=== PATIENT | male | born 1940 | race Caucasian/White ===

== ENCOUNTER 2017-01-27 13:31 | Inpatient (IN) | payer MEDICARE, MEDICAID ==
[~2017-01-27] VITALS: Ht 170.2 cm; Wt 77.1 kg
[2017-01-27 13:50] VITALS: BP 145/76
--- NOTE | 2017-01-27 14:18 | Emergency Room Report ---
History of Present Illness General Chief Complaint: Eye Problems Present Illness HPI 76 YO Male presents to the ED c/o erythema, lacrimation and d/c in bilateral eyes x 3 with drooling and previous difficulty with swallowing. Pt. shakes his head and denies changes in his vision. reports discharge, and itching. reports pain. HPI and ROS limited due to pt. being non-verbal and can only answer yes and no questions for the most part. current medications list: xarelto, omeprazole, colace, dulcolax, magnesium hydroxide, seroquel, and pravastatin. pt. also reports for G-Tube removal. Allergies: Coded Allergies: No Known Allergies (Unverified , 01/27/17) Patient History Past Medical History: see triage record Past Surgical History: none Pertinent Family History: none Reviewed Nursing Documentation: PMH: Agreed, PSxH: Agreed Nursing Documentation-PMH Past Medical History: Deferred Review of Systems All Other Systems: limited - limited due to pt. ability to varbally communicate Physical Exam Vital Signs Date Time Temp Pulse Resp B/P Pulse Ox O2 Delivery O2 Flow Rate FiO2 01/27/17 13:38 97.5 61 20 114/73 95 Room Air Sp02 EP Interpretation: reviewed, normal General Appearance: no apparent distress, alert, GCS 15, non-toxic, Chronically Ill Head: normocephalic, atraumatic Eyes: left eye abnormal pupil - only reactive to consentual light, left eye other - notable discharge in the left eye. , bilateral eye normal inspection, bilateral eye PERRL ENT: hearing grossly normal, other - Pt. is drooling and has dysphagia Neck: full range of motion, supple/symm/no masses Respiratory: rhonchi Cardiovascular #1: regular rate, rhythm, no edema Gastrointestinal: normal bowel sounds, non tender, soft, no guarding, no rebound Rectal: deferred Musculoskeletal: back normal, gait/station normal, normal range of motion, non- tender, no calf tenderness Neurologic: alert, oriented x3, responsive, motor strength/tone normal, sensory intact, aphasia, abnormal gait - shuffling gait, grossly normal Psychiatric: judgement/insight normal, memory normal, mood/affect normal, no suicidal/homicidal ideation Skin: normal color, no rash, warm/dry, well hydrated Medical Decision Making PA Attestation Dr. Yi is my supervising Physician whom patient management has been discussed with. Diagnostic Impression: Primary Impression: Conjunctivitis Qualified Codes: H10.31 - Unspecified acute conjunctivitis, right eye Additional Impressions: COPD exacerbation Afferent pupillary defect of left eye ER Course 76 YO Male presents to the ED c/o erythema, lacrimation and d/c in bilateral eyes x 3 with drooling and previous difficulty with swallowing. Pt. shakes his head and denies changes in his vision. reports discharge, and itching. reports pain. HPI and ROS limited due to pt. being non-verbal and can only answer yes and no questions for the most part. current medications list: xarelto, omeprazole, colace, dulcolax, magnesium hydroxide, seroquel, and pravastatin. pt. also reports for G-Tube removal. Ddx considered but are not limited to conjunctivitis, COPD exacerbation, sepsis just to name a few. Vital signs: are WNL, pt. is afebrile, pulse ox 95% with wheezes. H&PE are most consistent with COPD exacerbation and conjunctivitis. ORDERS: -CXR 1 view: bilateral interstitial lung disease, clear pleural spaces, hear size is normal. per official radiology report. -CBC, CMP, lactic acid, Ck-MB, tronpnin: all WNL, other than mild elevated glucose. - UA: WNL no evidence of infeciton. ED INTERVENTIONS: -Albuterol Nebulizer DISPOSITION: at this time pt. will be admitted to Dr. Swenson for COPD exacerbation, and ophthalmology referral. Dr. Swenson agreed to admit the pt. and to continue pt. care management. Labs Test 01/27/17 16:00 01/27/17 16:20 White Blood Count 8.6 K/UL (4.8-10.8) Red Blood Count 5.08 M/UL (4.70-6.10) Hemoglobin 16.3 G/DL (14.2-18.0) Hematocrit 49.8 % (42.0-52.0) Mean Corpuscular Volume 98 FL (80-99) Mean Corpuscular Hemoglobin 32.0 PG (27.0-31.0) Mean Corpuscular Hemoglobin Concent 32.7 G/DL (32.0-36.0) Red Cell Distribution Width 12.9 % (11.6-14.8) Platelet Count 160 K/UL (150-450) Mean Platelet Volume 10.8 FL (6.5-10.1) Neutrophils (%) (Auto) 68.1 % (45.0-75.0) Lymphocytes (%) (Auto) 15.0 % (20.0-45.0) Monocytes (%) (Auto) 10.6 % (1.0-10.0) Eosinophils (%) (Auto) 4.5 % (0.0-3.0) Basophils (%) (Auto) 1.8 % (0.0-2.0) Sodium Level 139 mEQ/L (135-145) Potassium Level 4.7 mEQ/L (3.4-4.9) Chloride Level 102 mEQ/L (98-107) Carbon Dioxide Level 29 mEQ/L (20-30) Anion Gap 8 (5-15) Blood Urea Nitrogen 18 mg/dL (7-23) Creatinine 1.1 mg/dL (0.7-1.2) Estimat Glomerular Filtration Rate mL/min (>60) Glucose Level 153 mg/dL (74-106) Lactic Acid Level 1.90 mmol/L (0.66-2.22) Calcium Level 11.0 mg/dL (8.6-10.2) Total Bilirubin 0.5 mg/dL (0.0-1.2) Aspartate Amino Transf (AST/SGOT) 19 U/L (5-40) Alanine Aminotransferase (ALT/SGPT) 11 U/L (3-41) Alkaline Phosphatase 157 U/L (40-129) Total Creatine Kinase 92 U/L (38-174) Creatine Kinase MB 4.4 ng/mL (< 6.7) Creatine Kinase MB Relative Index 4.7 Troponin I < 0.30 ng/mL (<=0.30) Total Protein 8.3 g/dL (6.6-8.7) Albumin 4.1 g/dL (3.5-5.2) Globulin 4.2 g/dL Albumin/Globulin Ratio 0.9 (1.0-2.7) Urine Color Pale yellow Urine Appearance Clear Urine pH 6 (4.5-8.0) Urine Specific [place] 1.015 (1.005-1.035) Urine Protein Negative (NEGATIVE) Urine Glucose (UA) Negative (NEGATIVE) Urine Ketones Negative (NEGATIVE) Urine Occult Blood Negative (NEGATIVE) Urine Nitrite Negative (NEGATIVE) Urine Bilirubin Negative (NEGATIVE) Urine Urobilinogen Normal MG/DL (0.0-1.0) Urine Leukocyte Esterase 1+ (NEGATIVE) Urine RBC 0-2 /HPF (0 - 0) Urine WBC 0-2 /HPF (0 - 0) Urine Squamous Epithelial Cells None /LPF (NONE/OCC) Urine Bacteria Occasional /HPF (NONE) Last Vital Signs Date Time Temp Pulse Resp B/P Pulse Ox O2 Delivery O2 Flow Rate FiO2 01/27/17 13:38 97.5 61 20 114/73 95 Room Air Disposition: ADMITTED INPATIENT Condition: Serious Patient Instructions: Bacterial Conjunctivitis, [id number] Ani Tovar Jan 27, 2017 14:18
[2017-01-27] MEDS ORDERED: DuoNeb 0.5-3(2.5)mg/3ml neb HHN ONE (15:15)
[2017-01-27 16:48] LABS: BASOPHILS % (AUTO) 1.8 % (0.0-2.0); EOSINOPHILS % (AUTO) 4.5 % (0.0-3.0); MEAN CORPUSCULAR HGB CONC 32.7 G/DL (32.0-36.0); MEAN CORPUSCULAR VOLUME 98 FL (80-99); MEAN PLATELET VOLUME 10.8 FL (6.5-10.1); MONOCYTES % (AUTO) 10.6 % (1.0-10.0); NEUTROPHILS % (AUTO) 68.1 % (45.0-75.0); PLATELET COUNT 160 K/UL (150-450); RED BLOOD COUNT 5.08 M/UL (4.70-6.10); RED CELL DISTRIBUTION WIDTH 12.9 % (11.6-14.8); WHITE BLOOD COUNT 8.6 K/UL (4.8-10.8)
[2017-01-27 17:06] LABS: TROPONIN I < 0.30 ng/mL (<=0.30)
[2017-01-27 17:07] LABS: APPEARANCE,URINE CLEAR; KETONES,URINE NEGATIVE (NEGATIVE); LEUKOCYTE ESTERASE ,URINE 1+ (NEGATIVE); NITRITE,URINE NEGATIVE (NEGATIVE); PH,URINE 6 (4.5-8.0); PROTEIN,URINE NEGATIVE (NEGATIVE); UROBILINOGEN,URINE NORMAL MG/DL (0.0-1.0)
[2017-01-27 17:07] LABS: ALANINE AMINOTRANSFERASE 11 U/L (3-41); ALBUMIN/GLOBULIN RATIO 0.9 (1.0-2.7); ANION GAP 8 (5-15); ASPARTATE AMINO TRANSFERASE 19 U/L (5-40); CARBON DIOXIDE 29 mEQ/L (20-30); CHLORIDE 102 mEQ/L (98-107); CREATININE 1.1 mg/dL (0.7-1.2); HEMOLYSIS 7; POTASSIUM 4.7 mEQ/L (3.4-4.9); SODIUM 139 mEQ/L (135-145); TOTAL PROTEIN 8.3 g/dL (6.6-8.7)
[2017-01-27 17:17] LABS: CKMB 4.4 ng/mL (< 6.7)
[2017-01-27 17:21] LABS: BACTERIA,URINE OCCASIONAL /HPF; RBC,URINE 0-2 /HPF (0 - 0); WBC,URINE 0-2 /HPF (0 - 0)
--- NOTE | 2017-01-27 17:26 | Infectious Diseases Prog Note ---
Assessment/Plan Problems: (1) Conjunctivitis Assessment & Plan: suspect allergic conjunctivitis, will start antihistamines, and screen for herpes and zoster (2) Pharyngitis Assessment & Plan: with no evidence of exudates, suspect allergic, VS viral , will screen for influnza, herpes and zoster , start antihistamines Subjective Allergies: Coded Allergies: No Known Allergies (Unverified , 01/27/17) Objective Vital Signs Last 24 Hour Vital Signs Date Time Temp Pulse Resp B/P Pulse Ox O2 Delivery O2 Flow Rate FiO2 01/27/17 15:52 66 20 95 Room Air 21 01/27/17 15:51 52 20 Room Air 21 01/27/17 15:42 52 20 95 Room Air 21 01/27/17 13:38 97.5 61 20 114/73 95 Room Air Height (Feet): 5 Height (Inches): 7.00 Weight (Pounds): 170 Laboratory Tests Test 01/27/17 16:00 01/27/17 16:20 White Blood Count 8.6 K/UL (4.8-10.8) Red Blood Count 5.08 M/UL (4.70-6.10) Hemoglobin 16.3 G/DL (14.2-18.0) Hematocrit 49.8 % (42.0-52.0) Mean Corpuscular Volume 98 FL (80-99) Mean Corpuscular Hemoglobin 32.0 PG (27.0-31.0) H Mean Corpuscular Hemoglobin Concent 32.7 G/DL (32.0-36.0) Red Cell Distribution Width 12.9 % (11.6-14.8) Platelet Count 160 K/UL (150-450) Mean Platelet Volume 10.8 FL (6.5-10.1) H Neutrophils (%) (Auto) 68.1 % (45.0-75.0) Lymphocytes (%) (Auto) 15.0 % (20.0-45.0) L Monocytes (%) (Auto) 10.6 % (1.0-10.0) H Eosinophils (%) (Auto) 4.5 % (0.0-3.0) H Basophils (%) (Auto) 1.8 % (0.0-2.0) Sodium Level 139 mEQ/L (135-145) Potassium Level 4.7 mEQ/L (3.4-4.9) Chloride Level 102 mEQ/L (98-107) Carbon Dioxide Level 29 mEQ/L (20-30) Anion Gap 8 (5-15) Blood Urea Nitrogen 18 mg/dL (7-23) Creatinine 1.1 mg/dL (0.7-1.2) Estimat Glomerular Filtration Rate mL/min (>60) Glucose Level 153 mg/dL (74-106) H Lactic Acid Level 1.90 mmol/L (0.66-2.22) Calcium Level 11.0 mg/dL (8.6-10.2) H Total Bilirubin 0.5 mg/dL (0.0-1.2) Aspartate Amino Transf (AST/SGOT) 19 U/L (5-40) Alanine Aminotransferase (ALT/SGPT) 11 U/L (3-41) Alkaline Phosphatase 157 U/L (40-129) H Total Creatine Kinase 92 U/L (38-174) Creatine Kinase MB 4.4 ng/mL (< 6.7) Creatine Kinase MB Relative Index 4.7 Troponin I < 0.30 ng/mL (<=0.30) Total Protein 8.3 g/dL (6.6-8.7) Albumin 4.1 g/dL (3.5-5.2) Globulin 4.2 g/dL Albumin/Globulin Ratio 0.9 (1.0-2.7) L Urine Color Pale yellow Urine Appearance Clear Urine pH 6 (4.5-8.0) Urine Specific [place] 1.015 (1.005-1.035) Urine Protein Negative (NEGATIVE) Urine Glucose (UA) Negative (NEGATIVE) Urine Ketones Negative (NEGATIVE) Urine Occult Blood Negative (NEGATIVE) Urine Nitrite Negative (NEGATIVE) Urine Bilirubin Negative (NEGATIVE) Urine Urobilinogen Normal MG/DL (0.0-1.0) Urine Leukocyte Esterase 1+ (NEGATIVE) H Urine RBC 0-2 /HPF (0 - 0) H Urine WBC 0-2 /HPF (0 - 0) Urine Squamous Epithelial Cells None /LPF (NONE/OCC) Urine Bacteria Occasional /HPF (NONE) Brenton Bustillo M.D. Jan 27, 2017 17:26
[2017-01-27] MEDS ORDERED: DiphenhydrAMINE 50mg/ml Inj IVP PRN (17:30)
--- NOTE | 2017-01-27 17:41 | Consultation ---
Consult Note Consult Note Ophthalmology Emergency Room Consultation Referring Physician: Han Swenson Reason for Consultation: conjunctivitis History of the present illness: The patient is a 76-year-old man sent to the [place] ER due to conjunctivitis as well as management of his gastrostomy tube. He is non-verbal but responds to questions. He admits that his right eye has been bothering him but it is unclear for how long. He does affirm that the vision in the left eye has been poor and this has been longstanding. Past medical Hx: cataract surgery g-tube unable to obtain hx from patient Medications: acetaminophen bisacodyl colace milk of magnesia omeprazole pravastatin seroquel xarelto Allergies: NKDA Family History: unknown Social History: live in intermediate denies tobacco use Review of Systems: unable to obtain Examination: Mini-mental status examination revealed the patient to be awake and alert but non-verbal. He is able to respond to questions by nodding his head Visual Acuity: OD: at least counting fingers, pt points to 20/200 line an nods that he can see it OS: ?hand motions Intraocular pressure (schiotz): OD: 21 mmHg OS: 17 mmHg Pupils: OD normally reactive, OS sluggish, No APD Extra-ocular motility: full OU Confrontational visual jacobs: unable Anterior Segments: External: mild edema of lid margin, mild mucous discharge Conjunctivae: 1+ conjunctival injection OU Cornea: Clear OD, Mild stromal haze OS Anterior Chambers: Deep and Quiet OU Irides: Round and flat OU Lenses: PCIOL OD, dislocated IOL OS Dilated Fundus Examination (phenylephrine 2.5%, tropicamide 1%): Vitreous: Clear OU Optic Nerves: Sharp OU, appears cupped OS Vessels: Normal course and caliber OU Maculae: Flat OD, diffuse atrophy OS Periphery: normal OD, extensive atrophy OS . Assessment/Plan Impression: 1. blepharitis, OU 2. 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 Langston has mild conjunctivitis OU which appears to be secondary to blepharitis. This will likely improve with conservative measures including frequent artificial tears to the eyes and hot compresses to the eyelids. He also has severe vision loss in the left eye which is likely longstanding. There is extensive retinal and optic nerve atrophy as well as a dislocated intraocular lens implant in the left eye. He should have outpatient Ophthalmology follow up regarding these chronic issues. Please call with any questions. Thank you very much for this consultation Oli Rutherford M.D. [phone] OLI RUTHERFORD Jan 27, 2017 17:41
[2017-01-27] MEDS: Ketotifen Fumarate 0.035% 5ml BOTH EYES SCH (18:00)
[2017-01-27] MEDS ORDERED: ACETAMINOPHEN120 MG RECTAL (18:28)
[2017-01-27] MEDS ORDERED: XARELTO20 MG GT (18:28)
[2017-01-27] MEDS ORDERED: PRAVASTATIN SOD20 M1 GT (18:28)
[2017-01-27] MEDS ORDERED: SEROQUEL50 MG GT (18:28)
[2017-01-27] MEDS ORDERED: FLEET ENEMA133 ML RECTAL (18:28)
[2017-01-27] MEDS ORDERED: OMEPRAZOLE20 M2 GT (18:28)
[2017-01-27] MEDS ORDERED: COLACE100 MG GT (18:28)
[2017-01-27] MEDS ORDERED: BISACODYL5 MG RECTAL (18:28)
[2017-01-27] MEDS ORDERED: MILK OF MA400 MG/51 GT (18:28)
[2017-01-27 18:54] VITALS: BP 143/75
[2017-01-27] MEDS ORDERED: LORazepam Inj 2mg/ml 1ml IV PRN (19:45)
[2017-01-27 20:30] VITALS: BP 135/89
[2017-01-27] MEDS ORDERED: Heparin 5000 units/ml inj SUBQ SCH (21:00)
[2017-01-27] MEDS: D5 1/2NS 1,000 ML IV SCH (21:21)
[2017-01-27] MEDS: cefTRIAXone 1 GM in NS 55 ML IVPB SCH (21:22)
--- NOTE | 2017-01-27 21:45 | Consultation ---
DATE OF CONSULTATION: INFECTIOUS DISEASE CONSULTATION CONSULTING PHYSICIAN: Brenton Bustillo M.D. REQUESTING PHYSICIAN: Han Swenson D.O. REASON FOR CONSULTATION: Right red dye and congested throat, recommendation for antibiotics treatment. HISTORY OF PRESENT ILLNESS: The patient is a 76-year-old male with unknown past medical history, presented to [facility] with right eye redness and congested throat and tenderness. The patient is nonverbal, poor historian, and history was mainly obtained from the medical record and nursing staff. The patient was found to have red congested conjunctiva mainly on the right side with congested throat. There was suspicion of bacterial conjunctivitis, but there is no evidence of pus or significant discharge from the right eye to explain at. The patient himself could not provide history at this moment. So, I was consulted by the primary provider for possible infectious etiology of his conjunctivitis and sore throat and for antibiotics management. REVIEW OF SYSTEMS: Unable to obtain. The patient is a poor historian. PAST MEDICAL HISTORY: Unknown at this moment. PAST SURGICAL HISTORY: Unable to obtain. ALLERGIES: He has no known drug allergy. MEDICATIONS: He received albuterol and ipratropium DuoNeb neb treatment in the emergency room. SOCIAL HISTORY: Unclear where he lives probably at the snf facility. FAMILY HISTORY: Unable to obtain. PHYSICAL EXAMINATION: VITAL SIGNS: Temperature 97.5, pulse 61, respirations 20, blood pressure 114/73, and saturation 95% on room air. GENERAL: Elderly male, aphasic, up in bed with right red congested eye, not in acute distress. HEENT: Normocephalic and atraumatic. Pupils are reactive to light both equally. Right congested. Sclera with clear discharge from the right eye. Congested throat with redness, no exudate, no tonsillar enlargement or pseudomembranes. Poor dental hygiene. NECK: Supple. No lymphadenopathy. CARDIOVASCULAR: Regular rate and rhythm. No murmur or gallop. LUNGS: Clear bilaterally. No wheezing or rhonchi. ABDOMEN: Soft, nontender, and nondistended. Positive bowel sounds. No hepatosplenomegaly. EXTREMITIES: No edema or cyanosis. LABORATORY DATA: Labs showed white count of 8.6, hemoglobin of 16.3. BUN of 18, creatinine of 1.1. Urinalysis showed +1 leukocyte esterase and WBC 0 to 2. ASSESSMENT AND RECOMMENDATION: 1. Acute conjunctivitis. Suspect viral versus allergic with clear secretions. We will start the patient on antihistamine empirically and screening for herpes and zoster. 2. Pharyngitis with no evidence of exudate or pseudomembranous, suspect allergic versus viral. We will screen for influenza, herpes, and zoster. Start antihistamine empirically with intravenous ceftriaxone. Brenton Bustillo M.D. DR: EDISON JOB#: [id number] CC:
--- NOTE | 2017-01-27 23:30 | History and Physical Report ---
DATE OF ADMISSION: 01/27/2017 TIME SEEN: 4 p.m. CONSULTANTS: 1. Fco León M.D. 2. Randall Torres M.D. 3. CHIEF COMPLAINT: Conjunctivitis, shortness of breath, and G-tube removal. BRIEF HISTORY: The patient is a 76-year-old male from [facility] presents with above-mentioned diagnosis. One day, increased redness in the eye, slight short of breath, diagnosed with the above, being admitted shortly. Currently, calm in ER [facility], slightly short of breath. No complaint. PAST MEDICAL HISTORY: Include failure to thrive, shortness of breath. PAST SURGICAL HISTORY: G-tube. MEDICATIONS: Albuterol. We will obtain home medications list shortly. ALLERGIES: Denies. SOCIAL HISTORY: No smoking. No alcohol. No intravenous drug abuse. FAMILY HISTORY: Noncontributory. REVIEW OF SYSTEMS: No chest pain. Slight short of breath. No nausea, vomiting, or diarrhea. PHYSICAL EXAMINATION: GENERAL: Calm in bed, oriented x2, in no acute distress. VITAL SIGNS: Temperature 97 degrees, pulse 69, respirations 20, and blood pressure 114/73. CARDIOVASCULAR: No murmur. LUNGS: Distant and poor exchange. ABDOMEN: Positive bowel sounds. Soft, nontender, and nondistended. EXTREMITIES: No cyanosis, clubbing, or edema. NEUROLOGIC: The patient moves all extremities, slightly weak. LABORATORY DATA: Pending. ASSESSMENT: 1. Shortness of breath. 2. Conjunctivitis. 3. Failure to thrive history with possible gastrostomy tube removal. PLAN: 1. Continue premedications. 2. OT, PT and dietary evaluation. 3. CBC and BMP in the morning. 4. Resume home medications. 5. O2 and pulmonary treatment as needed. 6. Antibiotics per Infectious Diseases. Dr. León, Dr. Brian Dr. to consult. I will continue to follow this patient. Han Swenson D.O. DR: Evelia JOB#: [id number] CC:
[2017-01-28] VITALS: BP 133/75
[2017-01-28 04:00] VITALS: BP 140/67
[2017-01-28 07:28] LABS: BASOPHILS % (AUTO) 1.4 % (0.0-2.0); EOSINOPHILS % (AUTO) 6.3 % (0.0-3.0); LYMPHOCYTES % (AUTO) 14.4 % (20.0-45.0); MEAN CORPUSCULAR HEMOGLOBIN 31.4 PG (27.0-31.0); MEAN CORPUSCULAR HGB CONC 32.7 G/DL (32.0-36.0); MEAN CORPUSCULAR VOLUME 96 FL (80-99); MEAN PLATELET VOLUME 10.7 FL (6.5-10.1); MONOCYTES % (AUTO) 14.2 % (1.0-10.0); NEUTROPHILS % (AUTO) 63.6 % (45.0-75.0); PLATELET COUNT 175 K/UL (150-450); RED BLOOD COUNT 4.74 M/UL (4.70-6.10); RED CELL DISTRIBUTION WIDTH 12.5 % (11.6-14.8); WHITE BLOOD COUNT 7.6 K/UL (4.8-10.8)
[2017-01-28 07:56] LABS: ALANINE AMINOTRANSFERASE 9 U/L (3-41); ALBUMIN/GLOBULIN RATIO 0.8 (1.0-2.7); ANION GAP 9 (5-15); ASPARTATE AMINO TRANSFERASE 20 U/L (5-40); CARBON DIOXIDE 27 mEQ/L (20-30); CHLORIDE 103 mEQ/L (98-107); HEMOLYSIS 6; POTASSIUM 4.1 mEQ/L (3.4-4.9); SODIUM 139 mEQ/L (135-145); TOTAL PROTEIN 7.6 g/dL (6.6-8.7)
[2017-01-28 08:00] VITALS: BP 135/80
[2017-01-28] MEDS: Ketotifen Fumarate 0.035% 5ml BOTH EYES SCH ×3 (09:03→18:28)
[2017-01-28 12:00] VITALS: BP 143/82
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
[2017-01-28] MEDS: Hydrocortisone 1% Oint 30gm TOPIC PRN (13:41)
[2017-01-28] MEDS ORDERED: DiphenhydrAMINE 50mg/ml Inj IVP PRN (15:00)
--- NOTE | 2017-01-28 15:19 | General Progress Note ---
Assessment/Plan Problem List: (1) Pharyngitis ICD Codes: J02.9 - Acute pharyngitis, unspecified SNOMED: 750756374 (2) Conjunctivitis ICD Codes: H10.9 - Unspecified conjunctivitis SNOMED: 3815648 Qualifiers: Qualified Codes: H10.31 - Unspecified acute conjunctivitis, right eye (3) COPD exacerbation ICD Codes: J44.1 - Chronic obstructive pulmonary disease with (acute) exacerbation SNOMED: 470362876, 251040772 (4) Afferent pupillary defect of left eye ICD Codes: H21.562 - Pupillary abnormality, left eye SNOMED: 389405490 Status: stable, progressing, tolerating diet Assessment/Plan ot pt diet possible gtube removal cbc bmp am Subjective Constitutional: Reports: weakness Allergies: Coded Allergies: No Known Allergies (Unverified , 01/27/17) All Systems: reviewed and negative except above Subjective weak calm Objective Last 24 Hour Vital Signs Date Time Temp Pulse Resp B/P Pulse Ox O2 Delivery O2 Flow Rate FiO2 01/28/17 12:00 97.3 58 20 143/82 95 Room Air 01/28/17 08:00 97.5 53 20 135/80 96 Room Air 01/28/17 04:00 97.2 52 20 140/67 94 Room Air 01/28/17 00:00 97.1 20 133/75 95 Room Air 01/27/17 20:30 98.9 89 20 135/89 100 Room Air 01/27/17 20:30 89 20 135/89 100 Room Air 01/27/17 18:54 97.7 53 16 143/75 Room Air 01/27/17 15:52 66 20 95 Room Air 21 01/27/17 15:51 52 20 Room Air 21 01/27/17 15:42 52 20 95 Room Air 21 Intake and Output 01/27/17 01/28/17 19:00 07:00 Intake Total 0 ml 785 ml Output Total 300 ml Balance 0 ml 485 ml Intake Oral 0 ml Free Water 100 ml IV Total 505 ml Tube Feeding 180 ml Output Urine Total 300 ml # Voids 1 Laboratory Tests 01/27/17 16:00: White Blood Count 8.6, Red Blood Count 5.08, Hemoglobin 16.3, Hematocrit 49.8, Mean Corpuscular Volume 98, Mean Corpuscular Hemoglobin 32.0H, Mean Corpuscular Hemoglobin Concent 32.7, Red Cell Distribution Width 12.9, Platelet Count 160, Mean Platelet Volume 10.8H, Neutrophils (%) (Auto) 68.1, Lymphocytes (%) (Auto) 15.0L, Monocytes (%) (Auto) 10.6H, Eosinophils (%) (Auto) 4.5H, Basophils (%) ( Auto) 1.8, Sodium Level 139, Potassium Level 4.7, Chloride Level 102, Carbon Dioxide Level 29, Anion Gap 8, Blood Urea Nitrogen 18, Creatinine 1.1, Estimat Glomerular Filtration Rate , Glucose Level 153H, Lactic Acid Level 1.90, Calcium Level 11.0H, Total Bilirubin 0.5, Aspartate Amino Transf (AST/SGOT) 19, Alanine Aminotransferase (ALT/SGPT) 11, Alkaline Phosphatase 157H, Total Creatine Kinase 92, Creatine Kinase MB 4.4, Creatine Kinase MB Relative Index 4.7, Troponin I < 0.30, Total Protein 8.3, Albumin 4.1, Globulin 4.2, Albumin/ Globulin Ratio 0.9L 01/27/17 16:20: Urine Color Pale yellow, Urine Appearance Clear, Urine pH 6, Urine Specific [place] 1.015, Urine Protein Negative, Urine Glucose (UA) Negative, Urine Ketones Negative, Urine Occult Blood Negative, Urine Nitrite Negative, Urine Bilirubin Negative, Urine Urobilinogen Normal, Urine Leukocyte Esterase 1+H, Urine RBC 0-2H, Urine WBC 0-2, Urine Squamous Epithelial Cells None, Urine Bacteria Occasional 01/28/17 05:45: White Blood Count 7.6, Red Blood Count 4.74, Hemoglobin 14.9, Hematocrit 45.5, Mean Corpuscular Volume 96, Mean Corpuscular Hemoglobin 31.4H, Mean Corpuscular Hemoglobin Concent 32.7, Red Cell Distribution Width 12.5, Platelet Count 175, Mean Platelet Volume 10.7H, Neutrophils (%) (Auto) 63.6, Lymphocytes (%) (Auto) 14.4L, Monocytes (%) (Auto) 14.2H, Eosinophils (%) (Auto) 6.3H, Basophils (%) ( Auto) 1.4, Sodium Level 139, Potassium Level 4.1, Chloride Level 103, Carbon Dioxide Level 27, Anion Gap 9, Blood Urea Nitrogen 16, Creatinine 1.0, Estimat Glomerular Filtration Rate , Glucose Level 123H, Calcium Level 9.0, Total Bilirubin 0.5, Aspartate Amino Transf (AST/SGOT) 20, Alanine Aminotransferase ( ALT/SGPT) 9, Alkaline Phosphatase 130H, Total Protein 7.6, Albumin 3.4L, Globulin 4.2, Albumin/Globulin Ratio 0.8L Height (Feet): 5 Height (Inches): 7.00 Weight (Pounds): 170 General Appearance: lethargic, confused EENT: normal ENT inspection Neck: normal alignment Cardiovascular: normal peripheral pulses, normal rate, regular rhythm Respiratory/Chest: chest wall non-tender, lungs clear, normal breath sounds Abdomen: normal bowel sounds, non tender, soft Extremities: normal inspection Edema: no edema noted Arm (L), no edema noted Arm (R), no edema noted Leg (L), no edema noted Leg (R), no edema noted Pedal (L), no edema noted Pedal (R), no edema noted Generalized Neurologic: motor weakness Skin: normal pigmentation, warm/dry BORIS ABEL Jan 28, 2017 15:19
[2017-01-28] MEDS: Xarelto 10mg tab ORAL SCH (15:37)
[2017-01-28 16:00] VITALS: BP 144/80
[2017-01-28] MEDS: D5 1/2NS 1,000 ML IV SCH (16:39)
--- NOTE | 2017-01-28 16:39 | Infectious Diseases Prog Note ---
Assessment/Plan Problems: (1) Conjunctivitis Assessment & Plan: suspect allergic conjunctivitis, will start antihistamines, and screen for herpes and zoster (2) Pharyngitis Assessment & Plan: with no evidence of exudates, suspect allergic, VS viral , will screen for influnza, herpes and zoster , start antihistamines (3) Itching with irritation Assessment & Plan: rule out scabies, will give once course of Elimite empirically , continue antihistamines Subjective Constitutional: Reports: no symptoms HEENT: Reports: congestion Respiratory: Reports: no symptoms Breasts: Reports: no symptoms Cardiovascular: Reports: no symptoms Gastrointestinal/Abdominal: Reports: no symptoms Genitourinary: Reports: no symptoms Neurologic: Reports: no symptoms Psychiatric: Reports: no symptoms Skin: Reports: other - itching Endocrine: Reports: no symptoms Hematologic: Reports: no symptoms Allergies: Coded Allergies: No Known Allergies (Unverified , 01/27/17) Objective Vital Signs Last 24 Hour Vital Signs Date Time Temp Pulse Resp B/P Pulse Ox O2 Delivery O2 Flow Rate FiO2 01/28/17 16:00 98.2 58 20 144/80 93 Room Air 01/28/17 12:00 97.3 58 20 143/82 95 Room Air 01/28/17 08:00 97.5 53 20 135/80 96 Room Air 01/28/17 04:00 97.2 52 20 140/67 94 Room Air 01/28/17 00:00 97.1 20 133/75 95 Room Air 01/27/17 20:30 98.9 89 20 135/89 100 Room Air 01/27/17 20:30 89 20 135/89 100 Room Air 01/27/17 18:54 97.7 53 16 143/75 Room Air Height (Feet): 5 Height (Inches): 7.00 Weight (Pounds): 170 General Appearance: WD/WN, no acute distress HEENT: normocephalic, atraumatic, anicteric, mucous membranes moist, PERRL Respiratory/Chest: chest wall non-tender, lungs clear, normal breath sounds, no respiratory distress, no accessory muscle use Cardiovascular: normal peripheral pulses, normal rate, regular rhythm, no gallop/murmur, no JVD Abdomen: normal bowel sounds, soft, non tender, no organomegaly, non distended , no mass, no scars Extremities: no cyanosis, no clubbing Skin: no rash, no lesions, no ulcers, other - bruises Neurologic/Psychiatric: alert Microbiology Date/Time Source Procedure Growth Status 01/27/17 22:20 Nasal Nares Influenza Types A,B Antigen (MARIAN) - Final Complete Laboratory Tests Test 01/28/17 05:45 White Blood Count 7.6 K/UL (4.8-10.8) Red Blood Count 4.74 M/UL (4.70-6.10) Hemoglobin 14.9 G/DL (14.2-18.0) Hematocrit 45.5 % (42.0-52.0) Mean Corpuscular Volume 96 FL (80-99) Mean Corpuscular Hemoglobin 31.4 PG (27.0-31.0) H Mean Corpuscular Hemoglobin Concent 32.7 G/DL (32.0-36.0) Red Cell Distribution Width 12.5 % (11.6-14.8) Platelet Count 175 K/UL (150-450) Mean Platelet Volume 10.7 FL (6.5-10.1) H Neutrophils (%) (Auto) 63.6 % (45.0-75.0) Lymphocytes (%) (Auto) 14.4 % (20.0-45.0) L Monocytes (%) (Auto) 14.2 % (1.0-10.0) H Eosinophils (%) (Auto) 6.3 % (0.0-3.0) H Basophils (%) (Auto) 1.4 % (0.0-2.0) Sodium Level 139 mEQ/L (135-145) Potassium Level 4.1 mEQ/L (3.4-4.9) Chloride Level 103 mEQ/L (98-107) Carbon Dioxide Level 27 mEQ/L (20-30) Anion Gap 9 (5-15) Blood Urea Nitrogen 16 mg/dL (7-23) Creatinine 1.0 mg/dL (0.7-1.2) Estimat Glomerular Filtration Rate mL/min (>60) Glucose Level 123 mg/dL (74-106) H Calcium Level 9.0 mg/dL (8.6-10.2) Total Bilirubin 0.5 mg/dL (0.0-1.2) Aspartate Amino Transf (AST/SGOT) 20 U/L (5-40) Alanine Aminotransferase (ALT/SGPT) 9 U/L (3-41) Alkaline Phosphatase 130 U/L (40-129) H Total Protein 7.6 g/dL (6.6-8.7) Albumin 3.4 g/dL (3.5-5.2) L Globulin 4.2 g/dL Albumin/Globulin Ratio 0.8 (1.0-2.7) L Current Medications Medications (Trade) Dose Ordered Sig/Robin Route PRN Reason Start Time Stop Time Status Last Admin Dose Admin Ceftriaxone Sodium/Sodium Chloride (Rocephin/Sodium Chloride) 55 ml @ 110 mls/hr Q24HRS IVPB 01/27/17 21:00 02/03/17 20:59 01/27/17 21:22 Clotrimazole (Lotrimin) 1 applic EVERY 12 HOURS TOPIC 01/28/17 21:00 02/27/17 20:59 Dextrose (Dextrose 50%) STAT PRN IV Hypoglycemia 01/27/17 19:45 02/26/17 19:44 Dextrose/Sodium Chloride (D5 0.45% NS) 1,000 ml @ 50 mls/hr Q20H IV 01/27/17 21:00 02/26/17 20:59 01/27/17 21:21 Diphenhydramine HCl (Benadryl) 25 mg Q6H PRN IVP Dry Eyes 01/28/17 15:00 02/27/17 14:59 01/28/17 15:37 Hydrocortisone (Hydrocortisone) 1 applic Q6H PRN TOPIC Itching 01/28/17 12:30 02/27/17 12:29 01/28/17 13:41 Ketotifen Fumarate 1 drop 1 drop TWICE A DAY BOTH EYES 01/27/17 18:00 02/01/17 09:01 01/28/17 09:04 Lorazepam (Ativan 2mg/ml 1ml) 0.5 mg Q4H PRN IV For Anxiety 01/27/17 19:45 02/03/17 19:44 Morphine Sulfate (Morphine Sulfate) 1 mg Q4H PRN IVP For Pain 4-10 01/27/17 19:45 02/03/17 19:44 Ondansetron HCl (Zofran) 4 mg Q6H PRN IVP Nausea & Vomiting 01/27/17 19:45 9/15/17 19:44 Pantoprazole (Protonix) 40 mg DAILY ORAL 01/28/17 09:00 02/27/17 08:59 01/28/17 09:03 Phenol/Menthol (Chloraseptic) 1 spray Q3H PRN ORAL SORE THROAT PAIN 01/28/17 16:30 02/27/17 16:29 Pravastatin Sodium (Pravachol) 20 mg BEDTIME GT 01/27/17 21:00 02/26/17 20:59 01/27/17 21:21 Rivaroxaban 20 mg 20 mg QPM ORAL 01/28/17 16:30 02/27/17 16:29 01/28/17 15:37 Brenton Bustillo M.D. Jan 28, 2017 16:39
--- NOTE | 2017-01-28 16:43 | GI Initial Consult Note ---
Ayala,Amanda Get N.P. 01/28/17 1643: History of Present Illness General Date patient seen: Jan 28, 2017 Time patient seen: 16:38 Reason for Hospitalization: Eye Problems Referring physician: BORIS ABEL Reason for Consultation: G-TUBE REMOVAL Present Illness HPI CHIEF COMPLAINT: Conjunctivitis, shortness of breath, and G-tube removal. BRIEF HISTORY: The patient is a 76-year-old male from [facility] presents with above-mentioned diagnosis. One day, increased redness in the eye, slight short of breath, diagnosed with the above, being admitted shortly. Currently, calm in ER [place], slightly short of breath. No complaint. GI Consult. HPI as noted above. GI consulted for G-tube removal. Pt seen on floor, ROS limited nonverbal. NAD with no active s/sx of N/V/D with current GTFs running. Home Meds Reported Medications Docusate Sodium (Docusate Sodium) 50 Mg/5 Ml Liquid, 100 MG GT DAILY, EA 02/02/17 Memantine Hcl* (NAMENDA*) 5 Mg Tablet, 5 MG ORAL Q12HR, TAB 02/02/17 Lorazepam* (LORAZEPAM*) 1 Mg Tablet, 1 MG GT Q6hr Y for Agitation, TAB 02/02/17 Risperidone* (RISPERDAL*) 0.5 Mg Tablet, 0.5 MG GT BID, #30 TAB 0 Refills 02/02/17 Ranitidine Hcl* (ZANTAC*) 150 Mg Tablet, 150 MG ORAL DAILY, TAB 0 Refills 01/30/17 Clotrimazole* (LOTRIMIN*) 15 Gm Cream..g., 1 APPLIC TOPIC TWICE A DAY, GM 01/30/17 Ketotifen Fumarate (KETOTIFEN FUMARATE) 5 Ml Drops, 5 ML OP BID for 3 Days, ML 01/30/17 Mupirocin Nasal (BACTROBAN NASAL) 1 Gm Oint...g., 1 APPLIC NASAL THREE TIMES A DAY for 5 Days, GM Elimination of MRSA colonization: Approximately one-half of the ointment from the single-use tube should be applied into one nostril and the other half into the other nostril twice daily for 5 days 01/30/17 Acetaminophen* (TYLENOL*) 120 Mg Supp.rect, 500 MG RECTAL Q4H Y for Mild Pain/ Temp > 100.5, SUPP 01/27/17 Quetiapine Fumarate (SEROQUEL) 50 Mg Tablet, 12.5 MG GT DAILY, #15 TAB 0 Refills 01/27/17 Rivaroxaban (XARELTO) 20 Mg Tablet, 20 MG GT HS for 30 Days, MG 0 Refills 01/27/17 Pravastatin Sod* (PRAVASTATIN SOD*) 20 Mg Tablet, 20 MG GT BEDTIME, TAB 01/27/17 Omeprazole (OMEPRAZOLE) 20 Mg Capsule.dr, 20 MG GT DAILY, CAP 01/27/17 Magnesium Hydroxide* (MILK OF MAGNESIA*) 400 Mg/5 Ml Oral.susp, 30 ML GT DAILY, ML 01/27/17 Na Phos,M-B/Na Phos,Di-Ba* (FLEET ENEMA*) 133 Ml Enema, 133 ML RECTAL DAILY, ML 0 Refills 01/27/17 Bisacodyl* (DULCOLAX*) 5 Mg Tablet.dr, 10 MG RECTAL DAILY, #10 TAB 0 Refills 01/27/17 Docusate Sodium* (COLACE*) 100 Mg Capsule, 100 MG GT DAILY, CAP 01/27/17 Med list reviewed/reconciled: Yes Allergies: Coded Allergies: No Known Allergies (Unverified , 01/27/17) Patient History PMH Narrative PAST MEDICAL HISTORY: Include failure to thrive, shortness of breath. PAST SURGICAL HISTORY: G-tube. Social History: Denies: smoking, alcohol use, drug use, other Review of Systems All Other Systems: limited Physical Exam Vital Signs Date Time Temp Pulse Resp B/P Pulse Ox O2 Delivery O2 Flow Rate FiO2 01/27/17 13:38 97.5 61 20 114/73 95 Room Air 01/27/17 15:42 21 Sp02 EP Interpretation: reviewed Labs Laboratory Tests Test 01/28/17 05:45 White Blood Count 7.6 K/UL (4.8-10.8) Red Blood Count 4.74 M/UL (4.70-6.10) Hemoglobin 14.9 G/DL (14.2-18.0) Hematocrit 45.5 % (42.0-52.0) Mean Corpuscular Volume 96 FL (80-99) Mean Corpuscular Hemoglobin 31.4 PG (27.0-31.0) H Mean Corpuscular Hemoglobin Concent 32.7 G/DL (32.0-36.0) Red Cell Distribution Width 12.5 % (11.6-14.8) Platelet Count 175 K/UL (150-450) Mean Platelet Volume 10.7 FL (6.5-10.1) H Neutrophils (%) (Auto) 63.6 % (45.0-75.0) Lymphocytes (%) (Auto) 14.4 % (20.0-45.0) L Monocytes (%) (Auto) 14.2 % (1.0-10.0) H Eosinophils (%) (Auto) 6.3 % (0.0-3.0) H Basophils (%) (Auto) 1.4 % (0.0-2.0) Sodium Level 139 mEQ/L (135-145) Potassium Level 4.1 mEQ/L (3.4-4.9) Chloride Level 103 mEQ/L (98-107) Carbon Dioxide Level 27 mEQ/L (20-30) Anion Gap 9 (5-15) Blood Urea Nitrogen 16 mg/dL (7-23) Creatinine 1.0 mg/dL (0.7-1.2) Estimat Glomerular Filtration Rate mL/min (>60) Glucose Level 123 mg/dL (74-106) H Calcium Level 9.0 mg/dL (8.6-10.2) Total Bilirubin 0.5 mg/dL (0.0-1.2) Aspartate Amino Transf (AST/SGOT) 20 U/L (5-40) Alanine Aminotransferase (ALT/SGPT) 9 U/L (3-41) Alkaline Phosphatase 130 U/L (40-129) H Total Protein 7.6 g/dL (6.6-8.7) Albumin 3.4 g/dL (3.5-5.2) L Globulin 4.2 g/dL Albumin/Globulin Ratio 0.8 (1.0-2.7) L General Appearance: well appearing, no apparent distress Head: normocephalic EENT: normal ENT inspection Neck: full range of motion, supple Respiratory: normal breath sounds, no respiratory distress Cardiovascular: normal rate Gastrointestinal: normal inspection, non tender, soft, gt - c/d/i Rectal: deferred Musculoskeletal: back normal Neurologic: normal inspection, alert, oriented x3, responsive Psychiatric: normal inspection, judgement/insight normal, memory normal Skin: normal inspection, normal color, no rash, warm/dry Lymphatic: normal inspection, no adenopathy Current Medications Current Medications Medications (Trade) Dose Ordered Sig/Robin Route PRN Reason Start Time Stop Time Status Last Admin Dose Admin Ceftriaxone Sodium/Sodium Chloride (Rocephin/Sodium Chloride) 55 ml @ 110 mls/hr Q24HRS IVPB 01/27/17 21:00 02/03/17 20:59 01/27/17 21:22 Clotrimazole (Lotrimin) 1 applic EVERY 12 HOURS TOPIC 01/28/17 21:00 02/27/17 20:59 Dextrose (Dextrose 50%) STAT PRN IV Hypoglycemia 01/27/17 19:45 02/26/17 19:44 Dextrose/Sodium Chloride (D5 0.45% NS) 1,000 ml @ 50 mls/hr Q20H IV 01/27/17 21:00 02/26/17 20:59 01/27/17 21:21 Diphenhydramine HCl (Benadryl) 25 mg Q6H PRN IVP Dry Eyes 01/28/17 15:00 02/27/17 14:59 01/28/17 15:37 Hydrocortisone (Hydrocortisone) 1 applic Q6H PRN TOPIC Itching 01/28/17 12:30 02/27/17 12:29 01/28/17 13:41 Ketotifen Fumarate 1 drop 1 drop TWICE A DAY BOTH EYES 01/27/17 18:00 02/01/17 09:01 01/28/17 09:04 Lorazepam (Ativan 2mg/ml 1ml) 0.5 mg Q4H PRN IV For Anxiety 01/27/17 19:45 02/03/17 19:44 Morphine Sulfate (Morphine Sulfate) 1 mg Q4H PRN IVP For Pain 4-10 01/27/17 19:45 02/03/17 19:44 Ondansetron HCl (Zofran) 4 mg Q6H PRN IVP Nausea & Vomiting 01/27/17 19:45 02/26/17 19:44 Pantoprazole (Protonix) 40 mg DAILY ORAL 01/28/17 09:00 02/27/17 08:59 01/28/17 09:03 Phenol/Menthol (Chloraseptic) 1 spray Q3H PRN ORAL SORE THROAT PAIN 01/28/17 16:30 02/27/17 16:29 Pravastatin Sodium (Pravachol) 20 mg BEDTIME GT 01/27/17 21:00 02/26/17 20:59 01/27/17 21:21 Rivaroxaban 20 mg 20 mg QPM ORAL 01/28/17 16:30 02/27/17 16:29 01/28/17 15:37 GI: Plan Problems: (1) PEG (percutaneous endoscopic gastrostomy) adjustment/replacement/removal (2) Dysphagia Plan ordered ST to evaluate swallowing function prior to GT removal cont GTF's per dietary symptomatic treatment bowel regime fu labs Discussed with Dr. Ren. RANDALL REN 02/04/17 1159: History of Present Illness General Reason for Hospitalization: Eye Problems Present Illness Home Meds Reported Medications Docusate Sodium (Docusate Sodium) 50 Mg/5 Ml Liquid, 100 MG GT DAILY, EA 02/02/17 Memantine Hcl* (NAMENDA*) 5 Mg Tablet, 5 MG ORAL Q12HR, TAB 02/02/17 Lorazepam* (LORAZEPAM*) 1 Mg Tablet, 1 MG GT Q6hr Y for Agitation, TAB 02/02/17 Risperidone* (RISPERDAL*) 0.5 Mg Tablet, 0.5 MG GT BID, #30 TAB 0 Refills 02/02/17 Ranitidine Hcl* (ZANTAC*) 150 Mg Tablet, 150 MG ORAL DAILY, TAB 0 Refills 01/30/17 Clotrimazole* (LOTRIMIN*) 15 Gm Cream..g., 1 APPLIC TOPIC TWICE A DAY, GM 01/30/17 Ketotifen Fumarate (KETOTIFEN FUMARATE) 5 Ml Drops, 5 ML OP BID for 3 Days, ML 01/30/17 Mupirocin Nasal (BACTROBAN NASAL) 1 Gm Oint...g., 1 APPLIC NASAL THREE TIMES A DAY for 5 Days, GM Elimination of MRSA colonization: Approximately one-half of the ointment from the single-use tube should be applied into one nostril and the other half into the other nostril twice daily for 5 days 01/30/17 Acetaminophen* (TYLENOL*) 120 Mg Supp.rect, 500 MG RECTAL Q4H Y for Mild Pain/ Temp > 100.5, SUPP 01/27/17 Quetiapine Fumarate (SEROQUEL) 50 Mg Tablet, 12.5 MG GT DAILY, #15 TAB 0 Refills 01/27/17 Rivaroxaban (XARELTO) 20 Mg Tablet, 20 MG GT HS for 30 Days, MG 0 Refills 01/27/17 Pravastatin Sod* (PRAVASTATIN SOD*) 20 Mg Tablet, 20 MG GT BEDTIME, TAB 01/27/17 Omeprazole (OMEPRAZOLE) 20 Mg Capsule.dr, 20 MG GT DAILY, CAP 01/27/17 Magnesium Hydroxide* (MILK OF MAGNESIA*) 400 Mg/5 Ml Oral.susp, 30 ML GT DAILY, ML 01/27/17 Na Phos,M-B/Na Phos,Di-Ba* (FLEET ENEMA*) 133 Ml Enema, 133 ML RECTAL DAILY, ML 0 Refills 01/27/17 Bisacodyl* (DULCOLAX*) 5 Mg Tablet.dr, 10 MG RECTAL DAILY, #10 TAB 0 Refills 01/27/17 Docusate Sodium* (COLACE*) 100 Mg Capsule, 100 MG GT DAILY, CAP 01/27/17 Allergies: Coded Allergies: No Known Allergies (Unverified , 01/27/17) GI: Plan Plan The patient was seen and examined at bedside and all new and available data was reviewed in the patients chart. I agree with the above findings, impression and plan. (Patient seen earlier today. Signature stamp does not reflect patient encounter time.). -Randall Ayala,[facility] Get N[facility]P. Jan 28, 2017 16:43 RANDALL REN Feb 04, 2017 11:59
--- NOTE | 2017-01-28 17:08 | Consultation ---
History of Present Illness General Date patient seen: Jan 28, 2017 Chief Complaint: Eye Problems Referring physician: BORIS ABEL Reason for Consultation: interstitial lung disease Present Illness HPI 76 year old male with hx of dementia, Gtube, psychosis, shelter resident presented to ER with CC of red eye and dyspnea. Initial CXR showed increased interstitial infiltrate. Pt is awake, but not communicating and can/t give any history. Allergies: Coded Allergies: No Known Allergies (Unverified , 01/27/17) Medication History Scheduled Bisacodyl* (Dulcolax*), 10 MG RECTAL DAILY, (Reported) Docusate Sodium* (Colace*), 100 MG GT DAILY, (Reported) Magnesium Hydroxide* (Milk Of Magnesia*), 30 ML GT DAILY, (Reported) Na Phos,M-B/Na Phos,Di-Ba* (Fleet Enema*), 133 ML RECTAL DAILY, (Reported) Omeprazole (Omeprazole), 20 MG GT DAILY, (Reported) Pravastatin Sod* (Pravastatin Sod*), 20 MG GT BEDTIME, (Reported) Quetiapine Fumarate (Seroquel), 12.5 MG GT DAILY, (Reported) Rivaroxaban (Xarelto), 20 MG GT HS, (Reported) Scheduled PRN Acetaminophen* (Tylenol*), 500 MG RECTAL Q4H PRN for Mild Pain/Temp > 100.5, ( Reported) Patient History Healthcare decision maker Resuscitation status Full Code Advanced Directive on File Yes Past Medical/Surgical History Past Medical/Surgical History: (1) Dementia with psychosis (2) PEG (percutaneous endoscopic gastrostomy) adjustment/replacement/removal Review of Systems All Other Systems: negative except mentioned in HPI Physical Exam General Appearance: cachetic Lines, tubes and drains: peripheral HEENT: normocephalic, atraumatic Neck: non-tender, normal alignment Respiratory/Chest: chest wall non-tender, normal breath sounds Breasts: no masses Cardiovascular/Chest: normal peripheral pulses, normal rate Abdomen: normal bowel sounds Genitourinary/Rectal: normal genital exam Extremities: normal range of motion Last 24 Hour Vital Signs Date Time Temp Pulse Resp B/P Pulse Ox O2 Delivery O2 Flow Rate FiO2 01/28/17 16:00 98.2 58 20 144/80 93 Room Air 01/28/17 12:00 97.3 58 20 143/82 95 Room Air 8/17/17 08:00 97.5 53 20 135/80 96 Room Air 01/28/17 04:00 97.2 52 20 140/67 94 Room Air 01/28/17 00:00 97.1 20 133/75 95 Room Air 01/27/17 20:30 98.9 89 20 135/89 100 Room Air 01/27/17 20:30 89 20 135/89 100 Room Air 01/27/17 18:54 97.7 53 16 143/75 Room Air Intake and Output 01/27/17 01/28/17 19:00 07:00 Intake Total 0 ml 785 ml Output Total 300 ml Balance 0 ml 485 ml Intake Oral 0 ml Free Water 100 ml IV Total 505 ml Tube Feeding 180 ml Output Urine Total 300 ml # Voids 1 Laboratory Tests Test 01/28/17 05:45 White Blood Count 7.6 K/UL (4.8-10.8) Red Blood Count 4.74 M/UL (4.70-6.10) Hemoglobin 14.9 G/DL (14.2-18.0) Hematocrit 45.5 % (42.0-52.0) Mean Corpuscular Volume 96 FL (80-99) Mean Corpuscular Hemoglobin 31.4 PG (27.0-31.0) H Mean Corpuscular Hemoglobin Concent 32.7 G/DL (32.0-36.0) Red Cell Distribution Width 12.5 % (11.6-14.8) Platelet Count 175 K/UL (150-450) Mean Platelet Volume 10.7 FL (6.5-10.1) H Neutrophils (%) (Auto) 63.6 % (45.0-75.0) Lymphocytes (%) (Auto) 14.4 % (20.0-45.0) L Monocytes (%) (Auto) 14.2 % (1.0-10.0) H Eosinophils (%) (Auto) 6.3 % (0.0-3.0) H Basophils (%) (Auto) 1.4 % (0.0-2.0) Sodium Level 139 mEQ/L (135-145) Potassium Level 4.1 mEQ/L (3.4-4.9) Chloride Level 103 mEQ/L (98-107) Carbon Dioxide Level 27 mEQ/L (20-30) Anion Gap 9 (5-15) Blood Urea Nitrogen 16 mg/dL (7-23) Creatinine 1.0 mg/dL (0.7-1.2) Estimat Glomerular Filtration Rate mL/min (>60) Glucose Level 123 mg/dL (74-106) H Calcium Level 9.0 mg/dL (8.6-10.2) Total Bilirubin 0.5 mg/dL (0.0-1.2) Aspartate Amino Transf (AST/SGOT) 20 U/L (5-40) Alanine Aminotransferase (ALT/SGPT) 9 U/L (3-41) Alkaline Phosphatase 130 U/L (40-129) H Total Protein 7.6 g/dL (6.6-8.7) Albumin 3.4 g/dL (3.5-5.2) L Globulin 4.2 g/dL Albumin/Globulin Ratio 0.8 (1.0-2.7) L Microbiology Date/Time Source Procedure Growth Status 01/27/17 22:20 Nasal Nares Influenza Types A,B Antigen (MARIAN) - Final Complete Height (Feet): 5 Height (Inches): 7.00 Weight (Pounds): 170 Medications Current Medications Medications (Trade) Dose Ordered Sig/Robin Route PRN Reason Start Time Stop Time Status Last Admin Dose Admin Ceftriaxone Sodium/Sodium Chloride (Rocephin/Sodium Chloride) 55 ml @ 110 mls/hr Q24HRS IVPB 01/27/17 21:00 02/03/17 20:59 01/27/17 21:22 Clotrimazole (Lotrimin) 1 applic EVERY 12 HOURS TOPIC 01/28/17 21:00 02/27/17 20:59 Dextrose (Dextrose 50%) STAT PRN IV Hypoglycemia 01/27/17 19:45 02/26/17 19:44 Dextrose/Sodium Chloride (D5 0.45% NS) 1,000 ml @ 50 mls/hr Q20H IV 01/27/17 21:00 02/26/17 20:59 01/28/17 16:39 Diphenhydramine HCl (Benadryl) 25 mg Q6H PRN IVP Dry Eyes 01/28/17 15:00 02/27/17 14:59 01/28/17 15:37 Hydrocortisone (Hydrocortisone) 1 applic Q6H PRN TOPIC Itching 01/28/17 12:30 02/27/17 12:29 01/28/17 13:41 Ketotifen Fumarate 1 drop 1 drop TWICE A DAY BOTH EYES 01/27/17 18:00 02/01/17 09:01 01/28/17 09:04 Lorazepam (Ativan 2mg/ml 1ml) 0.5 mg Q4H PRN IV For Anxiety 01/27/17 19:45 02/03/17 19:44 Morphine Sulfate (Morphine Sulfate) 1 mg Q4H PRN IVP For Pain 4-10 01/27/17 19:45 02/03/17 19:44 Ondansetron HCl (Zofran) 4 mg Q6H PRN IVP Nausea & Vomiting 01/27/17 19:45 02/26/17 19:44 Pantoprazole (Protonix) 40 mg DAILY ORAL 01/28/17 09:00 02/27/17 08:59 01/28/17 09:03 Phenol/Menthol (Chloraseptic) 1 spray Q3H PRN ORAL SORE THROAT PAIN 01/28/17 16:30 02/27/17 16:29 Pravastatin Sodium (Pravachol) 20 mg BEDTIME GT 01/27/17 21:00 02/26/17 20:59 01/27/17 21:21 Rivaroxaban 20 mg 20 mg QPM ORAL 01/28/17 16:30 02/27/17 16:29 01/28/17 15:37 Assessment/Plan Problem List: (1) Interstitial lung disease ICD Codes: J84.9 - Interstitial pulmonary disease, unspecified SNOMED: 577438743 (2) Dementia with psychosis ICD Codes: F03.91 - Unspecified dementia with behavioral disturbance SNOMED: 72760643, 41823225 (3) PEG (percutaneous endoscopic gastrostomy) adjustment/replacement/removal ICD Codes: Z43.1 - Encounter for attention to gastrostomy SNOMED: 269174145, 740464364 (4) Dysphagia ICD Codes: R13.10 - Dysphagia, unspecified SNOMED: 38403755, 511666381 (5) Conjunctivitis ICD Codes: H10.9 - Unspecified conjunctivitis SNOMED: 1502793 Qualifiers: Qualified Codes: H10.31 - Unspecified acute conjunctivitis, right eye Assessment/Plan CT chest respiratory treatment titrate fio2 to sat of 92 GI evaluation swallow evaluation dvt prophylaxis MARIE PARKER Jan 28, 2017 17:08
[2017-01-28] MEDS: Chloraseptic Spray 20mL Bottle ORAL PRN (18:28)
[2017-01-28 20:00] VITALS: BP 141/79
[2017-01-28] MEDS: cefTRIAXone 1 GM in NS 55 ML IVPB SCH (21:01)
[2017-01-29] VITALS: BP 128/90
[2017-01-29 04:00] VITALS: BP 113/58
[2017-01-29 07:28] LABS: BASOPHILS % (AUTO) 1.4 % (0.0-2.0); EOSINOPHILS % (AUTO) 4.6 % (0.0-3.0); LYMPHOCYTES % (AUTO) 11.1 % (20.0-45.0); MEAN CORPUSCULAR HEMOGLOBIN 31.6 PG (27.0-31.0); MEAN CORPUSCULAR HGB CONC 32.9 G/DL (32.0-36.0); MEAN CORPUSCULAR VOLUME 96 FL (80-99); MEAN PLATELET VOLUME 11.6 FL (6.5-10.1); MONOCYTES % (AUTO) 13.1 % (1.0-10.0); NEUTROPHILS % (AUTO) 69.8 % (45.0-75.0); PLATELET COUNT 164 K/UL (150-450); RED BLOOD COUNT 4.78 M/UL (4.70-6.10); RED CELL DISTRIBUTION WIDTH 12.7 % (11.6-14.8); WHITE BLOOD COUNT 8.1 K/UL (4.8-10.8)
[2017-01-29 07:29] LABS: ANION GAP 6 (5-15); CALCIUM 8.8 mg/dL (8.6-10.2); CARBON DIOXIDE 28 mEQ/L (20-30); CHLORIDE 103 mEQ/L (98-107); CREATININE 1.1 mg/dL (0.7-1.2); HEMOLYSIS 5; POTASSIUM 4.4 mEQ/L (3.4-4.9); SODIUM 137 mEQ/L (135-145)
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
[2017-01-29 08:00] VITALS: BP 119/68
--- NOTE | 2017-01-29 08:56 | Diagnostic Imaging Report ---
Clinical Indication: DYSPNEA Technique: Spiral acquisition obtained through the chest. No IV contrast utilized, per high resolution protocol. Axial 5 x 5 mm slices were reconstructed. Axial 1 mm thick slices were reconstructed using high resolution algorithm at 10 mm intervals. Multiplanar reconstructions generated. Total dose length product 626 mGycm. CTDIvol(s) 18 mGy. Dose reduction achieved using automated exposure control Comparison: None Findings: Numerous bullae and subpleural blebs are seen throughout both lungs, mostly peripheral. Extensive honeycombing is seen involving the bilateral lower lobes as well as the posterior inferior upper lobes. At the superior images of the areas of honeycombing there is some groundglass opacity bilaterally. No dense consolidation demonstrated. No generalized interstitial septal thickening, nodularity, subpleural linear opacities are demonstrated. No definite infiltrates, masses, or nodules, although a mass could easily be obscured in areas of groundglass opacity. The heart is mildly enlarged. No pulmonary arterial dilatation is demonstrated. There is a prominent right paratracheal node, which measures 19 mm long axis diameter and 13 mm short axis diameter. Other less prominent mediastinal lymph nodes are demonstrated. No hilar mass or adenopathy. The included thyroid is unremarkable. No axillary or chest wall mass or adenopathy. The bones are unremarkable except for degenerative changes of the thoracic spine The included upper abdominal anatomy is remarkable for the presence of at least one gallstone. There is a gastrostomy in good position. There is colonic diverticulosis. Impression: Pulmonary bullous change and honeycombing, as described. Findings are consistent with a combination of COPD changes and chronic end-stage interstitial fibrosis, bladder nonspecific as regards etiology Borderline right paratracheal lymphadenopathy, nonspecific Borderline cardiomegaly Cholelithiasis Other findings as noted, including gastrostomy, colonic diverticulosis The CT scanner at [facility] is accredited by the [employer] and the scans are performed using protocols designed to limit radiation exposure to as low as reasonably achievable to attain images of sufficient resolution adequate for diagnostic evaluation.
[2017-01-29] MEDS: Ketotifen Fumarate 0.035% 5ml BOTH EYES SCH ×2 (09:15→17:15)
[2017-01-29] MEDS: Chloraseptic Spray 20mL Bottle ORAL PRN (09:15)
--- NOTE | 2017-01-29 11:00 | GI Progress Note ---
Assessment/Plan Problems: (1) PEG (percutaneous endoscopic gastrostomy) adjustment/replacement/removal ICD Codes: Z43.1 - Encounter for attention to gastrostomy SNOMED: 021021102, 057095938 (2) Dysphagia ICD Codes: R13.10 - Dysphagia, unspecified SNOMED: 30680252, 879144993 (3) Itching with irritation ICD Codes: L29.9 - Pruritus, unspecified SNOMED: 583883109, 060071818 Status: stable Status Narrative Discussed with Dr. Torres. Assessment/Plan fu ST to evaluate swallowing function prior to GT removal cont GTF's per dietary symptomatic treatment bowel regime fu labs Subjective Subjective limited Objective Last 24 Hour Vital Signs Date Time Temp Pulse Resp B/P Pulse Ox O2 Delivery O2 Flow Rate FiO2 01/29/17 08:00 97.8 52 19 119/68 94 Room Air 01/29/17 04:00 97.7 53 18 113/58 94 Room Air 01/29/17 00:00 97.5 50 20 128/90 94 Room Air 01/28/17 20:00 97.9 62 20 141/79 95 Room Air 01/28/17 16:00 98.2 58 20 144/80 93 Room Air 01/28/17 12:00 97.3 58 20 143/82 95 Room Air Intake and Output 01/28/17 01/29/17 19:00 07:00 Intake Total 1050 ml 1150 ml Balance 1050 ml 1150 ml Free Water 240 ml 130 ml IV Total 450 ml 660 ml Tube Feeding 360 ml 360 ml # Voids 5 Laboratory Tests Test 01/29/17 06:20 White Blood Count 8.1 K/UL (4.8-10.8) Red Blood Count 4.78 M/UL (4.70-6.10) Hemoglobin 15.1 G/DL (14.2-18.0) Hematocrit 45.9 % (42.0-52.0) Mean Corpuscular Volume 96 FL (80-99) Mean Corpuscular Hemoglobin 31.6 PG (27.0-31.0) H Mean Corpuscular Hemoglobin Concent 32.9 G/DL (32.0-36.0) Red Cell Distribution Width 12.7 % (11.6-14.8) Platelet Count 164 K/UL (150-450) Mean Platelet Volume 11.6 FL (6.5-10.1) H Neutrophils (%) (Auto) 69.8 % (45.0-75.0) Lymphocytes (%) (Auto) 11.1 % (20.0-45.0) L Monocytes (%) (Auto) 13.1 % (1.0-10.0) H Eosinophils (%) (Auto) 4.6 % (0.0-3.0) H Basophils (%) (Auto) 1.4 % (0.0-2.0) Sodium Level 137 mEQ/L (135-145) Potassium Level 4.4 mEQ/L (3.4-4.9) Chloride Level 103 mEQ/L (98-107) Carbon Dioxide Level 28 mEQ/L (20-30) Anion Gap 6 (5-15) Blood Urea Nitrogen 15 mg/dL (7-23) Creatinine 1.1 mg/dL (0.7-1.2) Estimat Glomerular Filtration Rate mL/min (>60) Glucose Level 119 mg/dL (74-106) H Calcium Level 8.8 mg/dL (8.6-10.2) Height (Feet): 5 Height (Inches): 7.00 Weight (Pounds): 170 General Appearance: no apparent distress, alert Cardiovascular: normal rate Respiratory/Chest: normal breath sounds, no respiratory distress Abdominal Exam: normal bowel sounds, non tender, soft, GT site - c/d/i Amanda Ayala N.PNichole Jan 29, 2017 11:00
[2017-01-29] MEDS ORDERED: Tubing IV Secondary IV ONE (11:27)
[2017-01-29] MEDS ORDERED: D5 1/2NS 1000ml IV ONE (11:27)
[2017-01-29 12:00] VITALS: BP 120/63
--- NOTE | 2017-01-29 14:42 | General Progress Note ---
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 ICD Codes: H21.562 - Pupillary abnormality, left eye SNOMED: 008396455 Status: stable, progressing, tolerating diet Assessment/Plan ot pt diet cbc bmp am dc plan Subjective Constitutional: Reports: weakness Allergies: Coded Allergies: No Known Allergies (Unverified , 01/27/17) All Systems: reviewed and negative except above Subjective weak calm, failed swallow eval Objective Last 24 Hour Vital Signs Date Time Temp Pulse Resp B/P Pulse Ox O2 Delivery O2 Flow Rate FiO2 01/29/17 12:00 97.3 57 19 120/63 95 Room Air 01/29/17 08:00 97.8 52 19 119/68 94 Room Air 01/29/17 04:00 97.7 53 18 113/58 94 Room Air 01/29/17 00:00 97.5 50 20 128/90 94 Room Air 01/28/17 20:00 97.9 62 20 141/79 95 Room Air 01/28/17 16:00 98.2 58 20 144/80 93 Room Air Intake and Output 01/28/17 01/29/17 19:00 07:00 Intake Total 1050 ml 1150 ml Balance 1050 ml 1150 ml Free Water 240 ml 130 ml IV Total 450 ml 660 ml Tube Feeding 360 ml 360 ml # Voids 5 Laboratory Tests 01/29/17 06:20: White Blood Count 8.1, Red Blood Count 4.78, Hemoglobin 15.1, Hematocrit 45.9, Mean Corpuscular Volume 96, Mean Corpuscular Hemoglobin 31.6H, Mean Corpuscular Hemoglobin Concent 32.9, Red Cell Distribution Width 12.7, Platelet Count 164, Mean Platelet Volume 11.6H, Neutrophils (%) (Auto) 69.8, Lymphocytes (%) (Auto) 11.1L, Monocytes (%) (Auto) 13.1H, Eosinophils (%) (Auto) 4.6H, Basophils (%) ( Auto) 1.4, Sodium Level 137, Potassium Level 4.4, Chloride Level 103, Carbon Dioxide Level 28, Anion Gap 6, Blood Urea Nitrogen 15, Creatinine 1.1, Estimat Glomerular Filtration Rate , Glucose Level 119H, Calcium Level 8.8 Height (Feet): 5 Height (Inches): 7.00 Weight (Pounds): 170 General Appearance: lethargic, confused EENT: normal ENT inspection Neck: normal alignment Cardiovascular: normal peripheral pulses, normal rate, regular rhythm Respiratory/Chest: chest wall non-tender, lungs clear, normal breath sounds Abdomen: normal bowel sounds, non tender, soft Extremities: normal inspection Edema: no edema noted Arm (L), no edema noted Arm (R), no edema noted Leg (L), no edema noted Leg (R), no edema noted Pedal (L), no edema noted Pedal (R), no edema noted Generalized Neurologic: motor weakness Skin: normal pigmentation, warm/dry BORIS ABEL Jan 29, 2017 14:42
[2017-01-29] MEDS: D5 1/2NS 1,000 ML IV SCH (14:53)
[2017-01-29 16:00] VITALS: BP 145/80
[2017-01-29] MEDS: Xarelto 10mg tab ORAL SCH (17:15)
--- NOTE | 2017-01-29 17:21 | Infectious Diseases Prog Note ---
Assessment/Plan Problems: (1) Conjunctivitis Assessment & Plan: suspect allergic conjunctivitis, improved with antihistamines, local and systemic . doubt viral etiology , screening for herpes and zoster is pending (2) Pharyngitis Assessment & Plan: with no evidence of exudates, suspect allergic, VS viral , will screen for influnza, herpes and zoster , start antihistamines (3) Itching with irritation Assessment & Plan: received once course of Elimite empirically , continue antihistamines prn (4) MRSA nasal colonization Assessment & Plan: will give bactroban to decolonize him Subjective Constitutional: Reports: no symptoms HEENT: Reports: no symptoms Respiratory: Reports: no symptoms Breasts: Reports: no symptoms Cardiovascular: Reports: no symptoms Gastrointestinal/Abdominal: Reports: no symptoms Genitourinary: Reports: no symptoms Neurologic: Reports: no symptoms Psychiatric: Reports: no symptoms Skin: Reports: no symptoms Endocrine: Reports: no symptoms Hematologic: Reports: no symptoms Allergies: Coded Allergies: No Known Allergies (Unverified , 01/27/17) Objective Vital Signs Last 24 Hour Vital Signs Date Time Temp Pulse Resp B/P Pulse Ox O2 Delivery O2 Flow Rate FiO2 01/29/17 16:00 97.5 59 19 145/80 96 Room Air 01/29/17 12:00 97.3 57 19 120/63 95 Room Air 01/29/17 08:00 97.8 52 19 119/68 94 Room Air 01/29/17 04:00 97.7 53 18 113/58 94 Room Air 01/29/17 00:00 97.5 50 20 128/90 94 Room Air 01/28/17 20:00 97.9 62 20 141/79 95 Room Air Height (Feet): 5 Height (Inches): 7.00 Weight (Pounds): 170 General Appearance: WD/WN, no acute distress HEENT: normocephalic, atraumatic, anicteric, mucous membranes moist, PERRL Respiratory/Chest: chest wall non-tender, lungs clear, normal breath sounds, no respiratory distress, no accessory muscle use Cardiovascular: normal peripheral pulses, normal rate, regular rhythm, no gallop/murmur, no JVD Abdomen: normal bowel sounds, soft, non tender, no organomegaly, non distended , no mass, no scars Genitourinary: normal external genitalia Extremities: no cyanosis, no clubbing Skin: no rash, no lesions, no ulcers Microbiology Date/Time Source Procedure Growth Status 01/27/17 22:20 Nasal Nares Influenza Types A,B Antigen (MARIAN) - Final Complete 01/27/17 18:50 Nasal Nares MRSA Culture - Final Staphylococcus Aureus - Mrsa Complete Laboratory Tests Test 01/29/17 06:20 White Blood Count 8.1 K/UL (4.8-10.8) Red Blood Count 4.78 M/UL (4.70-6.10) Hemoglobin 15.1 G/DL (14.2-18.0) Hematocrit 45.9 % (42.0-52.0) Mean Corpuscular Volume 96 FL (80-99) Mean Corpuscular Hemoglobin 31.6 PG (27.0-31.0) H Mean Corpuscular Hemoglobin Concent 32.9 G/DL (32.0-36.0) Red Cell Distribution Width 12.7 % (11.6-14.8) Platelet Count 164 K/UL (150-450) Mean Platelet Volume 11.6 FL (6.5-10.1) H Neutrophils (%) (Auto) 69.8 % (45.0-75.0) Lymphocytes (%) (Auto) 11.1 % (20.0-45.0) L Monocytes (%) (Auto) 13.1 % (1.0-10.0) H Eosinophils (%) (Auto) 4.6 % (0.0-3.0) H Basophils (%) (Auto) 1.4 % (0.0-2.0) Sodium Level 137 mEQ/L (135-145) Potassium Level 4.4 mEQ/L (3.4-4.9) Chloride Level 103 mEQ/L (98-107) Carbon Dioxide Level 28 mEQ/L (20-30) Anion Gap 6 (5-15) Blood Urea Nitrogen 15 mg/dL (7-23) Creatinine 1.1 mg/dL (0.7-1.2) Estimat Glomerular Filtration Rate mL/min (>60) Glucose Level 119 mg/dL (74-106) H Calcium Level 8.8 mg/dL (8.6-10.2) Current Medications Medications (Trade) Dose Ordered Sig/Robin Route PRN Reason Start Time Stop Time Status Last Admin Dose Admin Ceftriaxone Sodium/Sodium Chloride (Rocephin/Sodium Chloride) 55 ml @ 110 mls/hr Q24HRS IVPB 01/27/17 21:00 02/03/17 20:59 01/28/17 21:01 Clotrimazole (Lotrimin) 1 applic EVERY 12 HOURS TOPIC 01/28/17 21:00 02/27/17 20:59 01/29/17 09:15 Dextrose (Dextrose 50%) STAT PRN IV Hypoglycemia 01/27/17 19:45 02/26/17 19:44 Dextrose/Sodium Chloride (D5 0.45% NS) 1,000 ml @ 50 mls/hr Q20H IV 01/27/17 21:00 02/26/17 20:59 01/29/17 14:53 Diphenhydramine HCl (Benadryl) 25 mg Q6H PRN IVP Dry Eyes 01/28/17 15:00 02/27/17 14:59 01/28/17 15:37 Hydrocortisone (Hydrocortisone) 1 applic Q6H PRN TOPIC Itching 01/28/17 12:30 02/27/17 12:29 01/28/17 13:41 Ketotifen Fumarate 1 drop 1 drop TWICE A DAY BOTH EYES 01/27/17 18:00 02/01/17 09:01 01/29/17 09:15 Lorazepam (Ativan 2mg/ml 1ml) 0.5 mg Q4H PRN IV For Anxiety 01/27/17 19:45 02/03/17 19:44 Morphine Sulfate (Morphine Sulfate) 1 mg Q4H PRN IVP For Pain 4-10 01/27/17 19:45 02/03/17 19:44 Mupirocin (Bactroban Oint) 1 applic THREE TIMES A DAY TOPIC 01/29/17 13:00 02/03/17 12:59 01/29/17 16:04 Ondansetron HCl (Zofran) 4 mg Q6H PRN IVP Nausea & Vomiting 01/27/17 19:45 02/26/17 19:44 Phenol/Menthol (Chloraseptic) 1 spray Q3H PRN ORAL SORE THROAT PAIN 01/28/17 16:30 02/27/17 16:29 01/29/17 09:15 Pravastatin Sodium (Pravachol) 20 mg BEDTIME GT 01/27/17 21:00 02/26/17 20:59 01/28/17 21:00 Ranitidine HCl (Zantac) 150 mg BEDTIME ORAL 01/29/17 21:00 02/28/17 20:59 Rivaroxaban 20 mg 20 mg QPM ORAL 01/28/17 16:30 02/27/17 16:29 01/28/17 15:37 Brenton Bustillo M.D. Jan 29, 2017 17:21
[2017-01-29 20:00] VITALS: BP 154/93
[2017-01-30] VITALS: BP 146/80
[2017-01-30 04:00] VITALS: BP 149/66
[2017-01-30 07:57] LABS: BASOPHILS % (AUTO) 1.6 % (0.0-2.0); EOSINOPHILS % (AUTO) 4.6 % (0.0-3.0); LYMPHOCYTES % (AUTO) 15.8 % (20.0-45.0); MEAN CORPUSCULAR HEMOGLOBIN 32.4 PG (27.0-31.0); MEAN CORPUSCULAR HGB CONC 33.6 G/DL (32.0-36.0); MEAN CORPUSCULAR VOLUME 96 FL (80-99); MEAN PLATELET VOLUME 12.1 FL (6.5-10.1); MONOCYTES % (AUTO) 13.3 % (1.0-10.0); NEUTROPHILS % (AUTO) 64.6 % (45.0-75.0); PLATELET COUNT 179 K/UL (150-450); RED BLOOD COUNT 5.02 M/UL (4.70-6.10); RED CELL DISTRIBUTION WIDTH 12.4 % (11.6-14.8); WHITE BLOOD COUNT 8.3 K/UL (4.8-10.8)
[2017-01-30 08:15] VITALS: BP 122/68
[2017-01-30 08:37] LABS: ANION GAP 10 (5-15); CALCIUM 8.9 mg/dL (8.6-10.2); CARBON DIOXIDE 25 mEQ/L (20-30); CHLORIDE 104 mEQ/L (98-107); HEMOLYSIS 3; SODIUM 139 mEQ/L (135-145)
--- NOTE | 2017-01-30 08:40 | General Progress Note ---
Assessment/Plan Problem List: (1) MRSA nasal colonization ICD Codes: Z22.322 - Carrier or suspected carrier of Methicillin resistant Staphylococcus aureus SNOMED: 389656782, 474474282 (2) Dementia with psychosis ICD Codes: F03.91 - Unspecified dementia with behavioral disturbance SNOMED: 55314781, 77294887 (3) Interstitial lung disease ICD Codes: J84.9 - Interstitial pulmonary disease, unspecified SNOMED: 718584817 (4) PEG (percutaneous endoscopic gastrostomy) adjustment/replacement/removal ICD Codes: Z43.1 - Encounter for attention to gastrostomy SNOMED: 077644646, 565398699 Assessment/Plan failed swallow eval GTF pending dc today Subjective ROS Limited/Unobtainable: No Allergies: Coded Allergies: No Known Allergies (Unverified , 01/27/17) Objective Last 24 Hour Vital Signs Date Time Temp Pulse Resp B/P Pulse Ox O2 Delivery O2 Flow Rate FiO2 01/30/17 04:00 96.0 59 20 149/66 96 Room Air 01/30/17 00:00 97.5 60 18 146/80 96 Room Air 01/29/17 20:00 97.7 61 18 154/93 94 Room Air 01/29/17 16:00 97.5 59 19 145/80 96 Room Air 01/29/17 12:00 97.3 57 19 120/63 95 Room Air Intake and Output 01/29/17 01/30/17 19:00 07:00 Intake Total 1110 ml 1085 ml Output Total 125 ml 152 ml Balance 985 ml 933 ml Free Water 200 ml 125 ml IV Total 550 ml 600 ml Tube Feeding 360 ml 360 ml Output Urine Total 125 ml 152 ml # Voids 2 Laboratory Tests 01/30/17 07:00: White Blood Count 8.3, Red Blood Count 5.02, Hemoglobin 16.2, Hematocrit 48.3, Mean Corpuscular Volume 96, Mean Corpuscular Hemoglobin 32.4H, Mean Corpuscular Hemoglobin Concent 33.6, Red Cell Distribution Width 12.4, Platelet Count 179, Mean Platelet Volume 12.1H, Neutrophils (%) (Auto) 64.6, Lymphocytes (%) (Auto) 15.8L, Monocytes (%) (Auto) 13.3H, Eosinophils (%) (Auto) 4.6H, Basophils (%) ( Auto) 1.6, Sodium Level [Pending], Potassium Level [Pending], Chloride Level [ Pending], Carbon Dioxide Level [Pending], Blood Urea Nitrogen [Pending], Creatinine [Pending], Estimat Glomerular Filtration Rate [Pending], Glucose Level [Pending], Calcium Level [Pending] Height (Feet): 5 Height (Inches): 7.00 Weight (Pounds): 170 General Appearance: no apparent distress EENT: normal ENT inspection Neck: supple Cardiovascular: normal rate Respiratory/Chest: decreased breath sounds Abdomen: normal bowel sounds, non tender, soft Extremities: non-tender RACHEL REN Jan 30, 2017 08:40
--- NOTE | 2017-01-30 08:52 | General Progress Note ---
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 ICD Codes: H21.562 - Pupillary abnormality, left eye SNOMED: 658772703 Status: stable, progressing, tolerating diet Assessment/Plan ot pt diet dc to snf Subjective Constitutional: Reports: weakness Allergies: Coded Allergies: No Known Allergies (Unverified , 01/27/17) All Systems: reviewed and negative except above Subjective weak calm Objective Last 24 Hour Vital Signs Date Time Temp Pulse Resp B/P Pulse Ox O2 Delivery O2 Flow Rate FiO2 01/30/17 08:15 97.7 58 21 122/68 97 Room Air 01/30/17 04:00 96.0 59 20 149/66 96 Room Air 01/30/17 00:00 97.5 60 18 146/80 96 Room Air 01/29/17 20:00 97.7 61 18 154/93 94 Room Air 01/29/17 16:00 97.5 59 19 145/80 96 Room Air 01/29/17 12:00 97.3 57 19 120/63 95 Room Air Intake and Output 01/29/17 01/30/17 19:00 07:00 Intake Total 1110 ml 1085 ml Output Total 125 ml 152 ml Balance 985 ml 933 ml Free Water 200 ml 125 ml IV Total 550 ml 600 ml Tube Feeding 360 ml 360 ml Output Urine Total 125 ml 152 ml # Voids 2 Laboratory Tests 01/30/17 07:00: White Blood Count 8.3, Red Blood Count 5.02, Hemoglobin 16.2, Hematocrit 48.3, Mean Corpuscular Volume 96, Mean Corpuscular Hemoglobin 32.4H, Mean Corpuscular Hemoglobin Concent 33.6, Red Cell Distribution Width 12.4, Platelet Count 179, Mean Platelet Volume 12.1H, Neutrophils (%) (Auto) 64.6, Lymphocytes (%) (Auto) 15.8L, Monocytes (%) (Auto) 13.3H, Eosinophils (%) (Auto) 4.6H, Basophils (%) ( Auto) 1.6, Sodium Level 139, Potassium Level 4.0, Chloride Level 104, Carbon Dioxide Level 25, Anion Gap 10, Blood Urea Nitrogen 15, Creatinine 1.0, Estimat Glomerular Filtration Rate , Glucose Level 105, Calcium Level 8.9 Height (Feet): 5 Height (Inches): 7.00 Weight (Pounds): 170 General Appearance: lethargic EENT: normal ENT inspection Neck: normal alignment Cardiovascular: normal peripheral pulses, normal rate, regular rhythm Respiratory/Chest: chest wall non-tender, lungs clear, normal breath sounds Abdomen: normal bowel sounds, non tender, soft Extremities: normal inspection Edema: no edema noted Arm (L), no edema noted Arm (R), no edema noted Leg (L), no edema noted Leg (R), no edema noted Pedal (L), no edema noted Pedal (R), no edema noted Generalized Neurologic: motor weakness Skin: normal pigmentation, warm/dry BORIS ABEL Jan 30, 2017 08:52
[2017-01-30] MEDS ORDERED: D5 1/2NS 1000ml IV ONE ×2 (09:15→17:54)
[2017-01-30] MEDS: Ketotifen Fumarate 0.035% 5ml BOTH EYES SCH ×2 (09:34→17:36)
[2017-01-30] MEDS: D5 1/2NS 1,000 ML IV SCH (09:34)
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
[2017-01-30] MEDS ORDERED: CLOTRIMAZOLE15 GM TOPIC (11:09)
[2017-01-30] MEDS ORDERED: BACTROBAN NASAL1 GM NASAL (11:09)
[2017-01-30] MEDS ORDERED: KETOTIFEN FUMARA5 ML OP (11:09)
[2017-01-30] MEDS ORDERED: ZANTAC150 MG ORAL (11:10)
[2017-01-30 11:57] VITALS: BP 137/76
--- NOTE | 2017-01-30 15:13 | Infectious Diseases Prog Note ---
Assessment/Plan Problems: (1) Conjunctivitis Assessment & Plan: suspect allergic conjunctivitis, improved with antihistamines, local and systemic . doubt viral etiology , screening for herpes and zoster is pending (2) Pharyngitis Assessment & Plan: with no evidence of exudates, suspect allergic, screening for influnza is negative , continue antihistamines (3) Itching with irritation Assessment & Plan: received once course of Elimite empirically , continue antihistamines prn (4) MRSA nasal colonization Assessment & Plan: continue bactroban to decolonize him Subjective Constitutional: Reports: no symptoms HEENT: Reports: no symptoms Respiratory: Reports: no symptoms Breasts: Reports: no symptoms Cardiovascular: Reports: no symptoms Gastrointestinal/Abdominal: Reports: no symptoms Genitourinary: Reports: no symptoms Neurologic: Reports: no symptoms Psychiatric: Reports: no symptoms Skin: Reports: no symptoms Endocrine: Reports: no symptoms Hematologic: Reports: no symptoms Allergies: Coded Allergies: No Known Allergies (Unverified , 01/27/17) Objective Vital Signs Last 24 Hour Vital Signs Date Time Temp Pulse Resp B/P Pulse Ox O2 Delivery O2 Flow Rate FiO2 01/30/17 11:57 97.7 53 20 137/76 99 Room Air 01/30/17 08:15 97.7 58 21 122/68 97 Room Air 01/30/17 04:00 96.0 59 20 149/66 96 Room Air 01/30/17 00:00 97.5 60 18 146/80 96 Room Air 01/29/17 20:00 97.7 61 18 154/93 94 Room Air 01/29/17 16:00 97.5 59 19 145/80 96 Room Air Height (Feet): 5 Height (Inches): 7.00 Weight (Pounds): 170 General Appearance: WD/WN, no acute distress HEENT: normocephalic, atraumatic, anicteric, mucous membranes moist Respiratory/Chest: chest wall non-tender, lungs clear, normal breath sounds, no respiratory distress, no accessory muscle use Cardiovascular: normal peripheral pulses, normal rate, regular rhythm, no gallop/murmur, no JVD Abdomen: normal bowel sounds, soft, non tender, no organomegaly, non distended , no mass, no scars Extremities: no cyanosis, no clubbing Skin: no rash, no lesions, no ulcers Neurologic/Psychiatric: alert, oriented x 3 Microbiology Date/Time Source Procedure Growth Status 01/27/17 22:20 Nasal Nares Influenza Types A,B Antigen (MARIAN) - Final Complete 01/27/17 18:50 Nasal Nares MRSA Culture - Final Staphylococcus Aureus - Mrsa Complete 01/27/17 18:50 Rectum VRE Culture - Final NO VANCOMYCIN RESISTANT ENTEROCOCCUS ... Complete Laboratory Tests Test 01/30/17 07:00 White Blood Count 8.3 K/UL (4.8-10.8) Red Blood Count 5.02 M/UL (4.70-6.10) Hemoglobin 16.2 G/DL (14.2-18.0) Hematocrit 48.3 % (42.0-52.0) Mean Corpuscular Volume 96 FL (80-99) Mean Corpuscular Hemoglobin 32.4 PG (27.0-31.0) H Mean Corpuscular Hemoglobin Concent 33.6 G/DL (32.0-36.0) Red Cell Distribution Width 12.4 % (11.6-14.8) Platelet Count 179 K/UL (150-450) Mean Platelet Volume 12.1 FL (6.5-10.1) H Neutrophils (%) (Auto) 64.6 % (45.0-75.0) Lymphocytes (%) (Auto) 15.8 % (20.0-45.0) L Monocytes (%) (Auto) 13.3 % (1.0-10.0) H Eosinophils (%) (Auto) 4.6 % (0.0-3.0) H Basophils (%) (Auto) 1.6 % (0.0-2.0) Sodium Level 139 mEQ/L (135-145) Potassium Level 4.0 mEQ/L (3.4-4.9) Chloride Level 104 mEQ/L (98-107) Carbon Dioxide Level 25 mEQ/L (20-30) Anion Gap 10 (5-15) Blood Urea Nitrogen 15 mg/dL (7-23) Creatinine 1.0 mg/dL (0.7-1.2) Estimat Glomerular Filtration Rate mL/min (>60) Glucose Level 105 mg/dL (74-106) Calcium Level 8.9 mg/dL (8.6-10.2) Current Medications Medications (Trade) Dose Ordered Sig/Robin Route PRN Reason Start Time Stop Time Status Last Admin Dose Admin Clotrimazole (Lotrimin) 1 applic EVERY 12 HOURS TOPIC 01/28/17 21:00 02/27/17 20:59 01/30/17 09:34 Dextrose (Dextrose 50%) STAT PRN IV Hypoglycemia 01/27/17 19:45 02/26/17 19:44 Dextrose/Sodium Chloride (D5 0.45% NS) 1,000 ml @ 50 mls/hr Q20H IV 01/27/17 21:00 02/26/17 20:59 01/30/17 09:34 Diphenhydramine HCl (Benadryl) 25 mg Q6H PRN IVP Dry Eyes 01/28/17 15:00 02/27/17 14:59 01/28/17 15:37 Hydrocortisone (Hydrocortisone) 1 applic Q6H PRN TOPIC Itching 01/28/17 12:30 02/27/17 12:29 01/28/17 13:41 Ketotifen Fumarate (Zatidor) 1 drop TWICE A DAY BOTH EYES 01/27/17 18:00 02/01/17 09:01 01/30/17 09:34 Lorazepam (Ativan 2mg/ml 1ml) 0.5 mg Q4H PRN IV For Anxiety 01/27/17 19:45 02/03/17 19:44 Morphine Sulfate (Morphine Sulfate) 1 mg Q4H PRN IVP For Pain 4-10 01/27/17 19:45 02/03/17 19:44 Mupirocin (Bactroban Oint) 1 applic THREE TIMES A DAY TOPIC 01/29/17 13:00 02/03/17 12:59 01/30/17 14:03 Ondansetron HCl (Zofran) 4 mg Q6H PRN IVP Nausea & Vomiting 01/27/17 19:45 02/26/17 19:44 Phenol/Menthol (Chloraseptic) 1 spray Q3H PRN ORAL SORE THROAT PAIN 01/28/17 16:30 02/27/17 16:29 01/29/17 09:15 Pravastatin Sodium (Pravachol) 20 mg BEDTIME GT 01/27/17 21:00 02/26/17 20:59 01/29/17 20:28 Ranitidine HCl (Zantac) 150 mg BEDTIME ORAL 01/29/17 21:00 02/28/17 20:59 01/29/17 20:28 Rivaroxaban 20 mg 20 mg QPM ORAL 01/28/17 16:30 02/27/17 16:29 01/29/17 17:15 rBenton Bustillo M.D. Jan 30, 2017 15:13
[2017-01-30 15:51] VITALS: BP 128/85
[2017-01-30] MEDS: Xarelto 10mg tab ORAL SCH (17:35)
[2017-01-30 20:00] VITALS: BP 132/77
[2017-01-31] VITALS: BP 146/92
[2017-01-31 04:00] VITALS: BP 104/54
[2017-01-31] MEDS: D5 1/2NS 1,000 ML IV SCH (04:23)
--- NOTE | 2017-01-31 07:20 | General Progress Note ---
Assessment/Plan Problem List: (1) MRSA nasal colonization ICD Codes: Z22.322 - Carrier or suspected carrier of Methicillin resistant Staphylococcus aureus SNOMED: 270283323, 002075392 (2) Dementia with psychosis ICD Codes: F03.91 - Unspecified dementia with behavioral disturbance SNOMED: 95780812, 36880186 (3) Interstitial lung disease ICD Codes: J84.9 - Interstitial pulmonary disease, unspecified SNOMED: 443535727 (4) PEG (percutaneous endoscopic gastrostomy) adjustment/replacement/removal ICD Codes: Z43.1 - Encounter for attention to gastrostomy SNOMED: 723118160, 791674008 Assessment/Plan GTF pending dc add laxatives Subjective ROS Limited/Unobtainable: No Allergies: Coded Allergies: No Known Allergies (Unverified , 01/27/17) Subjective no BM Objective Last 24 Hour Vital Signs Date Time Temp Pulse Resp B/P Pulse Ox O2 Delivery O2 Flow Rate FiO2 01/31/17 04:00 97.7 57 20 104/54 99 Room Air 01/31/17 00:00 98.1 68 20 146/92 95 Room Air 01/30/17 20:00 98.2 53 20 132/77 95 Room Air 01/30/17 15:51 98.0 54 20 128/85 98 Room Air 01/30/17 11:57 97.7 53 20 137/76 99 Room Air 01/30/17 08:15 97.7 58 21 122/68 97 Room Air Intake and Output 01/30/17 01/31/17 19:00 07:00 Intake Total 1080 ml 930 ml Output Total 445 ml Balance 635 ml 930 ml Intake Oral 0 ml Free Water 200 ml 100 ml IV Total 550 ml 500 ml Tube Feeding 330 ml 330 ml Output Urine Total 445 ml # Voids 1 1 Height (Feet): 5 Height (Inches): 7.00 Weight (Pounds): 170 General Appearance: no apparent distress EENT: normal ENT inspection Neck: supple Cardiovascular: normal rate Respiratory/Chest: decreased breath sounds Abdomen: normal bowel sounds, non tender, soft Extremities: non-tender RACHEL REN Jan 31, 2017 07:20
[2017-01-31 08:00] VITALS: BP 121/73
[2017-01-31] MEDS: Docusate 100mg/10ml Liq NG SCH ×2 (08:05→18:00)
[2017-01-31] MEDS: Ketotifen Fumarate 0.035% 5ml BOTH EYES SCH ×2 (08:05→18:09)
--- NOTE | 2017-01-31 08:50 | General Progress Note ---
Assessment/Plan Problem List: (1) Pharyngitis ICD Codes: J02.9 - Acute pharyngitis, unspecified SNOMED: 029253165 (2) Conjunctivitis ICD Codes: H10.9 - Unspecified conjunctivitis SNOMED: 9540227 Qualifiers: Qualified Codes: H10.31 - Unspecified acute conjunctivitis, right eye (3) COPD exacerbation ICD Codes: J44.1 - Chronic obstructive pulmonary disease with (acute) exacerbation SNOMED: 170766771, 831614139 (4) Afferent pupillary defect of left eye ICD Codes: H21.562 - Pupillary abnormality, left eye SNOMED: 481052602 Status: stable, progressing, tolerating diet Assessment/Plan ot pt diet cbc bmp am dc to snf Subjective Constitutional: Reports: weakness Allergies: Coded Allergies: No Known Allergies (Unverified , 01/27/17) All Systems: reviewed and negative except above Subjective weak calm Objective Last 24 Hour Vital Signs Date Time Temp Pulse Resp B/P Pulse Ox O2 Delivery O2 Flow Rate FiO2 01/31/17 04:00 97.7 57 20 104/54 99 Room Air 01/31/17 00:00 98.1 68 20 146/92 95 Room Air 01/30/17 20:00 98.2 53 20 132/77 95 Room Air 01/30/17 15:51 98.0 54 20 128/85 98 Room Air 01/30/17 11:57 97.7 53 20 137/76 99 Room Air Intake and Output 01/30/17 01/31/17 19:00 07:00 Intake Total 1080 ml 930 ml Output Total 445 ml Balance 635 ml 930 ml Intake Oral 0 ml Free Water 200 ml 100 ml IV Total 550 ml 500 ml Tube Feeding 330 ml 330 ml Output Urine Total 445 ml # Voids 1 1 Height (Feet): 5 Height (Inches): 7.00 Weight (Pounds): 170 General Appearance: lethargic EENT: normal ENT inspection Neck: normal alignment Cardiovascular: normal peripheral pulses, normal rate, regular rhythm Respiratory/Chest: chest wall non-tender, lungs clear, normal breath sounds Abdomen: normal bowel sounds, non tender, soft Extremities: normal inspection Edema: no edema noted Arm (L), no edema noted Arm (R), no edema noted Leg (L), no edema noted Leg (R), no edema noted Pedal (L), no edema noted Pedal (R), no edema noted Generalized Neurologic: motor weakness Skin: normal pigmentation, warm/dry BORIS ABEL Jan 31, 2017 08:50
[2017-01-31] MEDS ORDERED: LORazepam 1mg tab ORAL PRN (10:30)
[2017-01-31] MEDS: Morphine Sulfate 2mg/ml Inj IVP PRN ×2 (10:40→18:09)
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
[2017-01-31 12:06] VITALS: BP 126/77
[2017-01-31 16:00] VITALS: BP 128/77
--- NOTE | 2017-01-31 16:12 | Infectious Diseases Prog Note ---
Assessment/Plan Problems: (1) Conjunctivitis Assessment & Plan: suspect allergic conjunctivitis, improved with antihistamines, local and systemic . doubt viral etiology , screening for herpes and zoster is pending (2) Pharyngitis Assessment & Plan: with no evidence of exudates, suspect allergic, screening for influnza is negative , continue antihistamines (3) Itching with irritation Assessment & Plan: received once course of Elimite empirically , continue antihistamines prn (4) MRSA nasal colonization Assessment & Plan: continue bactroban to decolonize him (5) Hematuria Assessment & Plan: will order UA, and renal US, recommend urology consult Subjective Constitutional: Reports: no symptoms HEENT: Reports: no symptoms Respiratory: Reports: no symptoms Breasts: Reports: no symptoms Cardiovascular: Reports: no symptoms Gastrointestinal/Abdominal: Reports: no symptoms Genitourinary: Reports: no symptoms Neurologic: Reports: no symptoms Psychiatric: Reports: no symptoms Skin: Reports: no symptoms Endocrine: Reports: no symptoms Allergies: Coded Allergies: No Known Allergies (Unverified , 01/27/17) Objective Vital Signs Last 24 Hour Vital Signs Date Time Temp Pulse Resp B/P Pulse Ox O2 Delivery O2 Flow Rate FiO2 01/31/17 12:06 98.0 62 15 126/77 98 Room Air 01/31/17 08:00 97.5 58 15 121/73 99 Room Air 01/31/17 04:00 97.7 57 20 104/54 99 Room Air 01/31/17 00:00 98.1 68 20 146/92 95 Room Air 01/30/17 20:00 98.2 53 20 132/77 95 Room Air Height (Feet): 5 Height (Inches): 7.00 Weight (Pounds): 170 General Appearance: WD/WN, no acute distress HEENT: normocephalic, atraumatic, pharynx normal, supple, no JVD Respiratory/Chest: chest wall non-tender, lungs clear, normal breath sounds, no respiratory distress Cardiovascular: normal peripheral pulses, normal rate, regular rhythm, regularly irregular Abdomen: normal bowel sounds, soft, non tender, no organomegaly, non distended , no mass, no scars Extremities: no cyanosis, no clubbing Skin: no rash, no lesions Current Medications Medications (Trade) Dose Ordered Sig/Robin Route PRN Reason Start Time Stop Time Status Last Admin Dose Admin Clotrimazole (Lotrimin) 1 applic EVERY 12 HOURS TOPIC 01/28/17 21:00 02/27/17 20:59 01/31/17 08:27 Dextrose (Dextrose 50%) STAT PRN IV Hypoglycemia 01/27/17 19:45 02/26/17 19:44 Dextrose/Sodium Chloride (D5 0.45% NS) 1,000 ml @ 50 mls/hr Q20H IV 01/27/17 21:00 02/26/17 20:59 01/31/17 04:23 Diphenhydramine HCl (Benadryl) 25 mg Q6H PRN IVP Dry Eyes 01/28/17 15:00 02/27/17 14:59 01/28/17 15:37 Docusate Sodium (Colace) 100 mg TWICE A DAY NG 01/31/17 09:00 03/02/17 08:59 01/31/17 08:05 Hydrocortisone (Hydrocortisone) 1 applic Q6H PRN TOPIC Itching 01/28/17 12:30 02/27/17 12:29 01/28/17 13:41 Ketotifen Fumarate (Zatidor) 1 drop TWICE A DAY BOTH EYES 01/27/17 18:00 02/01/17 09:01 01/31/17 08:05 Lorazepam (Ativan 2mg/ml 1ml) 0.5 mg Q4H PRN IV For Anxiety 01/27/17 19:45 02/03/17 19:44 Morphine Sulfate (Morphine Sulfate) 1 mg Q4H PRN IVP For Pain 4-10 01/27/17 19:45 02/03/17 19:44 01/31/17 10:40 Mupirocin (Bactroban Oint) 1 applic THREE TIMES A DAY TOPIC 01/29/17 13:00 02/03/17 12:59 01/31/17 13:50 Ondansetron HCl (Zofran) 4 mg Q6H PRN IVP Nausea & Vomiting 01/27/17 19:45 02/26/17 19:44 Phenol/Menthol (Chloraseptic) 1 spray Q3H PRN ORAL SORE THROAT PAIN 01/28/17 16:30 02/27/17 16:29 01/29/17 09:15 Polyethylene Glycol (Miralax) 17 gm BEDTIME ORAL 01/31/17 21:00 03/02/17 20:59 Pravastatin Sodium (Pravachol) 20 mg BEDTIME GT 01/27/17 21:00 02/26/17 20:59 01/30/17 20:58 Ranitidine HCl (Zantac) 150 mg BEDTIME ORAL 01/29/17 21:00 02/28/17 20:59 01/30/17 20:58 Rivaroxaban 20 mg 20 mg QPM ORAL 01/28/17 16:30 02/27/17 16:29 01/30/17 17:35 Brenton Bustillo M.D. Jan 31, 2017 16:12
[2017-01-31] MEDS: Xarelto 10mg tab ORAL SCH (16:30)
[2017-01-31] MEDS ORDERED: OLANZapine 2.5mg tab ORAL PRN (18:30)
[2017-01-31 20:00] VITALS: BP 129/62
[2017-01-31] MEDS: Miralax 17gm pkt ORAL SCH (20:43)
[2017-02-01] VITALS: BP 116/54
[2017-02-01] MEDS: D5 1/2NS 1,000 ML IV SCH ×2 (01:00→20:32)
--- NOTE | 2017-02-01 01:45 | Consultation ---
DATE OF CONSULTATION: 01/31/2017 HEMATOLOGY/ONCOLOGY CONSULTATION CONSULTING PHYSICIAN: Leonardo Dumont M.D. ADMITTING PHYSICIAN: Han Swenson D.O. REQUESTING PHYSICIAN: Han Swenson D.O. REASON FOR CONSULTATION: Hematuria, polycythemia, and erythrocytosis. CURRENT COMPLAINT AND HISTORY OF PRESENT ILLNESS: Dear Dr. Han Swenson, Today, I had an opportunity to see one of your patients, who as you are well aware, 76-year-old delightful gentleman, half-way, who was admitted to [facility] with conjunctivitis, shortness of breath, dysphagia, for G-tube removal. PAST MEDICAL HISTORY: Failure to thrive, shortness of breath. During evaluation, it was found that the patient developed polycythemia as well as erythrocytosis. The patient currently on Xarelto, being on Xarelto the patient developed hematuria. The patient has a history of COPD exacerbation. 1. History of pharyngitis. 2. History of conjunctivitis. 3. COPD exacerbation. 4. 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 5. Failure to thrive. MEDICATIONS: MiraLAX, Zyprexa, Colace, Zantac, Bactroban, Lotrimin, Xarelto, , Benadryl, Pravachol, Lorazepam, Zofran, morphine, and . ALLERGIES: . SOCIAL HISTORY: No history of smoking. No history of alcohol abuse. No history of illicit drug use. FAMILY HISTORY: Noncontributory. REVIEW OF SYSTEMS: Unobtainable secondary to the patient is confusing. The patient is not communicating and cannot give up any history. PHYSICAL EXAMINATION: VITAL SIGNS: T-max 97 degrees, respiratory rate 20, heart rate 80, and blood pressure 130/80. HEENT: Head, normocephalic and atraumatic. NECK: Supple. No thyroid enlargement. No lymphadenopathy. LUNGS: Decreased breath sounds bilaterally with a few rhonchi in the base. HEART: S1 and S2 regular. ABDOMEN: Soft and benign. No organomegaly. Bowel sounds present. EXTREMITIES: No cyanosis, clubbing, or edema. LABORATORY DATA: WBC 8.3, hemoglobin 16.2, hematocrit 48.3, and platelet count 179,000. Chemistry shows creatinine 1.0. IMPRESSION: 1. Polycythemia, reactive. 2. Erythrocytosis, reactive. 3. Hematuria. 4. Anticoagulation with Xarelto. 5. Dementia. 6. Interstitial lung disease. 7. Chronic obstructive pulmonary disease exacerbation. 8. Conjunctivitis. 9. Pharyngitis. 10. Dysphagia. 11. Status post gastrostomy tube placement. 12. Status post gastrostomy tube removal. 13. Itching with irritation. 14. Malnutrition. 15. Failure to thrive. RECOMMENDATIONS: 1. Watch count. 2. Watch coagulopathy. 3. PRBC transfusion on a p.r.n basis. 4. Urology evaluation. 5. Antibiotic IV. 6. Pulmonary followup. 7. Infectious Disease followup. 8. Ophthalmology evaluation. 9. bilateral lower extremities, rule out DVT. 10. Anticoagulation Xarelto. 11. Skin care. 12. Nutrition. 13. Close followup. Leonardo Dumont MD DR: ALEJO JOB#: [id number] CC:
[2017-02-01 04:00] VITALS: BP 117/73
--- NOTE | 2017-02-01 04:00 | Consultation ---
DATE OF CONSULTATION: HISTORY OF PRESENT ILLNESS: This is a 76-year-old male with a history of dementia and psychotic disorder. The patient resides in a senior living at [facility]. Over there, he also has a history of failure to thrive. The patient has impairment of concentration, memory, attention, also decreased appetite, disorganized speech and behavior and delusional. He has G-tube dysfunction as he removed his G-tube, also presented with shortness of breath and conjunctivitis. The patient is a poor historian. PAST PSYCHIATRIC HISTORY: He has a history of psychotic disorder, dementia, has been treated with antipsychotics. Currently, on no antipsychotics. He is on Ativan. PAST MEDICAL HISTORY: Failure to thrive, shortness of breath, and G-tube. ALLERGIES: No known drug allergies. MEDICATIONS: Albuterol. SUBSTANCE ABUSE HISTORY: No history of illicit drug use or alcohol. The patient is a nonsmoker. MENTAL STATUS EXAMINATION: The patient is alert and oriented x2. Mood is neutral. During the evaluation, however, he was agitated. Affect is constricted. Congruent with mood. Thought process, there is a paucity of thought content. Cognition is impaired. ASSESSMENT: Neopit I Psychotic disorder, dementia. Neopit II Deferred. Neopit III As above. Neopit V Global assessment of functioning is 20. PLAN: 1. We will start the patient on Zyprexa 2.5 mg at bedtime. 2. We will continue to readjust the medications and provide the patient with supportive therapy and reality orientation. Shelbi Cm M.D. DR: MATT JOB#: [id number] CC:
--- NOTE | 2017-02-01 04:45 | Consultation ---
DATE OF CONSULTATION: 01/31/2017 CHIEF COMPLAINT: Bilateral knee pain. HISTORY OF PRESENT ILLNESS: The patient is a 76-year-old gentleman, who was admitted I believe for G-tube removal. The patient was complaining of bilateral knee pain. He reportedly kind of hit both his right and left knee on something and since then been somewhat uncomfortable. Orthopedic consultation was obtained for further care and recommendation. Past Medical History: Slight 01:11 shortness of breath and chronic obstructive pulmonary disease. PAST SURGICAL HISTORY: G-tube placement. MEDICATIONS: Reviewed from the intake chart. ALLERGIES: None. SOCIAL HISTORY: The patient is a nonsmoker and nondrinker. FAMILY HISTORY: Noncontributory. PHYSICAL EXAMINATION: GENERAL: The patient is alert,. He is resting comfortably in bed. He has difficulty with communication, but seems like his cognitive function is intact. VITAL SIGNS: Afebrile. Stable vital signs. EXTREMITIES: knee examination shows some lidocaine patches on both the right and left anterior aspect of the knee. Left knee examination shows abrasion along the anterior aspect of the left knee. There is mild ecchymosis. No significant knee effusion. There is some tenderness to palpation of the patellar tendon. There is no obvious rupture of the quadriceps tendon or patellar tendon. Range of motion is 0 to about 90. Posterior calf is soft. Right knee examination certainly shows a patch in place. There is tenderness to palpation along the patella. The extensor mechanisms in quadriceps and appeared to be intact. ASSESSMENT: 1. Bilateral knee contusion. 2. Failure to thrive. 3. Status post removal of gastrostomy tube. DISCUSSION: At this point, I do not think there is anything serious such as a fracture that explains the patient's symptoms working as primarily soft tissue injury, he should get conservative treatment. I would recommend just getting some baseline x-rays of both the left and right knee is here. I placed a order for them. I will review them. In the meantime, he can continue medical treatment as per the additional specialists. Jean Bolivar M.D. DR: JOSEFA JOB#: [id number] CC:
--- NOTE | 2017-02-01 06:30 | Progress Note ---
DATE: 02/01/2017 SUBJECTIVE: This is 76-year-old male patient, who came to the hospital with shortness of breath, conjunctivitis, and also G-tube removal. PLAN: Plan is to continue him on Namenda 5 mg twice a day to prevent any decline in his cognition. Seen and assessed at bedside. Chart reviewed and discussed with staff. Елена Lang M.D. DR: OMER JOB#: [id number] CC:
[2017-02-01 08:00] VITALS: BP 138/75
[2017-02-01 08:14] LABS: BASOPHILS % (AUTO) 1.3 % (0.0-2.0); EOSINOPHILS % (AUTO) 2.2 % (0.0-3.0); LYMPHOCYTES % (AUTO) 9.3 % (20.0-45.0); MEAN CORPUSCULAR HEMOGLOBIN 32.1 PG (27.0-31.0); MEAN CORPUSCULAR HGB CONC 33.5 G/DL (32.0-36.0); MEAN CORPUSCULAR VOLUME 96 FL (80-99); MEAN PLATELET VOLUME 11.3 FL (6.5-10.1); MONOCYTES % (AUTO) 12.9 % (1.0-10.0); NEUTROPHILS % (AUTO) 74.4 % (45.0-75.0); PLATELET COUNT 156 K/UL (150-450); RED BLOOD COUNT 4.93 M/UL (4.70-6.10); RED CELL DISTRIBUTION WIDTH 12.7 % (11.6-14.8); WHITE BLOOD COUNT 11.5 K/UL (4.8-10.8)
[2017-02-01 08:37] LABS: ANION GAP 8 (5-15); CALCIUM 8.9 mg/dL (8.6-10.2); CARBON DIOXIDE 27 mEQ/L (20-30); CHLORIDE 103 mEQ/L (98-107); HEMOLYSIS 4; POTASSIUM 4.4 mEQ/L (3.4-4.9); SODIUM 138 mEQ/L (135-145)
[2017-02-01] MEDS ORDERED: Memantine 10mg tab ORAL SCH (09:00)
[2017-02-01] MEDS: Docusate 100mg/10ml Liq NG SCH ×2 (09:33→16:05)
[2017-02-01] MEDS: Hydrocortisone 1% Oint 30gm TOPIC PRN (09:34)
[2017-02-01] MEDS: Ketotifen Fumarate 0.035% 5ml BOTH EYES SCH (09:35)
[2017-02-01] MEDS: Memantine 5 MG TAB ORAL SCH ×2 (09:40→20:32)
--- NOTE | 2017-02-01 11:01 | Consultation ---
DATE OF CONSULTATION: 01/31/2017 INITIAL PSYCHIATRIC CONSULTATION HISTORY OF PRESENT ILLNESS: This is a 76-year-old male patient. He was admitted because of shortness of breath and conjunctivitis, but he is admitted to [facility], very confused and disorganized, mood lability. He has got no logical plan for his own self-care. Some feelings of helplessness, hopelessness, low energy, poor appetite, lost of interest in activities, that is why, he does require inpatient treatment at this time. As far as his , he does have no logical plan for his own self-care at this point. That is why, there was a psychiatric consultation to decline in his cognition. MEDICAL HISTORY: Failure to thrive, shortness of breath, and conjunctivitis. ALLERGIES: No known drug allergies. SUBSTANCE ABUSE HISTORY: Denies drug or alcohol use. SOCIAL HISTORY: Financially supported by [employer] and Medicare. He lives in alf. PSYCHIATRIC HISTORY: Paranoid schizophrenia, rule out dementia with psychosis, rule out pseudodementia. MENTAL STATUS EXAMINATION: This is a 76-year-old male with psychomotor retardation. Mood is depressed. Affect guarded and restricted. Thought process disorganized and illogical. Denies any current suicidal or homicidal thoughts. Insight and judgment is poor. DIAGNOSIS: Paranoid schizophrenia with acute exacerbation, rule out dementia with psychosis. PLAN: For this patient, I am going to continue treatment with Zyprexa 2.5 mg at bedtime p.r.n. anxiety and agitation. Namenda 5 mg twice a day to prevent any decline in his cognition. Chart reviewed and discussed with staff. The patient is seen and assessed in his room. I would like to thank Dr. Han Swenson for this interesting consultation. Елена Lang M.D. DR: ANDREW JOB#: [id number] CC:
--- NOTE | 2017-02-01 11:29 | GI Progress Note ---
Assessment/Plan Problems: (1) PEG (percutaneous endoscopic gastrostomy) adjustment/replacement/removal ICD Codes: Z43.1 - Encounter for attention to gastrostomy SNOMED: 926485444, 450972324 (2) Dysphagia ICD Codes: R13.10 - Dysphagia, unspecified SNOMED: 26585140, 192245453 (3) Itching with irritation ICD Codes: L29.9 - Pruritus, unspecified SNOMED: 911072233, 318701007 Status: stable Status Narrative Discussed with Dr. Torres. Assessment/Plan ST eval reviewed >> patient high risk for aspiration requires non-oral feeding GTFs per dietary symptomatic treatment bowel regime fu labs dc planning Subjective Subjective limited Objective Last 24 Hour Vital Signs Date Time Temp Pulse Resp B/P Pulse Ox O2 Delivery O2 Flow Rate FiO2 02/01/17 08:00 96.1 67 14 138/75 96 Room Air 02/01/17 04:00 97.3 54 20 117/73 94 Room Air 02/01/17 00:00 97.5 61 20 116/54 93 Room Air 01/31/17 20:00 97.5 54 20 129/62 100 Room Air 01/31/17 19:15 57 20 Room Air 21 01/31/17 18:39 97.8 01/31/17 16:00 97.8 66 18 128/77 97 Room Air 01/31/17 12:06 98.0 62 15 126/77 98 Room Air Intake and Output 01/31/17 02/01/17 19:00 07:00 Intake Total 690 ml 560 ml Balance 690 ml 560 ml Free Water 100 ml 230 ml IV Total 350 ml Tube Feeding 240 ml 330 ml # Voids 7 2 # Bowel Movements 2 2 Laboratory Tests Test 01/31/17 21:25 02/01/17 07:15 Iron Level 36 ug/dL (59-158) L Total Iron Binding Capacity 244 ug/dL (250-400) L Percent Iron Saturation 15 % (15-50) Unsaturated Iron Binding 208 ug/dL (112-346) Ferritin 142 ng/mL (10-230) Carcinoembryonic Antigen 1.9 ng/mL Free Prostate Specific Antigen Pending Percent Free Prostate Specific Ag Pending Prostate Specific Antigen Total Pending White Blood Count 11.5 K/UL (4.8-10.8) H Red Blood Count 4.93 M/UL (4.70-6.10) Hemoglobin 15.8 G/DL (14.2-18.0) Hematocrit 47.3 % (42.0-52.0) Mean Corpuscular Volume 96 FL (80-99) Mean Corpuscular Hemoglobin 32.1 PG (27.0-31.0) H Mean Corpuscular Hemoglobin Concent 33.5 G/DL (32.0-36.0) Red Cell Distribution Width 12.7 % (11.6-14.8) Platelet Count 156 K/UL (150-450) Mean Platelet Volume 11.3 FL (6.5-10.1) H Neutrophils (%) (Auto) 74.4 % (45.0-75.0) Lymphocytes (%) (Auto) 9.3 % (20.0-45.0) L Monocytes (%) (Auto) 12.9 % (1.0-10.0) H Eosinophils (%) (Auto) 2.2 % (0.0-3.0) Basophils (%) (Auto) 1.3 % (0.0-2.0) Sodium Level 138 mEQ/L (135-145) Potassium Level 4.4 mEQ/L (3.4-4.9) Chloride Level 103 mEQ/L (98-107) Carbon Dioxide Level 27 mEQ/L (20-30) Anion Gap 8 (5-15) Blood Urea Nitrogen 19 mg/dL (7-23) Creatinine 1.0 mg/dL (0.7-1.2) Estimat Glomerular Filtration Rate mL/min (>60) Glucose Level 114 mg/dL (74-106) H Calcium Level 8.9 mg/dL (8.6-10.2) Height (Feet): 5 Height (Inches): 7.00 Weight (Pounds): 170 General Appearance: no apparent distress, alert Cardiovascular: normal rate Respiratory/Chest: no respiratory distress Abdominal Exam: site - c/d/i Amanda Ayala N.P. Feb 01, 2017 11:29
[2017-02-01 12:00] VITALS: BP 124/65
--- NOTE | 2017-02-01 12:10 | Diagnostic Imaging Report ---
Indication: Pain Comparison: None Findings: Two views of the left tibia and fibula were obtained. No acute fracture, malalignment, or periosteal reaction are identified. Soft tissues are unremarkable. Impression: Negative examination of the tibia and fibula
--- NOTE | 2017-02-01 12:22 | Diagnostic Imaging Report ---
Indication: Pain 3 views of the right knee were obtained. Findings: No acute fracture, malalignment, or joint effusion are identified. Joint space is mildly narrow. Bone mineralization is diffusely decreased. Impression: Negative exam
--- NOTE | 2017-02-01 12:23 | Diagnostic Imaging Report ---
Indication: Pain 3 views of the left knee were obtained. Findings: There is narrowing of the joint space and mild osteophyte formation. No definite fracture or joint effusion identified. Vascular calcifications are present within the tibial vessels. Impression: Osteoarthritis Vascular disease
--- NOTE | 2017-02-01 14:06 | General Progress Note ---
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 ICD Codes: H21.562 - Pupillary abnormality, left eye SNOMED: 444226080 Status: stable, progressing, tolerating diet Assessment/Plan ot pt diet cbc bmp am dc to snf Subjective Constitutional: Reports: weakness Allergies: Coded Allergies: No Known Allergies (Unverified , 01/27/17) All Systems: reviewed and negative except above Subjective weak calm Objective Last 24 Hour Vital Signs Date Time Temp Pulse Resp B/P Pulse Ox O2 Delivery O2 Flow Rate FiO2 02/01/17 08:00 96.1 67 14 138/75 96 Room Air 02/01/17 04:00 97.3 54 20 117/73 94 Room Air 02/01/17 00:00 97.5 61 20 116/54 93 Room Air 01/31/17 20:00 97.5 54 20 129/62 100 Room Air 01/31/17 19:15 57 20 Room Air 21 01/31/17 18:39 97.8 01/31/17 16:00 97.8 66 18 128/77 97 Room Air Intake and Output 01/31/17 02/01/17 19:00 07:00 Intake Total 690 ml 590 ml Balance 690 ml 590 ml Free Water 100 ml 230 ml IV Total 350 ml Tube Feeding 240 ml 360 ml # Voids 7 2 # Bowel Movements 2 2 Laboratory Tests 01/31/17 21:25: Iron Level 36L, Total Iron Binding Capacity 244L, Percent Iron Saturation 15, Unsaturated Iron Binding 208, Ferritin 142, Carcinoembryonic Antigen 1.9, Free Prostate Specific Antigen [Pending], Percent Free Prostate Specific Ag [Pending] , Prostate Specific Antigen Total [Pending] 02/01/17 07:15: White Blood Count 11.5H, Red Blood Count 4.93, Hemoglobin 15.8, Hematocrit 47.3 , Mean Corpuscular Volume 96, Mean Corpuscular Hemoglobin 32.1H, Mean Corpuscular Hemoglobin Concent 33.5, Red Cell Distribution Width 12.7, Platelet Count 156, Mean Platelet Volume 11.3H, Neutrophils (%) (Auto) 74.4, Lymphocytes (%) (Auto) 9.3L, Monocytes (%) (Auto) 12.9H, Eosinophils (%) (Auto) 2.2, Basophils (%) (Auto) 1.3, Sodium Level 138, Potassium Level 4.4, Chloride Level 103, Carbon Dioxide Level 27, Anion Gap 8, Blood Urea Nitrogen 19, Creatinine 1.0, Estimat Glomerular Filtration Rate , Glucose Level 114H, Calcium Level 8.9 Height (Feet): 5 Height (Inches): 7.00 Weight (Pounds): 170 General Appearance: lethargic EENT: normal ENT inspection Neck: normal alignment Cardiovascular: normal peripheral pulses, normal rate, regular rhythm Respiratory/Chest: chest wall non-tender, lungs clear, normal breath sounds Abdomen: normal bowel sounds, non tender, soft Extremities: normal inspection Edema: no edema noted Arm (L), no edema noted Arm (R), no edema noted Leg (L), no edema noted Leg (R), no edema noted Pedal (L), no edema noted Pedal (R), no edema noted Generalized Neurologic: motor weakness Skin: normal pigmentation, warm/dry BORIS ABEL Feb 01, 2017 14:06
[2017-02-01] MEDS ORDERED: Morphine Sulfate 2mg/ml Inj IVP ONE (15:30)
[2017-02-01] MEDS ORDERED: LORazepam 1mg tab ORAL PRN (15:30)
[2017-02-01] MEDS ORDERED: LORazepam Inj 2mg/ml 1ml IV ONE (15:30)
[2017-02-01 16:00] VITALS: BP 120/82
[2017-02-01] MEDS ORDERED: Morphine Sulfate 2mg/ml Inj SUBQ PRN (16:00)
[2017-02-01] MEDS: Xarelto 10mg tab ORAL SCH (16:05)
--- NOTE | 2017-02-01 16:16 | Pulmonology Progress Note ---
Assessment/Plan Problems: (1) Interstitial lung disease (2) Dementia with psychosis (3) PEG (percutaneous endoscopic gastrostomy) adjustment/replacement/removal (4) Dysphagia (5) Conjunctivitis Assessment/Plan symptomatic treatment still needs Gtube failed swallow study dvt prophylaxis dc planinng Subjective ROS Limited/Unobtainable: No Constitutional: Reports: no symptoms HEENT: Repors: no symptoms Respiratory: Reports: no symptoms Allergies: Coded Allergies: No Known Allergies (Unverified , 01/27/17) Objective Last 24 Hour Vital Signs Date Time Temp Pulse Resp B/P Pulse Ox O2 Delivery O2 Flow Rate FiO2 02/01/17 12:00 96.6 66 17 124/65 96 Room Air 02/01/17 08:00 96.1 67 14 138/75 96 Room Air 02/01/17 04:00 97.3 54 20 117/73 94 Room Air 02/01/17 00:00 97.5 61 20 116/54 93 Room Air 01/31/17 20:00 97.5 54 20 129/62 100 Room Air 01/31/17 19:15 57 20 Room Air 21 01/31/17 18:39 97.8 Intake and Output 01/31/17 02/01/17 19:00 07:00 Intake Total 690 ml 590 ml Balance 690 ml 590 ml Free Water 100 ml 230 ml IV Total 350 ml Tube Feeding 240 ml 360 ml # Voids 7 2 # Bowel Movements 2 2 General Appearance: WD/WN HEENT: normocephalic, atraumatic Respiratory/Chest: chest wall non-tender, normal breath sounds Cardiovascular: normal rate, regular rhythm Genitourinary: normal external genitalia Extremities: no clubbing Skin: no rash Laboratory Tests 01/31/17 21:25: Iron Level 36L, Total Iron Binding Capacity 244L, Percent Iron Saturation 15, Unsaturated Iron Binding 208, Ferritin 142, Carcinoembryonic Antigen 1.9, Free Prostate Specific Antigen [Pending], Percent Free Prostate Specific Ag [Pending] , Prostate Specific Antigen Total [Pending] 02/01/17 07:15: White Blood Count 11.5H, Red Blood Count 4.93, Hemoglobin 15.8, Hematocrit 47.3 , Mean Corpuscular Volume 96, Mean Corpuscular Hemoglobin 32.1H, Mean Corpuscular Hemoglobin Concent 33.5, Red Cell Distribution Width 12.7, Platelet Count 156, Mean Platelet Volume 11.3H, Neutrophils (%) (Auto) 74.4, Lymphocytes (%) (Auto) 9.3L, Monocytes (%) (Auto) 12.9H, Eosinophils (%) (Auto) 2.2, Basophils (%) (Auto) 1.3, Sodium Level 138, Potassium Level 4.4, Chloride Level 103, Carbon Dioxide Level 27, Anion Gap 8, Blood Urea Nitrogen 19, Creatinine 1.0, Estimat Glomerular Filtration Rate , Glucose Level 114H, Calcium Level 8.9 Current Medications Medications (Trade) Dose Ordered Sig/Robin Route PRN Reason Start Time Stop Time Status Last Admin Dose Admin Clotrimazole (Lotrimin) 1 applic EVERY 12 HOURS TOPIC 01/28/17 21:00 02/27/17 20:59 02/01/17 09:34 Dextrose (Dextrose 50%) STAT PRN IV Hypoglycemia 01/27/17 19:45 02/26/17 19:44 Dextrose/Sodium Chloride (D5 0.45% NS) 1,000 ml @ 50 mls/hr Q20H IV 01/27/17 21:00 02/26/17 20:59 01/31/17 04:23 Diphenhydramine HCl (Benadryl) 25 mg Q6H PRN IVP Dry Eyes 01/28/17 15:00 02/27/17 14:59 01/28/17 15:37 Docusate Sodium (Colace) 100 mg TWICE A DAY NG 01/31/17 09:00 03/02/17 08:59 02/01/17 16:05 Hydrocortisone (Hydrocortisone) 1 applic Q6H PRN TOPIC Itching 01/28/17 12:30 02/27/17 12:29 02/01/17 09:34 Lorazepam (Ativan) 1 mg Q6H PRN ORAL For Anxiety 02/01/17 15:30 02/08/17 15:29 Memantine (Namenda) 5 mg Q12HR ORAL 02/01/17 09:00 03/03/17 08:59 02/01/17 09:40 Morphine Sulfate (Morphine Sulfate) 2 mg Q4H PRN SUBQ For Pain 4-10 02/01/17 16:00 02/08/17 15:59 02/01/17 15:59 Mupirocin (Bactroban Oint) 1 applic THREE TIMES A DAY TOPIC 01/29/17 13:00 02/03/17 12:59 02/01/17 13:59 Olanzapine (ZyPREXA) 2.5 mg BEDTIME PRN ORAL agitation 01/31/17 18:30 03/02/17 18:29 Ondansetron HCl (Zofran) 4 mg Q6H PRN IVP Nausea & Vomiting 01/27/17 19:45 02/26/17 19:44 Phenol/Menthol (Chloraseptic) 1 spray Q3H PRN ORAL SORE THROAT PAIN 01/28/17 16:30 02/27/17 16:29 01/29/17 09:15 Polyethylene Glycol (Miralax) 17 gm BEDTIME ORAL 01/31/17 21:00 03/02/17 20:59 01/31/17 20:43 Pravastatin Sodium (Pravachol) 20 mg BEDTIME GT 01/27/17 21:00 02/26/17 20:59 01/31/17 20:42 Ranitidine HCl (Zantac) 150 mg BEDTIME ORAL 01/29/17 21:00 02/28/17 20:59 01/31/17 20:42 Risperidone (RisperDAL) 0.5 mg BID ORAL 02/01/17 18:00 03/03/17 17:59 02/01/17 16:11 Rivaroxaban 20 mg 20 mg QPM ORAL 01/28/17 16:30 02/27/17 16:29 02/01/17 16:05 MARIE PARKER Feb 01, 2017 16:16
--- NOTE | 2017-02-01 18:08 | Infectious Diseases Prog Note ---
Assessment/Plan Problems: (1) Conjunctivitis Assessment & Plan: suspect allergic conjunctivitis, improved with antihistamines, local and systemic . doubt viral etiology , screening for herpes and zoster is pending (2) Pharyngitis Assessment & Plan: with no evidence of exudates, suspect allergic, screening for influnza is negative , continue antihistamines (3) Itching with irritation Assessment & Plan: received once course of Elimite empirically , continue antihistamines prn (4) MRSA nasal colonization Assessment & Plan: continue bactroban to decolonize him (5) Hematuria Assessment & Plan: resolved, await UA, and renal US, recommend urology consult Subjective Constitutional: Reports: no symptoms HEENT: Reports: no symptoms Respiratory: Reports: no symptoms Breasts: Reports: no symptoms Cardiovascular: Reports: no symptoms Gastrointestinal/Abdominal: Reports: no symptoms Genitourinary: Reports: no symptoms Neurologic: Reports: no symptoms Psychiatric: Reports: no symptoms Skin: Reports: ulcer Endocrine: Reports: no symptoms Hematologic: Reports: no symptoms Musculoskeletal: Reports: pain, swelling Allergies: Coded Allergies: No Known Allergies (Unverified , 01/27/17) Objective Vital Signs Last 24 Hour Vital Signs Date Time Temp Pulse Resp B/P Pulse Ox O2 Delivery O2 Flow Rate FiO2 02/01/17 16:39 96.6 02/01/17 12:00 96.6 66 17 124/65 96 Room Air 02/01/17 08:00 96.1 67 14 138/75 96 Room Air 02/01/17 04:00 97.3 54 20 117/73 94 Room Air 02/01/17 00:00 97.5 61 20 116/54 93 Room Air 01/31/17 20:00 97.5 54 20 129/62 100 Room Air 01/31/17 19:15 57 20 Room Air 21 01/31/17 18:39 97.8 Height (Feet): 5 Height (Inches): 7.00 Weight (Pounds): 170 General Appearance: WD/WN, no acute distress HEENT: normocephalic, atraumatic, anicteric, mucous membranes moist, PERRL Respiratory/Chest: chest wall non-tender, lungs clear, normal breath sounds, no respiratory distress, no accessory muscle use Cardiovascular: normal peripheral pulses, normal rate, regular rhythm, regularly irregular, no gallop/murmur Abdomen: normal bowel sounds, soft, non tender, no organomegaly, non distended , no mass, no scars Extremities: no cyanosis, no clubbing Skin: no rash, no lesions, ulcers Neurologic/Psychiatric: alert Lymphatic: no neck adenopathy Musculoskeletal: other - knee and legs pain Laboratory Tests Test 01/31/17 21:25 02/01/17 07:15 Iron Level 36 ug/dL (59-158) L Total Iron Binding Capacity 244 ug/dL (250-400) L Percent Iron Saturation 15 % (15-50) Unsaturated Iron Binding 208 ug/dL (112-346) Ferritin 142 ng/mL (10-230) Carcinoembryonic Antigen 1.9 ng/mL Free Prostate Specific Antigen Pending Percent Free Prostate Specific Ag Pending Prostate Specific Antigen Total Pending White Blood Count 11.5 K/UL (4.8-10.8) H Red Blood Count 4.93 M/UL (4.70-6.10) Hemoglobin 15.8 G/DL (14.2-18.0) Hematocrit 47.3 % (42.0-52.0) Mean Corpuscular Volume 96 FL (80-99) Mean Corpuscular Hemoglobin 32.1 PG (27.0-31.0) H Mean Corpuscular Hemoglobin Concent 33.5 G/DL (32.0-36.0) Red Cell Distribution Width 12.7 % (11.6-14.8) Platelet Count 156 K/UL (150-450) Mean Platelet Volume 11.3 FL (6.5-10.1) H Neutrophils (%) (Auto) 74.4 % (45.0-75.0) Lymphocytes (%) (Auto) 9.3 % (20.0-45.0) L Monocytes (%) (Auto) 12.9 % (1.0-10.0) H Eosinophils (%) (Auto) 2.2 % (0.0-3.0) Basophils (%) (Auto) 1.3 % (0.0-2.0) Sodium Level 138 mEQ/L (135-145) Potassium Level 4.4 mEQ/L (3.4-4.9) Chloride Level 103 mEQ/L (98-107) Carbon Dioxide Level 27 mEQ/L (20-30) Anion Gap 8 (5-15) Blood Urea Nitrogen 19 mg/dL (7-23) Creatinine 1.0 mg/dL (0.7-1.2) Estimat Glomerular Filtration Rate mL/min (>60) Glucose Level 114 mg/dL (74-106) H Calcium Level 8.9 mg/dL (8.6-10.2) Current Medications Medications (Trade) Dose Ordered Sig/Robin Route PRN Reason Start Time Stop Time Status Last Admin Dose Admin Clotrimazole (Lotrimin) 1 applic EVERY 12 HOURS TOPIC 01/28/17 21:00 02/27/17 20:59 02/01/17 09:34 Dextrose (Dextrose 50%) STAT PRN IV Hypoglycemia 01/27/17 19:45 02/26/17 19:44 Dextrose/Sodium Chloride (D5 0.45% NS) 1,000 ml @ 50 mls/hr Q20H IV 01/27/17 21:00 02/26/17 20:59 01/31/17 04:23 Diphenhydramine HCl (Benadryl) 25 mg Q6H PRN IVP Dry Eyes 01/28/17 15:00 02/27/17 14:59 01/28/17 15:37 Docusate Sodium (Colace) 100 mg TWICE A DAY NG 01/31/17 09:00 03/02/17 08:59 02/01/17 16:05 Hydrocortisone (Hydrocortisone) 1 applic Q6H PRN TOPIC Itching 01/28/17 12:30 02/27/17 12:29 02/01/17 09:34 Lorazepam (Ativan) 1 mg Q6H PRN ORAL For Anxiety 02/01/17 15:30 02/08/17 15:29 Memantine (Namenda) 5 mg Q12HR ORAL 02/01/17 09:00 03/03/17 08:59 02/01/17 09:40 Morphine Sulfate (Morphine Sulfate) 2 mg Q4H PRN SUBQ For Pain 4-10 02/01/17 16:00 02/08/17 15:59 02/01/17 15:59 Mupirocin (Bactroban Oint) 1 applic THREE TIMES A DAY TOPIC 01/29/17 13:00 02/03/17 12:59 02/01/17 13:59 Olanzapine (ZyPREXA) 2.5 mg BEDTIME PRN ORAL agitation 01/31/17 18:30 03/02/17 18:29 Ondansetron HCl (Zofran) 4 mg Q6H PRN IVP Nausea & Vomiting 01/27/17 19:45 02/26/17 19:44 Phenol/Menthol (Chloraseptic) 1 spray Q3H PRN ORAL SORE THROAT PAIN 01/28/17 16:30 02/27/17 16:29 01/29/17 09:15 Polyethylene Glycol (Miralax) 17 gm BEDTIME ORAL 01/31/17 21:00 03/02/17 20:59 01/31/17 20:43 Pravastatin Sodium (Pravachol) 20 mg BEDTIME GT 01/27/17 21:00 02/26/17 20:59 01/31/17 20:42 Ranitidine HCl (Zantac) 150 mg BEDTIME ORAL 01/29/17 21:00 02/28/17 20:59 01/31/17 20:42 Risperidone (RisperDAL) 0.5 mg BID ORAL 02/01/17 18:00 03/03/17 17:59 02/01/17 16:11 Rivaroxaban 20 mg 20 mg QPM ORAL 01/28/17 16:30 02/27/17 16:29 02/01/17 16:05 Brenton Bustillo M.D. Feb 01, 2017 18:08
[2017-02-01 20:00] VITALS: BP 121/80
[2017-02-01] MEDS: Miralax 17gm pkt ORAL SCH (20:34)
[2017-02-02] VITALS: BP 104/59
[2017-02-02] MEDS ORDERED: OLANZapine 2.5mg tab GT PRN (00:15)
[2017-02-02] MEDS ORDERED: LORazepam 1mg tab GT PRN (03:30)
[2017-02-02 04:00] VITALS: BP 125/60
[2017-02-02 06:24] LABS: BASOPHILS % (AUTO) 1.6 % (0.0-2.0); EOSINOPHILS % (AUTO) 4.4 % (0.0-3.0); LYMPHOCYTES % (AUTO) 10.4 % (20.0-45.0); MEAN CORPUSCULAR HEMOGLOBIN 31.9 PG (27.0-31.0); MEAN CORPUSCULAR HGB CONC 33.3 G/DL (32.0-36.0); MEAN CORPUSCULAR VOLUME 96 FL (80-99); MONOCYTES % (AUTO) 15.8 % (1.0-10.0); NEUTROPHILS % (AUTO) 67.8 % (45.0-75.0); PLATELET COUNT 140 K/UL (150-450); RED BLOOD COUNT 4.87 M/UL (4.70-6.10); RED CELL DISTRIBUTION WIDTH 12.9 % (11.6-14.8); WHITE BLOOD COUNT 9.5 K/UL (4.8-10.8)
[2017-02-02 06:51] LABS: ANION GAP 9 (5-15); CALCIUM 8.8 mg/dL (8.6-10.2); CARBON DIOXIDE 25 mEQ/L (20-30); CHLORIDE 104 mEQ/L (98-107); CREATININE 0.9 mg/dL (0.7-1.2); HEMOLYSIS 13; SODIUM 138 mEQ/L (135-145)
[2017-02-02 08:30] VITALS: BP 127/65
--- NOTE | 2017-02-02 08:44 | Diagnostic Imaging Report ---
Indication: Back pain Comparison: None Findings: 3 views of the lumbar spine were obtained. There is a compression fracture of the L2 vertebra, moderate to severe in degree. Acuity is indeterminate. Bones are osteopenic. Endplate and facet spur formation demonstrated at multiple levels as well as narrowing of intervertebral disc. Contrast material demonstrated in the colon. Impression: Age-indeterminate fracture of the L2 vertebra. Moderate degenerative disease as described above Osteoporosis
[2017-02-02] MEDS ORDERED: Memantine 5 MG TAB GT SCH (09:00)
[2017-02-02] MEDS: Docusate 100mg/10ml Liq NG SCH (10:18)
[2017-02-02] MEDS ORDERED: RISPERDAL0.5 MG GT (10:49)
[2017-02-02] MEDS ORDERED: LORAZEPAM1 MG GT (10:50)
[2017-02-02] MEDS ORDERED: NAMENDA5 MG ORAL (10:51)
[2017-02-02] MEDS ORDERED: COLACE100 MG/10 GT (10:51)
[2017-02-02 12:00] VITALS: BP 122/63
[2017-02-02] MEDS ORDERED: D5 1/4NS 1000ml IV ONE (14:32)
--- NOTE | 2017-02-02 14:55 | Pulmonology Progress Note ---
Assessment/Plan Problems: (1) Interstitial lung disease (2) Dementia with psychosis (3) PEG (percutaneous endoscopic gastrostomy) adjustment/replacement/removal (4) Dysphagia (5) Conjunctivitis Assessment/Plan symptomatic treatment still needs Gtube failed swallow study dvt prophylaxis all notes reviewed continue current meds dc planinng Subjective ROS Limited/Unobtainable: No Constitutional: Reports: no symptoms HEENT: Repors: no symptoms Respiratory: Reports: no symptoms Allergies: Coded Allergies: No Known Allergies (Unverified , 01/27/17) Objective Last 24 Hour Vital Signs Date Time Temp Pulse Resp B/P Pulse Ox O2 Delivery O2 Flow Rate FiO2 02/02/17 12:00 97.2 64 19 122/63 96 Room Air 02/02/17 08:30 97.0 63 20 127/65 96 Room Air 02/02/17 08:00 60 20 Room Air 21 02/02/17 04:00 97.5 60 20 125/60 96 Room Air 02/02/17 00:00 97.5 67 20 104/59 97 Room Air 02/01/17 20:00 98.1 74 20 121/80 96 Room Air 02/01/17 16:39 96.6 02/01/17 16:00 97.7 87 17 120/82 95 Room Air Intake and Output 02/01/17 02/02/17 19:00 07:00 Intake Total 580 ml 695 ml Output Total 300 ml Balance 580 ml 395 ml Free Water 200 ml 200 ml Tube Feeding 380 ml 495 ml Output Urine Total 300 ml # Bowel Movements 1 General Appearance: WD/WN, no acute distress Respiratory/Chest: chest wall non-tender, lungs clear Cardiovascular: normal peripheral pulses, normal rate Abdomen: normal bowel sounds, soft, non tender Neurologic/Psychiatric: supply tech II-XII grossly normal Laboratory Tests 02/02/17 05:45: White Blood Count 9.5, Red Blood Count 4.87, Hemoglobin 15.6, Hematocrit 46.8, Mean Corpuscular Volume 96, Mean Corpuscular Hemoglobin 31.9H, Mean Corpuscular Hemoglobin Concent 33.3, Red Cell Distribution Width 12.9, Platelet Count 140L, Mean Platelet Volume 13.0H, Neutrophils (%) (Auto) 67.8, Lymphocytes (%) (Auto) 10.4L, Monocytes (%) (Auto) 15.8H, Eosinophils (%) (Auto) 4.4H, Basophils (%) ( Auto) 1.6, Sodium Level 138, Potassium Level 5.0H, Chloride Level 104, Carbon Dioxide Level 25, Anion Gap 9, Blood Urea Nitrogen 20, Creatinine 0.9, Estimat Glomerular Filtration Rate , Glucose Level 125H, Calcium Level 8.8 Current Medications Medications (Trade) Dose Ordered Sig/Robin Route PRN Reason Start Time Stop Time Status Last Admin Dose Admin Clotrimazole (Lotrimin) 1 applic EVERY 12 HOURS TOPIC 01/28/17 21:00 02/27/17 20:59 02/02/17 10:19 Dextrose (Dextrose 50%) STAT PRN IV Hypoglycemia 01/27/17 19:45 02/26/17 19:44 Dextrose/Sodium Chloride (D5 0.45% NS) 1,000 ml @ 50 mls/hr Q20H IV 01/27/17 21:00 02/26/17 20:59 01/31/17 04:23 Diphenhydramine HCl (Benadryl) 25 mg Q6H PRN IVP Dry Eyes 01/28/17 15:00 02/27/17 14:59 01/28/17 15:37 Docusate Sodium (Colace) 100 mg TWICE A DAY NG 01/31/17 09:00 03/02/17 08:59 02/02/17 10:18 Hydrocortisone (Hydrocortisone) 1 applic Q6H PRN TOPIC Itching 01/28/17 12:30 02/27/17 12:29 02/01/17 09:34 Lorazepam (Ativan) 1 mg Q6H PRN GT For Anxiety 02/02/17 03:30 02/09/17 03:29 Memantine (Namenda) 5 mg Q12HR GT 02/02/17 09:00 03/04/17 08:59 02/02/17 10:18 Morphine Sulfate (Morphine Sulfate) 2 mg Q4H PRN SUBQ For Pain 4-10 02/01/17 16:00 02/08/17 15:59 02/01/17 15:59 Mupirocin (Bactroban Oint) 1 applic THREE TIMES A DAY TOPIC 01/29/17 13:00 02/03/17 12:59 02/02/17 10:19 Olanzapine (ZyPREXA) 2.5 mg BEDTIME PRN GT agitation 02/02/17 00:15 03/04/17 00:14 Ondansetron HCl (Zofran) 4 mg Q6H PRN IVP Nausea & Vomiting 01/27/17 19:45 02/26/17 19:44 Phenol/Menthol (Chloraseptic) 1 spray Q3H PRN ORAL SORE THROAT PAIN 01/28/17 16:30 02/27/17 16:29 01/29/17 09:15 Polyethylene Glycol (Miralax) 17 gm BEDTIME GT 02/02/17 21:00 03/04/17 20:59 Pravastatin Sodium 20 mg 20 mg BEDTIME GT 01/27/17 21:00 02/26/17 20:59 02/01/17 20:32 Ranitidine HCl (Zantac) 150 mg BEDTIME GT 02/02/17 21:00 03/04/17 20:59 Risperidone (RisperDAL) 0.5 mg BID GT 02/02/17 09:00 03/04/17 08:59 02/02/17 10:18 Rivaroxaban (Xarelto) 20 mg QPM GT 02/02/17 16:30 03/04/17 16:29 MARIE PARKER Feb 02, 2017 14:55
--- NOTE | 2017-02-02 14:56 | GI Progress Note ---
Assessment/Plan Problems: (1) PEG (percutaneous endoscopic gastrostomy) adjustment/replacement/removal ICD Codes: Z43.1 - Encounter for attention to gastrostomy SNOMED: 344407000, 672977209 (2) Dysphagia ICD Codes: R13.10 - Dysphagia, unspecified SNOMED: 39295248, 565857488 (3) Itching with irritation ICD Codes: L29.9 - Pruritus, unspecified SNOMED: 138931503, 695326415 Status: stable Status Narrative Discussed with Dr. Torres. Assessment/Plan Per nurse from SNF, the patient has tolerated PO intake x 3 months with no use from the GT site. however, ST cheri reviewed >> patient high risk for aspiration requires non-oral feeding pending DPOA if they want the GT removed or not. GTFs per dietary symptomatic treatment bowel regime fu labs dc planning Subjective Subjective limited Objective Last 24 Hour Vital Signs Date Time Temp Pulse Resp B/P Pulse Ox O2 Delivery O2 Flow Rate FiO2 02/02/17 12:00 97.2 64 19 122/63 96 Room Air 02/02/17 08:30 97.0 63 20 127/65 96 Room Air 02/02/17 08:00 60 20 Room Air 21 02/02/17 04:00 97.5 60 20 125/60 96 Room Air 02/02/17 00:00 97.5 67 20 104/59 97 Room Air 02/01/17 20:00 98.1 74 20 121/80 96 Room Air 02/01/17 16:39 96.6 02/01/17 16:00 97.7 87 17 120/82 95 Room Air Intake and Output 02/01/17 02/02/17 19:00 07:00 Intake Total 580 ml 695 ml Output Total 300 ml Balance 580 ml 395 ml Free Water 200 ml 200 ml Tube Feeding 380 ml 495 ml Output Urine Total 300 ml # Bowel Movements 1 Laboratory Tests Test 02/02/17 05:45 White Blood Count 9.5 K/UL (4.8-10.8) Red Blood Count 4.87 M/UL (4.70-6.10) Hemoglobin 15.6 G/DL (14.2-18.0) Hematocrit 46.8 % (42.0-52.0) Mean Corpuscular Volume 96 FL (80-99) Mean Corpuscular Hemoglobin 31.9 PG (27.0-31.0) H Mean Corpuscular Hemoglobin Concent 33.3 G/DL (32.0-36.0) Red Cell Distribution Width 12.9 % (11.6-14.8) Platelet Count 140 K/UL (150-450) L Mean Platelet Volume 13.0 FL (6.5-10.1) H Neutrophils (%) (Auto) 67.8 % (45.0-75.0) Lymphocytes (%) (Auto) 10.4 % (20.0-45.0) L Monocytes (%) (Auto) 15.8 % (1.0-10.0) H Eosinophils (%) (Auto) 4.4 % (0.0-3.0) H Basophils (%) (Auto) 1.6 % (0.0-2.0) Sodium Level 138 mEQ/L (135-145) Potassium Level 5.0 mEQ/L (3.4-4.9) H Chloride Level 104 mEQ/L (98-107) Carbon Dioxide Level 25 mEQ/L (20-30) Anion Gap 9 (5-15) Blood Urea Nitrogen 20 mg/dL (7-23) Creatinine 0.9 mg/dL (0.7-1.2) Estimat Glomerular Filtration Rate mL/min (>60) Glucose Level 125 mg/dL (74-106) H Calcium Level 8.8 mg/dL (8.6-10.2) Height (Feet): 5 Height (Inches): 7.00 Weight (Pounds): 170 General Appearance: no apparent distress, alert Cardiovascular: normal rate Respiratory/Chest: normal breath sounds, no respiratory distress Abdominal Exam: site - c/d/i Amanda Ayala N.P. Feb 02, 2017 14:56
--- NOTE | 2017-02-02 15:16 | Diagnostic Imaging Report ---
Indications: Dysphagia Technique: Multiphasic barium dysphagia study was performed under fluoroscopic control with Lucia Lozada speech pathologist. Cinegraphic images were obtained. Total fluoroscopy time: 230.3 sec Dose-area product: 0.28 mGy-m2 Findings: Comparison: None Oral and pharyngeal phases of swallowing demonstrate multiple mechanical abnormalities, as enumerated on speech pathology evaluation form. The patient demonstrates trace tracheal aspiration of thin liquid barium with variable elicitation of cough reflex, not ejected; superficial to deep laryngeal penetration of nectar thickness barium without aspiration, not ejected. There is moderate barium coating of pharyngeal structures after swallowing. Esophageal phase of swallowing demonstrates no obvious barium pooling. IMPRESSION: Abnormal oropharyngeal mechanics with tracheal aspiration of thin liquid barium, deep laryngeal penetration of nectar thickness barium, neither cleared. Moderate post swallow pharyngeal residue No obvious esophageal dysmotility Recommendation per speech pathology evaluation form.
--- NOTE | 2017-02-02 15:26 | Infectious Diseases Prog Note ---
Assessment/Plan Problems: (1) Conjunctivitis Assessment & Plan: suspect allergic conjunctivitis, improved with antihistamines, local and systemic . doubt viral etiology , screening for herpes and zoster is pending (2) Pharyngitis Assessment & Plan: with no evidence of exudates, suspect allergic, screening for influnza is negative , continue antihistamines (3) Itching with irritation Assessment & Plan: received once course of Elimite empirically , continue antihistamines prn (4) MRSA nasal colonization Assessment & Plan: continue bactroban to decolonize him (5) Hematuria Assessment & Plan: resolved, await UA, and renal US, recommend urology consult Subjective Constitutional: Reports: no symptoms HEENT: Reports: no symptoms Respiratory: Reports: no symptoms Breasts: Reports: no symptoms Cardiovascular: Reports: no symptoms Gastrointestinal/Abdominal: Reports: no symptoms Genitourinary: Reports: no symptoms Neurologic: Reports: no symptoms Psychiatric: Reports: no symptoms Skin: Reports: no symptoms Endocrine: Reports: no symptoms Allergies: Coded Allergies: No Known Allergies (Unverified , 01/27/17) Objective Vital Signs Last 24 Hour Vital Signs Date Time Temp Pulse Resp B/P Pulse Ox O2 Delivery O2 Flow Rate FiO2 02/02/17 12:00 97.2 64 19 122/63 96 Room Air 02/02/17 08:30 97.0 63 20 127/65 96 Room Air 02/02/17 08:00 60 20 Room Air 21 02/02/17 04:00 97.5 60 20 125/60 96 Room Air 02/02/17 00:00 97.5 67 20 104/59 97 Room Air 02/01/17 20:00 98.1 74 20 121/80 96 Room Air 02/01/17 16:39 96.6 02/01/17 16:00 97.7 87 17 120/82 95 Room Air Height (Feet): 5 Height (Inches): 7.00 Weight (Pounds): 170 General Appearance: WD/WN, no acute distress HEENT: normocephalic, atraumatic, anicteric, mucous membranes moist Respiratory/Chest: chest wall non-tender, lungs clear, normal breath sounds, no respiratory distress, no accessory muscle use Cardiovascular: normal peripheral pulses, normal rate, regular rhythm, no gallop/murmur, no JVD Abdomen: normal bowel sounds, soft, non tender, no organomegaly, non distended , no mass, no scars Extremities: no cyanosis, no clubbing Skin: no rash, no lesions Neurologic/Psychiatric: alert, oriented x 3 Laboratory Tests Test 02/02/17 05:45 White Blood Count 9.5 K/UL (4.8-10.8) Red Blood Count 4.87 M/UL (4.70-6.10) Hemoglobin 15.6 G/DL (14.2-18.0) Hematocrit 46.8 % (42.0-52.0) Mean Corpuscular Volume 96 FL (80-99) Mean Corpuscular Hemoglobin 31.9 PG (27.0-31.0) H Mean Corpuscular Hemoglobin Concent 33.3 G/DL (32.0-36.0) Red Cell Distribution Width 12.9 % (11.6-14.8) Platelet Count 140 K/UL (150-450) L Mean Platelet Volume 13.0 FL (6.5-10.1) H Neutrophils (%) (Auto) 67.8 % (45.0-75.0) Lymphocytes (%) (Auto) 10.4 % (20.0-45.0) L Monocytes (%) (Auto) 15.8 % (1.0-10.0) H Eosinophils (%) (Auto) 4.4 % (0.0-3.0) H Basophils (%) (Auto) 1.6 % (0.0-2.0) Sodium Level 138 mEQ/L (135-145) Potassium Level 5.0 mEQ/L (3.4-4.9) H Chloride Level 104 mEQ/L (98-107) Carbon Dioxide Level 25 mEQ/L (20-30) Anion Gap 9 (5-15) Blood Urea Nitrogen 20 mg/dL (7-23) Creatinine 0.9 mg/dL (0.7-1.2) Estimat Glomerular Filtration Rate mL/min (>60) Glucose Level 125 mg/dL (74-106) H Calcium Level 8.8 mg/dL (8.6-10.2) Current Medications Medications (Trade) Dose Ordered Sig/Robin Route PRN Reason Start Time Stop Time Status Last Admin Dose Admin Clotrimazole (Lotrimin) 1 applic EVERY 12 HOURS TOPIC 01/28/17 21:00 9/16/17 20:59 02/02/17 10:19 Dextrose (Dextrose 50%) STAT PRN IV Hypoglycemia 01/27/17 19:45 02/26/17 19:44 Dextrose/Sodium Chloride (D5 0.45% NS) 1,000 ml @ 50 mls/hr Q20H IV 01/27/17 21:00 02/26/17 20:59 01/31/17 04:23 Diphenhydramine HCl (Benadryl) 25 mg Q6H PRN IVP Dry Eyes 01/28/17 15:00 02/27/17 14:59 01/28/17 15:37 Docusate Sodium (Colace) 100 mg TWICE A DAY NG 01/31/17 09:00 03/02/17 08:59 02/02/17 10:18 Hydrocortisone (Hydrocortisone) 1 applic Q6H PRN TOPIC Itching 01/28/17 12:30 02/27/17 12:29 02/01/17 09:34 Lorazepam (Ativan) 1 mg Q6H PRN GT For Anxiety 02/02/17 03:30 02/09/17 03:29 Memantine (Namenda) 5 mg Q12HR GT 02/02/17 09:00 03/04/17 08:59 02/02/17 10:18 Morphine Sulfate (Morphine Sulfate) 2 mg Q4H PRN SUBQ For Pain 4-10 02/01/17 16:00 02/08/17 15:59 02/01/17 15:59 Mupirocin (Bactroban Oint) 1 applic THREE TIMES A DAY TOPIC 01/29/17 13:00 02/03/17 12:59 02/02/17 10:19 Olanzapine (ZyPREXA) 2.5 mg BEDTIME PRN GT agitation 02/02/17 00:15 03/04/17 00:14 Ondansetron HCl (Zofran) 4 mg Q6H PRN IVP Nausea & Vomiting 01/27/17 19:45 02/26/17 19:44 Phenol/Menthol (Chloraseptic) 1 spray Q3H PRN ORAL SORE THROAT PAIN 01/28/17 16:30 02/27/17 16:29 01/29/17 09:15 Polyethylene Glycol (Miralax) 17 gm BEDTIME GT 02/02/17 21:00 03/04/17 20:59 Pravastatin Sodium 20 mg 20 mg BEDTIME GT 01/27/17 21:00 02/26/17 20:59 02/01/17 20:32 Ranitidine HCl (Zantac) 150 mg BEDTIME GT 02/02/17 21:00 03/04/17 20:59 Risperidone (RisperDAL) 0.5 mg BID GT 02/02/17 09:00 03/04/17 08:59 02/02/17 10:18 Rivaroxaban (Xarelto) 20 mg QPM GT 02/02/17 16:30 03/04/17 16:29 Brenton Bustillo M.D. Feb 02, 2017 15:26
--- NOTE | 2017-02-02 15:44 | General Progress Note ---
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 ICD Codes: H21.562 - Pupillary abnormality, left eye SNOMED: 667077668 Status: stable, progressing, tolerating diet Assessment/Plan ot pt diet dc to snf Subjective Constitutional: Reports: weakness Allergies: Coded Allergies: No Known Allergies (Unverified , 01/27/17) All Systems: reviewed and negative except above Subjective weak calm Objective Last 24 Hour Vital Signs Date Time Temp Pulse Resp B/P Pulse Ox O2 Delivery O2 Flow Rate FiO2 02/02/17 12:00 97.2 64 19 122/63 96 Room Air 02/02/17 08:30 97.0 63 20 127/65 96 Room Air 02/02/17 08:00 60 20 Room Air 21 02/02/17 04:00 97.5 60 20 125/60 96 Room Air 02/02/17 00:00 97.5 67 20 104/59 97 Room Air 02/01/17 20:00 98.1 74 20 121/80 96 Room Air 02/01/17 16:39 96.6 02/01/17 16:00 97.7 87 17 120/82 95 Room Air Intake and Output 02/01/17 02/02/17 19:00 07:00 Intake Total 580 ml 760 ml Output Total 300 ml Balance 580 ml 460 ml Free Water 200 ml 200 ml Tube Feeding 380 ml 560 ml Output Urine Total 300 ml # Bowel Movements 1 Laboratory Tests 02/02/17 05:45: White Blood Count 9.5, Red Blood Count 4.87, Hemoglobin 15.6, Hematocrit 46.8, Mean Corpuscular Volume 96, Mean Corpuscular Hemoglobin 31.9H, Mean Corpuscular Hemoglobin Concent 33.3, Red Cell Distribution Width 12.9, Platelet Count 140L, Mean Platelet Volume 13.0H, Neutrophils (%) (Auto) 67.8, Lymphocytes (%) (Auto) 10.4L, Monocytes (%) (Auto) 15.8H, Eosinophils (%) (Auto) 4.4H, Basophils (%) ( Auto) 1.6, Sodium Level 138, Potassium Level 5.0H, Chloride Level 104, Carbon Dioxide Level 25, Anion Gap 9, Blood Urea Nitrogen 20, Creatinine 0.9, Estimat Glomerular Filtration Rate , Glucose Level 125H, Calcium Level 8.8 Height (Feet): 5 Height (Inches): 7.00 Weight (Pounds): 170 General Appearance: lethargic EENT: normal ENT inspection Neck: normal alignment Cardiovascular: normal peripheral pulses, normal rate, regular rhythm Respiratory/Chest: chest wall non-tender, lungs clear, normal breath sounds Extremities: normal inspection Edema: no edema noted Arm (L), no edema noted Arm (R), no edema noted Leg (L), no edema noted Leg (R), no edema noted Pedal (L), no edema noted Pedal (R), no edema noted Generalized Neurologic: motor weakness Skin: normal pigmentation, warm/dry BORIS ABEL Feb 02, 2017 15:45
[2017-02-02] MEDS ORDERED: Xarelto 10mg tab GT SCH (16:30)
--- NOTE | 2017-02-02 17:10 | General Progress Note ---
Assessment/Plan Assessment/Plan Assessment and recs 1. Polycythemia, reactive. --> better now. monitor counts, will need sleep study. follow up as outpatient 2. Erythrocytosis, reactive. --> improved 3. Hematuria. 4. Anticoagulation with Xarelto. 5. Dementia. 6. Interstitial lung disease. 7. Chronic obstructive pulmonary disease exacerbation. 8. Conjunctivitis. 9. Pharyngitis. 10. Dysphagia.. 11. Status post gastrostomy tube removal. --> failed swallow eval Subjective Date patient seen: Feb 01, 2017 Constitutional: Reports: no symptoms HEENT: Reports: no symptoms Cardiovascular: Reports: no symptoms Respiratory: Reports: no symptoms Gastrointestinal/Abdominal: Reports: no symptoms Genitourinary: Reports: no symptoms Neurologic/Psychiatric: Reports: no symptoms Endocrine: Reports: no symptoms Allergies: Coded Allergies: No Known Allergies (Unverified , 01/27/17) Subjective calm Objective Last 24 Hour Vital Signs Date Time Temp Pulse Resp B/P Pulse Ox O2 Delivery O2 Flow Rate FiO2 02/02/17 12:00 97.2 64 19 122/63 96 Room Air 02/02/17 08:30 97.0 63 20 127/65 96 Room Air 02/02/17 08:00 60 20 Room Air 21 02/02/17 04:00 97.5 60 20 125/60 96 Room Air 02/02/17 00:00 97.5 67 20 104/59 97 Room Air 02/01/17 20:00 98.1 74 20 121/80 96 Room Air Intake and Output 02/01/17 02/02/17 19:00 07:00 Intake Total 580 ml 760 ml Output Total 300 ml Balance 580 ml 460 ml Free Water 200 ml 200 ml Tube Feeding 380 ml 560 ml Output Urine Total 300 ml # Bowel Movements 1 Laboratory Tests 02/02/17 05:45: White Blood Count 9.5, Red Blood Count 4.87, Hemoglobin 15.6, Hematocrit 46.8, Mean Corpuscular Volume 96, Mean Corpuscular Hemoglobin 31.9H, Mean Corpuscular Hemoglobin Concent 33.3, Red Cell Distribution Width 12.9, Platelet Count 140L, Mean Platelet Volume 13.0H, Neutrophils (%) (Auto) 67.8, Lymphocytes (%) (Auto) 10.4L, Monocytes (%) (Auto) 15.8H, Eosinophils (%) (Auto) 4.4H, Basophils (%) ( Auto) 1.6, Sodium Level 138, Potassium Level 5.0H, Chloride Level 104, Carbon Dioxide Level 25, Anion Gap 9, Blood Urea Nitrogen 20, Creatinine 0.9, Estimat Glomerular Filtration Rate , Glucose Level 125H, Calcium Level 8.8 Height (Feet): 5 Height (Inches): 7.00 Weight (Pounds): 170 General Appearance: no apparent distress Neck: normal alignment Cardiovascular: no gallop/murmur Respiratory/Chest: no accessory muscle use Neurologic: normal mood/affect Skin: normal pigmentation, warm/dry Isael Dumont Feb 02, 2017 17:10
[2017-02-02] MEDS ORDERED: Miralax 17gm pkt GT SCH (21:00)
[2017-02-03 04:21] LABS: PSA FREE 0.13 ng/mL; PSA TOTAL 0.5 ng/mL (0.0-4.0)
--- NOTE | 2017-02-03 07:15 | Consultation ---
DATE OF CONSULTATION: 02/01/2017 PSYCHOTHERAPY CONSULTATION PROGRESS NOTE CONSULTING PHYSICIAN: Sanya Bob M.D. TREATING ATTENDING PHYSICIAN: Han Swenson D.O. HISTORY OF PRESENT ILLNESS: The patient is a 76-year-old has a history of paranoid schizophrenia . The patient is from [facility]. He was admitted to the hospital for G-tube removal. The patient has been confused, agitated, irritable, mood shifts. According to the records, the patient , slight short of breath, admitted to the hospital. He renal failure. He has been confused . PAST MEDICAL HISTORY: , and shortness of breath. ALLERGIES: The patient has no known drug allergies. SUBSTANCE ABUSE HISTORY: There is no indication of alcohol use, illicit substance use, or smoking cigarettes. PSYCHIATRIC HISTORY: The patient has a history of paranoid schizophrenia. The patient has had inpatient psychiatric hospitalizations in the past. SOCIAL HISTORY: This is a 76-year-old male patient from [facility] financially sustained through Medicare and [employer]. MENTAL STATUS EXAMINATION: The patient is alert and oriented x2 to person and place. His mood is irritable. Affect is congruent. Thought process is disorganized. Thought content . The patient has poor attention and concentration. Poor insight, judgment, and impulse control. DIAGNOSES: Dumont I Paranoid schizophrenia. Dumont II Deferred. Dumont III Per History and Physical. PLAN: This clinician assessed this patient. Provided this patient with supportive psychotherapy, reality orientation, and coping skills. Encouraging the patient to participate in treatment and milieu. Continue with medication management and behavioral management. This clinician has reviewed the patient's chart and discussed the treatment with the nursing staff. Sanya Bob PsyD. DR: SARAH JOB#: [id number] CC:
--- NOTE | 2017-02-04 13:46 | Discharge Summary ---
Discharge Summary Hospital Course Date of Admission Jan 27, 2017 at 15:01 Date of Discharge Feb 02, 2017 at 14:45 Admitting Diagnosis G-tube removal HPI Kb Langston is a 76 year old male who was admitted on Jan 27, 2017 at 15:01 for G-Tube Removal Hospital Course [id number] Discharge Discharge Disposition Patient was discharged to SNF/Subacute Facility(03) Discharge Diagnoses: Angelica Matos NP Feb 04, 2017 13:46
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
--- NOTE | 2017-02-05 16:30 | Progress Note ---
DATE: 02/02/2017 SUBJECTIVE: This is a 76-year-old male patient, still has some agitation and irritability from the unit with lots of psychomotor agitation. PLAN: She will continue on her medications to reduce agitation to help stabilize his mood. Seen and assessed at bedside. Chart reviewed. Discussed with staff. Елена Lang M.D. DR: PAULA JOB#: [id number] CC:
== END 2017-02-02 14:45 | DRG 191 ==
LOC: EDBD 13:31 → EMR 14:50 → 4E 15:01 → EDBEDREQ 19:02 → 4E 02-01 21:18
DX: J44.1 Chronic obstructive pulmonary disease with (acute) exacerbation (principal); J84.9 Interstitial pulmonary disease, unspecified; D68.32 Hemorrhagic disorder due to extrinsic circulating anticoagulants; H47.292 Other optic atrophy, left eye; Z43.1 Encounter for attention to gastrostomy; R13.10 Dysphagia, unspecified; F03.90 Unspecified dementia, unspecified severity, without behavioral disturbance, psychotic disturbance, mood disturbance, and anxiety; D75.1 Secondary polycythemia; T85.22XA Displacement of intraocular lens, initial encounter; F20.0 Paranoid schizophrenia; H10.89 Other conjunctivitis; R31.9 Hematuria, unspecified; J02.9 Acute pharyngitis, unspecified; B86 Scabies; H35.9 Unspecified retinal disorder; R41.0 Disorientation, unspecified; Z22.322 Carrier or suspected carrier of Methicillin resistant Staphylococcus aureus; S80.02XA Contusion of left knee, initial encounter; S80.01XA Contusion of right knee, initial encounter; X58.XXXA Exposure to other specified factors, initial encounter; F29 Unspecified psychosis not due to a substance or known physiological condition; Y83.8 Other surgical procedures as the cause of abnormal reaction of the patient, or of later complication, without mention of misadventure at the time of the procedure; H01.003 Unspecified blepharitis right eye, unspecified eyelid; T45.515A Adverse effect of anticoagulants, initial encounter; H21.562 Pupillary abnormality, left eye; R62.7 Adult failure to thrive
CPT/HCPCS: 36415; 71010; 71250; 72020; 74230; 80048; 80053; 81003; 82378; 82550; 82553; 82728; 83540; 83550; 83605; 84153; 84154; 84484; 85025; 86710; 87081; 93970; 94640; 94664; 97803; J7620

== ENCOUNTER 2018-09-12 14:40 | Inpatient (IN) | payer MEDICARE, MEDICAID ==
[~2018-09-12] VITALS: Ht 175.3 cm; Wt 72.7 kg
[~2018-09-12 14:40] MED LIST: ACETAMINOPHEN120 MG RECTAL; BACTROBAN NASAL1 GM NASAL; BISACODYL5 MG RECTAL; CLOTRIMAZOLE15 GM TOPIC; COLACE100 MG GT; COLACE100 MG/10 GT; FLEET ENEMA133 ML RECTAL; KETOTIFEN FUMARA5 ML OP; LORAZEPAM1 MG GT; MILK OF MA400 MG/51 GT; NAMENDA5 MG GT; OMEPRAZOLE20 M2 GT; PRAVASTATIN SOD20 M1 GT; RISPERDAL0.5 MG GT; SEROQUEL50 MG GT; XARELTO20 MG GT; ZANTAC150 MG ORAL
--- NOTE | 2018-09-12 14:48 | NUR ---
ED Nurse Note: patient brought in by [facility] from [facility] patient is alert and awake, nonverbal able to make his needs known. patient was brought in for left buttock ulcer, warmth, redness and pus leaking noted.
[2018-09-12 15:00] VITALS: BP 127/70
[2018-09-12] MEDS ORDERED: NAMENDA5 MG GT ×2 (15:03→18:32)
[2018-09-12] MEDS ORDERED: ASCORBIC ACID500 MG GT (15:03)
[2018-09-12] MEDS ORDERED: NOVOLIN R100 UNIT/1 SUBQ (15:03)
[2018-09-12] MEDS ORDERED: RISPERDAL0.25 MG GT (15:03)
[2018-09-12] MEDS ORDERED: TYLENOL EXTRA500 MG GT (15:03)
[2018-09-12] MEDS ORDERED: PRAVASTATIN SOD40 M1 GT (15:03)
[2018-09-12] MEDS ORDERED: ELIQUIS2.5 MG GT (15:03)
[2018-09-12] MEDS ORDERED: Cefepime HCl 2 GM in NS 110 ML IV SCH (15:15)
[2018-09-12 16:00] LABS: APPEARANCE,URINE CLEAR; BILIRUBIN, URINE NEGATIVE (NEGATIVE); COLOR,URINE PALE YELLOW; GLUCOSE, URINE (UA) NEGATIVE (NEGATIVE); KETONES,URINE NEGATIVE (NEGATIVE); LEUKOCYTE ESTERASE ,URINE NEGATIVE (NEGATIVE); NITRITE,URINE NEGATIVE (NEGATIVE); PH,URINE 7 (4.5-8.0); PROTEIN,URINE 1+ (NEGATIVE); UROBILINOGEN,URINE NORMAL MG/DL (0.0-1.0)
[2018-09-12 16:07] LABS: ANION GAP 8 mmol/L (5-15); BLOOD UREA NITROGEN 26 mg/dL (7-18); CALCIUM 8.4 MG/DL (8.5-10.1); CARBON DIOXIDE 24 MMOL/L (21-32); CHLORIDE 106 MMOL/L (98-107); CREATININE 0.6 MG/DL (0.55-1.30); POTASSIUM 5.3 MMOL/L (3.5-5.1); SODIUM 138 MMOL/L (136-145)
[2018-09-12 16:08] LABS: BASOPHILS % (AUTO) 1.3 % (0.0-2.0); EOSINOPHILS % (AUTO) 3.2 % (0.0-3.0); HEMATOCRIT 41.9 % (42.0-52.0); HEMOGLOBIN 14.2 G/DL (14.2-18.0); LYMPHOCYTES % (AUTO) 5.5 % (20.0-45.0); MEAN CORPUSCULAR VOLUME 93 FL (80-99); MONOCYTES % (AUTO) 9.7 % (1.0-10.0); NEUTROPHILS % (AUTO) 80.2 % (45.0-75.0); PLATELET COUNT 155 K/UL (150-450); RED BLOOD COUNT 4.52 M/UL (4.70-6.10); RED CELL DISTRIBUTION WIDTH 11.8 % (11.6-14.8); WHITE BLOOD COUNT 14.3 K/UL (4.8-10.8)
[2018-09-12 16:12] LABS: ALANINE AMINOTRANSFERASE 40 U/L (12-78); ALBUMIN 2.1 G/DL (3.4-5.0); ALBUMIN/GLOBULIN RATIO 0.4 (1.0-2.7); ALKALINE PHOSPHATASE 188 U/L (46-116); ASPARTATE AMINO TRANSFERASE 34 U/L (15-37); BILIRUBIN,TOTAL 0.5 MG/DL (0.2-1.0); CREATINE KINASE 62 U/L (26-308)
--- NOTE | 2018-09-12 16:19 | Emergency Room Report ---
History of Present Illness General Chief Complaint: Skin Rash/Abscess Source: Medical Record, EMS Present Illness HPI This patient is brought in from a halfway facility. He is brought in because he has an abscess and skin infection on his back. The patient himself is nonverbal at baseline. He has a history of MRSA, CVA, COPD. Allergies: Coded Allergies: No Known Allergies (Unverified , 01/27/17) Patient History Past Medical History: see triage record, HTN, NH, CAD, COPD, GERD, CVA/TIA, dementia Social History: Denies: smoking, alcohol use, drug use Reviewed Nursing Documentation: PMH: Agreed; PSxH: Agreed Nursing Documentation-PMH Past Medical History: No History, Except For Hx Cardiac Problems: No Hx Hypertension: Yes Hx COPD: Yes Hx Diabetes: Yes - DMII Hx Cancer: No Hx Neurological Problems: No Hx Cerebrovascular Accident: Yes Review of Systems All Other Systems: negative except mentioned in HPI Physical Exam Vital Signs Date Time Temp Pulse Resp B/P (MAP) Pulse Ox O2 Delivery O2 Flow Rate FiO2 09/12/18 14:46 98.1 82 18 107/68 92 Room Air Sp02 EP Interpretation: reviewed, normal General Appearance: no apparent distress, alert, GCS 15, non-toxic Head: normocephalic, atraumatic Eyes: bilateral eye normal inspection ENT: hearing grossly normal, no angioedema Neck: normal inspection Respiratory: chest non-tender, lungs clear, normal breath sounds, no respiratory distress, no retraction, no accessory muscle use, speaking full sentences Cardiovascular #1: regular rate, rhythm, no edema Gastrointestinal: normal bowel sounds, non tender, soft, non-distended, no guarding, no rebound Rectal: deferred Neurologic: alert, responsive, speech normal Psychiatric: mood/affect normal Skin: warm/dry, well hydrated, other - [id number] region of induration, swelling and erythema on lower L. upper back. Medical Decision Making Diagnostic Impression: Primary Impression: Abscess Additional Impression: Cellulitis ER Course This patient has a large abscess versus area of induration with an area of surrounding erythema consistent with cellulitis. The patient does have a history of MRSA. The patient was given IV vancomycin and IV fluids. He will be admitted for further IV antibiotics and further evaluation by general surgery. Laboratory Tests Test 09/12/18 15:04 09/12/18 15:16 Urine Color Pale yellow Urine Appearance Clear Urine pH 7 (4.5-8.0) Urine Specific Richey 1.005 (1.005-1.035) Urine Protein 1+ (NEGATIVE) H Urine Glucose (UA) Negative (NEGATIVE) Urine Ketones Negative (NEGATIVE) Urine Blood Negative (NEGATIVE) Urine Nitrite Negative (NEGATIVE) Urine Bilirubin Negative (NEGATIVE) Urine Urobilinogen Normal MG/DL (0.0-1.0) Urine Leukocyte Esterase Negative (NEGATIVE) Urine RBC Pending Urine WBC Pending Urine Squamous Epithelial Cells Pending Urine Bacteria Pending White Blood Count 14.3 K/UL (4.8-10.8) H Red Blood Count 4.52 M/UL (4.70-6.10) L Hemoglobin 14.2 G/DL (14.2-18.0) Hematocrit 41.9 % (42.0-52.0) L Mean Corpuscular Volume 93 FL (80-99) Mean Corpuscular Hemoglobin 31.3 PG (27.0-31.0) H Mean Corpuscular Hemoglobin Concent 33.8 G/DL (32.0-36.0) Red Cell Distribution Width 11.8 % (11.6-14.8) Platelet Count 155 K/UL (150-450) Mean Platelet Volume 9.2 FL (6.5-10.1) Neutrophils (%) (Auto) 80.2 % (45.0-75.0) H Lymphocytes (%) (Auto) 5.5 % (20.0-45.0) L Monocytes (%) (Auto) 9.7 % (1.0-10.0) Eosinophils (%) (Auto) 3.2 % (0.0-3.0) H Basophils (%) (Auto) 1.3 % (0.0-2.0) Sodium Level 138 MMOL/L (136-145) Potassium Level 5.3 MMOL/L (3.5-5.1) H Chloride Level 106 MMOL/L (98-107) Carbon Dioxide Level 24 MMOL/L (21-32) Anion Gap 8 mmol/L (5-15) Blood Urea Nitrogen 26 mg/dL (7-18) H Creatinine 0.6 MG/DL (0.55-1.30) Estimate Glomerular Filtration Rate mL/min (>60) Glucose Level 103 MG/DL (74-106) Lactic Acid Level 1.10 mmol/L (0.4-2.0) Calcium Level 8.4 MG/DL (8.5-10.1) L Total Bilirubin 0.5 MG/DL (0.2-1.0) Aspartate Amino Transferase (AST) 34 U/L (15-37) Alanine Aminotransferase (ALT) 40 U/L (12-78) Alkaline Phosphatase 188 U/L (46-116) H Total Creatine Kinase 62 U/L (26-308) Troponin I 0.000 ng/mL (0.000-0.056) Total Protein 7.0 G/DL (6.4-8.2) Albumin 2.1 G/DL (3.4-5.0) L Globulin 4.9 g/dL Albumin/Globulin Ratio 0.4 (1.0-2.7) L Last Vital Signs Date Time Temp Pulse Resp B/P (MAP) Pulse Ox O2 Delivery O2 Flow Rate FiO2 09/12/18 15:00 98.1 73 19 127/70 98 Room Air Disposition: ADMITTED INPATIENT Condition: Serious Referrals: Han Swenson DO (PCP) Gabrielle Erickson DO Sep 12, 2018 16:19
[2018-09-12] MEDS ORDERED: Vancomycin 1 GM in NS 275 ML IVPB ONE (18:00)
[2018-09-12] MEDS ORDERED: BISACODYL10 M1 RC (18:08)
[2018-09-12] MEDS ORDERED: MULTIVITAMINS1 EAC8 ORAL (18:32)
[2018-09-12] MEDS ORDERED: ACETAMINOPHEN325 M1 ORAL (18:32)
[2018-09-12] MEDS ORDERED: Albuterol/Ipratropium 3ml neb HHN PRN (18:45)
[2018-09-12] MEDS ORDERED: Miralax 17gm pkt ORAL PRN (18:45)
[2018-09-12] MEDS ORDERED: Nitroglycerin Subl 0.4mg tab SL PRN (18:45)
[2018-09-12] MEDS ORDERED: Morphine Sulfate 2mg/ml Inj(IV/IM USE ONLY) IVP PRN (18:48)
[2018-09-12] MEDS ORDERED: Miralax 17gm pkt GT PRN (19:00)
[2018-09-12] MEDS ORDERED: Acetaminophen 650mg/20.3ml GT PRN (19:00)
--- NOTE | 2018-09-12 19:09 | NUR ---
HAND-OFF: Report given to Regina RN. patient is in stable condition.
[2018-09-12 20:13] VITALS: BP 100/68
--- NOTE | 2018-09-12 20:20 | NUR ---
ED Nurse Note: pt was admitted to the hospital. pt was transfered to [place] [id number] report given to Monica CHAVEZ.
[2018-09-12] MEDS ORDERED: Rx Monitoring Vancomycin MISC PRN (20:30)
[2018-09-12] MEDS: NovoLOG Insulin Flexpen SUBQ SCH (21:00)
[2018-09-12] MEDS: Heparin 5000 units/ml inj SUBQ SCH ×3 (21:00→23:02)
[2018-09-13] VITALS (8 sets, daily range): BP systolic 100–123; BP diastolic 41–75
[2018-09-13] MEDS ORDERED: Vancomycin 1 GM in D5W 275 ML IV SCH (00:30)
--- NOTE | 2018-09-13 01:01 | NUR ---
Received pt from ER at 2100 and admitted to room 401-2. Pt was transferred to bed with staff assistance. Pt was confused and non-verbal. Skin assessment and wound care protocol was done. Wound nurse consult order was placed.
--- NOTE | 2018-09-13 01:16 | NUR ---
NURSE NOTES: Pictures of wounds on pt's left buttock, and left and right heels were taken and uploaded. Heels protectors applied.
[2018-09-13] MEDS: Cefepime HCl 2 GM in D5W 110 ML IV SCH ×2 (04:04→17:34)
[2018-09-13] MEDS: Vancomycin 750mg/NS 275ml IVPB SCH ×4 (05:23→18:18)
[2018-09-13] MEDS: NovoLOG Insulin Flexpen SUBQ SCH ×3 (05:42→17:46)
[2018-09-13 05:51] LABS: BASOPHILS % (AUTO) 2.1 % (0.0-2.0); EOSINOPHILS % (AUTO) 2.4 % (0.0-3.0); HEMATOCRIT 39.1 % (42.0-52.0); HEMOGLOBIN 13.3 G/DL (14.2-18.0); LYMPHOCYTES % (AUTO) 3.7 % (20.0-45.0); MEAN CORPUSCULAR VOLUME 94 FL (80-99); MONOCYTES % (AUTO) 9.8 % (1.0-10.0); NEUTROPHILS % (AUTO) 82.1 % (45.0-75.0); PLATELET COUNT 167 K/UL (150-450); RED BLOOD COUNT 4.14 M/UL (4.70-6.10); RED CELL DISTRIBUTION WIDTH 12.3 % (11.6-14.8); WHITE BLOOD COUNT 13.3 K/UL (4.8-10.8)
[2018-09-13 06:14] LABS: ALANINE AMINOTRANSFERASE 30 U/L (12-78); ALBUMIN 1.8 G/DL (3.4-5.0); ALBUMIN/GLOBULIN RATIO 0.4 (1.0-2.7); ALKALINE PHOSPHATASE 134 U/L (46-116); ANION GAP 7 mmol/L (5-15); ASPARTATE AMINO TRANSFERASE 23 U/L (15-37); BILIRUBIN,TOTAL 0.4 MG/DL (0.2-1.0); BLOOD UREA NITROGEN 22 mg/dL (7-18); CARBON DIOXIDE 24 MMOL/L (21-32); CHLORIDE 108 MMOL/L (98-107); CREATININE 0.7 MG/DL (0.55-1.30); POTASSIUM 4.3 MMOL/L (3.5-5.1); SODIUM 139 MMOL/L (136-145)
--- NOTE | 2018-09-13 07:24 | NUR ---
HAND-OFF: Report given to SCOTT Good.
--- NOTE | 2018-09-13 07:35 | NUR ---
NURSE NOTES: Received patient on bed, asleep. IV site intact and patent. Gtube present and intact. Condom catheter is intact and patent. Bed in low and locked position, call light in reach. No signs of respiratory distress or pain. Room board updated, will continue to monitor.
[2018-09-13] MEDS: Memantine 5 MG TAB GT SCH ×2 (08:21→17:34)
[2018-09-13] MEDS: Heparin 5000 units/ml inj SUBQ SCH ×2 (08:22→21:00)
--- NOTE | 2018-09-13 08:41 | NUR ---
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 CELLULITES VS: BP 100/68, P 96, T 98.1, RR 19, SpO2 92 WBC 14.3, RBC 4,52, Hgb 13.3, Hct 39.1 IS:CEFEPIME HCI 110ml IV NS 2.1L IVLG VANCOMYCIN 275ml IVPB D50 25ml IV ADMITTED TO MED/SURG DC PLAN RETURN TO [facility].
--- NOTE | 2018-09-13 09:00 | NUR ---
NURSE NOTES: Changed rate to 70mL/hour. Patient tolerated well.
--- NOTE | 2018-09-13 10:00 | NUR ---
NURSE NOTES: Gtube feeding stopped as per order. Will restart at 1400 hours. Flushed gtube with 60mL of water. patient tolerated well.
--- NOTE | 2018-09-13 10:30 | NUR ---
NURSE NOTES: Consent signed for I&D by daughter via telephone. MD Dickey performed I&D at bedside. Dressed wound with packed betadine soaked gauze, covered with abdominal pad and paper tape. Dressing orders placed for TID and PRN soiled.
[2018-09-13] MEDS ORDERED: Lidocaine 1% 10mg/ml/EPI 0.01mg/ml 30ml INJ ONE (10:45)
[2018-09-13] MEDS ORDERED: Dextrose 10% 1,000 ML IV PRN (11:00)
--- NOTE | 2018-09-13 12:00 | NUR ---
RD ASSESSMENT & RECOMMENDATIONS SEE CARE ACTIVITY FOR COMPLETE ASSESSMENT DAILY ESTIMATED NEEDS: Needs based on DM, abscess 69kg 24-29 kcals/kg 1414-8976 total kcals 1-1.5 g protein/kg 69-104 g total protein 25-30 mL/kg 6832-9535 total fluid mLs NUTRITION DIAGNOSIS: Swallowing difficulty R/T dysphagia as evidenced by pt is GT dep. CURRENT TF: Glucerna 1.2 @12kur29 hrs ENTERAL NUTRITION RECOMMENDATIONS: Glucerna 1.2 @70ml x22 hrs to provide 1540ml, 1848 kcal, 92g pro, 1240ml free H2O - REC TO INCREASE RUN TIME TO 22 HRS PER DAY TO BETTER MEET EST NEEDS - Flush per MD/ HOB over 30 degrees -------- ADDITIONAL RECOMMENDATIONS: 1) Rec A1C for eval of glycemic control 2) Calibrated bed scale wt + Weekly weights 3) Daily lytes on TF/ replete as needed 4) F/up w/ wound eval for possible abscess
--- NOTE | 2018-09-13 12:43 | Consultation ---
History of Present Illness General Reason for Hospitalization: Skin Rash/Abscess Present Illness HPI This is a 78-year-old male with multiple medical comorbidities who is a [facility] resident who presented with lower back/buttock pain and what seems to be an abscess. Patient admitted for care and management. Surgery called to evaluate upon admission for possible abscess and intervention if necessary. Patient seen, patient evaluated, chart reviewed. Spoke with patient's daughter on the phone in regards to patient's care plan. Patient comfortable and awake responsive able to follow commands but does not respond to history well as he is a poor historian given age and medical condition Allergies: Coded Allergies: No Known Allergies (Unverified , 01/27/17) Medication History Scheduled Apixaban (Eliquis), 2.5 MG GT BID, (Reported) Ascorbic Acid* (Ascorbic Acid*), 500 MG GT DAILY, (Reported) Docusate Sodium* (Colace*), 100 MG GT BID, (Reported) Insulin Regular, Human* (Novolin R*), 0 SUBQ .SLIDING SCALE, (Reported) Memantine Hcl* (Namenda*), 5 MG GT BID, (Reported) Memantine Hcl* (Namenda*), 5 MG GT BID, (Reported) Multivitamin With Minerals (Multivitamins With Minerals*), 1 TAB ORAL DAILY, ( Reported) Pravastatin Sod* (Pravastatin Sod*), 20 MG GT BEDTIME, (Reported) Risperidone* (Risperdal*), 0.25 MG GT QHS, (Reported) Scheduled PRN Acetaminophen* (Tylenol Extra Strength*), 1,000 MG GT Q4HR PRN for Moderate Pain (Pain Scale 4-6), (Reported) Acetaminophen* (Acetaminophen 325MG Tablet*), 325 MG ORAL Q4H PRN for Mild Pain/ Temp > 100.5, (Reported) Bisacodyl (Bisacodyl), 10 MG RC DAILY PRN for CONSTIPATION IF MOM IS INEFFEC, ( Reported) Magnesium Hydroxide* (Milk Of Magnesia*), 30 ML GT QHS PRN for CONST IF SOFTENER IS INEFFECTI, (Reported) Na Phos,M-B/Na Phos,Di-Ba* (Fleet Enema*), 133 ML RECTAL EVERY OTHER DAY PRN for CONST IF BISACODYL IS INEFFECT, (Reported) Discontinued Medications Acetaminophen* (Tylenol*), 500 MG RECTAL Q4H PRN for Mild Pain/Temp > 100.5, ( Reported) Discontinued Reason: Pt stopped taking med Bisacodyl* (Dulcolax*), 10 MG RECTAL DAILY, (Reported) Discontinued Reason: Pt stopped taking med Clotrimazole* (Lotrimin*), 1 APPLIC TOPIC TWICE A DAY, (Reported) Discontinued Reason: Pt stopped taking med Docusate Sodium (Docusate Sodium), 100 MG GT DAILY, (Reported) Discontinued Reason: Pt stopped taking med Ketotifen Fumarate (Ketotifen Fumarate), 5 ML OP BID, (Reported) Discontinued Reason: Pt stopped taking med Lorazepam* (Lorazepam*), 1 MG GT Q6hr PRN for Agitation, (Reported) Discontinued Reason: Pt stopped taking med Mupirocin Nasal (Bactroban Nasal), 1 APPLIC NASAL THREE TIMES A DAY, (Reported) Discontinued Reason: Pt stopped taking med Omeprazole (Omeprazole), 20 MG GT DAILY, (Reported) Discontinued Reason: Pt stopped taking med Pravastatin Sod (Pravastatin Sod), 20 MG GT BEDTIME, (Reported) Discontinued Reason: Pt stopped taking med Quetiapine Fumarate (Seroquel), 12.5 MG GT DAILY, (Reported) Discontinued Reason: Pt stopped taking med Ranitidine Hcl* (Zantac*), 150 MG ORAL DAILY, (Reported) Discontinued Reason: Pt stopped taking med Risperidone* (Risperdal*), 0.5 MG GT BID, (Reported) Discontinued Reason: Pt stopped taking med Rivaroxaban (Xarelto), 20 MG GT HS, (Reported) Discontinued Reason: Pt stopped taking med Patient History Limited by: age, medical condition History Provided By: Medical Record, PMD Healthcare decision maker N Resuscitation status Full Code Advanced Directive on File Past Medical/Surgical History Past Medical/Surgical History: (1) Pharyngitis (2) Itching with irritation (3) Dysphagia (4) PEG (percutaneous endoscopic gastrostomy) adjustment/replacement/removal (5) Dementia with psychosis (6) Interstitial lung disease (7) MRSA nasal colonization (8) Hematuria (9) Abscess (10) Cellulitis Review of Systems Review of Symptoms General ROS: no weight loss or fever Psychological ROS: no depression or mood changes, no memory loss Ophthalmic ROS: no visual changes or eye irritation ENT ROS: no nasal congestion, hearing loss, dizziness Allergy and Immunology ROS: no allergic symptoms or urticaria Hematological and Lymphatic ROS: no swollen glands, unusual bleeding or bruising Endocrine ROS: no polyuria, polydipsia, weight changes, temperature intolerance Respiratory ROS: no cough, shortness of breath, or wheezing Cardiovascular ROS: no chest pain or dyspnea on exertion Gastrointestinal ROS: denies abdominal pain, no bright red blood in stool. Musculoskeletal ROS: no myalgias or arthralgias Neurological ROS: no TIA or stroke symptoms Dermatological ROS: no new or changing skin lesions, rashes or pruritis Physical Exam Physical Exam General appearance: alert, cooperative, no distress, appears stated age Head: Normocephalic, without obvious abnormality, atraumatic Eyes: conjunctivae/corneas clear. PERRL, EOM's intact. Fundi benign Throat: Lips, mucosa, and tongue normal. Teeth and gums normal Neck: supple, symmetrical, trachea midline, no adenopathy, thyroid: not enlarged, symmetric, no tenderness/mass/nodules, no carotid bruit and no JVD Lungs: clear to auscultation bilaterally Heart: regular rate and rhythm, S1, S2 normal, no murmur, click, rub or gallop Abdomen: soft, non-tender. Bowel sounds normal. No masses, no organomegaly Extremities: extremities normal, atraumatic, no cyanosis or edema Pulses: 2+ and symmetric Skin: Skin color, texture, turgor normal. left lower back / buttock abscess, tender, warm, cellulitis , fluctuance Neurologic: Grossly normal Last 24 Hour Vital Signs Date Time Temp Pulse Resp B/P (MAP) Pulse Ox O2 Delivery O2 Flow Rate FiO2 09/13/18 12:00 98.0 73 18 102/53 (69) 99 09/13/18 09:59 98.4 81 18 123/75 (91) 99 09/13/18 09:00 Room Air 09/13/18 08:00 98.4 81 18 123/75 (91) 99 09/13/18 04:00 99.5 69 18 103/41 (61) 97 09/13/18 01:22 98.7 78 18 100/47 (64) 99 09/13/18 00:08 Room Air 09/13/18 00:00 98.7 78 18 100/47 (64) 99 09/12/18 20:20 98.1 96 20 100/68 99 Room Air 09/12/18 20:13 96 20 100/68 99 Room Air 09/12/18 15:00 98.1 73 19 127/70 98 Room Air 09/12/18 14:58 73 19 Room Air 09/12/18 14:46 98.1 82 18 107/68 92 Room Air Intake and Output 09/12/18 09/13/18 19:00 07:00 Intake Total 450 ml Balance 450 ml Intake Free Water 100 ml IV Total 110 ml Tube Feeding 240 ml Laboratory Tests Test 09/12/18 15:04 09/12/18 15:16 09/13/18 05:20 Urine Color Pale yellow Urine Appearance Clear Urine pH 7 (4.5-8.0) Urine Specific [place] 1.005 (1.005-1.035) Urine Protein 1+ (NEGATIVE) H Urine Glucose (UA) Negative (NEGATIVE) Urine Ketones Negative (NEGATIVE) Urine Blood Negative (NEGATIVE) Urine Nitrite Negative (NEGATIVE) Urine Bilirubin Negative (NEGATIVE) Urine Urobilinogen Normal MG/DL (0.0-1.0) Urine Leukocyte Esterase Negative (NEGATIVE) Urine RBC 0-2 /HPF (0 - 0) H Urine WBC 0-2 /HPF (0 - 0) Urine Squamous Epithelial Cells None /LPF (NONE/OCC) Urine Bacteria Few /HPF (NONE) White Blood Count 14.3 K/UL (4.8-10.8) H 13.3 K/UL (4.8-10.8) H Red Blood Count 4.52 M/UL (4.70-6.10) L 4.14 M/UL (4.70-6.10) L Hemoglobin 14.2 G/DL (14.2-18.0) 13.3 G/DL (14.2-18.0) L Hematocrit 41.9 % (42.0-52.0) L 39.1 % (42.0-52.0) L Mean Corpuscular Volume 93 FL (80-99) 94 FL (80-99) Mean Corpuscular Hemoglobin 31.3 PG (27.0-31.0) H 32.0 PG (27.0-31.0) H Mean Corpuscular Hemoglobin Concent 33.8 G/DL (32.0-36.0) 33.9 G/DL (32.0-36.0) Red Cell Distribution Width 11.8 % (11.6-14.8) 12.3 % (11.6-14.8) Platelet Count 155 K/UL (150-450) 167 K/UL (150-450) Mean Platelet Volume 9.2 FL (6.5-10.1) 10.8 FL (6.5-10.1) H Neutrophils (%) (Auto) 80.2 % (45.0-75.0) H 82.1 % (45.0-75.0) H Lymphocytes (%) (Auto) 5.5 % (20.0-45.0) L 3.7 % (20.0-45.0) L Monocytes (%) (Auto) 9.7 % (1.0-10.0) 9.8 % (1.0-10.0) Eosinophils (%) (Auto) 3.2 % (0.0-3.0) H 2.4 % (0.0-3.0) Basophils (%) (Auto) 1.3 % (0.0-2.0) 2.1 % (0.0-2.0) H Sodium Level 138 MMOL/L (136-145) 139 MMOL/L (136-145) Potassium Level 5.3 MMOL/L (3.5-5.1) H 4.3 MMOL/L (3.5-5.1) Chloride Level 106 MMOL/L (98-107) 108 MMOL/L (98-107) H Carbon Dioxide Level 24 MMOL/L (21-32) 24 MMOL/L (21-32) Anion Gap 8 mmol/L (5-15) 7 mmol/L (5-15) Blood Urea Nitrogen 26 mg/dL (7-18) H 22 mg/dL (7-18) H Creatinine 0.6 MG/DL (0.55-1.30) 0.7 MG/DL (0.55-1.30) Estimat Glomerular Filtration Rate mL/min (>60) mL/min (>60) Glucose Level 103 MG/DL (74-106) 116 MG/DL (74-106) H Lactic Acid Level 1.10 mmol/L (0.4-2.0) Calcium Level 8.4 MG/DL (8.5-10.1) L 8.0 MG/DL (8.5-10.1) L Total Bilirubin 0.5 MG/DL (0.2-1.0) 0.4 MG/DL (0.2-1.0) Aspartate Amino Transf (AST/SGOT) 34 U/L (15-37) 23 U/L (15-37) Alanine Aminotransferase (ALT/SGPT) 40 U/L (12-78) 30 U/L (12-78) Alkaline Phosphatase 188 U/L (46-116) H 134 U/L (46-116) H Total Creatine Kinase 62 U/L (26-308) Troponin I 0.000 ng/mL (0.000-0.056) Total Protein 7.0 G/DL (6.4-8.2) 6.6 G/DL (6.4-8.2) Albumin 2.1 G/DL (3.4-5.0) L 1.8 G/DL (3.4-5.0) L Globulin 4.9 g/dL 4.8 g/dL Albumin/Globulin Ratio 0.4 (1.0-2.7) L 0.4 (1.0-2.7) L Microbiology Date/Time Source Procedure Growth Status 09/12/18 15:16 Rectum Received Height (Feet): 5 Height (Inches): 9.00 Weight (Pounds): 152 Medications Current Medications Medications (Trade) Dose Ordered Sig/Robin Route PRN Reason Start Time Stop Time Status Last Admin Dose Admin Acetaminophen (Tylenol) 650 mg Q4H PRN GT fever 09/12/18 19:00 10/12/18 18:44 Albuterol/ Ipratropium (Albuterol/ Ipratropium) 3 ml Q4H PRN HHN Shortness of Breath 09/12/18 18:45 09/17/18 18:44 Cefepime HCl 2 gm/ Dextrose 110 ml @ 220 mls/hr Q12H IV 09/13/18 05:00 09/20/18 04:59 09/13/18 04:04 Dextrose 1,000 ml @ 0 mls/hr Q24H PRN IV PN interrupted or unavailable 09/13/18 11:00 10/13/18 10:59 Dextrose (Dextrose 50%) 25 ml Q30M PRN IV Hypoglycemia 09/13/18 11:00 10/13/18 10:59 Dextrose (Dextrose 50%) 50 ml Q30M PRN IV Hypoglycemia 09/13/18 11:00 10/13/18 10:59 Heparin Sodium (Porcine) (Heparin 5000 units/ml) 5,000 units EVERY 12 HOURS SUBQ 09/12/18 21:00 10/12/18 20:59 09/13/18 08:22 Insulin Aspart (NovoLOG) Q6HR SUBQ 09/13/18 12:00 10/13/18 11:59 Memantine (Namenda) 5 mg BID GT 09/13/18 09:00 10/13/18 08:59 09/13/18 08:21 Morphine Sulfate (Morphine Sulfate) 2 mg Q4H PRN IVP Moderate Pain (Pain Scale 4-6) 09/12/18 18:48 09/19/18 18:47 09/12/18 22:52 Nitroglycerin (Ntg) 0.4 mg Q5MIN X 3 DOSES PRN SL Prn Chest Pain 09/12/18 18:45 10/12/18 18:44 Ondansetron HCl (Zofran) 4 mg Q6H PRN IVP Nausea & Vomiting 09/12/18 18:45 10/12/18 18:44 Polyethylene Glycol (Miralax) 17 gm DAILYPRN PRN GT Constipation 09/12/18 19:00 10/12/18 18:44 Risperidone (RisperDAL) 0.25 mg QHS GT 09/12/18 21:00 10/12/18 20:59 09/12/18 22:52 Temazepam (Restoril) 15 mg HSPRN PRN GT Insomnia 09/12/18 21:00 09/19/18 20:59 Vancomycin HCl (Rx Monitoring Vancomycin) 1 ea DAILY PRN MISC PHARMACY 09/12/18 20:30 10/12/18 20:29 Vancomycin HCl 750 mg/Sodium Chloride 275 ml @ 183.333 mls/hr Q12H IVPB 09/13/18 06:00 09/18/18 05:59 09/13/18 05:23 Assessment/Plan Problem List: (1) Abscess Assessment & Plan: This is a 78-year-old male with left back/buttock abscess. Afebrile, hemodynamically stable, labs noted. On examination area of fluctuance identified in the left lower back/buttock area. There is tender with erythema and surrounding cellulitis. No drainage. Abscess cavity identified. Recommend incision and drainage. I spoke to the patient's daughter who is the power of banking attorney and expressed understanding of plan procedure and consented to incision and drainage. Of note patient daughter states that he was at [facility] recently where he had an incision and drainage performed at the bedside as well in a similar area but is unsure if this is the same. Incision and drainage of abscess -please see report below Okay for diet Packing and dressing changes 3 times daily IV antibiotics We will follow with Recs Thank you for allowing me to participate in patient's care Procedure note: Patient was made comfortable at the bedside placed in the right lateral decubitus position. Consent was obtained from patient's daughter. Patient seemed to understand plan as well and assisted in his positioning. The left lower back/buttock abscess was prepped and draped in standard surgical fashion. 1% lidocaine with epinephrine was infiltrated in the proposed skin incision at the area of maximum fluctuance. Once appropriate anesthetic effect was identified a fresh 11 scalpel was used to make a cruciate incision at the area of maximum fluctuance. Approximately 10-20 cc of purulent fluid was evacuated. Cultures were sent. The abscess cavity was manually palpated palpated to identify no tunneling or other abscesses. The wound bed was irrigated with saline. Packing and dressings were applied. Patient tolerated procedure well. ICD Codes: L02.91 - Cutaneous abscess, unspecified SNOMED: [id number] Eric Dickey Sep 13, 2018 12:43
--- NOTE | 2018-09-13 13:22 | NUR ---
NURSE NOTES: Dressing changed, patient tolerated well.
--- NOTE | 2018-09-13 14:00 | Consultation ---
History of Present Illness General Date patient seen: Sep 13, 2018 Chief Complaint: Skin Rash/Abscess Present Illness HPI 78 y/o M with hx of HTN, Dm2, COPD, MRSA, CVA/TIA, Dementia, CAD/[place], [facility] resident presents to ED on 09/12 with lower back/buttock pain and concern for buttock abscess.Evaluated by surgical team and L back/buttock abscess was incised and debrided at the bedside and removed ~10-20cc of purulent fluid and cultures were sent. Of note, patient was recently at [facility] where he had and I+D at beside in similar location but daughter unsure if this is the same. Allergies: Coded Allergies: No Known Allergies (Unverified , 01/27/17) Medication History Scheduled Apixaban (Eliquis), 2.5 MG GT BID, (Reported) Ascorbic Acid* (Ascorbic Acid*), 500 MG GT DAILY, (Reported) Docusate Sodium* (Colace*), 100 MG GT BID, (Reported) Insulin Regular, Human* (Novolin R*), 0 SUBQ .SLIDING SCALE, (Reported) Memantine Hcl* (Namenda*), 5 MG GT BID, (Reported) Memantine Hcl* (Namenda*), 5 MG GT BID, (Reported) Multivitamin With Minerals (Multivitamins With Minerals*), 1 TAB ORAL DAILY, ( Reported) Pravastatin Sod* (Pravastatin Sod*), 20 MG GT BEDTIME, (Reported) Risperidone* (Risperdal*), 0.25 MG GT QHS, (Reported) Scheduled PRN Acetaminophen* (Tylenol Extra Strength*), 1,000 MG GT Q4HR PRN for Moderate Pain (Pain Scale 4-6), (Reported) Acetaminophen* (Acetaminophen 325MG Tablet*), 325 MG ORAL Q4H PRN for Mild Pain/ Temp > 100.5, (Reported) Bisacodyl (Bisacodyl), 10 MG RC DAILY PRN for CONSTIPATION IF MOM IS INEFFEC, ( Reported) Magnesium Hydroxide* (Milk Of Magnesia*), 30 ML GT QHS PRN for CONST IF SOFTENER IS INEFFECTI, (Reported) Na Phos,M-B/Na Phos,Di-Ba* (Fleet Enema*), 133 ML RECTAL EVERY OTHER DAY PRN for CONST IF BISACODYL IS INEFFECT, (Reported) Discontinued Medications Acetaminophen* (Tylenol*), 500 MG RECTAL Q4H PRN for Mild Pain/Temp > 100.5, ( Reported) Discontinued Reason: Pt stopped taking med Bisacodyl* (Dulcolax*), 10 MG RECTAL DAILY, (Reported) Discontinued Reason: Pt stopped taking med Clotrimazole* (Lotrimin*), 1 APPLIC TOPIC TWICE A DAY, (Reported) Discontinued Reason: Pt stopped taking med Docusate Sodium (Docusate Sodium), 100 MG GT DAILY, (Reported) Discontinued Reason: Pt stopped taking med Ketotifen Fumarate (Ketotifen Fumarate), 5 ML OP BID, (Reported) Discontinued Reason: Pt stopped taking med Lorazepam* (Lorazepam*), 1 MG GT Q6hr PRN for Agitation, (Reported) Discontinued Reason: Pt stopped taking med Mupirocin Nasal (Bactroban Nasal), 1 APPLIC NASAL THREE TIMES A DAY, (Reported) Discontinued Reason: Pt stopped taking med Omeprazole (Omeprazole), 20 MG GT DAILY, (Reported) Discontinued Reason: Pt stopped taking med Pravastatin Sod (Pravastatin Sod), 20 MG GT BEDTIME, (Reported) Discontinued Reason: Pt stopped taking med Quetiapine Fumarate (Seroquel), 12.5 MG GT DAILY, (Reported) Discontinued Reason: Pt stopped taking med Ranitidine Hcl* (Zantac*), 150 MG ORAL DAILY, (Reported) Discontinued Reason: Pt stopped taking med Risperidone* (Risperdal*), 0.5 MG GT BID, (Reported) Discontinued Reason: Pt stopped taking med Rivaroxaban (Xarelto), 20 MG GT HS, (Reported) Discontinued Reason: Pt stopped taking med Patient History Healthcare decision maker N Resuscitation status Full Code Advanced Directive on File Patient History Narrative Pmhx: as above Shx:Denies: smoking, alcohol use, drug use Fhx non contributory Review of Systems All Other Systems: negative except mentioned in HPI Physical Exam Physical Exam Narrative General appearance: alert, cooperative, no distress, appears stated age Head: Normocephalic, without obvious abnormality, atraumatic Eyes: conjunctivae/corneas clear. PERRL, EOM's intact. Fundi benign Throat: Lips, mucosa, and tongue normal. Teeth and gums normal Neck: supple, symmetrical, trachea midline, no adenopathy, thyroid: not enlarged, symmetric, no tenderness/mass/nodules, no carotid bruit and no JVD Lungs: clear to auscultation bilaterally Heart: regular rate and rhythm, S1, S2 normal, no murmur, click, rub or gallop Abdomen: soft, non-tender. Bowel sounds normal. No masses, no organomegaly Extremities: extremities normal, atraumatic, no cyanosis or edema Pulses: 2+ and symmetric Skin: Skin color, texture, turgor normal. left lower back / buttock abscess, tender, warm, cellulitis , fluctuance Neurologic: Grossly normal Last 24 Hour Vital Signs Date Time Temp Pulse Resp B/P (MAP) Pulse Ox O2 Delivery O2 Flow Rate FiO2 09/13/18 12:00 98.0 73 18 102/53 (69) 99 09/13/18 09:59 98.4 81 18 123/75 (91) 99 09/13/18 09:00 Room Air 09/13/18 08:00 98.4 81 18 123/75 (91) 99 09/13/18 04:00 99.5 69 18 103/41 (61) 97 09/13/18 01:22 98.7 78 18 100/47 (64) 99 09/13/18 00:08 Room Air 09/13/18 00:00 98.7 78 18 100/47 (64) 99 09/12/18 20:20 98.1 96 20 100/68 99 Room Air 09/12/18 20:13 96 20 100/68 99 Room Air 09/12/18 15:00 98.1 73 19 127/70 98 Room Air 09/12/18 14:58 73 19 Room Air 09/12/18 14:46 98.1 82 18 107/68 92 Room Air Intake and Output 09/12/18 09/13/18 19:00 07:00 Intake Total 450 ml Balance 450 ml Intake Free Water 100 ml IV Total 110 ml Tube Feeding 240 ml Laboratory Tests Test 09/12/18 15:04 09/12/18 15:16 09/13/18 05:20 Urine Color Pale yellow Urine Appearance Clear Urine pH 7 (4.5-8.0) Urine Specific [place] 1.005 (1.005-1.035) Urine Protein 1+ (NEGATIVE) H Urine Glucose (UA) Negative (NEGATIVE) Urine Ketones Negative (NEGATIVE) Urine Blood Negative (NEGATIVE) Urine Nitrite Negative (NEGATIVE) Urine Bilirubin Negative (NEGATIVE) Urine Urobilinogen Normal MG/DL (0.0-1.0) Urine Leukocyte Esterase Negative (NEGATIVE) Urine RBC 0-2 /HPF (0 - 0) H Urine WBC 0-2 /HPF (0 - 0) Urine Squamous Epithelial Cells None /LPF (NONE/OCC) Urine Bacteria Few /HPF (NONE) White Blood Count 14.3 K/UL (4.8-10.8) H 13.3 K/UL (4.8-10.8) H Red Blood Count 4.52 M/UL (4.70-6.10) L 4.14 M/UL (4.70-6.10) L Hemoglobin 14.2 G/DL (14.2-18.0) 13.3 G/DL (14.2-18.0) L Hematocrit 41.9 % (42.0-52.0) L 39.1 % (42.0-52.0) L Mean Corpuscular Volume 93 FL (80-99) 94 FL (80-99) Mean Corpuscular Hemoglobin 31.3 PG (27.0-31.0) H 32.0 PG (27.0-31.0) H Mean Corpuscular Hemoglobin Concent 33.8 G/DL (32.0-36.0) 33.9 G/DL (32.0-36.0) Red Cell Distribution Width 11.8 % (11.6-14.8) 12.3 % (11.6-14.8) Platelet Count 155 K/UL (150-450) 167 K/UL (150-450) Mean Platelet Volume 9.2 FL (6.5-10.1) 10.8 FL (6.5-10.1) H Neutrophils (%) (Auto) 80.2 % (45.0-75.0) H 82.1 % (45.0-75.0) H Lymphocytes (%) (Auto) 5.5 % (20.0-45.0) L 3.7 % (20.0-45.0) L Monocytes (%) (Auto) 9.7 % (1.0-10.0) 9.8 % (1.0-10.0) Eosinophils (%) (Auto) 3.2 % (0.0-3.0) H 2.4 % (0.0-3.0) Basophils (%) (Auto) 1.3 % (0.0-2.0) 2.1 % (0.0-2.0) H Sodium Level 138 MMOL/L (136-145) 139 MMOL/L (136-145) Potassium Level 5.3 MMOL/L (3.5-5.1) H 4.3 MMOL/L (3.5-5.1) Chloride Level 106 MMOL/L (98-107) 108 MMOL/L (98-107) H Carbon Dioxide Level 24 MMOL/L (21-32) 24 MMOL/L (21-32) Anion Gap 8 mmol/L (5-15) 7 mmol/L (5-15) Blood Urea Nitrogen 26 mg/dL (7-18) H 22 mg/dL (7-18) H Creatinine 0.6 MG/DL (0.55-1.30) 0.7 MG/DL (0.55-1.30) Estimat Glomerular Filtration Rate mL/min (>60) mL/min (>60) Glucose Level 103 MG/DL (74-106) 116 MG/DL (74-106) H Lactic Acid Level 1.10 mmol/L (0.4-2.0) Calcium Level 8.4 MG/DL (8.5-10.1) L 8.0 MG/DL (8.5-10.1) L Total Bilirubin 0.5 MG/DL (0.2-1.0) 0.4 MG/DL (0.2-1.0) Aspartate Amino Transf (AST/SGOT) 34 U/L (15-37) 23 U/L (15-37) Alanine Aminotransferase (ALT/SGPT) 40 U/L (12-78) 30 U/L (12-78) Alkaline Phosphatase 188 U/L (46-116) H 134 U/L (46-116) H Total Creatine Kinase 62 U/L (26-308) Troponin I 0.000 ng/mL (0.000-0.056) Total Protein 7.0 G/DL (6.4-8.2) 6.6 G/DL (6.4-8.2) Albumin 2.1 G/DL (3.4-5.0) L 1.8 G/DL (3.4-5.0) L Globulin 4.9 g/dL 4.8 g/dL Albumin/Globulin Ratio 0.4 (1.0-2.7) L 0.4 (1.0-2.7) L Microbiology Date/Time Source Procedure Growth Status 09/12/18 15:16 Rectum Received Height (Feet): 5 Height (Inches): 9.00 Weight (Pounds): 152 Medications Current Medications Medications (Trade) Dose Ordered Sig/Robin Route PRN Reason Start Time Stop Time Status Last Admin Dose Admin Acetaminophen (Tylenol) 650 mg Q4H PRN GT fever 09/12/18 19:00 10/12/18 18:44 Albuterol/ Ipratropium (Albuterol/ Ipratropium) 3 ml Q4H PRN HHN Shortness of Breath 09/12/18 18:45 09/17/18 18:44 Cefepime HCl 2 gm/ Dextrose 110 ml @ 220 mls/hr Q12H IV 09/13/18 05:00 09/20/18 04:59 09/13/18 04:04 Dextrose 1,000 ml @ 0 mls/hr Q24H PRN IV PN interrupted or unavailable 09/13/18 11:00 10/13/18 10:59 Dextrose (Dextrose 50%) 25 ml Q30M PRN IV Hypoglycemia 09/13/18 11:00 10/13/18 10:59 Dextrose (Dextrose 50%) 50 ml Q30M PRN IV Hypoglycemia 09/13/18 11:00 10/13/18 10:59 Heparin Sodium (Porcine) (Heparin 5000 units/ml) 5,000 units EVERY 12 HOURS SUBQ 09/12/18 21:00 10/12/18 20:59 09/13/18 08:22 Insulin Aspart (NovoLOG) Q6HR SUBQ 09/13/18 12:00 10/13/18 11:59 Memantine (Namenda) 5 mg BID GT 09/13/18 09:00 10/13/18 08:59 09/13/18 08:21 Morphine Sulfate (Morphine Sulfate) 2 mg Q4H PRN IVP Moderate Pain (Pain Scale 4-6) 09/12/18 18:48 09/19/18 18:47 09/12/18 22:52 Nitroglycerin (Ntg) 0.4 mg Q5MIN X 3 DOSES PRN SL Prn Chest Pain 09/12/18 18:45 10/12/18 18:44 Ondansetron HCl (Zofran) 4 mg Q6H PRN IVP Nausea & Vomiting 09/12/18 18:45 10/12/18 18:44 Polyethylene Glycol (Miralax) 17 gm DAILYPRN PRN GT Constipation 09/12/18 19:00 10/12/18 18:44 Risperidone (RisperDAL) 0.25 mg QHS GT 09/12/18 21:00 10/12/18 20:59 09/12/18 22:52 Temazepam (Restoril) 15 mg HSPRN PRN GT Insomnia 09/12/18 21:00 09/19/18 20:59 Vancomycin HCl (Rx Monitoring Vancomycin) 1 ea DAILY PRN MISC PHARMACY 09/12/18 20:30 10/12/18 20:29 Vancomycin HCl 750 mg/Sodium Chloride 275 ml @ 183.333 mls/hr Q12H IVPB 09/13/18 06:00 09/18/18 05:59 09/13/18 05:23 Assessment/Plan Assessment/Plan Abx: IV Vancomycin 09/12- Cefepime 09/12- Assessment: L buttock abscess -09/13 SP bedside I+D- removal of 10-20 cc pus wound cx: p Afebrile Mild leukocytosis, improving Gram positive bacteremia- real vs contaminant HTN Dm2 COPD hx of MRSA (details are unknown) CVA/TIA Dementia CAD/[place] resident Plan: -Continue empiric IV Vancomycin and Cefepime #2 pending cultures -wound care per surgical team -f.u cx -Monitor CBC/CMP, temperatures -sx f/u Thank you for this consultation. Will continue to follow along with you. Helen Austin M.D. Sep 13, 2018 13:59
--- NOTE | 2018-09-13 15:39 | NUR ---
NURSE NOTES:WOUND CARE NOTES:Pt presented on admission with large abscess L buttocks. Site is red ,warm and indurated ,tender when minimally palpated. Shearing with erythema noted to R ischium.Non-blanchable erythema without fluctuance noted to R heel (L)5cm x (W)5.5cm .Non-tender when palpated. L heel firm -pink and blanchable. Non-blanchable erythema without fluctuance or induration noted to lateral R malleolus (L)3cm x (W)2cm. in and Excision and drainage of abscess L Buttocks done by . Pt tolerated procedure well. Tx.Plan: Wound Packing L buttocks as ordered By Surgeon. Apply Moisture BArrier Paste to sacral area. Both ischail areas and scrotum with each perineal care. Reposition at least every 2hours or as tolerated. Apply Cavilon Skin Barrier to Both heels. Cover each heel with Optifoam drsg .Change every 7 days and prn. Apply CAvilon Skin Barrier to R and L malleolus .Cover each with Optifoam drsg .Change every 7 days and prn. Off-load heels with pillow.
--- NOTE | 2018-09-13 19:22 | NUR ---
HAND-OFF: Report given to SCOTT Sol.
--- NOTE | 2018-09-13 19:23 | NUR ---
NURSE NOTES: Received patient in bed, asleep. IV site intact and patent. Gtube present and intact. Condom catheter is intact and patent. Bed in low and locked position, call light in reach, bed alarm on. No signs of respiratory distress or pain. Room board updated, will continue to monitor.
--- NOTE | 2018-09-13 19:30 | History and Physical Report ---
DATE OF ADMISSION: 09/12/2018 TIME SEEN: 2 p.m. CONSULTANTS: 1. Eric Dickey M.D. 2. Fco León M.D. 3. Geronimo Antoine M.D. 4. Елена Lang M.D. CHIEF COMPLAINT: Abscess, cellulitis on the back, bilateral heel wound. BRIEF HISTORY: This is a 78-year-old male from [facility] presented with the above-mentioned diagnosis, admitted to medical floor for further treatment. He is status post incision and drainage per Dr. Dickey, currently calm in bed, slightly confused, not talking. REVIEW OF SYSTEMS: No chest pain. No shortness of breath. No nausea, vomiting, or diarrhea. PAST MEDICAL HISTORY: Includes dementia and weakness. PAST SURGICAL HISTORY: G-tube. MEDICATIONS: Insulin, lidocaine, epinephrine, memantine, vancomycin, cefepime, risperidone, albuterol, and Zofran. ALLERGIES: Denies. SOCIAL HISTORY: No smoking. No alcohol. No intravenous drug abuse. FAMILY HISTORY: Noncontributory. PHYSICAL EXAMINATION: GENERAL: Calm in bed, oriented x1, in no acute distress. VITAL SIGNS: Temperature 98 degrees, pulse 83, respirations 18, and blood pressure 104/53. CARDIOVASCULAR: No murmur. LUNGS: Poor exchange. ABDOMEN: Bowel sounds distant. EXTREMITIES: No cyanosis or edema. Also noted bilateral heel dressing, clean and dry. Back dressing in place. NEUROLOGIC: The patient moves all extremities, slightly weak. LABORATORY AND DIAGNOSTIC DATA: White count 13, hemoglobin and hematocrit 13/39, platelets is 167. BMP shows chloride 108, BUN 22, glucose 116. Albumin 1.8. Urinalysis 1+ protein. ASSESSMENT: 1. Abscess and cellulitis, back. 2. Bilateral heel wounds. 3. Dementia. 4. Weakness. 5. Malnutrition. PLAN: 1. PT. 2. Dietary evaluation. 3. Wound care. 4. Check labs in a.m. 5. Resume home medications. 6. CBC and BMP in the morning. Han Swenson D.O. DR: Lindsay JOB#: [id number] CC:
--- NOTE | 2018-09-13 20:45 | History and Physical Report ---
DATE OF ADMISSION: 09/12/2018 TIME SEEN: 2 p.m. CONSULTANTS: 1. Eric Dickey M.D. 2. Fco León M.D. 3. Geronimo Antoine M.D. 4. Елена Lang M.D. CHIEF COMPLAINT: Abscess, cellulitis on the back, bilateral heel wound. BRIEF HISTORY: This is a 78-year-old male from [facility] presented with the above-mentioned diagnosis, admitted to medical floor for further treatment. He is status post incision and drainage per Dr. Dickey, currently calm in bed, slightly confused, not talking. REVIEW OF SYSTEMS: No chest pain. No shortness of breath. No nausea, vomiting, or diarrhea. PAST MEDICAL HISTORY: Includes dementia and weakness. PAST SURGICAL HISTORY: G-tube. MEDICATIONS: , lidocaine, epinephrine, memantine, vancomycin, cefepime, risperidone, albuterol, and Zofran. ALLERGIES: Denies. SOCIAL HISTORY: No smoking. No alcohol. No intravenous drug abuse. FAMILY HISTORY: Noncontributory. PHYSICAL EXAMINATION: GENERAL: Calm in bed, oriented x1, in no acute distress. VITAL SIGNS: Temperature 98 degrees, pulse 83, respirations 18, and blood pressure 104/53. CARDIOVASCULAR: No murmur. LUNGS: Poor exchange. ABDOMEN: Bowel sounds distant. EXTREMITIES: No cyanosis or edema. Also noted bilateral heel dressing, clean and dry. Back dressing in place. NEUROLOGIC: The patient moves all extremities, slightly weak. LABORATORY AND DIAGNOSTIC DATA: White count 13, hemoglobin and hematocrit 13/39, platelets is 167. BMP shows chloride 108, BUN 22, glucose 116. Albumin 1.8. Urinalysis 1+ protein. ASSESSMENT: 1. Abscess and cellulitis, back. 2. Bilateral heel wounds. 3. Dementia. 4. Weakness. 5. Malnutrition. PLAN: 1. PT. 2. Dietary evaluation. 3. Wound care. 4. Check labs in a.m. 5. Resume home medications. 6. CBC and BMP in the morning. Han Swenson D.O. DR: SHARI/jennyfer JOB#: [id number] CC:
--- NOTE | 2018-09-13 21:15 | History and Physical Report ---
DATE OF ADMISSION: 09/12/2018 CONSULTANTS: 1. Eric Dickey M.D. 2. Fco León M.D. 3. Geronimo Antoine M.D. 4. Елена Lang M.D. CHIEF COMPLAINT: Abscess, cellulitis on the back, and bilateral heel wounds. BRIEF HISTORY: This is a 78-year-old male from [facility], presented with the above-mentioned diagnosis, admitted to medical floor for further treatment. He is status post incision and drainage per Dr. Dickey. Currently, calm in bed, slightly confused, not talking. REVIEW OF SYSTEMS: No chest pain. No shortness of breath. No nausea, vomiting, or diarrhea. PAST MEDICAL HISTORY: Includes dementia and weakness. PAST SURGICAL HISTORY: G-tube. MEDICATIONS: Insulin, lidocaine, epinephrine, memantine, vancomycin, cefepime, risperidone, albuterol, and Zofran. ALLERGIES: Denies. SOCIAL HISTORY: No smoking. No alcohol. No intravenous drug abuse. FAMILY HISTORY: Noncontributory. PHYSICAL EXAMINATION: GENERAL: Calm in bed, oriented x1, in no acute distress. VITAL SIGNS: Temperature 98 degrees, pulse 73, respirations 18, and blood pressure 104/53. CARDIOVASCULAR: No murmur. LUNGS: Poor air exchange. ABDOMEN: Bowel sounds distant. EXTREMITIES: No cyanosis or edema. NEUROLOGIC: The patient moves all extremities, slightly weak. Also noted bilateral heel dressing clean and dry and back dressing in place. LABORATORY AND DIAGNOSTIC DATA: White count 13, hemoglobin and hematocrit is 13 and 39, and platelets is 167,000. BMP shows chloride 108, BUN 22, and glucose 116. Albumin 1.8. Urinalysis, 1+ protein. ASSESSMENT: 1. Abscess and cellulitis to the back. 2. Bilateral heel wounds. 3. Dementia. 4. Weakness. 5. Malnutrition. PLAN: 1. PT and dietary evaluation. 2. Wound care. 3. Check labs in the a.m. 4. Resume home medications. 5. CBC and BMP in the morning. Han Swenson D.O. DR: SHERRY JOB#: [id number] CC:
[2018-09-14] VITALS: BP 101/46
[2018-09-14] MEDS: NovoLOG Insulin Flexpen SUBQ SCH ×5 (04:56→20:56)
[2018-09-14] MEDS: Cefepime HCl 2 GM in D5W 110 ML IV SCH ×2 (04:57→16:28)
[2018-09-14] MEDS: Vancomycin 750mg/NS 275ml IVPB SCH ×4 (06:27→18:16)
[2018-09-14 07:19] LABS: ANION GAP 7 mmol/L (5-15); BLOOD UREA NITROGEN 24 mg/dL (7-18); CARBON DIOXIDE 25 MMOL/L (21-32); CHLORIDE 109 MMOL/L (98-107); CREATININE 0.8 MG/DL (0.55-1.30); SODIUM 141 MMOL/L (136-145)
[2018-09-14 07:23] LABS: BASOPHILS % (AUTO) 1.8 % (0.0-2.0); EOSINOPHILS % (AUTO) 8.5 % (0.0-3.0); HEMATOCRIT 41.5 % (42.0-52.0); HEMOGLOBIN 13.5 G/DL (14.2-18.0); LYMPHOCYTES % (AUTO) 8.6 % (20.0-45.0); MEAN CORPUSCULAR VOLUME 95 FL (80-99); MONOCYTES % (AUTO) 11.9 % (1.0-10.0); NEUTROPHILS % (AUTO) 69.3 % (45.0-75.0); PLATELET COUNT 168 K/UL (150-450); RED BLOOD COUNT 4.38 M/UL (4.70-6.10); RED CELL DISTRIBUTION WIDTH 12.2 % (11.6-14.8); WHITE BLOOD COUNT 7.8 K/UL (4.8-10.8)
[2018-09-14 08:00] VITALS: BP 104/54
--- NOTE | 2018-09-14 08:06 | NUR ---
HAND-OFF: Report given to SCOTT Sena.
--- NOTE | 2018-09-14 08:07 | NUR ---
NURSE NOTES: Received patient awake, nonverbal, no sign of distress,. IV site intact and patent. on going Gtube feeding tolerating well,on fall and aspiration precaution,, head of bed elevated at 45 degree, Bed in low and locked position, call light in reach, bed alarm on. No signs of respiratory distress or pain., will continue to monitor. rosas rose
[2018-09-14] MEDS: Memantine 5 MG TAB GT SCH ×2 (08:22→17:07)
[2018-09-14] MEDS: Heparin 5000 units/ml inj SUBQ SCH ×2 (08:24→20:51)
[2018-09-14] MEDS ORDERED: LORazepam 0.5mg tab ORAL PRN (09:30)
[2018-09-14] MEDS ORDERED: LORazepam 0.5mg tab GT PRN (09:45)
--- NOTE | 2018-09-14 10:39 | Infectious Diseases Prog Note ---
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 Will continue to follow along with you. Subjective Allergies: Coded Allergies: No Known Allergies (Unverified , 01/27/17) Subjective Afebrile Leukocytosis resolved Objective Vital Signs Last 24 Hour Vital Signs Date Time Temp Pulse Resp B/P (MAP) Pulse Ox O2 Delivery O2 Flow Rate FiO2 09/14/18 08:15 Room Air 09/14/18 08:00 97.2 62 23 104/54 (71) 94 09/14/18 00:00 97.5 53 17 101/46 (64) 94 09/13/18 21:00 Room Air 09/13/18 20:00 97.4 61 19 102/45 (64) 94 09/13/18 16:00 98.6 72 18 105/54 (71) 95 09/13/18 12:00 98.0 73 18 102/53 (69) 99 Height (Feet): 5 Height (Inches): 9.00 Weight (Pounds): 160 Objective Gen: alert, cooperative, no distress Head: NCAT, MMM, EOMI Lungs: clear to auscultation bilaterally Heart: regular rate and rhythm, S1, S2 Abdomen: soft, non-tender. Bowel sounds normal. Skin: Skin color, left lower back / buttock abscess, tender, warm, cellulitis , fluctuance Microbiology Date/Time Source Procedure Growth Status 09/12/18 15:16 Blood Blood Culture - Preliminary NO GROWTH AFTER 24 HOURS Resulted 09/12/18 15:16 Blood Blood Culture - Preliminary Staphylococcus Sp Coag Neg Resulted 09/12/18 15:16 Nasal Nares MRSA Culture - Final Staphylococcus Aureus - Mrsa Complete 09/12/18 15:16 Rectum Received Laboratory Tests Test 09/14/18 06:03 White Blood Count 7.8 K/UL (4.8-10.8) Red Blood Count 4.38 M/UL (4.70-6.10) L Hemoglobin 13.5 G/DL (14.2-18.0) L Hematocrit 41.5 % (42.0-52.0) L Mean Corpuscular Volume 95 FL (80-99) Mean Corpuscular Hemoglobin 30.8 PG (27.0-31.0) Mean Corpuscular Hemoglobin Concent 32.6 G/DL (32.0-36.0) Red Cell Distribution Width 12.2 % (11.6-14.8) Platelet Count 168 K/UL (150-450) Mean Platelet Volume 10.9 FL (6.5-10.1) H Neutrophils (%) (Auto) 69.3 % (45.0-75.0) Lymphocytes (%) (Auto) 8.6 % (20.0-45.0) L Monocytes (%) (Auto) 11.9 % (1.0-10.0) H Eosinophils (%) (Auto) 8.5 % (0.0-3.0) H Basophils (%) (Auto) 1.8 % (0.0-2.0) Sodium Level 141 MMOL/L (136-145) Potassium Level 4.0 MMOL/L (3.5-5.1) Chloride Level 109 MMOL/L (98-107) H Carbon Dioxide Level 25 MMOL/L (21-32) Anion Gap 7 mmol/L (5-15) Blood Urea Nitrogen 24 mg/dL (7-18) H Creatinine 0.8 MG/DL (0.55-1.30) Estimat Glomerular Filtration Rate mL/min (>60) Glucose Level 114 MG/DL (74-106) H Calcium Level 8.0 MG/DL (8.5-10.1) L Current Medications Medications (Trade) Dose Ordered Sig/Robin Route PRN Reason Start Time Stop Time Status Last Admin Dose Admin Acetaminophen (Tylenol) 650 mg Q4H PRN GT fever 09/12/18 19:00 10/12/18 18:44 Albuterol/ Ipratropium (Albuterol/ Ipratropium) 3 ml Q4H PRN HHN Shortness of Breath 09/12/18 18:45 09/17/18 18:44 Cefepime HCl 2 gm/ Dextrose 110 ml @ 220 mls/hr Q12H IV 09/13/18 05:00 09/20/18 04:59 09/14/18 04:57 Dextrose 1,000 ml @ 0 mls/hr Q24H PRN IV PN interrupted or unavailable 09/13/18 11:00 10/13/18 10:59 Dextrose (Dextrose 50%) 25 ml Q30M PRN IV Hypoglycemia 09/13/18 11:00 10/13/18 10:59 Dextrose (Dextrose 50%) 50 ml Q30M PRN IV Hypoglycemia 09/13/18 11:00 10/13/18 10:59 Heparin Sodium (Porcine) (Heparin 5000 units/ml) 5,000 units EVERY 12 HOURS SUBQ 09/12/18 21:00 10/12/18 20:59 09/14/18 08:24 Insulin Aspart (NovoLOG) Q6HR SUBQ 09/13/18 12:00 10/13/18 11:59 09/13/18 17:46 Lorazepam (Ativan) 0.5 mg Q6H PRN GT For Anxiety 09/14/18 09:45 09/21/18 09:29 Memantine (Namenda) 5 mg BID GT 09/13/18 09:00 10/13/18 08:59 09/14/18 08:22 Morphine Sulfate (Morphine Sulfate) 2 mg Q4H PRN IVP Moderate Pain (Pain Scale 4-6) 09/12/18 18:48 09/19/18 18:47 09/12/18 22:52 Nitroglycerin (Ntg) 0.4 mg Q5MIN X 3 DOSES PRN SL Prn Chest Pain 09/12/18 18:45 10/12/18 18:44 Ondansetron HCl (Zofran) 4 mg Q6H PRN IVP Nausea & Vomiting 09/12/18 18:45 10/12/18 18:44 Polyethylene Glycol (Miralax) 17 gm DAILYPRN PRN GT Constipation 09/12/18 19:00 10/12/18 18:44 Risperidone (RisperDAL) 0.25 mg QHS GT 09/12/18 21:00 10/12/18 20:59 09/13/18 21:00 Temazepam (Restoril) 15 mg HSPRN PRN GT Insomnia 09/12/18 21:00 09/19/18 20:59 Vancomycin HCl (Rx Monitoring Vancomycin) 1 ea DAILY PRN MISC PHARMACY 09/12/18 20:30 10/12/18 20:29 Vancomycin HCl 750 mg/Sodium Chloride 275 ml @ 183.333 mls/hr Q12H IVPB 09/13/18 06:00 09/18/18 05:59 09/14/18 06:27 Florentino Rich MD Sep 14, 2018 10:39
[2018-09-14 11:41] VITALS: BP 114/54
--- NOTE | 2018-09-14 12:50 | Consultation ---
History of Present Illness General Date patient seen: Sep 13, 2018 Chief Complaint: Skin Rash/Abscess Present Illness Allergies: Coded Allergies: No Known Allergies (Unverified , 01/27/17) Medication History Scheduled Apixaban (Eliquis), 2.5 MG GT BID, (Reported) Ascorbic Acid* (Ascorbic Acid*), 500 MG GT DAILY, (Reported) Docusate Sodium* (Colace*), 100 MG GT BID, (Reported) Insulin Regular, Human* (Novolin R*), 0 SUBQ .SLIDING SCALE, (Reported) Memantine Hcl* (Namenda*), 5 MG GT BID, (Reported) Memantine Hcl* (Namenda*), 5 MG GT BID, (Reported) Multivitamin With Minerals (Multivitamins With Minerals*), 1 TAB ORAL DAILY, ( Reported) Pravastatin Sod* (Pravastatin Sod*), 20 MG GT BEDTIME, (Reported) Risperidone* (Risperdal*), 0.25 MG GT QHS, (Reported) Scheduled PRN Acetaminophen* (Tylenol Extra Strength*), 1,000 MG GT Q4HR PRN for Moderate Pain (Pain Scale 4-6), (Reported) Acetaminophen* (Acetaminophen 325MG Tablet*), 325 MG ORAL Q4H PRN for Mild Pain/ Temp > 100.5, (Reported) Bisacodyl (Bisacodyl), 10 MG RC DAILY PRN for CONSTIPATION IF MOM IS INEFFEC, ( Reported) Magnesium Hydroxide* (Milk Of Magnesia*), 30 ML GT QHS PRN for CONST IF SOFTENER IS INEFFECTI, (Reported) Na Phos,M-B/Na Phos,Di-Ba* (Fleet Enema*), 133 ML RECTAL EVERY OTHER DAY PRN for CONST IF BISACODYL IS INEFFECT, (Reported) Discontinued Medications Acetaminophen* (Tylenol*), 500 MG RECTAL Q4H PRN for Mild Pain/Temp > 100.5, ( Reported) Discontinued Reason: Pt stopped taking med Bisacodyl* (Dulcolax*), 10 MG RECTAL DAILY, (Reported) Discontinued Reason: Pt stopped taking med Clotrimazole* (Lotrimin*), 1 APPLIC TOPIC TWICE A DAY, (Reported) Discontinued Reason: Pt stopped taking med Docusate Sodium (Docusate Sodium), 100 MG GT DAILY, (Reported) Discontinued Reason: Pt stopped taking med Ketotifen Fumarate (Ketotifen Fumarate), 5 ML OP BID, (Reported) Discontinued Reason: Pt stopped taking med Lorazepam* (Lorazepam*), 1 MG GT Q6hr PRN for Agitation, (Reported) Discontinued Reason: Pt stopped taking med Mupirocin Nasal (Bactroban Nasal), 1 APPLIC NASAL THREE TIMES A DAY, (Reported) Discontinued Reason: Pt stopped taking med Omeprazole (Omeprazole), 20 MG GT DAILY, (Reported) Discontinued Reason: Pt stopped taking med Pravastatin Sod (Pravastatin Sod), 20 MG GT BEDTIME, (Reported) Discontinued Reason: Pt stopped taking med Quetiapine Fumarate (Seroquel), 12.5 MG GT DAILY, (Reported) Discontinued Reason: Pt stopped taking med Ranitidine Hcl* (Zantac*), 150 MG ORAL DAILY, (Reported) Discontinued Reason: Pt stopped taking med Risperidone* (Risperdal*), 0.5 MG GT BID, (Reported) Discontinued Reason: Pt stopped taking med Rivaroxaban (Xarelto), 20 MG GT HS, (Reported) Discontinued Reason: Pt stopped taking med Patient History Healthcare decision maker N Resuscitation status Full Code Advanced Directive on File Physical Exam Last 24 Hour Vital Signs Date Time Temp Pulse Resp B/P (MAP) Pulse Ox O2 Delivery O2 Flow Rate FiO2 09/14/18 11:41 97.2 66 21 114/54 (74) 94 09/14/18 08:15 Room Air 09/14/18 08:00 97.2 62 23 104/54 (71) 94 09/14/18 00:00 97.5 53 17 101/46 (64) 94 09/13/18 21:00 Room Air 09/13/18 20:00 97.4 61 19 102/45 (64) 94 09/13/18 16:00 98.6 72 18 105/54 (71) 95 Intake and Output 09/13/18 09/14/18 19:00 07:00 Intake Total 890 ml 70 ml Output Total 550 ml Balance 890 ml -480 ml Intake Free Water 170 ml IV Total 110 ml Tube Feeding 610 ml 70 ml Output Urine Total 550 ml # Voids 3 # Bowel Movements 1 1 Laboratory Tests Test 09/14/18 06:03 White Blood Count 7.8 K/UL (4.8-10.8) Red Blood Count 4.38 M/UL (4.70-6.10) L Hemoglobin 13.5 G/DL (14.2-18.0) L Hematocrit 41.5 % (42.0-52.0) L Mean Corpuscular Volume 95 FL (80-99) Mean Corpuscular Hemoglobin 30.8 PG (27.0-31.0) Mean Corpuscular Hemoglobin Concent 32.6 G/DL (32.0-36.0) Red Cell Distribution Width 12.2 % (11.6-14.8) Platelet Count 168 K/UL (150-450) Mean Platelet Volume 10.9 FL (6.5-10.1) H Neutrophils (%) (Auto) 69.3 % (45.0-75.0) Lymphocytes (%) (Auto) 8.6 % (20.0-45.0) L Monocytes (%) (Auto) 11.9 % (1.0-10.0) H Eosinophils (%) (Auto) 8.5 % (0.0-3.0) H Basophils (%) (Auto) 1.8 % (0.0-2.0) Sodium Level 141 MMOL/L (136-145) Potassium Level 4.0 MMOL/L (3.5-5.1) Chloride Level 109 MMOL/L (98-107) H Carbon Dioxide Level 25 MMOL/L (21-32) Anion Gap 7 mmol/L (5-15) Blood Urea Nitrogen 24 mg/dL (7-18) H Creatinine 0.8 MG/DL (0.55-1.30) Estimat Glomerular Filtration Rate mL/min (>60) Glucose Level 114 MG/DL (74-106) H Calcium Level 8.0 MG/DL (8.5-10.1) L Height (Feet): 5 Height (Inches): 9.00 Weight (Pounds): 160 Medications Current Medications Medications (Trade) Dose Ordered Sig/Robin Route PRN Reason Start Time Stop Time Status Last Admin Dose Admin Acetaminophen (Tylenol) 650 mg Q4H PRN GT fever 09/12/18 19:00 10/12/18 18:44 Albuterol/ Ipratropium (Albuterol/ Ipratropium) 3 ml Q4H PRN HHN Shortness of Breath 09/12/18 18:45 09/17/18 18:44 Cefepime HCl 2 gm/ Dextrose 110 ml @ 220 mls/hr Q12H IV 09/13/18 05:00 09/20/18 04:59 09/14/18 04:57 Dextrose 1,000 ml @ 0 mls/hr Q24H PRN IV PN interrupted or unavailable 09/13/18 11:00 10/13/18 10:59 Dextrose (Dextrose 50%) 25 ml Q30M PRN IV Hypoglycemia 09/13/18 11:00 10/13/18 10:59 Dextrose (Dextrose 50%) 50 ml Q30M PRN IV Hypoglycemia 09/13/18 11:00 10/13/18 10:59 Heparin Sodium (Porcine) (Heparin 5000 units/ml) 5,000 units EVERY 12 HOURS SUBQ 09/12/18 21:00 10/12/18 20:59 09/14/18 08:24 Insulin Aspart (NovoLOG) Q6HR SUBQ 09/13/18 12:00 10/13/18 11:59 09/14/18 12:08 Lorazepam (Ativan) 0.5 mg Q6H PRN GT For Anxiety 09/14/18 09:45 09/21/18 09:29 Memantine (Namenda) 5 mg BID GT 09/13/18 09:00 10/13/18 08:59 09/14/18 08:22 Morphine Sulfate (Morphine Sulfate) 2 mg Q4H PRN IVP Moderate Pain (Pain Scale 4-6) 09/12/18 18:48 09/19/18 18:47 09/12/18 22:52 Nitroglycerin (Ntg) 0.4 mg Q5MIN X 3 DOSES PRN SL Prn Chest Pain 09/12/18 18:45 10/12/18 18:44 Ondansetron HCl (Zofran) 4 mg Q6H PRN IVP Nausea & Vomiting 09/12/18 18:45 10/12/18 18:44 Polyethylene Glycol (Miralax) 17 gm DAILYPRN PRN GT Constipation 09/12/18 19:00 10/12/18 18:44 Risperidone (RisperDAL) 0.25 mg QHS GT 09/12/18 21:00 10/12/18 20:59 09/13/18 21:00 Temazepam (Restoril) 15 mg HSPRN PRN GT Insomnia 09/12/18 21:00 09/19/18 20:59 Vancomycin HCl (Rx Monitoring Vancomycin) 1 ea DAILY PRN MISC PHARMACY 09/12/18 20:30 10/12/18 20:29 Vancomycin HCl 750 mg/Sodium Chloride 275 ml @ 183.333 mls/hr Q12H IVPB 09/13/18 06:00 09/18/18 05:59 09/14/18 06:27 Assessment/Plan Problem List: (1) Cellulitis ICD Codes: L03.90 - Cellulitis, unspecified SNOMED: 679169680 (2) Dementia with psychosis ICD Codes: F03.91 - Unspecified dementia with behavioral disturbance SNOMED: 96314430, [id number] (3) Interstitial lung disease ICD Codes: J84.9 - Interstitial pulmonary disease, unspecified SNOMED: 461534912 Fco León MD Sep 14, 2018 12:50
--- NOTE | 2018-09-14 12:52 | Pulmonology Progress Note ---
Assessment/Plan Problems: (1) Cellulitis (2) Interstitial lung disease (3) Dementia with psychosis (4) Diabetes mellitus Assessment/Plan iv abx respiratory treatment sliding scale diabetic diet titrate fio2 to sat of 92% dvt prophylaxis. Subjective ROS Limited/Unobtainable: No Allergies: Coded Allergies: No Known Allergies (Unverified , 01/27/17) Objective Last 24 Hour Vital Signs Date Time Temp Pulse Resp B/P (MAP) Pulse Ox O2 Delivery O2 Flow Rate FiO2 09/14/18 11:41 97.2 66 21 114/54 (74) 94 09/14/18 08:15 Room Air 09/14/18 08:00 97.2 62 23 104/54 (71) 94 09/14/18 00:00 97.5 53 17 101/46 (64) 94 09/13/18 21:00 Room Air 09/13/18 20:00 97.4 61 19 102/45 (64) 94 09/13/18 16:00 98.6 72 18 105/54 (71) 95 Intake and Output 09/13/18 09/14/18 19:00 07:00 Intake Total 890 ml 70 ml Output Total 550 ml Balance 890 ml -480 ml Intake Free Water 170 ml IV Total 110 ml Tube Feeding 610 ml 70 ml Output Urine Total 550 ml # Voids 3 # Bowel Movements 1 1 General Appearance: cachetic HEENT: normocephalic, anicteric Respiratory/Chest: chest wall non-tender, lungs clear Cardiovascular: normal peripheral pulses, normal rate Abdomen: normal bowel sounds Extremities: no cyanosis Skin: no lesions Microbiology Date/Time Source Procedure Growth Status 09/12/18 15:16 Blood Blood Culture - Preliminary NO GROWTH AFTER 24 HOURS Resulted 09/12/18 15:16 Blood Blood Culture - Preliminary Staphylococcus Sp Coag Neg Resulted 09/13/18 11:30 Other(Specify in comment) Gram Stain Pending Resulted 09/13/18 11:30 Wound Culture - Preliminary Gram Positive Cocci Resulted 09/12/18 15:16 Nasal Nares MRSA Culture - Final Staphylococcus Aureus - Mrsa Complete 09/12/18 15:16 Rectum Received Laboratory Tests 09/14/18 06:03: White Blood Count 7.8, Red Blood Count 4.38L, Hemoglobin 13.5L, Hematocrit 41.5L , Mean Corpuscular Volume 95, Mean Corpuscular Hemoglobin 30.8, Mean Corpuscular Hemoglobin Concent 32.6, Red Cell Distribution Width 12.2, Platelet Count 168, Mean Platelet Volume 10.9H, Neutrophils (%) (Auto) 69.3, Lymphocytes (%) (Auto) 8.6L, Monocytes (%) (Auto) 11.9H, Eosinophils (%) (Auto) 8.5H, Basophils (%) (Auto) 1.8, Sodium Level 141, Potassium Level 4.0, Chloride Level 109H, Carbon Dioxide Level 25, Anion Gap 7, Blood Urea Nitrogen 24H, Creatinine 0.8, Estimat Glomerular Filtration Rate , Glucose Level 114H, Calcium Level 8.0L Current Medications Medications (Trade) Dose Ordered Sig/Robin Route PRN Reason Start Time Stop Time Status Last Admin Dose Admin Acetaminophen (Tylenol) 650 mg Q4H PRN GT fever 09/12/18 19:00 10/12/18 18:44 Albuterol/ Ipratropium (Albuterol/ Ipratropium) 3 ml Q4H PRN HHN Shortness of Breath 09/12/18 18:45 09/17/18 18:44 Cefepime HCl 2 gm/ Dextrose 110 ml @ 220 mls/hr Q12H IV 09/13/18 05:00 09/20/18 04:59 09/14/18 04:57 Dextrose 1,000 ml @ 0 mls/hr Q24H PRN IV PN interrupted or unavailable 09/13/18 11:00 10/13/18 10:59 Dextrose (Dextrose 50%) 25 ml Q30M PRN IV Hypoglycemia 09/13/18 11:00 10/13/18 10:59 Dextrose (Dextrose 50%) 50 ml Q30M PRN IV Hypoglycemia 09/13/18 11:00 10/13/18 10:59 Heparin Sodium (Porcine) (Heparin 5000 units/ml) 5,000 units EVERY 12 HOURS SUBQ 09/12/18 21:00 10/12/18 20:59 09/14/18 08:24 Insulin Aspart (NovoLOG) Q6HR SUBQ 09/13/18 12:00 10/13/18 11:59 09/14/18 12:08 Lorazepam (Ativan) 0.5 mg Q6H PRN GT For Anxiety 09/14/18 09:45 09/21/18 09:29 Memantine (Namenda) 5 mg BID GT 09/13/18 09:00 10/13/18 08:59 09/14/18 08:22 Morphine Sulfate (Morphine Sulfate) 2 mg Q4H PRN IVP Moderate Pain (Pain Scale 4-6) 09/12/18 18:48 09/19/18 18:47 09/12/18 22:52 Nitroglycerin (Ntg) 0.4 mg Q5MIN X 3 DOSES PRN SL Prn Chest Pain 09/12/18 18:45 10/12/18 18:44 Ondansetron HCl (Zofran) 4 mg Q6H PRN IVP Nausea & Vomiting 09/12/18 18:45 10/12/18 18:44 Polyethylene Glycol (Miralax) 17 gm DAILYPRN PRN GT Constipation 09/12/18 19:00 10/12/18 18:44 Risperidone (RisperDAL) 0.25 mg QHS GT 09/12/18 21:00 10/12/18 20:59 09/13/18 21:00 Temazepam (Restoril) 15 mg HSPRN PRN GT Insomnia 09/12/18 21:00 09/19/18 20:59 Vancomycin HCl (Rx Monitoring Vancomycin) 1 ea DAILY PRN MISC PHARMACY 09/12/18 20:30 10/12/18 20:29 Vancomycin HCl 750 mg/Sodium Chloride 275 ml @ 183.333 mls/hr Q12H IVPB 09/13/18 06:00 09/18/18 05:59 09/14/18 06:27 Fco León MD Sep 14, 2018 12:52
--- NOTE | 2018-09-14 14:38 | NUR ---
P.T Note: P.T evaluation completed and treatment initiated. Please refer to P.T evaluation for current functional status. Skilled P.T service is warranted to improve his strength, balance and endurance to increase activity tolerance , safety and mobility independence during stay. Recommend return to [facility] with continued P.T at [place]. Addendum: 09/14/18 at 1441 by ANTONIO URRUTIA PT Amended: Links added.
--- NOTE | 2018-09-14 15:28 | General Progress Note ---
Assessment/Plan Problem List: (1) Weak ICD Codes: R53.1 - Weakness SNOMED: 86819799 (2) Malnutrition ICD Codes: E46 - Unspecified protein-calorie malnutrition SNOMED: 48734833 (3) Abscess ICD Codes: L02.91 - Cutaneous abscess, unspecified SNOMED: 811548939 (4) Cellulitis ICD Codes: L03.90 - Cellulitis, unspecified SNOMED: 944832941 (5) Dementia with psychosis ICD Codes: F03.91 - Unspecified dementia with behavioral disturbance SNOMED: 68314840, 75394252 Status: unchanged Assessment/Plan pt diet wound care abx cbc bmp am ltach rosmery Subjective Constitutional: Reports: weakness Allergies: Coded Allergies: No Known Allergies (Unverified , 01/27/17) All Systems: reviewed and negative except above Subjective sleepy calm Objective Last 24 Hour Vital Signs Date Time Temp Pulse Resp B/P (MAP) Pulse Ox O2 Delivery O2 Flow Rate FiO2 09/14/18 11:41 97.2 66 21 114/54 (74) 94 09/14/18 08:15 Room Air 09/14/18 08:00 97.2 62 23 104/54 (71) 94 09/14/18 00:00 97.5 53 17 101/46 (64) 94 09/13/18 21:00 Room Air 09/13/18 20:00 97.4 61 19 102/45 (64) 94 09/13/18 16:00 98.6 72 18 105/54 (71) 95 Intake and Output 09/13/18 09/14/18 19:00 07:00 Intake Total 890 ml 70 ml Output Total 550 ml Balance 890 ml -480 ml Intake Free Water 170 ml IV Total 110 ml Tube Feeding 610 ml 70 ml Output Urine Total 550 ml # Voids 3 # Bowel Movements 1 1 Laboratory Tests 09/14/18 06:03: White Blood Count 7.8, Red Blood Count 4.38L, Hemoglobin 13.5L, Hematocrit 41.5L , Mean Corpuscular Volume 95, Mean Corpuscular Hemoglobin 30.8, Mean Corpuscular Hemoglobin Concent 32.6, Red Cell Distribution Width 12.2, Platelet Count 168, Mean Platelet Volume 10.9H, Neutrophils (%) (Auto) 69.3, Lymphocytes (%) (Auto) 8.6L, Monocytes (%) (Auto) 11.9H, Eosinophils (%) (Auto) 8.5H, Basophils (%) (Auto) 1.8, Sodium Level 141, Potassium Level 4.0, Chloride Level 109H, Carbon Dioxide Level 25, Anion Gap 7, Blood Urea Nitrogen 24H, Creatinine 0.8, Estimat Glomerular Filtration Rate , Glucose Level 114H, Calcium Level 8.0L Height (Feet): 5 Height (Inches): 9.00 Weight (Pounds): 160 General Appearance: lethargic EENT: normal ENT inspection Neck: normal alignment Cardiovascular: normal peripheral pulses, normal rate, regular rhythm Respiratory/Chest: chest wall non-tender, lungs clear, normal breath sounds Abdomen: normal bowel sounds, non tender, soft Extremities: normal inspection Edema: no edema noted Arm (L), no edema noted Arm (R), no edema noted Leg (L), no edema noted Leg (R), no edema noted Pedal (L), no edema noted Pedal (R), no edema noted Generalized Neurologic: motor weakness Skin: normal pigmentation, warm/dry Han Swenson DO Sep 14, 2018 15:28
--- NOTE | 2018-09-14 15:53 | NUR ---
[employer] TRE[employer] SI: ABSCESS,CELLULITIS T.97.2 HR 66 RR 21 B/P 114/54 RA 98% IS: VANCOMYCIN IV CEFEPIME IV HEPARIN SUBC MED/SURG STATUS
--- NOTE | 2018-09-14 15:56 | Surgery Progress Note ---
Surgery Progress Note Subjective Additional Comments s/p I&D. comfortable. cooperative but only does what he wants. leukocytosis resolved. Objective Last 24 Hour Vital Signs Date Time Temp Pulse Resp B/P (MAP) Pulse Ox O2 Delivery O2 Flow Rate FiO2 09/14/18 11:41 97.2 66 21 114/54 (74) 94 09/14/18 08:15 Room Air 09/14/18 08:00 97.2 62 23 104/54 (71) 94 09/14/18 00:00 97.5 53 17 101/46 (64) 94 09/13/18 21:00 Room Air 09/13/18 20:00 97.4 61 19 102/45 (64) 94 09/13/18 16:00 98.6 72 18 105/54 (71) 95 I&O Intake and Output 09/13/18 09/14/18 19:00 07:00 Intake Total 890 ml 70 ml Output Total 550 ml Balance 890 ml -480 ml Intake Free Water 170 ml IV Total 110 ml Tube Feeding 610 ml 70 ml Output Urine Total 550 ml # Voids 3 # Bowel Movements 1 1 Dressing: saturated Wound: other Drains: other Cardiovascular: RSR Respiratory: clear Abdomen: soft, non-tender, present bowel sounds, non-distended Extremities: no tenderness, no cyanosis Laboratory Tests Test 09/14/18 06:03 White Blood Count 7.8 K/UL (4.8-10.8) Red Blood Count 4.38 M/UL (4.70-6.10) L Hemoglobin 13.5 G/DL (14.2-18.0) L Hematocrit 41.5 % (42.0-52.0) L Mean Corpuscular Volume 95 FL (80-99) Mean Corpuscular Hemoglobin 30.8 PG (27.0-31.0) Mean Corpuscular Hemoglobin Concent 32.6 G/DL (32.0-36.0) Red Cell Distribution Width 12.2 % (11.6-14.8) Platelet Count 168 K/UL (150-450) Mean Platelet Volume 10.9 FL (6.5-10.1) H Neutrophils (%) (Auto) 69.3 % (45.0-75.0) Lymphocytes (%) (Auto) 8.6 % (20.0-45.0) L Monocytes (%) (Auto) 11.9 % (1.0-10.0) H Eosinophils (%) (Auto) 8.5 % (0.0-3.0) H Basophils (%) (Auto) 1.8 % (0.0-2.0) Sodium Level 141 MMOL/L (136-145) Potassium Level 4.0 MMOL/L (3.5-5.1) Chloride Level 109 MMOL/L (98-107) H Carbon Dioxide Level 25 MMOL/L (21-32) Anion Gap 7 mmol/L (5-15) Blood Urea Nitrogen 24 mg/dL (7-18) H Creatinine 0.8 MG/DL (0.55-1.30) Estimat Glomerular Filtration Rate mL/min (>60) Glucose Level 114 MG/DL (74-106) H Calcium Level 8.0 MG/DL (8.5-10.1) L Plan Problems: (1) Abscess Assessment & Plan: This is a 78-year-old male with left back/buttock abscess. Afebrile, hemodynamically stable, labs noted. On examination area of fluctuance identified in the left lower back/buttock area. There is tender with erythema and surrounding cellulitis. No drainage. Abscess cavity identified. Recommend incision and drainage. I spoke to the patient's daughter who is the power of civil attorney and expressed understanding of plan procedure and consented to incision and drainage. Of note patient daughter states that he was at [facility] recently where he had an incision and drainage performed at the bedside as well in a similar area but is unsure if this is the same. patient with significant malnutrition. also not very compliant. will need nutritional optimization to heal wound / large abscess pocket s/p Incision and drainage of abscess -please see report Okay for diet Packing and dressing changes 3 times daily IV antibiotics We will follow with Recs Thank you for allowing me to participate in patient's care Eric Dickey Sep 14, 2018 15:56
[2018-09-14 16:10] VITALS: BP 122/73
--- NOTE | 2018-09-14 19:32 | NUR ---
HAND-OFF: Report given to Rodríguez RN. SCOTT LOU
--- NOTE | 2018-09-14 19:47 | NUR ---
NURSE NOTES: Recieved patient in bed, awake, oriented x1, non verbal at times, VSS afebrile, no acute distress noted. Call light is within reach, bed is in low position, locked and alarm is on. Will continue to monitor for safety and comfort.
[2018-09-14 20:00] VITALS: BP 125/70
--- NOTE | 2018-09-14 21:00 | Consultation ---
DATE OF CONSULTATION: 09/14/2018 INITIAL PSYCHIATRIC EVALUATION CONSULTING PHYSICIAN: Елена Lang M.D. HISTORY OF PRESENT ILLNESS: The patient is a 78-year-old male patient. The patient was brought into the hospital from [facility] and the reason why he came in is because he had cellulitis in his back and abscess with bilateral wounds, but he has overlying diagnosis of paranoid schizophrenia. He has lot of mood lability, agitation, and irritability as well as altered mental status. Cognition has declined below his baseline, worsened by stress of his medical illnesses. That is why his attending has requested daily psychiatric consultation. As far as his at bedside in the morning. He is very confused . He has altered mental status and poor cognition. PAST MEDICAL HISTORY: He has a history of generalized weakness. He also has abscess, cellulitis of his back, and he also has diabetes and COPD. ALLERGIES: There are no known drug allergies. PSYCHOTROPIC MEDICATIONS ON ADMISSION: This patient is currently on psychiatric regimen consisting of Risperdal 0.25 mg per G-tube at bedtime. He is also on Namenda 5 mg per G-tube twice a day. SUBSTANCE ABUSE HISTORY: No history of any drug or alcohol abuse. FAMILY PSYCHIATRIC HISTORY: Denies. PAIN ASSESSMENT: 0/10. DEVELOPMENTAL PROBLEMS: Denies. SOCIAL HISTORY: The patient lives in [facility]. He is financially supported by [employer] and Medicare. Minimal family support system. PSYCHIATRIC HISTORY: Major depressive disorder, severe, recurrent with psychotic features; rule out dementia with psychosis; rule out paranoid schizophrenia. STRENGTHS: He is motivated to get better. He has a place to live. WEAKNESSES: He is impulsive and minimal support system. MENTAL STATUS EXAMINATION: This is a 78-year-old male patient. Appearance is disheveled. Attitude, irritable and agitated. Affect, guarded and restricted. Intellect is poor because he does not know current events and does not know the last four presidents. Mood depressed and anxious. Motor activity, psychomotor agitation. Attention span is poor because he cannot to do serial 7's or spell world backwards. Orientation x2, he is oriented to person and place, not time and situation. Speech is low volume. Thought process, disorganized and illogical. Thought content, he has paranoid delusions. Perception is poor because of paranoid delusions and hallucinations. Abstract reasoning is poor because he does not understand proverbs, only has concrete thinking. Insight is poor because he does not recognize he has psychiatric disorder. Judgment is poor because he cannot make clear medical decisions for himself. No signs of any suicidal or homicidal ideations. Short-term memory is 0/3 of 3-word recall, so poor short-term memory. Long-term memory is poor because he cannot recall long-term events in his life such as the high school that he went to. DIAGNOSES: 1. Major depressive disorder with psychotic features, rule out dementia with psychotic features, rule out paranoid schizophrenia. 2. Medical is cellulitis with abscess, respiratory insufficiency, dementia as well as diabetes. 3. Psychosocial stressors, financial. Functional impairment is mild. PLAN: I am going to treat this patient with Risperdal at a dose of 0.25 mg per G-tube at bedtime as well as Namenda 5 mg per G-tube twice a day. Provided him with 20 minutes of cognitive behavioral therapy to identify automatic negative thoughts and help convert negative thoughts to more positive thoughts to reduce depression, anxiety, and mood lability and also help him have a more adaptive behavioral pattern. Also in addition to that, I am going to start this patient on Ativan 0.5 mg every 6 hours p.r.n. anxiety and agitation. Provided him with 20 minutes of cognitive behavioral therapy to identify automatic negative thoughts and help convert negative thoughts to more positive thoughts to reduce depression, anxiety, and suicidality and help him to have a more adaptive behavioral pattern. Chart is reviewed and discussed with staff. The patient is seen and assessed at bedside. I would like to thank Dr. Han Swenson for this interesting consultation. Елена Lang M.D. DR: YASMIN JOB#: [id number] CC:
[2018-09-15] VITALS: BP 116/66
[2018-09-15 04:00] VITALS: BP 106/58
[2018-09-15] MEDS: Cefepime HCl 2 GM in D5W 110 ML IV SCH (04:45)
[2018-09-15] MEDS: Vancomycin 750mg/NS 275ml IVPB SCH ×2 (05:34)
[2018-09-15] MEDS: NovoLOG Insulin Flexpen SUBQ SCH ×3 (06:08→17:05)
--- NOTE | 2018-09-15 06:50 | NUR ---
HAND-OFF: Report given to Jaida CHAVEZ.
--- NOTE | 2018-09-15 07:17 | NUR ---
NURSE NOTES: Received patient sleeping, no sign of distress,. IV site intact and patent. on going Gtube feeding tolerating well,on fall and aspiration precaution,, head of bed elevated at 45 degree, Bed in low and locked position, call light in reach, bed alarm on. , will continue to monitor. rosas rose
[2018-09-15 07:42] LABS: BASOPHILS % (AUTO) 1.6 % (0.0-2.0); EOSINOPHILS % (AUTO) 9.1 % (0.0-3.0); HEMOGLOBIN 12.9 G/DL (14.2-18.0); LYMPHOCYTES % (AUTO) 8.5 % (20.0-45.0); MEAN CORPUSCULAR VOLUME 94 FL (80-99); MONOCYTES % (AUTO) 10.7 % (1.0-10.0); NEUTROPHILS % (AUTO) 70.1 % (45.0-75.0); PLATELET COUNT 181 K/UL (150-450); RED BLOOD COUNT 4.16 M/UL (4.70-6.10); RED CELL DISTRIBUTION WIDTH 12.1 % (11.6-14.8); WHITE BLOOD COUNT 8.2 K/UL (4.8-10.8)
[2018-09-15 07:49] LABS: ANION GAP 6 mmol/L (5-15); BLOOD UREA NITROGEN 21 mg/dL (7-18); CALCIUM 7.9 MG/DL (8.5-10.1); CARBON DIOXIDE 26 MMOL/L (21-32); CHLORIDE 108 MMOL/L (98-107); CREATININE 0.7 MG/DL (0.55-1.30); SODIUM 140 MMOL/L (136-145)
[2018-09-15 08:00] VITALS: BP 106/58
[2018-09-15] MEDS: Memantine 5 MG TAB GT SCH ×2 (08:01→17:05)
[2018-09-15] MEDS: Heparin 5000 units/ml inj SUBQ SCH ×2 (08:02→20:56)
--- NOTE | 2018-09-15 10:55 | Infectious Diseases Prog Note ---
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 Subjective Allergies: Coded Allergies: No Known Allergies (Unverified , 01/27/17) Subjective DILMA Afebrile Leukocytosis resolved Objective Vital Signs Last 24 Hour Vital Signs Date Time Temp Pulse Resp B/P (MAP) Pulse Ox O2 Delivery O2 Flow Rate FiO2 09/15/18 08:35 Room Air 09/15/18 08:00 97.5 63 17 106/58 (74) 100 09/15/18 04:00 95.8 60 20 106/58 (74) 09/15/18 00:00 96.2 70 18 116/66 (83) 09/14/18 21:00 Room Air 09/14/18 20:00 98.2 85 21 125/70 (88) 09/14/18 16:10 98.0 73 21 122/73 (89) 98 09/14/18 11:41 97.2 66 21 114/54 (74) 94 Height (Feet): 5 Height (Inches): 9.00 Weight (Pounds): 160 Objective Gen: NAD Head: NCAT, MMM, EOMI Lungs: clear to auscultation bilaterally Heart: regular rate and rhythm, S1, S2 Abdomen: soft, NT, + BS Skin: left lower back / buttock abscess, tender, warm, cellulitis , fluctuance Microbiology Date/Time Source Procedure Growth Status 09/13/18 16:25 Blood Blood Culture - Preliminary NO GROWTH AFTER 24 HOURS Resulted 09/13/18 16:20 Blood Blood Culture - Preliminary NO GROWTH AFTER 24 HOURS Resulted 09/12/18 15:16 Blood Blood Culture - Preliminary NO GROWTH AFTER 48 HOURS Resulted 09/12/18 15:16 Blood Blood Culture - Final Staphylococcus Sp Coag Neg Complete 09/13/18 11:30 Other(Specify in comment) Gram Stain - Final Resulted 09/13/18 11:30 Wound Culture - Preliminary Gram Positive Cocci Resulted 09/12/18 15:16 Nasal Nares MRSA Culture - Final Staphylococcus Aureus - Mrsa Complete 09/13/18 15:16 Rectum - Final NO CARBAPENEM-RESISTANT ENTEROBACTERI... Complete 09/12/18 15:16 Rectum VRE Culture - Final Enterococcus Faecium - Vre Complete Laboratory Tests Test 09/14/18 17:10 09/15/18 06:21 Vancomycin Level Trough 10.9 ug/mL (5.0-12.0) White Blood Count 8.2 K/UL (4.8-10.8) Red Blood Count 4.16 M/UL (4.70-6.10) L Hemoglobin 12.9 G/DL (14.2-18.0) L Hematocrit 39.0 % (42.0-52.0) L Mean Corpuscular Volume 94 FL (80-99) Mean Corpuscular Hemoglobin 31.0 PG (27.0-31.0) Mean Corpuscular Hemoglobin Concent 33.1 G/DL (32.0-36.0) Red Cell Distribution Width 12.1 % (11.6-14.8) Platelet Count 181 K/UL (150-450) Mean Platelet Volume 11.1 FL (6.5-10.1) H Neutrophils (%) (Auto) 70.1 % (45.0-75.0) Lymphocytes (%) (Auto) 8.5 % (20.0-45.0) L Monocytes (%) (Auto) 10.7 % (1.0-10.0) H Eosinophils (%) (Auto) 9.1 % (0.0-3.0) H Basophils (%) (Auto) 1.6 % (0.0-2.0) Sodium Level 140 MMOL/L (136-145) Potassium Level 4.0 MMOL/L (3.5-5.1) Chloride Level 108 MMOL/L (98-107) H Carbon Dioxide Level 26 MMOL/L (21-32) Anion Gap 6 mmol/L (5-15) Blood Urea Nitrogen 21 mg/dL (7-18) H Creatinine 0.7 MG/DL (0.55-1.30) Estimat Glomerular Filtration Rate mL/min (>60) Glucose Level 127 MG/DL (74-106) H Calcium Level 7.9 MG/DL (8.5-10.1) L Current Medications Medications (Trade) Dose Ordered Sig/Robin Route PRN Reason Start Time Stop Time Status Last Admin Dose Admin Acetaminophen (Tylenol) 650 mg Q4H PRN GT fever 09/12/18 19:00 10/12/18 18:44 Albuterol/ Ipratropium (Albuterol/ Ipratropium) 3 ml Q4H PRN HHN Shortness of Breath 09/12/18 18:45 09/17/18 18:44 Cefepime HCl 2 gm/ Dextrose 110 ml @ 220 mls/hr Q12H IV 09/13/18 05:00 09/20/18 04:59 09/15/18 04:45 Dextrose 1,000 ml @ 0 mls/hr Q24H PRN IV PN interrupted or unavailable 09/13/18 11:00 10/13/18 10:59 Dextrose (Dextrose 50%) 25 ml Q30M PRN IV Hypoglycemia 09/13/18 11:00 10/13/18 10:59 Dextrose (Dextrose 50%) 50 ml Q30M PRN IV Hypoglycemia 09/13/18 11:00 10/13/18 10:59 Heparin Sodium (Porcine) (Heparin 5000 units/ml) 5,000 units EVERY 12 HOURS SUBQ 09/12/18 21:00 10/12/18 20:59 09/15/18 08:02 Insulin Aspart (NovoLOG) Q6HR SUBQ 09/13/18 12:00 10/13/18 11:59 09/15/18 06:08 Lorazepam (Ativan) 0.5 mg Q6H PRN GT For Anxiety 09/14/18 09:45 09/21/18 09:29 Memantine (Namenda) 5 mg BID GT 09/13/18 09:00 10/13/18 08:59 09/15/18 08:01 Morphine Sulfate (Morphine Sulfate) 2 mg Q4H PRN IVP Moderate Pain (Pain Scale 4-6) 09/12/18 18:48 09/19/18 18:47 09/12/18 22:52 Nitroglycerin (Ntg) 0.4 mg Q5MIN X 3 DOSES PRN SL Prn Chest Pain 09/12/18 18:45 10/12/18 18:44 Ondansetron HCl (Zofran) 4 mg Q6H PRN IVP Nausea & Vomiting 09/12/18 18:45 10/12/18 18:44 Polyethylene Glycol (Miralax) 17 gm DAILYPRN PRN GT Constipation 09/12/18 19:00 10/12/18 18:44 Risperidone (RisperDAL) 0.25 mg QHS GT 09/12/18 21:00 10/12/18 20:59 09/14/18 20:50 Temazepam (Restoril) 15 mg HSPRN PRN GT Insomnia 09/12/18 21:00 09/19/18 20:59 Vancomycin HCl (Rx Monitoring Vancomycin) 1 ea DAILY PRN MISC PHARMACY 09/12/18 20:30 10/12/18 20:29 Vancomycin HCl 750 mg/Sodium Chloride 275 ml @ 183.333 mls/hr Q12H IVPB 09/13/18 06:00 09/18/18 05:59 09/15/18 05:34 Florentino Rich MD Sep 15, 2018 10:55
[2018-09-15 12:09] VITALS: BP 111/60
--- NOTE | 2018-09-15 12:57 | General Progress Note ---
Assessment/Plan Problem List: (1) Weak ICD Codes: R53.1 - Weakness SNOMED: 83416341 (2) Malnutrition ICD Codes: E46 - Unspecified protein-calorie malnutrition SNOMED: 06542202 (3) Abscess ICD Codes: L02.91 - Cutaneous abscess, unspecified SNOMED: 541440991 (4) Cellulitis ICD Codes: L03.90 - Cellulitis, unspecified SNOMED: 400082730 (5) Dementia with psychosis ICD Codes: F03.91 - Unspecified dementia with behavioral disturbance SNOMED: 03352850, 88466172 Status: unchanged Assessment/Plan pt diet wound care abx cbc bmp am dc to [facility] Subjective Constitutional: Reports: weakness Allergies: Coded Allergies: No Known Allergies (Unverified , 01/27/17) All Systems: reviewed and negative except above Subjective sleepy calm Objective Last 24 Hour Vital Signs Date Time Temp Pulse Resp B/P (MAP) Pulse Ox O2 Delivery O2 Flow Rate FiO2 09/15/18 12:09 97.9 61 18 111/60 (77) 100 09/15/18 08:35 Room Air 09/15/18 08:00 97.5 63 17 106/58 (74) 100 09/15/18 04:00 95.8 60 20 106/58 (74) 09/15/18 00:00 96.2 70 18 116/66 (83) 09/14/18 21:00 Room Air 09/14/18 20:00 98.2 85 21 125/70 (88) 09/14/18 16:10 98.0 73 21 122/73 (89) 98 Intake and Output 09/14/18 09/15/18 19:00 07:00 Intake Total 1145.000 ml 800 ml Balance 1145.000 ml 800 ml Intake Free Water 200 ml 100 ml IV Total 385.000 ml Tube Feeding 560 ml 700 ml # Voids 3 # Bowel Movements 2 1 Laboratory Tests 09/14/18 17:10: Vancomycin Level Trough 10.9 09/15/18 06:21: White Blood Count 8.2, Red Blood Count 4.16L, Hemoglobin 12.9L, Hematocrit 39.0L , Mean Corpuscular Volume 94, Mean Corpuscular Hemoglobin 31.0, Mean Corpuscular Hemoglobin Concent 33.1, Red Cell Distribution Width 12.1, Platelet Count 181, Mean Platelet Volume 11.1H, Neutrophils (%) (Auto) 70.1, Lymphocytes (%) (Auto) 8.5L, Monocytes (%) (Auto) 10.7H, Eosinophils (%) (Auto) 9.1H, Basophils (%) (Auto) 1.6, Sodium Level 140, Potassium Level 4.0, Chloride Level 108H, Carbon Dioxide Level 26, Anion Gap 6, Blood Urea Nitrogen 21H, Creatinine 0.7, Estimat Glomerular Filtration Rate , Glucose Level 127H, Calcium Level 7.9L Height (Feet): 5 Height (Inches): 9.00 Weight (Pounds): 160 General Appearance: lethargic EENT: normal ENT inspection Neck: normal alignment Cardiovascular: normal peripheral pulses, normal rate, regular rhythm Respiratory/Chest: chest wall non-tender, lungs clear, normal breath sounds Abdomen: normal bowel sounds, non tender, soft Extremities: normal inspection Edema: no edema noted Arm (L), no edema noted Arm (R), no edema noted Leg (L), no edema noted Leg (R), no edema noted Pedal (L), no edema noted Pedal (R), no edema noted Generalized Neurologic: motor weakness Skin: normal pigmentation, warm/dry Han Swenson DO Sep 15, 2018 12:57
--- NOTE | 2018-09-15 13:56 | NUR ---
RD ASSESSMENT & RECOMMENDATIONS SEE CARE ACTIVITY FOR COMPLETE ASSESSMENT DAILY ESTIMATED NEEDS: Needs based on DM, abscess 69kg 24-29 kcals/kg 8613-7039 total kcals 1-1.5 g protein/kg 69-104 g total protein 25-30 mL/kg 0428-2121 total fluid mLs NUTRITION DIAGNOSIS: 1) Swallowing difficulty R/T dysphagia as evidenced by pt is GT dep. 2) Increased kcal and protein needs r/t wound healing as evidenced by pt w/ left back/buttock abscess, now s/p I&D. CURRENT TF:Glucerna 1.2 @09ybx87 hrs ENTERAL NUTRITION RECOMMENDATIONS: Glucerna 1.2 @70ml x22 hrs to provide 1540ml, 1848 kcal, 92g pro, 1240ml free H2O - REC TO INCREASE RUN TIME TO 22 HRS PER DAY TO BETTER MEET EST NEEDS - Flush per MD/ HOB over 30 degrees ADDITIONAL RECOMMENDATIONS: 1) Rec A1C for eval of glycemic control 2) Calibrated bed scale wt + Weekly weights 3) Daily lytes on TF/ replete as needed 4) S/p I&D of abscess-> add TONY BID for wound healing
--- NOTE | 2018-09-15 14:15 | NUR ---
*-* DISCHARGE PLANNING *-* PATIENT HAS BEEN REFERRED TO: [facility] P:[phone] F:[phone]
--- NOTE | 2018-09-15 14:36 | Pulmonology Progress Note ---
Assessment/Plan Problems: (1) Cellulitis (2) Interstitial lung disease (3) Dementia with psychosis (4) Diabetes mellitus Assessment/Plan improving no new complains iv abx respiratory treatment sliding scale diabetic diet titrate fio2 to sat of 92% dvt prophylaxis. Subjective ROS Limited/Unobtainable: No Constitutional: Reports: no symptoms HEENT: Repors: no symptoms Allergies: Coded Allergies: No Known Allergies (Unverified , 01/27/17) Objective Last 24 Hour Vital Signs Date Time Temp Pulse Resp B/P (MAP) Pulse Ox O2 Delivery O2 Flow Rate FiO2 09/15/18 12:09 97.9 61 18 111/60 (77) 100 09/15/18 08:35 Room Air 09/15/18 08:00 97.5 63 17 106/58 (74) 100 09/15/18 04:00 95.8 60 20 106/58 (74) 09/15/18 00:00 96.2 70 18 116/66 (83) 09/14/18 21:00 Room Air 09/14/18 20:00 98.2 85 21 125/70 (88) 09/14/18 16:10 98.0 73 21 122/73 (89) 98 Intake and Output 09/14/18 09/15/18 19:00 07:00 Intake Total 1145.000 ml 800 ml Balance 1145.000 ml 800 ml Intake Free Water 200 ml 100 ml IV Total 385.000 ml Tube Feeding 560 ml 700 ml # Voids 3 # Bowel Movements 2 1 General Appearance: WD/WN HEENT: normocephalic, atraumatic Respiratory/Chest: chest wall non-tender, lungs clear Cardiovascular: normal peripheral pulses, normal rate, regular rhythm Abdomen: normal bowel sounds, no organomegaly Genitourinary: normal external genitalia Skin: no rash Microbiology Date/Time Source Procedure Growth Status 09/13/18 16:25 Blood Blood Culture - Preliminary NO GROWTH AFTER 24 HOURS Resulted 09/13/18 16:20 Blood Blood Culture - Preliminary NO GROWTH AFTER 24 HOURS Resulted 09/12/18 15:16 Blood Blood Culture - Preliminary NO GROWTH AFTER 48 HOURS Resulted 09/12/18 15:16 Blood Blood Culture - Final Staphylococcus Sp Coag Neg Complete 09/13/18 11:30 Other(Specify in comment) Gram Stain - Final Resulted 09/13/18 11:30 Wound Culture - Preliminary Staphylococcus Aureus Resulted 09/12/18 15:16 Nasal Nares MRSA Culture - Final Staphylococcus Aureus - Mrsa Complete 09/13/18 15:16 Rectum - Final NO CARBAPENEM-RESISTANT ENTEROBACTERI... Complete 09/12/18 15:16 Rectum VRE Culture - Final Enterococcus Faecium - Vre Complete Laboratory Tests 09/14/18 17:10: Vancomycin Level Trough 10.9 09/15/18 06:21: White Blood Count 8.2, Red Blood Count 4.16L, Hemoglobin 12.9L, Hematocrit 39.0L , Mean Corpuscular Volume 94, Mean Corpuscular Hemoglobin 31.0, Mean Corpuscular Hemoglobin Concent 33.1, Red Cell Distribution Width 12.1, Platelet Count 181, Mean Platelet Volume 11.1H, Neutrophils (%) (Auto) 70.1, Lymphocytes (%) (Auto) 8.5L, Monocytes (%) (Auto) 10.7H, Eosinophils (%) (Auto) 9.1H, Basophils (%) (Auto) 1.6, Sodium Level 140, Potassium Level 4.0, Chloride Level 108H, Carbon Dioxide Level 26, Anion Gap 6, Blood Urea Nitrogen 21H, Creatinine 0.7, Estimat Glomerular Filtration Rate , Glucose Level 127H, Calcium Level 7.9L Current Medications Medications (Trade) Dose Ordered Sig/Robin Route PRN Reason Start Time Stop Time Status Last Admin Dose Admin Acetaminophen (Tylenol) 650 mg Q4H PRN GT fever 09/12/18 19:00 10/12/18 18:44 Albuterol/ Ipratropium (Albuterol/ Ipratropium) 3 ml Q4H PRN HHN Shortness of Breath 09/12/18 18:45 09/17/18 18:44 Dextrose 1,000 ml @ 0 mls/hr Q24H PRN IV PN interrupted or unavailable 09/13/18 11:00 10/13/18 10:59 Dextrose (Dextrose 50%) 25 ml Q30M PRN IV Hypoglycemia 09/13/18 11:00 10/13/18 10:59 Dextrose (Dextrose 50%) 50 ml Q30M PRN IV Hypoglycemia 09/13/18 11:00 10/13/18 10:59 Heparin Sodium (Porcine) (Heparin 5000 units/ml) 5,000 units EVERY 12 HOURS SUBQ 09/12/18 21:00 10/12/18 20:59 09/15/18 08:02 Insulin Aspart (NovoLOG) Q6HR SUBQ 09/13/18 12:00 10/13/18 11:59 09/15/18 06:08 Lorazepam (Ativan) 0.5 mg Q6H PRN GT For Anxiety 09/14/18 09:45 09/21/18 09:29 Memantine (Namenda) 5 mg BID GT 09/13/18 09:00 10/13/18 08:59 09/15/18 08:01 Morphine Sulfate (Morphine Sulfate) 2 mg Q4H PRN IVP Moderate Pain (Pain Scale 4-6) 09/12/18 18:48 09/19/18 18:47 09/12/18 22:52 Nitroglycerin (Ntg) 0.4 mg Q5MIN X 3 DOSES PRN SL Prn Chest Pain 09/12/18 18:45 10/12/18 18:44 Ondansetron HCl (Zofran) 4 mg Q6H PRN IVP Nausea & Vomiting 09/12/18 18:45 10/12/18 18:44 Polyethylene Glycol (Miralax) 17 gm DAILYPRN PRN GT Constipation 09/12/18 19:00 10/12/18 18:44 Risperidone (RisperDAL) 0.25 mg QHS GT 09/12/18 21:00 10/12/18 20:59 09/14/18 20:50 Temazepam (Restoril) 15 mg HSPRN PRN GT Insomnia 09/12/18 21:00 09/19/18 20:59 Trimethoprim/ Sulfamethoxazole (Bactrim-DS) 1 tab TWICE A DAY ORAL 09/15/18 18:00 09/25/18 23:55 Fco León MD Sep 15, 2018 14:36
[2018-09-15] MEDS ORDERED: NS 500ML ONE (14:52)
[2018-09-15] MEDS ORDERED: Tubing IV Secondary IV ONE (14:52)
[2018-09-15 15:54] VITALS: BP 111/54
--- NOTE | 2018-09-15 16:26 | Diagnostic Imaging Report ---
APPROVED REPORT CPT Code: 38010 Present Symptoms Comments: Pain BILATERAL: Imaging reveals a patent deep venous system bilaterally. There is no evidence of thrombus within the common femoral, superficial femoral, popliteal or tibial segments. The greater saphenous veins are within normal limits. Doppler indicates normal spontaneous flow within these segments.
--- NOTE | 2018-09-15 16:27 | Surgery Progress Note ---
Surgery Progress Note Subjective Symptoms: improved, tolerating diet, passing flatus Additional Comments No acute events. Dressing saturated. Cellulitis improved at wound site apparent. Labs noted. Leukocytosis resolved. Microbiology noted. Objective Last 24 Hour Vital Signs Date Time Temp Pulse Resp B/P (MAP) Pulse Ox O2 Delivery O2 Flow Rate FiO2 09/15/18 15:54 98.3 59 17 111/54 (73) 95 09/15/18 12:09 97.9 61 18 111/60 (77) 100 09/15/18 08:35 Room Air 09/15/18 08:00 97.5 63 17 106/58 (74) 100 09/15/18 04:00 95.8 60 20 106/58 (74) 09/15/18 00:00 96.2 70 18 116/66 (83) 09/14/18 21:00 Room Air 09/14/18 20:00 98.2 85 21 125/70 (88) I&O Intake and Output 09/14/18 09/15/18 19:00 07:00 Intake Total 1145.000 ml 800 ml Balance 1145.000 ml 800 ml Intake Free Water 200 ml 100 ml IV Total 385.000 ml Tube Feeding 560 ml 700 ml # Voids 3 # Bowel Movements 2 1 Dressing: saturated Wound: other Drains: other Cardiovascular: RSR Respiratory: clear Abdomen: soft, non-tender, present bowel sounds, non-distended Extremities: no tenderness, no cyanosis Laboratory Tests Test 09/14/18 17:10 09/15/18 06:21 Vancomycin Level Trough 10.9 ug/mL (5.0-12.0) White Blood Count 8.2 K/UL (4.8-10.8) Red Blood Count 4.16 M/UL (4.70-6.10) L Hemoglobin 12.9 G/DL (14.2-18.0) L Hematocrit 39.0 % (42.0-52.0) L Mean Corpuscular Volume 94 FL (80-99) Mean Corpuscular Hemoglobin 31.0 PG (27.0-31.0) Mean Corpuscular Hemoglobin Concent 33.1 G/DL (32.0-36.0) Red Cell Distribution Width 12.1 % (11.6-14.8) Platelet Count 181 K/UL (150-450) Mean Platelet Volume 11.1 FL (6.5-10.1) H Neutrophils (%) (Auto) 70.1 % (45.0-75.0) Lymphocytes (%) (Auto) 8.5 % (20.0-45.0) L Monocytes (%) (Auto) 10.7 % (1.0-10.0) H Eosinophils (%) (Auto) 9.1 % (0.0-3.0) H Basophils (%) (Auto) 1.6 % (0.0-2.0) Sodium Level 140 MMOL/L (136-145) Potassium Level 4.0 MMOL/L (3.5-5.1) Chloride Level 108 MMOL/L (98-107) H Carbon Dioxide Level 26 MMOL/L (21-32) Anion Gap 6 mmol/L (5-15) Blood Urea Nitrogen 21 mg/dL (7-18) H Creatinine 0.7 MG/DL (0.55-1.30) Estimat Glomerular Filtration Rate mL/min (>60) Glucose Level 127 MG/DL (74-106) H Calcium Level 7.9 MG/DL (8.5-10.1) L Plan Problems: (1) Abscess Assessment & Plan: This is a 78-year-old male with left back/buttock abscess. Afebrile, hemodynamically stable, labs noted. On examination area of fluctuance identified in the left lower back/buttock area. There is tender with erythema and surrounding cellulitis. No drainage. Abscess cavity identified. Recommend incision and drainage. I spoke to the patient's daughter who is the power of assembling machine operator and expressed understanding of plan procedure and consented to incision and drainage. Of note patient daughter states that he was at [facility] recently where he had an incision and drainage performed at the bedside as well in a similar area but is unsure if this is the same. patient with significant malnutrition. also not very compliant. will need nutritional optimization to heal wound / large abscess pocket s/p Incision and drainage of abscess -please see report Okay for diet Packing and dressing changes 3 times daily IV antibiotics We will follow with Recs Thank you for allowing me to participate in patient's care Eric Dickey Sep 15, 2018 16:27
[2018-09-15] MEDS: Bactrim-DS 1 tab ORAL SCH (17:05)
--- NOTE | 2018-09-15 19:02 | NUR ---
HAND-OFF: Report given to PURA Issa PATIENT RESTING COMFORTABLY NO SIGN OF DISTRESS, G -tube TOLERATING WELL SCOTT GRIGGS.
--- NOTE | 2018-09-15 19:49 | NUR ---
NURSE NOTES: RECEIVED PATIENT LYING IN BED, AWAKE, APHASIC, ASPIRATION PRECAUTIONS OBSERVED/HEAD OF BED ELEVATED, NEEDS ANTICIPATED AND MET BY NURSING STAFF. NO SIGNS AND SYMPTOMS OF ACUTE CARDIO RESPIRATORY DISTRESS/SHORTNESS OF BREATH, NO PERIPHERAL EDEMA NOTED. G TUBE INTACT, TOLERATING FEEDING, NO GASTRIC RESIDUAL VIA ASPIRATED VIA G TUBE, NO REPORT OF N/V/D. SIDE RAILS UP X3, BED IN LOWEST POSITION FOR SAFETY. CALL LIGHT WITHIN REACH. NAD. CONTINUE WITH CURRENT PLAN OF CARE.
[2018-09-15 20:00] VITALS: BP 109/56
--- NOTE | 2018-09-15 20:15 | Progress Note ---
DATE: 09/15/2018 SUBJECTIVE: He is a 78-year-old male patient with cellulitis, confusion, disorganized mood lability, worsened by stress of his medical illness , so his attending has requested daily psychiatric consultation. He is admitted to the hospital due to cellulitis. MENTAL STATUS EXAMINATION: This is a male patient with slight psychomotor agitation. He is oriented. Appearance is disheveled. Attitude, irritable and agitated. Affect, guarded and restricted. Intellect poor. Mood, depressed and anxious. Motor activity, psychomotor agitation. Attention is poor. Orientation x2. Speech is low volume and slurred. Thought process, disorganized and illogical. Insight and judgment is poor. DIAGNOSES: 1. Paranoid schizophrenia. 2. Rule out dementia with psychosis. PLAN: Treat him with Namenda 5 mg per G-tube twice a day and Risperdal 0.25 mg per G-tube at bedtime. Provide him with 20 minutes of reality-based supportive psychotherapy. Chart reviewed. Discussed with staff. The patient seen and assessed at bedside. Елена Lang M.D. DR: YASMIN JOB#: [id number] CC:
[2018-09-16] VITALS: BP 127/70
[2018-09-16 04:00] VITALS: BP 101/51
[2018-09-16] MEDS: NovoLOG Insulin Flexpen SUBQ SCH ×4 (06:00→17:41)
[2018-09-16 06:26] LABS: BASOPHILS % (AUTO) 2.1 % (0.0-2.0); EOSINOPHILS % (AUTO) 12.2 % (0.0-3.0); HEMATOCRIT 41.4 % (42.0-52.0); HEMOGLOBIN 13.8 G/DL (14.2-18.0); LYMPHOCYTES % (AUTO) 8.2 % (20.0-45.0); MEAN CORPUSCULAR VOLUME 95 FL (80-99); MONOCYTES % (AUTO) 10.8 % (1.0-10.0); NEUTROPHILS % (AUTO) 66.8 % (45.0-75.0); PLATELET COUNT 185 K/UL (150-450); RED BLOOD COUNT 4.37 M/UL (4.70-6.10); RED CELL DISTRIBUTION WIDTH 12.2 % (11.6-14.8); WHITE BLOOD COUNT 6.7 K/UL (4.8-10.8)
--- NOTE | 2018-09-16 06:31 | NUR ---
NURSE NOTES: RESTED WELL, NO SIGNIFICANT CHANGE OF CONDITION NOTED THROUGHOUT THE NIGHT. SAFETY MAINTAINED. NAD,.
[2018-09-16 07:05] LABS: ANION GAP 6 mmol/L (5-15); BLOOD UREA NITROGEN 20 mg/dL (7-18); CALCIUM 8.3 MG/DL (8.5-10.1); CARBON DIOXIDE 27 MMOL/L (21-32); CHLORIDE 107 MMOL/L (98-107); CREATININE 0.8 MG/DL (0.55-1.30); POTASSIUM 4.6 MMOL/L (3.5-5.1); SODIUM 140 MMOL/L (136-145)
--- NOTE | 2018-09-16 07:30 | NUR ---
HAND-OFF: Report given to PURA DUNN.
[2018-09-16 08:00] VITALS: BP 124/70
--- NOTE | 2018-09-16 08:00 | NUR ---
NURSE NOTES: RECEIVED PATIENT LYING IN BED, AWAKE, ALERT, ORIENTED X1, APHASIC, ABLE TO FOLLOW COMMANDS. HOB ELEVATED FOR ASPIRATION PRECAUTIONS. NO S/SX OF ACUTE CARDIO-RESPIRATORY DISTRESS/SHORTNESS OF BREATH. G TUBE INTACT, TOLERATING FEEDING WELL, NO GASTRIC RESIDUAL NOTED. RUNS FOR 20HRS PER MD ORDER. RESUMED @ THIS HOUR. SIDE RAILS UP X3, BED IN LOWEST POSITION FOR SAFETY. CALL LIGHT WITHIN REACH. BED ALARM ACTIVATED. CONTINUE WITH PLAN OF CARE.
--- NOTE | 2018-09-16 08:01 | Infectious Diseases Prog Note ---
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 Subjective Allergies: Coded Allergies: No Known Allergies (Unverified , 01/27/17) Subjective DILMA Afebrile No Leukocytosis Objective Vital Signs Last 24 Hour Vital Signs Date Time Temp Pulse Resp B/P (MAP) Pulse Ox O2 Delivery O2 Flow Rate FiO2 09/16/18 04:00 97.0 65 18 101/51 (68) 94 09/16/18 00:00 97.1 65 18 127/70 (89) 97 09/15/18 20:22 Room Air 09/15/18 20:00 97.2 67 19 109/56 (73) 95 09/15/18 15:54 98.3 59 17 111/54 (73) 95 09/15/18 12:09 97.9 61 18 111/60 (77) 100 09/15/18 08:35 Room Air Height (Feet): 5 Height (Inches): 9.00 Weight (Pounds): 160 Objective Gen: NAD Head: NCAT, MMM, EOMI Lungs: clear to auscultation bilaterally Heart: regular rate and rhythm, S1, S2 Abdomen: soft, NT, + BS Microbiology Date/Time Source Procedure Growth Status 09/13/18 16:25 Blood Blood Culture - Preliminary NO GROWTH AFTER 48 HOURS Resulted 09/13/18 16:20 Blood Blood Culture - Preliminary NO GROWTH AFTER 48 HOURS Resulted 09/13/18 11:30 Other(Specify in comment) Gram Stain - Final Resulted 09/13/18 11:30 Wound Culture - Preliminary Staphylococcus Aureus Resulted 09/13/18 15:16 Rectum - Final NO CARBAPENEM-RESISTANT ENTEROBACTERI... Complete Laboratory Tests Test 09/16/18 06:00 White Blood Count 6.7 K/UL (4.8-10.8) Red Blood Count 4.37 M/UL (4.70-6.10) L Hemoglobin 13.8 G/DL (14.2-18.0) L Hematocrit 41.4 % (42.0-52.0) L Mean Corpuscular Volume 95 FL (80-99) Mean Corpuscular Hemoglobin 31.5 PG (27.0-31.0) H Mean Corpuscular Hemoglobin Concent 33.3 G/DL (32.0-36.0) Red Cell Distribution Width 12.2 % (11.6-14.8) Platelet Count 185 K/UL (150-450) Mean Platelet Volume 10.1 FL (6.5-10.1) Neutrophils (%) (Auto) 66.8 % (45.0-75.0) Lymphocytes (%) (Auto) 8.2 % (20.0-45.0) L Monocytes (%) (Auto) 10.8 % (1.0-10.0) H Eosinophils (%) (Auto) 12.2 % (0.0-3.0) H Basophils (%) (Auto) 2.1 % (0.0-2.0) H Sodium Level 140 MMOL/L (136-145) Potassium Level 4.6 MMOL/L (3.5-5.1) Chloride Level 107 MMOL/L (98-107) Carbon Dioxide Level 27 MMOL/L (21-32) Anion Gap 6 mmol/L (5-15) Blood Urea Nitrogen 20 mg/dL (7-18) H Creatinine 0.8 MG/DL (0.55-1.30) Estimat Glomerular Filtration Rate mL/min (>60) Glucose Level 94 MG/DL (74-106) Calcium Level 8.3 MG/DL (8.5-10.1) L Current Medications Medications (Trade) Dose Ordered Sig/Robin Route PRN Reason Start Time Stop Time Status Last Admin Dose Admin Acetaminophen (Tylenol) 650 mg Q4H PRN GT fever 09/12/18 19:00 10/12/18 18:44 Albuterol/ Ipratropium (Albuterol/ Ipratropium) 3 ml Q4H PRN HHN Shortness of Breath 4/1/19 18:45 09/17/18 18:44 Dextrose 1,000 ml @ 0 mls/hr Q24H PRN IV PN interrupted or unavailable 09/13/18 11:00 10/13/18 10:59 Dextrose (Dextrose 50%) 25 ml Q30M PRN IV Hypoglycemia 09/13/18 11:00 10/13/18 10:59 Dextrose (Dextrose 50%) 50 ml Q30M PRN IV Hypoglycemia 09/13/18 11:00 10/13/18 10:59 Heparin Sodium (Porcine) (Heparin 5000 units/ml) 5,000 units EVERY 12 HOURS SUBQ 09/12/18 21:00 10/12/18 20:59 09/15/18 20:56 Insulin Aspart (NovoLOG) Q6HR SUBQ 09/13/18 12:00 10/13/18 11:59 09/15/18 06:08 Lorazepam (Ativan) 0.5 mg Q6H PRN GT For Anxiety 09/14/18 09:45 09/21/18 09:29 Memantine (Namenda) 5 mg BID GT 09/13/18 09:00 10/13/18 08:59 09/15/18 17:05 Morphine Sulfate (Morphine Sulfate) 2 mg Q4H PRN IVP Moderate Pain (Pain Scale 4-6) 09/12/18 18:48 09/19/18 18:47 09/12/18 22:52 Nitroglycerin (Ntg) 0.4 mg Q5MIN X 3 DOSES PRN SL Prn Chest Pain 09/12/18 18:45 10/12/18 18:44 Ondansetron HCl (Zofran) 4 mg Q6H PRN IVP Nausea & Vomiting 09/12/18 18:45 10/12/18 18:44 Polyethylene Glycol (Miralax) 17 gm DAILYPRN PRN GT Constipation 09/12/18 19:00 10/12/18 18:44 Risperidone (RisperDAL) 0.25 mg QHS GT 09/12/18 21:00 10/12/18 20:59 09/15/18 20:54 Temazepam (Restoril) 15 mg HSPRN PRN GT Insomnia 09/12/18 21:00 09/19/18 20:59 Trimethoprim/ Sulfamethoxazole (Bactrim-DS) 1 tab TWICE A DAY ORAL 09/15/18 18:00 09/25/18 23:55 09/15/18 17:05 Florentino Rich MD Sep 16, 2018 08:01
[2018-09-16] MEDS: Memantine 5 MG TAB GT SCH ×2 (08:45→17:39)
[2018-09-16] MEDS: Bactrim-DS 1 tab ORAL SCH ×2 (08:45→17:39)
[2018-09-16] MEDS: Heparin 5000 units/ml inj SUBQ SCH ×2 (08:47→20:42)
--- NOTE | 2018-09-16 11:30 | NUR ---
NURSE NOTES: SURGICAL WOUND CARE TREATMENT RENDERED PER MD ORDER. Addendum: 09/16/18 at 1916 by VINI RICHARD LVN changed la crespo. no leakage or drainage noted.
--- NOTE | 2018-09-16 11:34 | Surgery Progress Note ---
Surgery Progress Note Subjective Additional Comments No acute events. Labs noted and improved. Micro biology identified. Patient is awake and alert and asking for another blanket. Otherwise no complaints of discomfort. Wound stable Objective Last 24 Hour Vital Signs Date Time Temp Pulse Resp B/P (MAP) Pulse Ox O2 Delivery O2 Flow Rate FiO2 09/16/18 08:00 97.5 72 19 124/70 (88) 96 09/16/18 04:00 97.0 65 18 101/51 (68) 94 09/16/18 00:00 97.1 65 18 127/70 (89) 97 09/15/18 20:22 Room Air 09/15/18 20:00 97.2 67 19 109/56 (73) 95 09/15/18 15:54 98.3 59 17 111/54 (73) 95 09/15/18 12:09 97.9 61 18 111/60 (77) 100 I&O Intake and Output 09/15/18 09/16/18 18:59 06:59 Intake Total 760 ml 1040 ml Output Total 400 ml Balance 760 ml 640 ml Intake Free Water 200 ml 200 ml Tube Feeding 560 ml 840 ml Output Urine Total 400 ml # Voids 4 # Bowel Movements 3 2 Dressing: saturated Wound: other Drains: other Cardiovascular: RSR Respiratory: clear Abdomen: soft, present bowel sounds, non-distended Extremities: no tenderness, no cyanosis Laboratory Tests Test 09/16/18 06:00 White Blood Count 6.7 K/UL (4.8-10.8) Red Blood Count 4.37 M/UL (4.70-6.10) L Hemoglobin 13.8 G/DL (14.2-18.0) L Hematocrit 41.4 % (42.0-52.0) L Mean Corpuscular Volume 95 FL (80-99) Mean Corpuscular Hemoglobin 31.5 PG (27.0-31.0) H Mean Corpuscular Hemoglobin Concent 33.3 G/DL (32.0-36.0) Red Cell Distribution Width 12.2 % (11.6-14.8) Platelet Count 185 K/UL (150-450) Mean Platelet Volume 10.1 FL (6.5-10.1) Neutrophils (%) (Auto) 66.8 % (45.0-75.0) Lymphocytes (%) (Auto) 8.2 % (20.0-45.0) L Monocytes (%) (Auto) 10.8 % (1.0-10.0) H Eosinophils (%) (Auto) 12.2 % (0.0-3.0) H Basophils (%) (Auto) 2.1 % (0.0-2.0) H Sodium Level 140 MMOL/L (136-145) Potassium Level 4.6 MMOL/L (3.5-5.1) Chloride Level 107 MMOL/L (98-107) Carbon Dioxide Level 27 MMOL/L (21-32) Anion Gap 6 mmol/L (5-15) Blood Urea Nitrogen 20 mg/dL (7-18) H Creatinine 0.8 MG/DL (0.55-1.30) Estimat Glomerular Filtration Rate mL/min (>60) Glucose Level 94 MG/DL (74-106) Calcium Level 8.3 MG/DL (8.5-10.1) L Plan Problems: (1) Abscess Assessment & Plan: This is a 78-year-old male with left back/buttock abscess. Afebrile, hemodynamically stable, labs noted. On examination area of fluctuance identified in the left lower back/buttock area. There is tender with erythema and surrounding cellulitis. No drainage. Abscess cavity identified. Recommend incision and drainage. I spoke to the patient's daughter who is the power of civil litigation attorney and expressed understanding of plan procedure and consented to incision and drainage. Of note patient daughter states that he was at [facility] recently where he had an incision and drainage performed at the bedside as well in a similar area but is unsure if this is the same. patient with significant malnutrition. also not very compliant. will need nutritional optimization to heal wound / large abscess pocket s/p Incision and drainage of abscess -please see report Okay for diet Packing and dressing changes 3 times daily IV antibiotics We will follow with Recs Thank you for allowing me to participate in patient's care Discharge planning Eric Dickey Sep 16, 2018 11:34
[2018-09-16 12:00] VITALS: BP 121/69
--- NOTE | 2018-09-16 12:07 | General Progress Note ---
Assessment/Plan Problem List: (1) Weak ICD Codes: R53.1 - Weakness SNOMED: 91072304 (2) Malnutrition ICD Codes: E46 - Unspecified protein-calorie malnutrition SNOMED: 49566437 (3) Abscess ICD Codes: L02.91 - Cutaneous abscess, unspecified SNOMED: 761770095 (4) Cellulitis ICD Codes: L03.90 - Cellulitis, unspecified SNOMED: 034989279 (5) Dementia with psychosis ICD Codes: F03.91 - Unspecified dementia with behavioral disturbance SNOMED: 46553377, 57025487 Status: unchanged Assessment/Plan pt diet wound care abx cbc bmp am dc to [facility] Subjective Constitutional: Reports: weakness Allergies: Coded Allergies: No Known Allergies (Unverified , 01/27/17) All Systems: reviewed and negative except above Subjective sleepy calm Objective Last 24 Hour Vital Signs Date Time Temp Pulse Resp B/P (MAP) Pulse Ox O2 Delivery O2 Flow Rate FiO2 09/16/18 08:00 97.5 72 19 124/70 (88) 96 09/16/18 04:00 97.0 65 18 101/51 (68) 94 09/16/18 00:00 97.1 65 18 127/70 (89) 97 09/15/18 20:22 Room Air 09/15/18 20:00 97.2 67 19 109/56 (73) 95 09/15/18 15:54 98.3 59 17 111/54 (73) 95 09/15/18 12:09 97.9 61 18 111/60 (77) 100 Intake and Output 09/15/18 09/16/18 18:59 06:59 Intake Total 760 ml 1040 ml Output Total 400 ml Balance 760 ml 640 ml Intake Free Water 200 ml 200 ml Tube Feeding 560 ml 840 ml Output Urine Total 400 ml # Voids 4 # Bowel Movements 3 2 Laboratory Tests 09/16/18 06:00: White Blood Count 6.7, Red Blood Count 4.37L, Hemoglobin 13.8L, Hematocrit 41.4L , Mean Corpuscular Volume 95, Mean Corpuscular Hemoglobin 31.5H, Mean Corpuscular Hemoglobin Concent 33.3, Red Cell Distribution Width 12.2, Platelet Count 185, Mean Platelet Volume 10.1, Neutrophils (%) (Auto) 66.8, Lymphocytes ( %) (Auto) 8.2L, Monocytes (%) (Auto) 10.8H, Eosinophils (%) (Auto) 12.2H, Basophils (%) (Auto) 2.1H, Sodium Level 140, Potassium Level 4.6, Chloride Level 107, Carbon Dioxide Level 27, Anion Gap 6, Blood Urea Nitrogen 20H, Creatinine 0.8, Estimat Glomerular Filtration Rate , Glucose Level 94, Calcium Level 8.3L Height (Feet): 5 Height (Inches): 9.00 Weight (Pounds): 160 General Appearance: lethargic, confused EENT: normal ENT inspection Neck: normal alignment Cardiovascular: normal peripheral pulses, normal rate, regular rhythm Respiratory/Chest: chest wall non-tender, lungs clear, normal breath sounds Abdomen: normal bowel sounds, non tender, soft Extremities: normal inspection Edema: no edema noted Arm (L), no edema noted Arm (R), no edema noted Leg (L), no edema noted Leg (R), no edema noted Pedal (L), no edema noted Pedal (R), no edema noted Generalized Neurologic: motor weakness Skin: normal pigmentation, warm/dry Han Swenson DO Sep 16, 2018 12:07
--- NOTE | 2018-09-16 13:56 | NUR ---
*-* DISCHARGE PLANNING *-* PATIENT HAS BEEN REFERRED TO: [facility] P:[phone] F:[phone] EFAX:[phone]
--- NOTE | 2018-09-16 14:53 | Pulmonology Progress Note ---
Assessment/Plan Problems: (1) Cellulitis (2) Interstitial lung disease (3) Dementia with psychosis (4) Diabetes mellitus Assessment/Plan improving no new complains iv abx respiratory treatment sliding scale diabetic diet all reviewed titrate fio2 to sat of 92% dvt prophylaxis. dc planning Subjective ROS Limited/Unobtainable: No Allergies: Coded Allergies: No Known Allergies (Unverified , 01/27/17) Objective Last 24 Hour Vital Signs Date Time Temp Pulse Resp B/P (MAP) Pulse Ox O2 Delivery O2 Flow Rate FiO2 09/16/18 12:00 97.7 70 18 121/69 (86) 97 09/16/18 09:00 Room Air 09/16/18 08:00 97.5 72 19 124/70 (88) 96 09/16/18 04:00 97.0 65 18 101/51 (68) 94 09/16/18 00:00 97.1 65 18 127/70 (89) 97 09/15/18 20:22 Room Air 09/15/18 20:00 97.2 67 19 109/56 (73) 95 09/15/18 15:54 98.3 59 17 111/54 (73) 95 Intake and Output 09/15/18 09/16/18 19:00 07:00 Intake Total 760 ml 1040 ml Output Total 400 ml Balance 760 ml 640 ml Intake Free Water 200 ml 200 ml Tube Feeding 560 ml 840 ml Output Urine Total 400 ml # Voids 4 # Bowel Movements 4 1 General Appearance: WD/WN HEENT: normocephalic, anicteric Respiratory/Chest: chest wall non-tender, lungs clear Cardiovascular: normal peripheral pulses, normal rate Abdomen: normal bowel sounds, soft, non tender, no scars Extremities: no clubbing Skin: no rash Microbiology Date/Time Source Procedure Growth Status 09/13/18 16:25 Blood Blood Culture - Preliminary NO GROWTH AFTER 48 HOURS Resulted 09/13/18 16:20 Blood Blood Culture - Preliminary NO GROWTH AFTER 48 HOURS Resulted 09/13/18 15:16 Rectum - Final NO CARBAPENEM-RESISTANT ENTEROBACTERI... Complete Laboratory Tests 09/16/18 06:00: White Blood Count 6.7, Red Blood Count 4.37L, Hemoglobin 13.8L, Hematocrit 41.4L , Mean Corpuscular Volume 95, Mean Corpuscular Hemoglobin 31.5H, Mean Corpuscular Hemoglobin Concent 33.3, Red Cell Distribution Width 12.2, Platelet Count 185, Mean Platelet Volume 10.1, Neutrophils (%) (Auto) 66.8, Lymphocytes ( %) (Auto) 8.2L, Monocytes (%) (Auto) 10.8H, Eosinophils (%) (Auto) 12.2H, Basophils (%) (Auto) 2.1H, Sodium Level 140, Potassium Level 4.6, Chloride Level 107, Carbon Dioxide Level 27, Anion Gap 6, Blood Urea Nitrogen 20H, Creatinine 0.8, Estimat Glomerular Filtration Rate , Glucose Level 94, Calcium Level 8.3L Current Medications Medications (Trade) Dose Ordered Sig/Robin Route PRN Reason Start Time Stop Time Status Last Admin Dose Admin Acetaminophen (Tylenol) 650 mg Q4H PRN GT fever 09/12/18 19:00 10/12/18 18:44 Albuterol/ Ipratropium (Albuterol/ Ipratropium) 3 ml Q4H PRN HHN Shortness of Breath 09/12/18 18:45 09/17/18 18:44 Dextrose 1,000 ml @ 0 mls/hr Q24H PRN IV PN interrupted or unavailable 09/13/18 11:00 10/13/18 10:59 Dextrose (Dextrose 50%) 25 ml Q30M PRN IV Hypoglycemia 09/13/18 11:00 10/13/18 10:59 Dextrose (Dextrose 50%) 50 ml Q30M PRN IV Hypoglycemia 09/13/18 11:00 10/13/18 10:59 Heparin Sodium (Porcine) (Heparin 5000 units/ml) 5,000 units EVERY 12 HOURS SUBQ 09/12/18 21:00 10/12/18 20:59 09/16/18 08:47 Insulin Aspart (NovoLOG) Q6HR SUBQ 09/13/18 12:00 10/13/18 11:59 09/16/18 12:10 Lorazepam (Ativan) 0.5 mg Q6H PRN GT For Anxiety 09/14/18 09:45 09/21/18 09:29 Memantine (Namenda) 5 mg BID GT 09/13/18 09:00 10/13/18 08:59 09/16/18 08:45 Morphine Sulfate (Morphine Sulfate) 2 mg Q4H PRN IVP Moderate Pain (Pain Scale 4-6) 09/12/18 18:48 09/19/18 18:47 09/12/18 22:52 Nitroglycerin (Ntg) 0.4 mg Q5MIN X 3 DOSES PRN SL Prn Chest Pain 09/12/18 18:45 10/12/18 18:44 Ondansetron HCl (Zofran) 4 mg Q6H PRN IVP Nausea & Vomiting 09/12/18 18:45 10/12/18 18:44 Polyethylene Glycol (Miralax) 17 gm DAILYPRN PRN GT Constipation 09/12/18 19:00 10/12/18 18:44 Risperidone (RisperDAL) 0.25 mg QHS GT 09/12/18 21:00 10/12/18 20:59 09/15/18 20:54 Temazepam (Restoril) 15 mg HSPRN PRN GT Insomnia 09/12/18 21:00 09/19/18 20:59 Trimethoprim/ Sulfamethoxazole (Bactrim-DS) 1 tab TWICE A DAY ORAL 09/15/18 18:00 09/25/18 23:55 09/16/18 08:45 Fco León MD Sep 16, 2018 14:53
--- NOTE | 2018-09-16 15:12 | NUR ---
CASE MANGER REVIEW SI:ABSCESS . CELLULITIS VS: BP 101/51, P 65, T 97.0, RR 18, SpO2 94 RBC 4.37, Hgb 13.8, Hct 41.4, BUN 20 IS:BACTRIM-DS 1tab NOVOLOG SUBQ MEMANTINE 5mg HEPARIN SUBQ MED/SURG STATUS
[2018-09-16 16:00] VITALS: BP 118/76
--- NOTE | 2018-09-16 16:45 | Progress Note ---
DATE: 09/16/2018 SUBJECTIVE: This is a male patient, 78 years old with cellulitis and abscess. That is why he is in the hospital, but he is a 78-year-old male patient who has altered mental status, confusion, and mood lability worsened by stress of his medical illness. That is why his attending has requested daily psychiatric consultation. MENTAL STATUS EXAMINATION: This is a 78-year-old male. Appearance is disheveled. Attitude, irritable and agitated. Affect, guarded and restricted. Intellect poor. Mood, depressed and anxious. Motor activity, psychomotor agitation. Attention span is poor. Orientation x2. Speech is pressured. Thought process, disorganized and illogical. Insight and judgment is poor. DIAGNOSIS: Paranoid schizophrenia, acute exacerbation, rule out dementia with psychosis. PLAN: Treat him with Risperdal 0.25 mg per G-tube nightly and Namenda 5 mg per G-tube twice a day. Provide him with 20 minutes of reality-based supportive psychotherapy and 20 minutes of cognitive behavioral therapy to help him identify automatic negative thoughts and help convert them to more positive thoughts to reduce depression, anxiety, and suicidality. 20 minutes of cognitive behavioral therapy was provided also to help him have more adaptive behavioral pattern. Chart reviewed and discussed with staff. Seen and assessed in his room. Елена Lang M.D. DR: BRIANDA JOB#: [id number] CC:
--- NOTE | 2018-09-16 16:55 | NUR ---
NURSE NOTES: NOT ABLE TO FOLLOW SIMPLE COMMANDS. CONSTANTLY REMOVING PILLOWS, AND BLANKETS. CONSTANTLY SLI Addendum: 09/16/18 at 1657 by VINI RICHARD LVN CONSTANTLY SLID DOWN. KEPT HOB ELEVATED FOR ASPIRATION PRECAUTIONS. WILL CONT TO MONITOR.
--- NOTE | 2018-09-16 18:57 | NUR ---
HAND-OFF: Report given to Maegan.
--- NOTE | 2018-09-16 19:30 | NUR ---
NURSE NOTES: RECEIVED PATIENT LYING IN BED, AWAKE, APHASIC, ABLE TO FOLLOW COMMANDS, NEEDS ANTICIPATED AND MET BY NURSING STAFF. S/P I AND D LEFT BUTTOCK ABSCESS, DRESSING DRY AND INTACT, CHANGED TID. NO SIGNS AND SYMPTOMS OF ACUTE CARDIO RESPIRATORY DISTRESS/SHORTNESS OF BREATH, NO EDEMA NOTED. G TUBE INTACT/PATENT, TOLERATING FEEDING, NO GASTRIC RESIDUAL ASPIRATED VIA G TUBE, NO REPORT OF N/V/D. INCONTINENT CARE PROVIDED, TOLERATED WELL. SIDE RAILS UP X3/BED IN LOWEST POSITION FOR SAFETY. CALL LIGHT WITHIN REACH. CONTINUE WITH CURRENT PLAN OF CARE,. NAD.
[2018-09-16 20:00] VITALS: BP 114/72
[2018-09-17] VITALS: BP 148/74
[2018-09-17 04:00] VITALS: BP 116/60
[2018-09-17] MEDS: NovoLOG Insulin Flexpen SUBQ SCH ×4 (06:00→18:00)
[2018-09-17 06:50] LABS: ANION GAP 5 mmol/L (5-15); BLOOD UREA NITROGEN 19 mg/dL (7-18); CALCIUM 8.8 MG/DL (8.5-10.1); CARBON DIOXIDE 27 MMOL/L (21-32); CHLORIDE 106 MMOL/L (98-107); CREATININE 0.8 MG/DL (0.55-1.30); POTASSIUM 4.3 MMOL/L (3.5-5.1); SODIUM 138 MMOL/L (136-145)
[2018-09-17 07:00] LABS: BASOPHILS % (AUTO) 1.6 % (0.0-2.0); EOSINOPHILS % (AUTO) 7.7 % (0.0-3.0); HEMATOCRIT 39.4 % (42.0-52.0); LYMPHOCYTES % (AUTO) 10.5 % (20.0-45.0); MEAN CORPUSCULAR VOLUME 93 FL (80-99); MONOCYTES % (AUTO) 11.5 % (1.0-10.0); NEUTROPHILS % (AUTO) 68.7 % (45.0-75.0); PLATELET COUNT 209 K/UL (150-450); RED BLOOD COUNT 4.22 M/UL (4.70-6.10); RED CELL DISTRIBUTION WIDTH 12.2 % (11.6-14.8); WHITE BLOOD COUNT 7.7 K/UL (4.8-10.8)
--- NOTE | 2018-09-17 07:00 | Consultation ---
DATE OF CONSULTATION: 09/15/2018 NOTE: POOR AUDIO PSYCHOTHERAPY CONSULTATION PROGRESS NOTE CONSULTING PHYSICIAN: Sanya Bob PsyD. TREATING ATTENDING PHYSICIAN: Han Swenson D.O. HISTORY OF PRESENT ILLNESS: This is a male patient, 78-year-old from [facility]. The patient was brought into the hospital, he is status post incision and drainage per Dr. Dickey. The patient has been slightly confused, disorganized with history of paranoid schizophrenia. For this reason, referred for psychotherapeutic services. I assessed the patient. The patient is confused and disorganized, responsive by gesturing to be able to communicate. The patient , indicated feeling anxious. The patient denies suicidal or homicidal thoughts of ideation. Denies any auditory or visual hallucinations. He does have some anxiety. At this time, the patient has no logical viable plan for self-care and safety, requiring hospitalization for stabilization of his symptoms. PAST MEDICAL HISTORY: Includes a history of weakness. ALLERGIES: The patient has no known drug allergies. SUBSTANCE ABUSE HISTORY: There is no indication of alcohol use, illicit substance use, or smoking cigarettes. PSYCHIATRIC HISTORY: The patient has a history of paranoid schizophrenia. He has been treated with psychotropic medications in the past. SOCIAL HISTORY: The patient is a 78-year-old single male patient from [facility]. Financially sustained through [employer]. MENTAL STATUS EXAMINATION: The patient is alert and oriented to person and place. Mood is irritable. Affect is blunted. Thought process is disorganized. He has poor attention and concentration. Poor insight, judgment, and impulse control. I assessed this patient. Provided the patient with reality orientation, supportive psychotherapy. The patient is highly confused and . Oriented to person, place, time and situation. Provided the patient with which can help with the range of problems that may involve patterns of thinking or acting there problematic, addressing the patient's feelings of anxiety and restlessness, redirecting positive coping skills. anxiety. Encouraging the patient to . DIAGNOSIS: Paranoid schizophrenia. . This clinician has reviewed the patient's chart. Discussed the treatment with treatment team. . Psychotherapy for this patient is 45 minutes. Sanya Bob PsyD. DR: MAURA JOB#: [id number] CC:
--- NOTE | 2018-09-17 07:30 | NUR ---
HAND-OFF: Report given to fide lopez.
[2018-09-17 08:00] VITALS: BP 111/62
--- NOTE | 2018-09-17 08:00 | NUR ---
NURSE NOTES: RECEIVED PATIENT LYING IN BED, AWAKE, ALERT, ORIENTED X1, APHASIC, ABLE TO FOLLOW COMMANDS. HOB ELEVATED FOR ASPIRATION PRECAUTIONS. NO S/SX OF ACUTE CARDIO-RESPIRATORY DISTRESS/SHORTNESS OF BREATH. G TUBE INTACT, TOLERATING FEEDING WELL, NO GASTRIC RESIDUAL NOTED. RUNS FOR 20HRS PER MD ORDER. RESUMED @ THIS HOUR. SIDE RAILS UP X3, BED IN LOWEST POSITION FOR SAFETY. CALL LIGHT WITHIN REACH. BED ALARM ACTIVATED. SURGICAL WOUND DRSG CHANGED ON SACRAL. CONTINUE WITH PLAN OF CARE.
--- NOTE | 2018-09-17 08:28 | General Progress Note ---
Assessment/Plan Problem List: (1) Weak ICD Codes: R53.1 - Weakness SNOMED: 89430735 (2) Malnutrition ICD Codes: E46 - Unspecified protein-calorie malnutrition SNOMED: 14245883 (3) Abscess ICD Codes: L02.91 - Cutaneous abscess, unspecified SNOMED: 849363564 (4) Cellulitis ICD Codes: L03.90 - Cellulitis, unspecified SNOMED: 048177039 (5) Dementia with psychosis ICD Codes: F03.91 - Unspecified dementia with behavioral disturbance SNOMED: 22266952, 77517640 Status: unchanged Assessment/Plan pt diet wound care abx cbc bmp am dc plan snf Subjective Constitutional: Reports: weakness Allergies: Coded Allergies: No Known Allergies (Unverified , 01/27/17) All Systems: reviewed and negative except above Subjective sleepy calm Objective Last 24 Hour Vital Signs Date Time Temp Pulse Resp B/P (MAP) Pulse Ox O2 Delivery O2 Flow Rate FiO2 09/17/18 04:00 97.2 53 18 116/60 (78) 94 09/17/18 00:00 97.6 58 17 148/74 (98) 97 09/16/18 20:47 Room Air 09/16/18 20:00 97.8 60 18 114/72 (86) 95 09/16/18 16:00 98.4 74 19 118/76 (90) 98 09/16/18 12:00 97.7 70 18 121/69 (86) 97 09/16/18 09:00 Room Air Intake and Output 09/16/18 09/17/18 19:00 07:00 Intake Total 1030 ml 690 ml Output Total 3 ml Balance 1030 ml 687 ml Intake Free Water 260 ml 60 ml Tube Feeding 770 ml 630 ml Output Urine Total 3 ml # Bowel Movements 1 1 Laboratory Tests 09/17/18 04:45: White Blood Count 7.7, Red Blood Count 4.22L, Hemoglobin 13.0L, Hematocrit 39.4L , Mean Corpuscular Volume 93, Mean Corpuscular Hemoglobin 30.9, Mean Corpuscular Hemoglobin Concent 33.1, Red Cell Distribution Width 12.2, Platelet Count 209, Mean Platelet Volume 9.7, Neutrophils (%) (Auto) 68.7, Lymphocytes (% ) (Auto) 10.5L, Monocytes (%) (Auto) 11.5H, Eosinophils (%) (Auto) 7.7H, Basophils (%) (Auto) 1.6, Sodium Level 138, Potassium Level 4.3, Chloride Level 106, Carbon Dioxide Level 27, Anion Gap 5, Blood Urea Nitrogen 19H, Creatinine 0.8, Estimat Glomerular Filtration Rate , Glucose Level 107H, Calcium Level 8.8 Height (Feet): 5 Height (Inches): 9.00 Weight (Pounds): 160 General Appearance: lethargic EENT: normal ENT inspection Neck: normal alignment Cardiovascular: normal peripheral pulses, normal rate, regular rhythm Respiratory/Chest: chest wall non-tender, lungs clear, normal breath sounds Abdomen: normal bowel sounds, non tender, soft Extremities: normal inspection Edema: no edema noted Arm (L), no edema noted Arm (R), no edema noted Leg (L), no edema noted Leg (R), no edema noted Pedal (L), no edema noted Pedal (R), no edema noted Generalized Neurologic: motor weakness Skin: normal pigmentation, warm/dry Han Swenson DO Sep 17, 2018 08:28
[2018-09-17] MEDS: Bactrim-DS 1 tab ORAL SCH ×2 (08:49→18:00)
[2018-09-17] MEDS: Memantine 5 MG TAB GT SCH ×2 (08:49→18:00)
[2018-09-17] MEDS: Heparin 5000 units/ml inj SUBQ SCH (08:54)
[2018-09-17] MEDS ORDERED: BACTRIM-DS1 EA ORAL (10:55)
[2018-09-17] MEDS ORDERED: NOVOLOG100 UNITS1 SQ (11:00)
[2018-09-17] MEDS ORDERED: IPRATROPIU0.2 MG/1 M HHN (11:01)
[2018-09-17] MEDS ORDERED: NAMENDA5 MG GT (11:02)
[2018-09-17] MEDS ORDERED: ATIVAN0.5 MG GT (11:04)
--- NOTE | 2018-09-17 11:07 | NUR ---
NURSE NOTES: LEFT VOICEMESSAGE TO JOHNATHAN MENDIETA, DAUGHTER RE; DISCHARGE BACK TO [facility]. AWAITS FOR A CALLBACK.
--- NOTE | 2018-09-17 11:50 | NUR ---
NURSE NOTES: report given to Jeana @ [facility].
--- NOTE | 2018-09-17 11:59 | Pulmonology Progress Note ---
Assessment/Plan Problems: (1) Cellulitis (2) Interstitial lung disease (3) Dementia with psychosis (4) Diabetes mellitus Assessment/Plan improving no new complains iv abx respiratory treatment sliding scale diabetic diet all reviewed titrate fio2 to sat of 92% dvt prophylaxis. dc planning Subjective ROS Limited/Unobtainable: No Constitutional: Reports: no symptoms HEENT: Repors: no symptoms Respiratory: Reports: no symptoms Allergies: Coded Allergies: No Known Allergies (Unverified , 01/27/17) Objective Last 24 Hour Vital Signs Date Time Temp Pulse Resp B/P (MAP) Pulse Ox O2 Delivery O2 Flow Rate FiO2 09/17/18 09:00 Room Air 09/17/18 08:00 97.2 60 20 111/62 (78) 97 09/17/18 04:00 97.2 53 18 116/60 (78) 94 09/17/18 00:00 97.6 58 17 148/74 (98) 97 09/16/18 20:47 Room Air 09/16/18 20:00 97.8 60 18 114/72 (86) 95 09/16/18 16:00 98.4 74 19 118/76 (90) 98 09/16/18 12:00 97.7 70 18 121/69 (86) 97 Intake and Output 09/16/18 09/17/18 18:59 06:59 Intake Total 970 ml 820 ml Output Total 3 ml Balance 970 ml 817 ml Intake Free Water 200 ml 120 ml Tube Feeding 770 ml 700 ml Output Urine Total 3 ml # Bowel Movements 1 1 General Appearance: WD/WN HEENT: normocephalic, anicteric Respiratory/Chest: chest wall non-tender, lungs clear Cardiovascular: normal peripheral pulses, normal rate Abdomen: normal bowel sounds, soft, non tender Genitourinary: normal external genitalia Extremities: no clubbing Skin: no lesions Laboratory Tests 09/17/18 04:45: White Blood Count 7.7, Red Blood Count 4.22L, Hemoglobin 13.0L, Hematocrit 39.4L , Mean Corpuscular Volume 93, Mean Corpuscular Hemoglobin 30.9, Mean Corpuscular Hemoglobin Concent 33.1, Red Cell Distribution Width 12.2, Platelet Count 209, Mean Platelet Volume 9.7, Neutrophils (%) (Auto) 68.7, Lymphocytes (% ) (Auto) 10.5L, Monocytes (%) (Auto) 11.5H, Eosinophils (%) (Auto) 7.7H, Basophils (%) (Auto) 1.6, Sodium Level 138, Potassium Level 4.3, Chloride Level 106, Carbon Dioxide Level 27, Anion Gap 5, Blood Urea Nitrogen 19H, Creatinine 0.8, Estimat Glomerular Filtration Rate , Glucose Level 107H, Calcium Level 8.8 Current Medications Medications (Trade) Dose Ordered Sig/Robin Route PRN Reason Start Time Stop Time Status Last Admin Dose Admin Acetaminophen (Tylenol) 650 mg Q4H PRN GT fever 09/12/18 19:00 10/12/18 18:44 Albuterol/ Ipratropium (Albuterol/ Ipratropium) 3 ml Q4H PRN HHN Shortness of Breath 09/12/18 18:45 09/17/18 18:44 Dextrose 1,000 ml @ 0 mls/hr Q24H PRN IV PN interrupted or unavailable 09/13/18 11:00 10/13/18 10:59 Dextrose (Dextrose 50%) 25 ml Q30M PRN IV Hypoglycemia 09/13/18 11:00 10/13/18 10:59 Dextrose (Dextrose 50%) 50 ml Q30M PRN IV Hypoglycemia 09/13/18 11:00 10/13/18 10:59 Heparin Sodium (Porcine) (Heparin 5000 units/ml) 5,000 units EVERY 12 HOURS SUBQ 09/12/18 21:00 10/12/18 20:59 09/17/18 08:54 Insulin Aspart (NovoLOG) Q6HR SUBQ 09/13/18 12:00 10/13/18 11:59 09/16/18 12:10 Lorazepam (Ativan) 0.5 mg Q6H PRN GT For Anxiety 09/14/18 09:45 09/21/18 09:29 Memantine (Namenda) 5 mg BID GT 09/13/18 09:00 10/13/18 08:59 09/17/18 08:49 Morphine Sulfate (Morphine Sulfate) 2 mg Q4H PRN IVP Moderate Pain (Pain Scale 4-6) 09/12/18 18:48 09/19/18 18:47 09/12/18 22:52 Nitroglycerin (Ntg) 0.4 mg Q5MIN X 3 DOSES PRN SL Prn Chest Pain 09/12/18 18:45 10/12/18 18:44 Ondansetron HCl (Zofran) 4 mg Q6H PRN IVP Nausea & Vomiting 09/12/18 18:45 10/12/18 18:44 Polyethylene Glycol (Miralax) 17 gm DAILYPRN PRN GT Constipation 09/12/18 19:00 10/12/18 18:44 Risperidone (RisperDAL) 0.25 mg QHS GT 09/12/18 21:00 10/12/18 20:59 09/16/18 20:40 Temazepam (Restoril) 15 mg HSPRN PRN GT Insomnia 09/12/18 21:00 09/19/18 20:59 Trimethoprim/ Sulfamethoxazole (Bactrim-DS) 1 tab TWICE A DAY ORAL 09/15/18 18:00 09/25/18 23:55 09/17/18 08:49 Fco León MD Sep 17, 2018 11:59
[2018-09-17 12:00] VITALS: BP 118/70
--- NOTE | 2018-09-17 14:55 | Infectious Diseases Prog Note ---
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 Subjective Allergies: Coded Allergies: No Known Allergies (Unverified , 01/27/17) Subjective afebrile for discharge Objective Vital Signs Last 24 Hour Vital Signs Date Time Temp Pulse Resp B/P (MAP) Pulse Ox O2 Delivery O2 Flow Rate FiO2 09/17/18 12:00 97.8 65 18 118/70 (86) 95 09/17/18 09:00 Room Air 09/17/18 08:00 97.2 60 20 111/62 (78) 97 09/17/18 04:00 97.2 53 18 116/60 (78) 94 09/17/18 00:00 97.6 58 17 148/74 (98) 97 09/16/18 20:47 Room Air 09/16/18 20:00 97.8 60 18 114/72 (86) 95 09/16/18 16:00 98.4 74 19 118/76 (90) 98 Height (Feet): 5 Height (Inches): 9.00 Weight (Pounds): 160 Objective Gen: NAD Head: NCAT, MMM, EOMI Lungs: clear to auscultation bilaterally Heart: regular rate and rhythm, S1, S2 Abdomen: soft, NT, + BS Laboratory Tests Test 09/17/18 04:45 White Blood Count 7.7 K/UL (4.8-10.8) Red Blood Count 4.22 M/UL (4.70-6.10) L Hemoglobin 13.0 G/DL (14.2-18.0) L Hematocrit 39.4 % (42.0-52.0) L Mean Corpuscular Volume 93 FL (80-99) Mean Corpuscular Hemoglobin 30.9 PG (27.0-31.0) Mean Corpuscular Hemoglobin Concent 33.1 G/DL (32.0-36.0) Red Cell Distribution Width 12.2 % (11.6-14.8) Platelet Count 209 K/UL (150-450) Mean Platelet Volume 9.7 FL (6.5-10.1) Neutrophils (%) (Auto) 68.7 % (45.0-75.0) Lymphocytes (%) (Auto) 10.5 % (20.0-45.0) L Monocytes (%) (Auto) 11.5 % (1.0-10.0) H Eosinophils (%) (Auto) 7.7 % (0.0-3.0) H Basophils (%) (Auto) 1.6 % (0.0-2.0) Sodium Level 138 MMOL/L (136-145) Potassium Level 4.3 MMOL/L (3.5-5.1) Chloride Level 106 MMOL/L (98-107) Carbon Dioxide Level 27 MMOL/L (21-32) Anion Gap 5 mmol/L (5-15) Blood Urea Nitrogen 19 mg/dL (7-18) H Creatinine 0.8 MG/DL (0.55-1.30) Estimat Glomerular Filtration Rate mL/min (>60) Glucose Level 107 MG/DL (74-106) H Calcium Level 8.8 MG/DL (8.5-10.1) Current Medications Medications (Trade) Dose Ordered Sig/Robin Route PRN Reason Start Time Stop Time Status Last Admin Dose Admin Acetaminophen (Tylenol) 650 mg Q4H PRN GT fever 09/12/18 19:00 10/12/18 18:44 Albuterol/ Ipratropium (Albuterol/ Ipratropium) 3 ml Q4H PRN HHN Shortness of Breath 09/12/18 18:45 09/17/18 18:44 Dextrose 1,000 ml @ 0 mls/hr Q24H PRN IV PN interrupted or unavailable 09/13/18 11:00 10/13/18 10:59 Dextrose (Dextrose 50%) 25 ml Q30M PRN IV Hypoglycemia 09/13/18 11:00 5/2/19 10:59 Dextrose (Dextrose 50%) 50 ml Q30M PRN IV Hypoglycemia 09/13/18 11:00 10/13/18 10:59 Heparin Sodium (Porcine) (Heparin 5000 units/ml) 5,000 units EVERY 12 HOURS SUBQ 09/12/18 21:00 10/12/18 20:59 09/17/18 08:54 Insulin Aspart (NovoLOG) Q6HR SUBQ 09/13/18 12:00 10/13/18 11:59 09/16/18 12:10 Lorazepam (Ativan) 0.5 mg Q6H PRN GT For Anxiety 09/14/18 09:45 09/21/18 09:29 Memantine (Namenda) 5 mg BID GT 09/13/18 09:00 10/13/18 08:59 09/17/18 08:49 Morphine Sulfate (Morphine Sulfate) 2 mg Q4H PRN IVP Moderate Pain (Pain Scale 4-6) 09/12/18 18:48 09/19/18 18:47 09/12/18 22:52 Nitroglycerin (Ntg) 0.4 mg Q5MIN X 3 DOSES PRN SL Prn Chest Pain 09/12/18 18:45 10/12/18 18:44 Ondansetron HCl (Zofran) 4 mg Q6H PRN IVP Nausea & Vomiting 09/12/18 18:45 10/12/18 18:44 Polyethylene Glycol (Miralax) 17 gm DAILYPRN PRN GT Constipation 09/12/18 19:00 10/12/18 18:44 Risperidone (RisperDAL) 0.25 mg QHS GT 09/12/18 21:00 10/12/18 20:59 09/16/18 20:40 Temazepam (Restoril) 15 mg HSPRN PRN GT Insomnia 09/12/18 21:00 09/19/18 20:59 Trimethoprim/ Sulfamethoxazole (Bactrim-DS) 1 tab TWICE A DAY ORAL 09/15/18 18:00 09/25/18 23:55 09/17/18 08:49 Helen Austin M.D. Sep 17, 2018 14:55
--- NOTE | 2018-09-17 15:54 | Surgery Progress Note ---
Surgery Progress Note Subjective Symptoms: improved, pain absent, tolerating diet, passing flatus, BM Objective Last 24 Hour Vital Signs Date Time Temp Pulse Resp B/P (MAP) Pulse Ox O2 Delivery O2 Flow Rate FiO2 09/17/18 12:00 97.8 65 18 118/70 (86) 95 09/17/18 09:00 Room Air 09/17/18 08:00 97.2 60 20 111/62 (78) 97 09/17/18 04:00 97.2 53 18 116/60 (78) 94 09/17/18 00:00 97.6 58 17 148/74 (98) 97 09/16/18 20:47 Room Air 09/16/18 20:00 97.8 60 18 114/72 (86) 95 09/16/18 16:00 98.4 74 19 118/76 (90) 98 I&O Intake and Output 09/16/18 09/17/18 18:59 06:59 Intake Total 970 ml 820 ml Output Total 3 ml Balance 970 ml 817 ml Intake Free Water 200 ml 120 ml Tube Feeding 770 ml 700 ml Output Urine Total 3 ml # Bowel Movements 1 1 Dressing: saturated Wound: other Drains: other Cardiovascular: RSR Respiratory: clear Abdomen: soft, non-tender, present bowel sounds, non-distended Extremities: no tenderness, no cyanosis Laboratory Tests Test 09/17/18 04:45 White Blood Count 7.7 K/UL (4.8-10.8) Red Blood Count 4.22 M/UL (4.70-6.10) L Hemoglobin 13.0 G/DL (14.2-18.0) L Hematocrit 39.4 % (42.0-52.0) L Mean Corpuscular Volume 93 FL (80-99) Mean Corpuscular Hemoglobin 30.9 PG (27.0-31.0) Mean Corpuscular Hemoglobin Concent 33.1 G/DL (32.0-36.0) Red Cell Distribution Width 12.2 % (11.6-14.8) Platelet Count 209 K/UL (150-450) Mean Platelet Volume 9.7 FL (6.5-10.1) Neutrophils (%) (Auto) 68.7 % (45.0-75.0) Lymphocytes (%) (Auto) 10.5 % (20.0-45.0) L Monocytes (%) (Auto) 11.5 % (1.0-10.0) H Eosinophils (%) (Auto) 7.7 % (0.0-3.0) H Basophils (%) (Auto) 1.6 % (0.0-2.0) Sodium Level 138 MMOL/L (136-145) Potassium Level 4.3 MMOL/L (3.5-5.1) Chloride Level 106 MMOL/L (98-107) Carbon Dioxide Level 27 MMOL/L (21-32) Anion Gap 5 mmol/L (5-15) Blood Urea Nitrogen 19 mg/dL (7-18) H Creatinine 0.8 MG/DL (0.55-1.30) Estimat Glomerular Filtration Rate mL/min (>60) Glucose Level 107 MG/DL (74-106) H Calcium Level 8.8 MG/DL (8.5-10.1) Plan Problems: (1) Abscess Assessment & Plan: This is a 78-year-old male with left back/buttock abscess. Afebrile, hemodynamically stable, labs noted. On examination area of fluctuance identified in the left lower back/buttock area. There is tender with erythema and surrounding cellulitis. No drainage. Abscess cavity identified. Recommend incision and drainage. I spoke to the patient's daughter who is the power of [place] attorney and expressed understanding of plan procedure and consented to incision and drainage. Of note patient daughter states that he was at [facility] recently where he had an incision and drainage performed at the bedside as well in a similar area but is unsure if this is the same. patient with significant malnutrition. also not very compliant. will need nutritional optimization to heal wound / large abscess pocket s/p Incision and drainage of abscess -please see report Okay for diet Packing and dressing changes 3 times daily IV antibiotics We will follow with Recs Thank you for allowing me to participate in patient's care Discharge planning Eric Dickey Sep 17, 2018 15:54
[2018-09-17 16:03] VITALS: BP 130/60
--- NOTE | 2018-09-17 17:45 | NUR ---
NURSE NOTES: d/c to [facility] conv. removed IV access. gtube drsg changed. tolerating and no gastric residual noted. Hob elevated. personal belongings noted. in stable condition.
--- NOTE | 2018-09-17 19:15 | Progress Note ---
DATE: 09/17/2018 SUBJECTIVE: This is a 78-year-old male patient. He is still very confused, disorganized. He has abscess and cellulitis. He has got some confusion, some disorganized thought process, and mood lability. Decline in cognition below his baseline. That is why, he does require daily inpatient treatment at this time. MENTAL STATUS EXAMINATION: This patient is a 78-year-old male. Appearance is disheveled. Attitude, irritable and agitated. Affect, guarded and restricted. Intellect poor. Mood depressed and anxious. Motor activity, psychomotor agitation. Attention span is poor. Orientation x2. Speech is pressured. Thought process, disorganized and illogical. Insight and judgment is poor. DIAGNOSIS: Paranoid schizophrenia, acute exacerbation. PLAN: Treat him with Risperdal 0.25 mg per G-tube at bedtime, Namenda 5 mg per G-tube twice a day. Provide him with 20 minutes of cognitive behavioral therapy to help him identify his automatic negative thoughts help him convert those negative thoughts to more positive thoughts to reduce depression, anxiety, and suicidality. Twenty minutes of cognitive behavioral therapy provided. Continue Risperdal 0.25 mg per G-tube at bedtime and Namenda 5 mg per G-tube twice a day to prevent further decline in his cognition. Chart reviewed. Discussed with staff. Seen and assessed in his room. Елена Lang M.D. DR: RADHA JOB#: [id number] CC:
--- NOTE | 2018-09-20 13:54 | Discharge Summary ---
Discharge Summary Discharge Summary _ DATE OF ADMISSION: 09/12/2018 DATE OF DISCHARGE: 09/17/2018 DISCHARGED BY: Dr Swenson REASON FOR ADMISSION: 78 years old male, resident of [facility] facility, with past medical history of COPD, diabetes mellitus, CVA, GERD, presented for evaluation of left buttock infection. Upon evaluation vital signs were stable Laboratory workup revealed leukocytosis with WBC 14.3, stable hemoglobin and hematocrit. Potassium 5.3. BUN 26, creatinine 0.6. Glucose 103. Lactic acid 1.1. Stable LFT. Troponin negative. Albumin 2.1 9. Urinalysis revealed no evidence of urinary tract infection. Patient was admitted for further management. CONSULTANTS: pulmonary Dr. León ID specialist Dr. Antoine surgery Dr. Dickey psychiatrist Dr. Lang [facility] COURSE: Patient admitted to medical surgical floor and started on gentle IV hydration and empiric antibiotics. General surgery followed. Patient subsequently undergone incision and drainage of left buttock abscess, after obtaining consent from patient's daughter who was the DURABLE POWER OF VICE PRINCIPAL. Wound care provided as per surgeon recommendation with packing and dressing changes 3 times a day. Patient was on IV antibiotic as per ID specialist recommendations. Initial blood culture revealed revealed 2 out of 4 Staphylococcus coagulase- negative. Repeated blood culture the next day were negative. Wound culture revealed Staphylococcus aureus. ID specialist recommended continue Bactrim until 09/25 at the facility to complete the course of treatment. Continue wound care at the facility as per general surgeon recommendation. Blood sugar was managed with sliding scale of insulin. Namenda was continued. Venous duplex bilateral lower extremity revealed no evidence of acute DVT. DVT prophylaxis provided. Blood pressure was closely monitored and remained stable without any antihypertensive medications at this time. Supplemental oxygen provided as needed to keep pulse oximetry above 92%. Pulmonary toilet was on standby as needed. Respiratory status remained stable Pain management was addressed. Supportive care provided. Bowel regimen instituted. Pulse oximetry stable on room air prior to discharge. Per registered dietitian, patient had a high risk for malnutrition. Patient was provided with tube feeding type and rate as recommended by a registered dietitian to provide proper nutrition support. Renal parameters and electrolytes were closely monitored. Electrolytes corrected as needed. Prior to discharge potassium down to 4.3. BUN from initial 26 down to 19, creatinine remained stable. Strict aspiration precautions were maintained. G-tube feeding continued as per registered dietitian recommendation. Leukocytosis resolved, no fever. Psychiatrist followed. Per psychiatrist, patient had paranoid schizophrenia with acute exacerbation. Psychiatric medication regimen was optimized as per psychiatrist. Cognitive behavioral therapy provided. Patient was stable for transfer to [facility] facility to complete antibiotic as per ID specialist recommendation and further management. FINAL DIAGNOSES: Left buttock abscess Cellulitis Status post bedside incision and drainage of left buttock abscess Interstitial lung disease Diabetes mellitus Malnutrition Paranoid schizophrenia, acute exacerbation History of hypertension History of CVA Coronary artery disease with history of [place] DISCHARGE MEDICATIONS: See Medication Reconciliation list. DISCHARGE INSTRUCTIONS: Patient was discharged to the [facility] facility. Follow up with medical doctor at the facility. I have been assigned to dictate discharge summary for this account. I was not involved in the patient's management. Mirtha Brito NP Sep 20, 2018 13:54
== END 2018-09-17 18:45 | DRG 603 ==
LOC: EDBD 14:40 → EMR 15:06 → EDBEDREQ 16:19 → 4E 17:38 → EDBEDREQ 19:54 → 4E 09-13 12:49
PROC: 0H98XZZ Drainage of Buttock Skin, External Approach (ICD-10-PCS; principal; 2018-09-13)
DX: L02.31 Cutaneous abscess of buttock (principal); E46 Unspecified protein-calorie malnutrition; Z43.1 Encounter for attention to gastrostomy; J84.9 Interstitial pulmonary disease, unspecified; F20.0 Paranoid schizophrenia; L03.317 Cellulitis of buttock; I10 Essential (primary) hypertension; E11.8 Type 2 diabetes mellitus with unspecified complications; J44.9 Chronic obstructive pulmonary disease, unspecified; S91.302A Unspecified open wound, left foot, initial encounter; S91.301A Unspecified open wound, right foot, initial encounter; X58.XXXA Exposure to other specified factors, initial encounter; R53.1 Weakness; Z79.4 Long term (current) use of insulin; K21.9 Gastro-esophageal reflux disease without esophagitis; Z86.73 Personal history of transient ischemic attack (TIA), and cerebral infarction without residual deficits; I25.10 Atherosclerotic heart disease of native coronary artery without angina pectoris; I25.2 Old myocardial infarction; Z86.14 Personal history of Methicillin resistant Staphylococcus aureus infection; F03.90 Unspecified dementia, unspecified severity, without behavioral disturbance, psychotic disturbance, mood disturbance, and anxiety; Z79.01 Long term (current) use of anticoagulants
CPT/HCPCS: 36415; 80048; 80053; 80202; 81003; 82550; 82962; 83605; 84484; 85025; 87040; 87070; 87081; 87181; 87205; 93970; 96361; 96365; 99285; J1815

== ENCOUNTER 2019-03-09 12:09 | Inpatient (IN) | payer MEDICARE, MEDICAID ==
[~2019-03-09] VITALS: Ht 172.7 cm; Wt 81.6 kg
[~2019-03-09 12:09] MED LIST changes: +ACETAMINOPHEN325 M1 ORAL; +ASCORBIC ACID500 MG GT; +ATIVAN0.5 MG GT; +BACTRIM-DS1 EA ORAL; +BISACODYL10 M1 RC; +ELIQUIS2.5 MG GT; +IPRATROPIU0.2 MG/1 M HHN; +MULTIVITAMINS1 EAC8 ORAL; +NOVOLIN R100 UNIT/1 SUBQ; +NOVOLOG100 UNITS1 SQ; +PRAVASTATIN SOD40 M1 GT; +RISPERDAL0.25 MG GT; +TYLENOL EXTRA500 MG GT
--- NOTE | 2019-03-09 12:37 | NUR ---
ED Nurse Note: PT BROUGHT IN TO ER TODAY BY RICH[facility] DUE TO DRAINING ABSCESS TO LEFT BUTTOCK. ON ASSESSMENT, PT IS NONVERBAL BUT RESPONSIVE TO QUESTIONS AND ABLE TO COMPREHEND ALL QUESTIONS. PT PRESENTS WITH WOUND TO LEFT BUTTOCK/HIP AREA WITH MINIMAL YELLOW DRAINAGE. PT ALSO PRESENTS WITH WOUND TO LEFT ELBOW. PICTURES OF BOTH WOUNDS TAKEN AND UPLOADED TO EMR.
[2019-03-09 12:38] VITALS: BP 147/107
--- NOTE | 2019-03-09 13:13 | Consultation ---
History of Present Illness General Date patient seen: Mar 09, 2019 Chief Complaint: Skin Rash/Abscess Present Illness HPI 78 year old male with hx of HTN, TN, CAD, COPD, GERD, CVA/TIA, dementia brought in from a senior living facility for evaluation of possible abscess and skin infection on his back. The patient himself is nonverbal at baseline. Pt is admitted for further management. Allergies: Coded Allergies: No Known Allergies (Unverified , 01/27/17) Medication History Scheduled Apixaban (Eliquis), 2.5 MG GT BID, (Reported) Ascorbic Acid* (Ascorbic Acid*), 500 MG GT DAILY, (Reported) Docusate Sodium* (Colace*), 100 MG GT BID, (Reported) Insulin Aspart (Novolog Flexpen), SQ Q6HR, (Reported) Insulin Regular, Human* (Novolin R*), 0 SUBQ .SLIDING SCALE, (Reported) Lorazepam* (Ativan*), 0.5 MG GT Q6HR, (Reported) Memantine Hcl* (Namenda*), 5 MG GT BID, (Reported) Memantine Hcl* (Namenda*), 5 MG GT BID, (Reported) Memantine Hcl* (Namenda*), 5 MG GT BID, (Reported) Multivitamin With Minerals (Multivitamins With Minerals*), 1 TAB ORAL DAILY, ( Reported) Pravastatin Sod* (Pravastatin Sod*), 20 MG GT BEDTIME, (Reported) Risperidone* (Risperdal*), 0.25 MG GT QHS, (Reported) Trimethoprim/Sulfamethoxazole (Bactrim Ds Tablet), 1 TAB ORAL TWICE A DAY, ( Reported) Scheduled PRN Acetaminophen* (Tylenol Extra Strength*), 1,000 MG GT Q4HR PRN for Moderate Pain (Pain Scale 4-6), (Reported) Acetaminophen* (Acetaminophen 325MG Tablet*), 325 MG ORAL Q4H PRN for Mild Pain/ Temp > 100.5, (Reported) Bisacodyl (Bisacodyl), 10 MG RC DAILY PRN for CONSTIPATION IF MOM IS INEFFEC, ( Reported) Ipratropium Hawkins 0.5MG/2.5ML (Ipratropium Hawkins 0.5MG/2.5ML), 0.5 MG HHN Q4HR PRN for Shortness of Breath, (Reported) Magnesium Hydroxide* (Milk Of Magnesia*), 30 ML GT QHS PRN for CONST IF SOFTENER IS INEFFECTI, (Reported) Na Phos,M-B/Na Phos,Di-Ba* (Fleet Enema*), 133 ML RECTAL EVERY OTHER DAY PRN for CONST IF BISACODYL IS INEFFECT, (Reported) Patient History Healthcare decision maker Resuscitation status Advanced Directive on File Past Medical/Surgical History Past Medical/Surgical History: (1) Abscess of buttock (2) Chronic lung disease (3) Feeding by G-tube (4) Interstitial lung disease (5) Alzheimer's disease (6) Diabetes mellitus Review of Systems All Other Systems: negative except mentioned in HPI Physical Exam General Appearance: WD/WN Lines, tubes and drains: peripheral HEENT: normocephalic, atraumatic Neck: non-tender, supple Respiratory/Chest: chest wall non-tender, lungs clear, normal breath sounds Cardiovascular/Chest: normal peripheral pulses, normal rate Abdomen: normal bowel sounds Last 24 Hour Vital Signs Date Time Temp Pulse Resp B/P (MAP) Pulse Ox O2 Delivery O2 Flow Rate FiO2 03/09/19 12:38 98.1 72 23 147/107 93 Nasal Cannula 2.0 03/09/19 12:19 97.9 87 16 126/77 (93) 97 Room Air Height (Feet): 5 Height (Inches): 8.00 Weight (Pounds): 180 Medications Current Medications Medications (Trade) Dose Ordered Sig/Robin Route PRN Reason Start Time Stop Time Status Last Admin Dose Admin Risperidone (RisperDAL) 0.25 mg QHS GT 03/09/19 21:00 04/08/19 20:59 UNV Assessment/Plan Problem List: (1) Abscess ICD Codes: L02.91 - Cutaneous abscess, unspecified SNOMED: 761417436 (2) Interstitial lung disease ICD Codes: J84.9 - Interstitial pulmonary disease, unspecified SNOMED: 170069878 (3) Alzheimer's disease ICD Codes: G30.9 - Alzheimer's disease, unspecified; F02.80 - Dementia in other diseases classified elsewhere without behavioral disturbance SNOMED: 79356110 (4) Diabetes mellitus ICD Codes: E11.9 - Type 2 diabetes mellitus without complications SNOMED: 24490378 (5) PEG (percutaneous endoscopic gastrostomy) adjustment/replacement/removal ICD Codes: Z43.1 - Encounter for attention to gastrostomy SNOMED: 129600205, 131368751 (6) Feeding by G-tube ICD Codes: Z93.1 - Gastrostomy status SNOMED: 250932572, 700456847, 344660101 Assessment/Plan: surgical evaluation telemetry monitoring hold anticoagulation b/o possible surgery cardiology evaluation iv abx by ID consult symptomatic treatment. Fco León MD Mar 09, 2019 13:13
[2019-03-09] MEDS ORDERED: Vancomycin 1.5 GM in NS 275 ML IVPB ONE (14:00)
[2019-03-09] MEDS ORDERED: Cefepime HCl 2 GM in NS 110 ML IV SCH (14:00)
[2019-03-09 14:09] LABS: BASOPHILS % (AUTO) 1.8 % (0.0-2.0); EOSINOPHILS % (AUTO) 6.6 % (0.0-3.0); HEMATOCRIT 53.4 % (42.0-52.0); HEMOGLOBIN 17.3 G/DL (14.2-18.0); LYMPHOCYTES % (AUTO) 8.5 % (20.0-45.0); MEAN CORPUSCULAR VOLUME 97 FL (80-99); MONOCYTES % (AUTO) 9.5 % (1.0-10.0); NEUTROPHILS % (AUTO) 73.5 % (45.0-75.0); PLATELET COUNT 137 K/UL (150-450); RED BLOOD COUNT 5.51 M/UL (4.70-6.10); RED CELL DISTRIBUTION WIDTH 13.7 % (11.6-14.8); WHITE BLOOD COUNT 9.4 K/UL (4.8-10.8)
--- NOTE | 2019-03-09 14:13 | Emergency Room Report ---
History of Present Illness General Chief Complaint: Skin Rash/Abscess Source: Medical Record Present Illness HPI Patient presented for buttock abscess. Patient was noted to have gradual onset of increased swelling to his buttock with some purulent drainage. Patient was noted to have prior history of similar abscess in the past. He had multiple episodes of incision and drainage. Patient was noted to be chronically debilitated with history of dementia. History is markedly limited by patient's mental status. Allergies: Coded Allergies: No Known Allergies (Unverified , 01/27/17) Patient History Past Medical History: see triage record Reviewed Nursing Documentation: PMH: Agreed; PSxH: Agreed Nursing Documentation-PMH Past Medical History: No History, Except For Hx Hypertension: Yes Hx COPD: Yes Hx Diabetes: Yes - DMII Hx Cancer: No Hx Neurological Problems: No Hx Cerebrovascular Accident: Yes Hx Transient Ischemic Attacks: Yes Hx Dementia: Yes Hx Alzheimer's Disease: Yes Hx Aphasia: Yes Review of Systems All Other Systems: limited - Review of systems: Review systems is limited by patient's being a poor historian Physical Exam Vital Signs Date Time Temp Pulse Resp B/P (MAP) Pulse Ox O2 Delivery O2 Flow Rate FiO2 03/09/19 12:19 97.9 87 16 126/77 (93) 97 Room Air 03/09/19 12:38 2.0 General Appearance: alert, non-toxic, Chronically Ill ENT: hearing grossly normal Neck: limited range of motion Respiratory: lungs clear, normal breath sounds Cardiovascular #1: normal peripheral pulses, no edema Gastrointestinal: normal inspection, soft, no mass Musculoskeletal: normal inspection Neurologic: alert, responsive, aphasia Psychiatric: normal inspection Skin: other - Abscess to the buttock approximately 3 cm in size slight erythema without any drainage Medical Decision Making Diagnostic Impression: Primary Impression: Abscess of buttock Additional Impressions: Dementia Chronic lung disease ER Course Patient presented for buttocks abscess. Differential diagnosis included but was not limited to abscess, necrotizing fasciitis, cellulitis among others. Because of complexity of patient's case laboratory tests and imaging studies were ordered. Patient was noted to have a fairly complex history and is noted to be nonverbal at baseline. Patient's abscess appears to be related prior MRSA colonization. Left her testing showed no evidence of sepsis. Patient will likely require further inpatient IV antibiotics. Dr. Han Swenson contacted for inpatient management. Dr. Dickey was contacted for surgical consult. Labs Test 03/09/19 13:35 White Blood Count 9.4 K/UL (4.8-10.8) Red Blood Count 5.51 M/UL (4.70-6.10) Hemoglobin 17.3 G/DL (14.2-18.0) Hematocrit 53.4 % (42.0-52.0) Mean Corpuscular Volume 97 FL (80-99) Mean Corpuscular Hemoglobin 31.4 PG (27.0-31.0) Mean Corpuscular Hemoglobin Concent 32.4 G/DL (32.0-36.0) Red Cell Distribution Width 13.7 % (11.6-14.8) Platelet Count 137 K/UL (150-450) Mean Platelet Volume 14.4 FL (6.5-10.1) Neutrophils (%) (Auto) 73.5 % (45.0-75.0) Lymphocytes (%) (Auto) 8.5 % (20.0-45.0) Monocytes (%) (Auto) 9.5 % (1.0-10.0) Eosinophils (%) (Auto) 6.6 % (0.0-3.0) Basophils (%) (Auto) 1.8 % (0.0-2.0) Last Vital Signs Date Time Temp Pulse Resp B/P (MAP) Pulse Ox O2 Delivery O2 Flow Rate FiO2 03/09/19 12:38 98.1 72 23 147/107 93 Nasal Cannula 2.0 Status: unchanged Disposition: ADMITTED INPATIENT Condition: Stable Referrals: Han Swenson DO (PCP) Veto Yi MD Mar 09, 2019 14:13
--- NOTE | 2019-03-09 14:38 | NUR ---
ED Nurse Note: TELE UNIT CALLED FOR PT REPORT. REPORT GIVEN TO CSOTT ANTONIO. WAITING FOR PT TO RECEIVE ALL OF ABX MEDICATIONS ORDERED IN ER BEFORE TRANSPORTING PT UP. SCOTT ANTONIO AWARE.
--- NOTE | 2019-03-09 14:39 | NUR ---
NURSE NOTES: Contacted Dr. León for admission orders. Will await call back
--- NOTE | 2019-03-09 14:45 | Diagnostic Imaging Report ---
Indication: Dyspnea Comparison: 01/27/2017 A single view chest radiograph was obtained. Findings: There are patchy bilateral infiltrates suspicious for pneumonia with both interstitial and airspace opacities. Heart is mildly enlarged. Bones are osteopenic. IMPRESSION: Bilateral pneumonia
[2019-03-09 14:49] LABS: ANION GAP 5 mmol/L (5-15); BLOOD UREA NITROGEN 25 mg/dL (7-18); CALCIUM 8.5 MG/DL (8.5-10.1); CARBON DIOXIDE 26 MMOL/L (21-32); CHLORIDE 106 MMOL/L (98-107); CREATININE 0.9 MG/DL (0.55-1.30); POTASSIUM 4.7 MMOL/L (3.5-5.1); SODIUM 137 MMOL/L (136-145)
[2019-03-09 15:05] LABS: ALANINE AMINOTRANSFERASE 37 U/L (12-78); ALBUMIN 2.5 G/DL (3.4-5.0); ALBUMIN/GLOBULIN RATIO 0.5 (1.0-2.7); ALKALINE PHOSPHATASE 284 U/L (46-116); ASPARTATE AMINO TRANSFERASE 37 U/L (15-37); BILIRUBIN,TOTAL 0.5 MG/DL (0.2-1.0); CKMB 0.6 NG/ML (0.0-3.6); CREATINE KINASE 58 U/L (26-308); PHOSPHORUS 2.9 MG/DL (2.5-4.9)
--- NOTE | 2019-03-09 15:38 | Consultation ---
Consult Note Consult Note This is an 79-year-old male from SNF presented with left buttock abscess developed over the last week, started recently, ID Cons was requested for further eval of abscess and AB Rx PAST MEDICAL HISTORY: Dementia psychosis Malnutrition DM Alzheimer's Sp G-tube. MEDICATIONS: Include vancomycin, cefepime, metronidazole ALLERGIES: Denies. SOCIAL HISTORY: as above REVIEW OF SYSTEMS: Unable to obtain because of the patient's confusion. PHYSICAL EXAMINATION: GENERAL: no acute stress VITAL SIGNS: Temperature is 98 degrees, pulse 72, respirations 22, and blood pressure initially 126/77 and 147/107. CARDIOVASCULAR: No murmurs. LUNGS: Distant and clear. ABDOMEN: Bowel sounds positive. Nontender. Nondistended. EXTREMITIES: No cyanosis, clubbing, or edema. SKin : Left buttock area abscess LABORATORY DATA: reviewed Thank you Assessment/Plan ASSESSMENT: Left buttock abscess. Dementia Psychosis. Malnutrition. Diabetes. Alzheimer PLAN: IV Vanco # 1 Monitor CBC and BMP Monitor CXR Wnd Cx blood Cx Surg Eval for I/d Geronimo Antoine MD Mar 09, 2019 15:38
--- NOTE | 2019-03-09 15:53 | NUR ---
ED Nurse Note: PT TAKEN UP TO TELE UNIT VIA GURNEY ON SUPERVISOR BURLING AND JOINING WITH ALL BELONGINGS RUNNING IV ABX ACCOMPANIED BY PRIMARY RN AND EMT. VSS.
[2019-03-09] MEDS ORDERED: LORazepam 0.5mg tab ORAL PRN (16:30)
--- NOTE | 2019-03-09 18:00 | History and Physical Report ---
DATE OF ADMISSION: 03/09/2019 CONSULTANTS: 1. Fco León M.D. 2. Eric Dickey M.D. 3. Geronimo Antoine M.D. CHIEF COMPLAINT: Left buttock abscess. HISTORY OF PRESENT ILLNESS: This is an 79-year-old male from [facility], presented with left buttock abscess developed over the last week, started draining yesterday, sent to [facility], diagnosed with the above, being admitted to telemetry for further care. Currently, slightly confused in bed, O2 NC, slightly anxious, no complaint. PAST MEDICAL HISTORY: Includes dementia, psychosis, malnutrition, weak, diabetes, Alzheimer's, and chronic lung disease. PAST SURGICAL HISTORY: G-tube. MEDICATIONS: Include vancomycin, cefepime, metronidazole, IV fluid, and risperidone. ALLERGIES: Denies. SOCIAL HISTORY: Unable to obtain due to the patient's condition. REVIEW OF SYSTEMS: Unable to obtain because of the patient's confusion. PHYSICAL EXAMINATION: GENERAL: Lethargic in bed, O2 NC, slight short of breath. VITAL SIGNS: Temperature is 98 degrees, pulse 72, respirations 22, and blood pressure initially 126/77 and 147/107. CARDIOVASCULAR: No murmurs. LUNGS: Distant and clear. ABDOMEN: Bowel sounds positive. Nontender. Nondistended. EXTREMITIES: No cyanosis, clubbing, or edema. NEUROLOGIC: The patient moves all extremities, slightly weak. Left buttock area with slight draining ,slightly red and dark around the wound. LABORATORY DATA: Labs at this time show CBC is normal. BMP is pending. . INR is pending. ASSESSMENT: 1. Left buttock abscess. 2. Dementia. 3. Psychosis. 4. Malnutrition. 5. Weakness. 6. Diabetes. 7. Alzheimer's. 8. Chronic lung disease. PLAN: 1. Wound care. 2. Antibiotics per Infectious Disease. 3. Blood pressure and blood sugar control. 4. Resume home medications. 5. PT and dietary evaluation. 6. CBC and BMP in the morning. 7. We will add Dr. Cabral for Psych evaluation. Han Swenson D.O. DR: SHERRY JOB#: [id number] CC:
[2019-03-09] MEDS ORDERED: Morphine Sulfate 2mg/ml Inj(IV/IM USE ONLY) IVP PRN (18:15)
[2019-03-09] MEDS ORDERED: Miralax 17gm pkt ORAL PRN (18:15)
[2019-03-09] MEDS ORDERED: Albuterol/Ipratropium 3ml neb HHN PRN (18:15)
[2019-03-09] MEDS ORDERED: Nitroglycerin Subl 0.4mg tab SL PRN (18:15)
--- NOTE | 2019-03-09 19:25 | NUR ---
NURSE NOTES: Received pt and repot from SCOTT Cheatham. Observed pt resting in bed with both eyes open. Pt is A/Ox2, nonverbal. cardiac monitor is in placed, IV site intact, asymptomatic, and patent. Bed is in the lowest position and locked. Call light within reach. No signs and symptoms of acute distress noted at this time. Will continue plan of care.
--- NOTE | 2019-03-09 19:35 | NUR ---
NURSE NOTES: Report given to SCOTT [place]. Plan of care endorsed
[2019-03-09] MEDS: Heparin 5000 units/ml inj SUBQ SCH (21:00)
[2019-03-09 21:20] VITALS: BP 130/84
--- NOTE | 2019-03-09 22:00 | Consultation ---
DATE OF CONSULTATION: 03/09/2019 CONSULTING PHYSICIAN: Елена Lang M.D. HISTORY OF PRESENT ILLNESS: This is an 79-year-old male patient who came in due to skin rash and abscess in his lower extremity area, but this patient also has underlying diagnosis of major depressive disorder, severe, recurrent with psychotic features, rule out dementia with psychosis and he has altered mental status, which is worsened by the stress of his medical illness. That is why, his attending physician has requested daily psychiatric consultation. The patient was slightly confused and disorganized on interview. He is coming to this facility because of his rash. He does have altered mental status and confusion. He is a very poor historian, that is why information had to be obtained through the chart review. MEDICAL HISTORY: He has a history of diabetes type 2, hypertension, COPD, status post CVA, and TIA in the past per chart. He also has abscess, status post MRSA, dysphagia, hematuria, malnutrition, generalized weakness. ALLERGIES: No known drug allergies at this time. PSYCHOTROPIC MEDICATIONS ON ADMISSION: The patient is normally on Risperdal 0.25 mg per G-tube at bedtime, also Ativan as needed. SUBSTANCE ABUSE HISTORY: No known history of any drug or alcohol use. FAMILY PSYCHIATRIC HISTORY: Denies. PAIN ASSESSMENT: . DEVELOPMENT PROBLEMS: Denies. SOCIAL HISTORY: The patient currently living at [facility]. Financially supported by [facility] and Medicare. PSYCHIATRIC HISTORY: Major depressive disorder, severe, recurrent with psychotic features, rule out dementia with psychosis. He has history of multiple psychiatric visits. STRENGTHS: He is motivated to get better and has a place to live. WEAKNESSES: He is impulsive. Minimal support system. MENTAL STATUS EXAMINATION: This is an 79-year-old male. Appearance is disheveled. Attitude, irritable and agitated. Affect, guarded and restricted. Intellect poor because he does know current events, does not know last four presidents. Mood, depressed and anxious. Motor activity, psychomotor agitation. Attention span is poor because he cannot do serial 7's, spell "world" backwards. Orientation x2. He is oriented to person and place, not to time and situation. Speech is pressured and nonsensical. Thought process, disorganized and illogical. Thought content, auditory hallucinations and paranoid delusions. Insight is poor because the patient does not recognize psych disorder. Judgment is poor because he does not accept consequences of his actions. Short-term memory 2/3 word recall with 5-minute delay with good short-term memory. Long-term memory is intact based on his knowledge for long-term events in his life such as the high school that he went to. He denies any current suicidal or homicidal ideation. DIAGNOSES: 1. Major depressive disorder, severe, recurrent with psychotic features, rule out dementia with psychosis. 2. Secondary, none. 3. Medical - diabetes, COPD, abscess on his buttocks area, hematuria, dysphagia, pharyngitis. 4. Psychosocial stressors, financial. 5. Functional impairment severe. PLAN: Treat the patient with Risperdal 0.25 mg per G-tube at bedtime and also treat him with Ativan 0.5 mg every 6 hours p.r.n. anxiety and agitation. 20 minutes of cognitive behavioral therapy provided to help with this patient identify his automatic negative thoughts, help him convert his negative thoughts to more positive thoughts to reduce depression, anxiety, and mood lability. Chart reviewed. Discussed with staff. Seen and assessed in his room. Елена Lang M.D. DR: RADHA JOB#: [id number] CC:
--- NOTE | 2019-03-09 22:23 | Consultation ---
History of Present Illness General Date patient seen: Mar 09, 2019 Reason for Hospitalization: Skin Rash/Abscess Present Illness HPI This is a pleasant 79-year-old male skilled nursing resident with multiple medical comorbidities who presented with left buttock abscess which has developed over the last week and began to spontaneously drain yesterday. Patient was referred to [facility] for evaluation and noted to have buttock abscess. Admitted for Abx, care , and management. Surgery called to evaluate and assist with care. patient seen , chart reviewed, patient examined. currently no n/v/f/c. he is non verbal mainly and resting comfortable. history obtained from emr. Allergies: Coded Allergies: No Known Allergies (Unverified , 01/27/17) Medication History Scheduled Apixaban (Eliquis), 2.5 MG GT BID, (Reported) Ascorbic Acid* (Ascorbic Acid*), 500 MG GT DAILY, (Reported) Docusate Sodium* (Colace*), 100 MG GT BID, (Reported) Insulin Aspart (Novolog Flexpen), SQ Q6HR, (Reported) Insulin Regular, Human* (Novolin R*), 0 SUBQ .SLIDING SCALE, (Reported) Lorazepam* (Ativan*), 0.5 MG GT Q6HR, (Reported) Memantine Hcl* (Namenda*), 5 MG GT BID, (Reported) Memantine Hcl* (Namenda*), 5 MG GT BID, (Reported) Memantine Hcl* (Namenda*), 5 MG GT BID, (Reported) Multivitamin With Minerals (Multivitamins With Minerals*), 1 TAB ORAL DAILY, ( Reported) Pravastatin Sod* (Pravastatin Sod*), 20 MG GT BEDTIME, (Reported) Risperidone* (Risperdal*), 0.25 MG GT QHS, (Reported) Trimethoprim/Sulfamethoxazole (Bactrim Ds Tablet), 1 TAB ORAL TWICE A DAY, ( Reported) Scheduled PRN Acetaminophen* (Tylenol Extra Strength*), 1,000 MG GT Q4HR PRN for Moderate Pain (Pain Scale 4-6), (Reported) Acetaminophen* (Acetaminophen 325MG Tablet*), 325 MG ORAL Q4H PRN for Mild Pain/ Temp > 100.5, (Reported) Bisacodyl (Bisacodyl), 10 MG RC DAILY PRN for CONSTIPATION IF MOM IS INEFFEC, ( Reported) Ipratropium [place] 0.5MG/2.5ML (Ipratropium [place] 0.5MG/2.5ML), 0.5 MG HHN Q4HR PRN for Shortness of Breath, (Reported) Magnesium Hydroxide* (Milk Of Magnesia*), 30 ML GT QHS PRN for CONST IF SOFTENER IS INEFFECTI, (Reported) Na Phos,M-B/Na Phos,Di-Ba* (Fleet Enema*), 133 ML RECTAL EVERY OTHER DAY PRN for CONST IF BISACODYL IS INEFFECT, (Reported) Patient History Limited by: medical condition History Provided By: Medical Record, PMD Healthcare decision maker Resuscitation status Full Code Advanced Directive on File No Past Medical/Surgical History Past Medical/Surgical History: (1) Hematuria (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 PERRL, EOM's intact. Fundi benign Throat: Lips, mucosa, and tongue normal. Teeth and gums normal Neck: supple, symmetrical, trachea midline, no adenopathy, thyroid: not enlarged, symmetric, no tenderness/mass/nodules, no carotid bruit and no JVD Lungs: clear to auscultation bilaterally Heart: regular rate and rhythm, S1, S2 normal, no murmur, click, rub or gallop Abdomen: soft, non-tender. Bowel sounds normal. No masses, no organomegaly Extremities: extremities normal, atraumatic, no cyanosis or edema Pulses: 2+ and symmetric Skin: Skin color, texture, turgor normal. No rashes or lesions Neurologic: Grossly normal marcy-rectal abscess Last 24 Hour Vital Signs Date Time Temp Pulse Resp B/P (MAP) Pulse Ox O2 Delivery O2 Flow Rate FiO2 03/09/19 21:20 97.4 78 19 130/84 (99) 92 03/09/19 20:00 2.0 03/09/19 16:52 Room Air 03/09/19 15:53 98.3 78 22 142/96 94 Nasal Cannula 2.0 03/09/19 14:39 72 23 Nasal Cannula 2.0 03/09/19 12:38 98.1 72 23 147/107 93 Nasal Cannula 2.0 03/09/19 12:19 97.9 87 16 126/77 (93) 97 Room Air Laboratory Tests Test 03/09/19 13:35 03/09/19 14:20 White Blood Count 9.4 K/UL (4.8-10.8) Red Blood Count 5.51 M/UL (4.70-6.10) Hemoglobin 17.3 G/DL (14.2-18.0) Hematocrit 53.4 % (42.0-52.0) H Mean Corpuscular Volume 97 FL (80-99) Mean Corpuscular Hemoglobin 31.4 PG (27.0-31.0) H Mean Corpuscular Hemoglobin Concent 32.4 G/DL (32.0-36.0) Red Cell Distribution Width 13.7 % (11.6-14.8) Platelet Count 137 K/UL (150-450) L Mean Platelet Volume 14.4 FL (6.5-10.1) H Neutrophils (%) (Auto) 73.5 % (45.0-75.0) Lymphocytes (%) (Auto) 8.5 % (20.0-45.0) L Monocytes (%) (Auto) 9.5 % (1.0-10.0) Eosinophils (%) (Auto) 6.6 % (0.0-3.0) H Basophils (%) (Auto) 1.8 % (0.0-2.0) Prothrombin Time 10.7 SEC (9.30-11.50) Prothromb Time International Ratio 1.0 (0.9-1.1) Activated Partial Thromboplast Time 24 SEC (23-33) Lactic Acid Level 1.40 mmol/L (0.4-2.0) Troponin I 0.006 ng/mL (0.000-0.056) Sodium Level 137 MMOL/L (136-145) Potassium Level 4.7 MMOL/L (3.5-5.1) Chloride Level 106 MMOL/L (98-107) Carbon Dioxide Level 26 MMOL/L (21-32) Anion Gap 5 mmol/L (5-15) Blood Urea Nitrogen 25 mg/dL (7-18) H Creatinine 0.9 MG/DL (0.55-1.30) Estimat Glomerular Filtration Rate mL/min (>60) Glucose Level 127 MG/DL (74-106) H Calcium Level 8.5 MG/DL (8.5-10.1) Phosphorus Level 2.9 MG/DL (2.5-4.9) Magnesium Level 2.1 MG/DL (1.8-2.4) Total Bilirubin 0.5 MG/DL (0.2-1.0) Aspartate Amino Transf (AST/SGOT) 37 U/L (15-37) Alanine Aminotransferase (ALT/SGPT) 37 U/L (12-78) Alkaline Phosphatase 284 U/L (46-116) H Total Creatine Kinase 58 U/L (26-308) Creatine Kinase MB 0.6 NG/ML (0.0-3.6) Creatine Kinase MB Relative Index 1.0 Total Protein 7.9 G/DL (6.4-8.2) Albumin 2.5 G/DL (3.4-5.0) L Globulin 5.4 g/dL Albumin/Globulin Ratio 0.5 (1.0-2.7) L Height (Feet): 5 Height (Inches): 8.00 Weight (Pounds): 180 Medications Current Medications Medications (Trade) Dose Ordered Sig/Robin Route PRN Reason Start Time Stop Time Status Last Admin Dose Admin Acetaminophen (Tylenol) 650 mg Q4H PRN ORAL fever 03/09/19 18:15 04/08/19 18:14 Albuterol/ Ipratropium (Albuterol/ Ipratropium) 3 ml Q4H PRN HHN Shortness of Breath 03/09/19 18:15 03/14/19 18:14 Cefepime HCl 2 gm/ Dextrose 110 ml @ 220 mls/hr Q12HR@0200,1400 IV 03/10/19 02:00 03/17/19 01:59 Dextrose (Dextrose 50%) 25 ml Q30M PRN IV Hypoglycemia 03/09/19 18:15 04/08/19 18:14 Dextrose (Dextrose 50%) 50 ml Q30M PRN IV Hypoglycemia 03/09/19 18:15 04/08/19 18:14 Heparin Sodium (Porcine) (Heparin 5000 units/ml) 5,000 units EVERY 12 HOURS SUBQ 03/09/19 21:00 04/08/19 20:59 Lorazepam (Ativan) 0.5 mg Q6H PRN ORAL For Anxiety 03/09/19 16:30 03/16/19 16:29 Morphine Sulfate (Morphine Sulfate) 2 mg Q4H PRN IVP Moderate Pain (Pain Scale 4-6) 03/09/19 18:15 03/16/19 18:14 Nitroglycerin (Ntg) 0.4 mg Q5M PRN SL Prn Chest Pain 03/09/19 18:15 04/08/19 18:14 Ondansetron HCl (Zofran) 4 mg Q6H PRN IVP Nausea & Vomiting 03/09/19 18:15 04/08/19 18:14 Polyethylene Glycol (Miralax) 17 gm DAILYPRN PRN ORAL Constipation 03/09/19 18:15 04/08/19 18:14 Risperidone (RisperDAL) 0.25 mg QHS GT 03/09/19 21:00 04/08/19 20:59 03/09/19 21:02 Temazepam (Restoril) 15 mg HSPRN PRN ORAL Insomnia 03/09/19 18:15 03/16/19 18:14 Vancomycin HCl (Vanco rx to dose) 1 ea DAILY PRN MISC Per rx protocol 03/09/19 15:45 04/08/19 15:44 Vancomycin HCl 1 gm/Dextrose 275 ml @ 183.708 mls/hr Q12HR@0500,1700 IVPB 03/10/19 05:00 03/15/19 04:59 Assessment/Plan Problem List: (1) Abscess ICD Codes: L02.91 - Cutaneous abscess, unspecified SNOMED: 494869952 (2) Abscess of buttock Assessment & Plan: afebrile, HD stable, labs okay no leukocytosis left buttock small abscess that spontaneously drained and now with cellulitis and some overlying sloth. no fluctuance. no drainage currently no acute surgical intervention necessary at this time local wound care -IV abx as per ID -AM labs -will monitor wound. thank you will follow with recs ICD Codes: L02.31 - Cutaneous abscess of buttock SNOMED: 70737240 Eric Dickey Mar 09, 2019 22:23
--- NOTE | 2019-03-09 23:15 | NUR ---
NURSE NOTES: Contacted Dr. Swenson and Dr. León and asked if they would like to continue pt's shelter meds of Eliquis 2.5mg G-tube TID, Synthroid 25mcg G-tube daily, and Novolog Aspart SubQ. Awaiting call back. Addendum: 03/10/19 at 0737 by Erin Mckay Mai, RN Eliquis 2.5mg G-tube BID not TID
--- NOTE | 2019-03-09 23:30 | NUR ---
NURSE NOTES: Dr. Swenson gave orders to continue Synthroid and to contact Dr. León regarding Eliquis and Novolog. Awaiting for Dr. León's call back. Addendum: 03/10/19 at 0535 by Erin Mckay Mai, RN Time was 0030
[2019-03-10] VITALS: BP 134/73
[2019-03-10] MEDS ORDERED: Vancomycin 1 GM in D5W 275 ML IV SCH (00:30)
[2019-03-10] MEDS: Cefepime HCl 2 GM in D5W 110 ML IV SCH ×2 (01:41→15:48)
[2019-03-10 04:00] VITALS: BP 125/80
[2019-03-10] MEDS: Vancomycin 1gm/D5W 275ml IVPB SCH ×4 (05:18→16:59)
[2019-03-10] MEDS: Levothyroxine 25mcg tab GT SCH (06:23)
[2019-03-10 06:36] LABS: BASOPHILS % (AUTO) 1.7 % (0.0-2.0); EOSINOPHILS % (AUTO) 10.1 % (0.0-3.0); HEMATOCRIT 46.2 % (42.0-52.0); HEMOGLOBIN 15.1 G/DL (14.2-18.0); LYMPHOCYTES % (AUTO) 6.7 % (20.0-45.0); MEAN CORPUSCULAR VOLUME 97 FL (80-99); NEUTROPHILS % (AUTO) 68.6 % (45.0-75.0); PLATELET COUNT 116 K/UL (150-450); RED BLOOD COUNT 4.76 M/UL (4.70-6.10); WHITE BLOOD COUNT 8.2 K/UL (4.8-10.8)
[2019-03-10 07:09] LABS: ALANINE AMINOTRANSFERASE 31 U/L (12-78); ALBUMIN/GLOBULIN RATIO 0.4 (1.0-2.7); ALKALINE PHOSPHATASE 202 U/L (46-116); ANION GAP 7 mmol/L (5-15); ASPARTATE AMINO TRANSFERASE 36 U/L (15-37); BILIRUBIN,TOTAL 0.5 MG/DL (0.2-1.0); BLOOD UREA NITROGEN 20 mg/dL (7-18); CALCIUM 8.1 MG/DL (8.5-10.1); CARBON DIOXIDE 23 MMOL/L (21-32); CHLORIDE 107 MMOL/L (98-107); CREATININE 0.8 MG/DL (0.55-1.30); POTASSIUM 4.3 MMOL/L (3.5-5.1); SODIUM 137 MMOL/L (136-145)
--- NOTE | 2019-03-10 07:37 | NUR ---
HAND-OFF: Report given to SCOTT Osborne. Endorsed to SCOTT Osborne to follow up with Dr. León regarding Eliquis and Novolog.
--- NOTE | 2019-03-10 07:45 | Progress Note ---
DATE: 03/10/2019 SUBJECTIVE: The patient is an 79-year-old male patient with abscess, still has some confusion, some disorganized thought process, some mood lability, worsened by stress of his medical illness that is why, his attending has requested daily psychiatric consultation. MENTAL STATUS EXAMINATION: The patient is an 79-year-old male. Appearance is disheveled. Attitude, irritable and agitated. Affect, guarded and restricted. Intellect poor. Mood, depressed and anxious. Motor activity, psychomotor agitation. Attention span is poor. Orientation x2. Speech is pressured. Thought process disorganized and illogical. Insight and judgment is poor. DIAGNOSIS: Major depressive disorder, severe, recurrent, with psychotic features, rule out dementia with psychosis. PLAN: Treat him with a medication regimen of Risperdal 0.25 mg per G-tube at bedtime. A 20 minutes of cognitive behavioral therapy to help him identify his automatic negative thoughts help him convert those negative thoughts to more positive thoughts to reduce depression, anxiety, and mood lability. Chart reviewed. Discussed with staff. Seen and assessed at bedside. Елена Lang M.D. DR: Yasir JOB#: [id number] CC:
[2019-03-10 08:00] VITALS: BP 115/70
--- NOTE | 2019-03-10 08:47 | General Progress Note ---
Assessment/Plan Problem List: (1) Dementia with psychosis ICD Codes: F03.91 - Unspecified dementia with behavioral disturbance SNOMED: 11767160, 98288799 (2) Diabetes mellitus ICD Codes: E11.9 - Type 2 diabetes mellitus without complications SNOMED: 48116732 (3) Abscess ICD Codes: L02.91 - Cutaneous abscess, unspecified SNOMED: 466052935 (4) Alzheimer's disease ICD Codes: G30.9 - Alzheimer's disease, unspecified; F02.80 - Dementia in other diseases classified elsewhere without behavioral disturbance SNOMED: 63358535 (5) Feeding by G-tube ICD Codes: Z93.1 - Gastrostomy status SNOMED: 899761493, 602059209, 341147798 (6) Abscess of buttock ICD Codes: L02.31 - Cutaneous abscess of buttock SNOMED: 20702807 Status: stable, progressing Assessment/Plan: wound care abx sx f/u cbc bmp am Subjective Constitutional: Reports: weakness Allergies: Coded Allergies: No Known Allergies (Unverified , 01/27/17) All Systems: reviewed and negative except above Subjective o2nc calm Objective Last 24 Hour Vital Signs Date Time Temp Pulse Resp B/P (MAP) Pulse Ox O2 Delivery O2 Flow Rate FiO2 03/10/19 08:00 98.4 77 20 115/70 (85) 94 03/10/19 07:40 64 19 97 Nasal Cannula 2.0 28 03/10/19 07:40 97 Nasal Cannula 2.0 21 03/10/19 04:00 97.4 78 18 125/80 (95) 97 03/10/19 04:00 2.0 03/10/19 04:00 67 03/10/19 00:00 98.3 61 18 134/73 (93) 94 03/10/19 00:00 66 03/09/19 21:20 97.4 78 19 130/84 (99) 92 03/09/19 21:00 Nasal Cannula 2.0 03/09/19 20:00 71 03/09/19 20:00 2.0 03/09/19 16:52 Room Air 03/09/19 15:53 98.3 78 22 142/96 94 Nasal Cannula 2.0 03/09/19 14:39 72 23 Nasal Cannula 2.0 03/09/19 12:38 98.1 72 23 147/107 93 Nasal Cannula 2.0 03/09/19 12:19 97.9 87 16 126/77 (93) 97 Room Air Laboratory Tests 03/09/19 13:35: White Blood Count 9.4, Red Blood Count 5.51, Hemoglobin 17.3, Hematocrit 53.4H, Mean Corpuscular Volume 97, Mean Corpuscular Hemoglobin 31.4H, Mean Corpuscular Hemoglobin Concent 32.4, Red Cell Distribution Width 13.7, Platelet Count 137L, Mean Platelet Volume 14.4H, Neutrophils (%) (Auto) 73.5, Lymphocytes (%) (Auto) 8.5L, Monocytes (%) (Auto) 9.5, Eosinophils (%) (Auto) 6.6H, Basophils (%) (Auto ) 1.8, Prothrombin Time 10.7, Prothromb Time International Ratio 1.0, Activated Partial Thromboplast Time 24, Lactic Acid Level 1.40, Troponin I 0.006 03/09/19 14:20: Sodium Level 137, Potassium Level 4.7, Chloride Level 106, Carbon Dioxide Level 26, Anion Gap 5, Blood Urea Nitrogen 25H, Creatinine 0.9, Estimat Glomerular Filtration Rate , Glucose Level 127H, Calcium Level 8.5, Phosphorus Level 2.9, Magnesium Level 2.1, Total Bilirubin 0.5, Aspartate Amino Transf (AST/SGOT) 37, Alanine Aminotransferase (ALT/SGPT) 37, Alkaline Phosphatase 284H, Total Creatine Kinase 58, Creatine Kinase MB 0.6, Creatine Kinase MB Relative Index 1.0, Total Protein 7.9, Albumin 2.5L, Globulin 5.4, Albumin/Globulin Ratio 0.5L 03/10/19 05:50: White Blood Count 8.2, Red Blood Count 4.76, Hemoglobin 15.1, Hematocrit 46.2, Mean Corpuscular Volume 97, Mean Corpuscular Hemoglobin 31.8H, Mean Corpuscular Hemoglobin Concent 32.8, Red Cell Distribution Width 14.0, Platelet Count 116L, Mean Platelet Volume 11.9H, Neutrophils (%) (Auto) 68.6, Lymphocytes (%) (Auto) 6.7L, Monocytes (%) (Auto) 13.0H, Eosinophils (%) (Auto) 10.1H, Basophils (%) ( Auto) 1.7, Sodium Level 137, Potassium Level 4.3, Chloride Level 107, Carbon Dioxide Level 23, Anion Gap 7, Blood Urea Nitrogen 20H, Creatinine 0.8, Estimat Glomerular Filtration Rate , Glucose Level 135H, Calcium Level 8.1L, Total Bilirubin 0.5, Aspartate Amino Transf (AST/SGOT) 36, Alanine Aminotransferase ( ALT/SGPT) 31, Alkaline Phosphatase 202H, Total Protein 6.7, Albumin 2.0L, Globulin 4.7, Albumin/Globulin Ratio 0.4L Height (Feet): 5 Height (Inches): 8.00 Weight (Pounds): 180 General Appearance: lethargic EENT: normal ENT inspection Neck: normal alignment Cardiovascular: normal peripheral pulses, normal rate, regular rhythm Respiratory/Chest: chest wall non-tender, lungs clear, normal breath sounds Abdomen: normal bowel sounds, non tender, soft Extremities: normal inspection Edema: no edema noted Arm (L), no edema noted Arm (R), no edema noted Leg (L), no edema noted Leg (R), no edema noted Pedal (L), no edema noted Pedal (R), no edema noted Generalized Neurologic: responsive, motor weakness Skin: normal pigmentation, warm/dry Han Swenson DO Mar 10, 2019 08:47
--- NOTE | 2019-03-10 08:55 | CDS Physician Query ---
Clarification is required for compliance, coding accuracy, and to reflect severity of illness for this patient Dear Dr. Han Swenson Date: 03/10/2019 Senior Chemical Process Engineer/CDS Name: Da Grandaquang Please select the most appropriate option: In H&P documented Malnutrition Labs: Alb: 2.5--->2.0 [] Protein/Calorie Malnutrition [] Mild [] Moderate [] Severe [] Hypoalbuminemia [] Cachexia [] Underweight [] Intestinal malabsorption [] Other [] Unable to determine [] Not Applicable Present on Admission: [] Yes [] No [] Clinically Undetermined Physician signature Date Please also document in your Progress Notes and/or Discharge Summary and indicate if the condition was present on admission. MTDD
[2019-03-10] MEDS ORDERED: Eliquis 2.5mg tablet GT SCH (09:00)
[2019-03-10] MEDS: Heparin 5000 units/ml inj SUBQ SCH (09:21)
--- NOTE | 2019-03-10 11:30 | NUR ---
PT EVALUATION NOTE Patient seen for initial evaluation, see complete evaluation for details. Patient presents with generalized weakness and impaired balance which affects patient's ability to perform mobility tasks. Patient requires min assist for bed mobility and mod assist for transfers. Patient declined to ambulate during evaluation. Patient will benefit from skilled inpatient PT intervention to address strength, balance and safety to improve level of functional mobility and decrease fall risk. Recommend discharge to SNF once medically cleared by MD. Addendum: 03/10/19 at 1241 by BAMBI SCOTT PT Amended: Links added.
--- NOTE | 2019-03-10 11:50 | Pulmonology Progress Note ---
Assessment/Plan Problems: (1) Abscess (2) Interstitial lung disease (3) Alzheimer's disease (4) Diabetes mellitus (5) Feeding by G-tube Assessment/Plan all noted surgical evaluation telemetry monitoring hold anticoagulation b/o possible surgery cardiology evaluation iv abx by ID consult symptomatic treatment. Subjective ROS Limited/Unobtainable: No Constitutional: Reports: no symptoms HEENT: Repors: no symptoms Respiratory: Reports: no symptoms Allergies: Coded Allergies: No Known Allergies (Unverified , 01/27/17) Objective Last 24 Hour Vital Signs Date Time Temp Pulse Resp B/P (MAP) Pulse Ox O2 Delivery O2 Flow Rate FiO2 03/10/19 08:00 98.4 77 20 115/70 (85) 94 03/10/19 07:45 58 03/10/19 07:40 64 19 97 Nasal Cannula 2.0 28 03/10/19 07:40 97 Nasal Cannula 2.0 21 03/10/19 04:00 97.4 78 18 125/80 (95) 97 03/10/19 04:00 2.0 03/10/19 04:00 67 03/10/19 00:00 98.3 61 18 134/73 (93) 94 03/10/19 00:00 66 03/09/19 21:20 97.4 78 19 130/84 (99) 92 03/09/19 21:00 Nasal Cannula 2.0 03/09/19 20:00 71 03/09/19 20:00 2.0 03/09/19 16:52 Room Air 03/09/19 15:53 98.3 78 22 142/96 94 Nasal Cannula 2.0 03/09/19 14:39 72 23 Nasal Cannula 2.0 03/09/19 12:38 98.1 72 23 147/107 93 Nasal Cannula 2.0 03/09/19 12:19 97.9 87 16 126/77 (93) 97 Room Air General Appearance: WD/WN HEENT: normocephalic Respiratory/Chest: chest wall non-tender, lungs clear Cardiovascular: normal peripheral pulses, normal rate Abdomen: normal bowel sounds, soft, non tender Genitourinary: normal external genitalia Extremities: no cyanosis Skin: no rash Neurologic/Psychiatric: candle pourer II-XII grossly normal, normal mood/affect Lymphatic: no neck adenopathy Microbiology Date/Time Source Procedure Growth Status 03/09/19 13:20 Buttock Left Gram Stain - Final Resulted 03/09/19 13:20 Wound Culture - Preliminary Staphylococcus Aureus Resulted Laboratory Tests 03/09/19 13:35: White Blood Count 9.4, Red Blood Count 5.51, Hemoglobin 17.3, Hematocrit 53.4H, Mean Corpuscular Volume 97, Mean Corpuscular Hemoglobin 31.4H, Mean Corpuscular Hemoglobin Concent 32.4, Red Cell Distribution Width 13.7, Platelet Count 137L, Mean Platelet Volume 14.4H, Neutrophils (%) (Auto) 73.5, Lymphocytes (%) (Auto) 8.5L, Monocytes (%) (Auto) 9.5, Eosinophils (%) (Auto) 6.6H, Basophils (%) (Auto ) 1.8, Prothrombin Time 10.7, Prothromb Time International Ratio 1.0, Activated Partial Thromboplast Time 24, Lactic Acid Level 1.40, Troponin I 0.006 03/09/19 14:20: Sodium Level 137, Potassium Level 4.7, Chloride Level 106, Carbon Dioxide Level 26, Anion Gap 5, Blood Urea Nitrogen 25H, Creatinine 0.9, Estimat Glomerular Filtration Rate , Glucose Level 127H, Calcium Level 8.5, Phosphorus Level 2.9, Magnesium Level 2.1, Total Bilirubin 0.5, Aspartate Amino Transf (AST/SGOT) 37, Alanine Aminotransferase (ALT/SGPT) 37, Alkaline Phosphatase 284H, Total Creatine Kinase 58, Creatine Kinase MB 0.6, Creatine Kinase MB Relative Index 1.0, Total Protein 7.9, Albumin 2.5L, Globulin 5.4, Albumin/Globulin Ratio 0.5L 03/10/19 05:50: White Blood Count 8.2, Red Blood Count 4.76, Hemoglobin 15.1, Hematocrit 46.2, Mean Corpuscular Volume 97, Mean Corpuscular Hemoglobin 31.8H, Mean Corpuscular Hemoglobin Concent 32.8, Red Cell Distribution Width 14.0, Platelet Count 116L, Mean Platelet Volume 11.9H, Neutrophils (%) (Auto) 68.6, Lymphocytes (%) (Auto) 6.7L, Monocytes (%) (Auto) 13.0H, Eosinophils (%) (Auto) 10.1H, Basophils (%) ( Auto) 1.7, Sodium Level 137, Potassium Level 4.3, Chloride Level 107, Carbon Dioxide Level 23, Anion Gap 7, Blood Urea Nitrogen 20H, Creatinine 0.8, Estimat Glomerular Filtration Rate , Glucose Level 135H, Calcium Level 8.1L, Total Bilirubin 0.5, Aspartate Amino Transf (AST/SGOT) 36, Alanine Aminotransferase ( ALT/SGPT) 31, Alkaline Phosphatase 202H, Total Protein 6.7, Albumin 2.0L, Globulin 4.7, Albumin/Globulin Ratio 0.4L Current Medications Medications (Trade) Dose Ordered Sig/Robin Route PRN Reason Start Time Stop Time Status Last Admin Dose Admin Acetaminophen (Tylenol) 650 mg Q4H PRN ORAL fever 03/09/19 18:15 04/08/19 18:14 Albuterol/ Ipratropium (Albuterol/ Ipratropium) 3 ml Q4H PRN HHN Shortness of Breath 03/09/19 18:15 03/14/19 18:14 Apixaban (Eliquis) 2.5 mg BID GT 03/10/19 09:00 04/09/19 08:59 UNV Cefepime HCl 2 gm/ Dextrose 110 ml @ 220 mls/hr Q12HR@0200,1400 IV 03/10/19 02:00 03/17/19 01:59 03/10/19 01:41 Dextrose (Dextrose 50%) 25 ml Q30M PRN IV Hypoglycemia 03/09/19 18:15 04/08/19 18:14 Dextrose (Dextrose 50%) 50 ml Q30M PRN IV Hypoglycemia 03/09/19 18:15 04/08/19 18:14 Heparin Sodium (Porcine) (Heparin 5000 units/ml) 5,000 units EVERY 12 HOURS SUBQ 03/09/19 21:00 04/08/19 20:59 03/10/19 09:21 Levothyroxine Sodium (Synthroid) 25 mcg DAILY@0630 GT 03/10/19 06:30 04/09/19 06:29 03/10/19 06:23 Lorazepam (Ativan) 0.5 mg Q6H PRN ORAL For Anxiety 03/09/19 16:30 03/16/19 16:29 Morphine Sulfate (Morphine Sulfate) 2 mg Q4H PRN IVP Moderate Pain (Pain Scale 4-6) 03/09/19 18:15 03/16/19 18:14 Nitroglycerin (Ntg) 0.4 mg Q5M PRN SL Prn Chest Pain 03/09/19 18:15 04/08/19 18:14 Ondansetron HCl (Zofran) 4 mg Q6H PRN IVP Nausea & Vomiting 03/09/19 18:15 04/08/19 18:14 Polyethylene Glycol (Miralax) 17 gm DAILYPRN PRN ORAL Constipation 03/09/19 18:15 04/08/19 18:14 Risperidone (RisperDAL) 0.25 mg QHS GT 03/09/19 21:00 04/08/19 20:59 03/09/19 21:02 Temazepam (Restoril) 15 mg HSPRN PRN ORAL Insomnia 03/09/19 18:15 03/16/19 18:14 Vancomycin HCl (Vanco rx to dose) 1 ea DAILY PRN MISC Per rx protocol 03/09/19 15:45 04/08/19 15:44 Vancomycin HCl 1 gm/Dextrose 275 ml @ 183.708 mls/hr Q12HR@0500,1700 IVPB 03/10/19 05:00 03/15/19 04:59 03/10/19 05:18 Fco León MD Mar 10, 2019 11:50
--- NOTE | 2019-03-10 11:51 | NUR ---
RD ASSESSMENT & RECOMMENDATIONS SEE CARE ACTIVITY FOR COMPLETE ASSESSMENT DAILY ESTIMATED NEEDS: Needs based on DM, abscess 72kg 25-30 kcals/kg 4407-1518 total kcals 1.25-1.5 g protein/kg 90-108 g total protein 25-30 mL/kg 4831-2880 total fluid mLs NUTRITION DIAGNOSIS: 1) Swallowing difficulty R/T dysphagia as evidenced by pt is GT dep. 2) Increased kcal and protein needs r/t wound healing as evidenced by pt w/ left buttock abscess. (CURRENT TF:.Glucerna 1.2 @24lgq70 hrs) ENTERAL NUTRITION RECOMMENDATIONS: INCREASE RUN TIME TO Glucerna 1.2 @70ml x22 hrs to provide 1540ml, 1848 kcal, 92g pro, 1240ml free H2O - REC TO INCREASE RUN TIME TO 22 HRS PER DAY TO BETTER MEET EST NEEDS - Flush per MD/ HOB over 30 degrees ADDITIONAL RECOMMENDATIONS: 1) Rec A1C for eval of glycemic control 2) Calibrated bed scale wt + Weekly weights 180lbs per EMR vs 158lbs per bed scale 3) Daily lytes on TF/ replete as needed 4) Wound care-> add TONY BID + vit C 250mg daily
[2019-03-10 12:00] VITALS: BP 118/68
--- NOTE | 2019-03-10 13:13 | Cardiac Electrophysiology PN ---
Subjective Subjective [id number]. Seen and examined. VERA RN and Dr Swenson Objective Last 24 Hour Vital Signs Date Time Temp Pulse Resp B/P (MAP) Pulse Ox O2 Delivery O2 Flow Rate FiO2 03/10/19 12:00 97.5 66 22 118/68 (85) 95 03/10/19 09:00 Nasal Cannula 2.0 03/10/19 08:00 98.4 77 20 115/70 (85) 94 03/10/19 07:45 58 03/10/19 07:40 64 19 97 Nasal Cannula 2.0 28 03/10/19 07:40 97 Nasal Cannula 2.0 21 03/10/19 04:00 97.4 78 18 125/80 (95) 97 03/10/19 04:00 2.0 03/10/19 04:00 67 03/10/19 00:00 98.3 61 18 134/73 (93) 94 03/10/19 00:00 66 03/09/19 21:20 97.4 78 19 130/84 (99) 92 03/09/19 21:00 Nasal Cannula 2.0 03/09/19 20:00 71 03/09/19 20:00 2.0 03/09/19 16:52 Room Air 03/09/19 15:53 98.3 78 22 142/96 94 Nasal Cannula 2.0 03/09/19 14:39 72 23 Nasal Cannula 2.0 Laboratory Tests Test 03/09/19 13:35 03/09/19 14:20 03/10/19 05:50 White Blood Count 9.4 K/UL (4.8-10.8) 8.2 K/UL (4.8-10.8) Red Blood Count 5.51 M/UL (4.70-6.10) 4.76 M/UL (4.70-6.10) Hemoglobin 17.3 G/DL (14.2-18.0) 15.1 G/DL (14.2-18.0) Hematocrit 53.4 % (42.0-52.0) H 46.2 % (42.0-52.0) Mean Corpuscular Volume 97 FL (80-99) 97 FL (80-99) Mean Corpuscular Hemoglobin 31.4 PG (27.0-31.0) H 31.8 PG (27.0-31.0) H Mean Corpuscular Hemoglobin Concent 32.4 G/DL (32.0-36.0) 32.8 G/DL (32.0-36.0) Red Cell Distribution Width 13.7 % (11.6-14.8) 14.0 % (11.6-14.8) Platelet Count 137 K/UL (150-450) L 116 K/UL (150-450) L Mean Platelet Volume 14.4 FL (6.5-10.1) H 11.9 FL (6.5-10.1) H Neutrophils (%) (Auto) 73.5 % (45.0-75.0) 68.6 % (45.0-75.0) Lymphocytes (%) (Auto) 8.5 % (20.0-45.0) L 6.7 % (20.0-45.0) L Monocytes (%) (Auto) 9.5 % (1.0-10.0) 13.0 % (1.0-10.0) H Eosinophils (%) (Auto) 6.6 % (0.0-3.0) H 10.1 % (0.0-3.0) H Basophils (%) (Auto) 1.8 % (0.0-2.0) 1.7 % (0.0-2.0) Prothrombin Time 10.7 SEC (9.30-11.50) Prothromb Time International Ratio 1.0 (0.9-1.1) Activated Partial Thromboplast Time 24 SEC (23-33) Lactic Acid Level 1.40 mmol/L (0.4-2.0) Troponin I 0.006 ng/mL (0.000-0.056) Sodium Level 137 MMOL/L (136-145) 137 MMOL/L (136-145) Potassium Level 4.7 MMOL/L (3.5-5.1) 4.3 MMOL/L (3.5-5.1) Chloride Level 106 MMOL/L (98-107) 107 MMOL/L (98-107) Carbon Dioxide Level 26 MMOL/L (21-32) 23 MMOL/L (21-32) Anion Gap 5 mmol/L (5-15) 7 mmol/L (5-15) Blood Urea Nitrogen 25 mg/dL (7-18) H 20 mg/dL (7-18) H Creatinine 0.9 MG/DL (0.55-1.30) 0.8 MG/DL (0.55-1.30) Estimat Glomerular Filtration Rate mL/min (>60) mL/min (>60) Glucose Level 127 MG/DL (74-106) H 135 MG/DL (74-106) H Calcium Level 8.5 MG/DL (8.5-10.1) 8.1 MG/DL (8.5-10.1) L Phosphorus Level 2.9 MG/DL (2.5-4.9) Magnesium Level 2.1 MG/DL (1.8-2.4) Total Bilirubin 0.5 MG/DL (0.2-1.0) 0.5 MG/DL (0.2-1.0) Aspartate Amino Transf (AST/SGOT) 37 U/L (15-37) 36 U/L (15-37) Alanine Aminotransferase (ALT/SGPT) 37 U/L (12-78) 31 U/L (12-78) Alkaline Phosphatase 284 U/L (46-116) H 202 U/L (46-116) H Total Creatine Kinase 58 U/L (26-308) Creatine Kinase MB 0.6 NG/ML (0.0-3.6) Creatine Kinase MB Relative Index 1.0 Total Protein 7.9 G/DL (6.4-8.2) 6.7 G/DL (6.4-8.2) Albumin 2.5 G/DL (3.4-5.0) L 2.0 G/DL (3.4-5.0) L Globulin 5.4 g/dL 4.7 g/dL Albumin/Globulin Ratio 0.5 (1.0-2.7) L 0.4 (1.0-2.7) L Microbiology Date/Time Source Procedure Growth Status 03/09/19 13:20 Buttock Left Gram Stain - Final Resulted 03/09/19 13:20 Wound Culture - Preliminary Staphylococcus Aureus Resulted Kevin Cano MD Mar 10, 2019 13:13
--- NOTE | 2019-03-10 15:19 | NUR ---
NURSE NOTES:WOUND CARE NOTES: Pt presented on admission with abscess L ischium. Large red nodule with 2 pus filled pockets that are non-draining. Site tender when minimally palpated. Scattered areas of dry peeling skin and scratch noted to R buttocks. Pt admitted to scratching skin. Dark skin pigmentation noted to R and L buttocks. Both heels are blanchable. No other skin concerns noted. Tx.[place]: Apply Moisture Barrier paste to buttocks with each incontinence care. Cover sacrum with Optifoam drsg. Change every 3 days and prn Reposition at least every 2 hours or as tolerated. Off-load heels with pillow.
[2019-03-10 16:00] VITALS: BP 116/73
--- NOTE | 2019-03-10 16:42 | Infectious Diseases Prog Note ---
Assessment/Plan Assessment/Plan ASSESSMENT: Left buttock abscess. Wnd Cx: GPC Dementia Psychosis. Malnutrition. Diabetes. Alzheimer PLAN: IV Vanco # 2 Dc Cefepime # 2 Monitor CBC and BMP Monitor CXR Wnd Cx blood Cx Surg Eval for I/d Subjective Allergies: Coded Allergies: No Known Allergies (Unverified , 01/27/17) Subjective no acute event Objective Vital Signs Last 24 Hour Vital Signs Date Time Temp Pulse Resp B/P (MAP) Pulse Ox O2 Delivery O2 Flow Rate FiO2 03/10/19 12:00 97.5 66 22 118/68 (85) 95 03/10/19 11:34 47 03/10/19 09:00 Nasal Cannula 2.0 03/10/19 08:00 98.4 77 20 115/70 (85) 94 03/10/19 07:45 58 03/10/19 07:40 64 19 97 Nasal Cannula 2.0 28 03/10/19 07:40 97 Nasal Cannula 2.0 21 03/10/19 04:00 97.4 78 18 125/80 (95) 97 03/10/19 04:00 2.0 03/10/19 04:00 67 03/10/19 00:00 98.3 61 18 134/73 (93) 94 03/10/19 00:00 66 03/09/19 21:20 97.4 78 19 130/84 (99) 92 03/09/19 21:00 Nasal Cannula 2.0 03/09/19 20:00 71 03/09/19 20:00 2.0 03/09/19 16:52 Room Air Height (Feet): 5 Height (Inches): 8.00 Weight (Pounds): 180 HEENT: mucous membranes moist Respiratory/Chest: no respiratory distress Cardiovascular: regular rhythm Abdomen: soft, non tender Microbiology Date/Time Source Procedure Growth Status 03/09/19 13:20 Buttock Left Gram Stain - Final Resulted 03/09/19 13:20 Wound Culture - Preliminary Staphylococcus Aureus Resulted Laboratory Tests Test 03/10/19 05:50 White Blood Count 8.2 K/UL (4.8-10.8) Red Blood Count 4.76 M/UL (4.70-6.10) Hemoglobin 15.1 G/DL (14.2-18.0) Hematocrit 46.2 % (42.0-52.0) Mean Corpuscular Volume 97 FL (80-99) Mean Corpuscular Hemoglobin 31.8 PG (27.0-31.0) H Mean Corpuscular Hemoglobin Concent 32.8 G/DL (32.0-36.0) Red Cell Distribution Width 14.0 % (11.6-14.8) Platelet Count 116 K/UL (150-450) L Mean Platelet Volume 11.9 FL (6.5-10.1) H Neutrophils (%) (Auto) 68.6 % (45.0-75.0) Lymphocytes (%) (Auto) 6.7 % (20.0-45.0) L Monocytes (%) (Auto) 13.0 % (1.0-10.0) H Eosinophils (%) (Auto) 10.1 % (0.0-3.0) H Basophils (%) (Auto) 1.7 % (0.0-2.0) Sodium Level 137 MMOL/L (136-145) Potassium Level 4.3 MMOL/L (3.5-5.1) Chloride Level 107 MMOL/L (98-107) Carbon Dioxide Level 23 MMOL/L (21-32) Anion Gap 7 mmol/L (5-15) Blood Urea Nitrogen 20 mg/dL (7-18) H Creatinine 0.8 MG/DL (0.55-1.30) Estimat Glomerular Filtration Rate mL/min (>60) Glucose Level 135 MG/DL (74-106) H Calcium Level 8.1 MG/DL (8.5-10.1) L Total Bilirubin 0.5 MG/DL (0.2-1.0) Aspartate Amino Transf (AST/SGOT) 36 U/L (15-37) Alanine Aminotransferase (ALT/SGPT) 31 U/L (12-78) Alkaline Phosphatase 202 U/L (46-116) H Total Protein 6.7 G/DL (6.4-8.2) Albumin 2.0 G/DL (3.4-5.0) L Globulin 4.7 g/dL Albumin/Globulin Ratio 0.4 (1.0-2.7) L Current Medications Medications (Trade) Dose Ordered Sig/Robin Route PRN Reason Start Time Stop Time Status Last Admin Dose Admin Acetaminophen (Tylenol) 650 mg Q4H PRN ORAL fever 03/09/19 18:15 04/08/19 18:14 Albuterol/ Ipratropium (Albuterol/ Ipratropium) 3 ml Q4H PRN HHN Shortness of Breath 03/09/19 18:15 03/14/19 18:14 Cefepime HCl 2 gm/ Dextrose 110 ml @ 220 mls/hr Q12HR@0200,1400 IV 03/10/19 02:00 03/17/19 01:59 03/10/19 15:48 Dextrose (Dextrose 50%) 25 ml Q30M PRN IV Hypoglycemia 03/09/19 18:15 04/08/19 18:14 Dextrose (Dextrose 50%) 50 ml Q30M PRN IV Hypoglycemia 03/09/19 18:15 04/08/19 18:14 Heparin Sodium (Porcine) (Heparin 5000 units/ml) 5,000 units EVERY 12 HOURS SUBQ 03/09/19 21:00 04/08/19 20:59 03/10/19 09:21 Levothyroxine Sodium (Synthroid) 25 mcg DAILY@0630 GT 03/10/19 06:30 04/09/19 06:29 03/10/19 06:23 Lorazepam (Ativan) 0.5 mg Q6H PRN ORAL For Anxiety 03/09/19 16:30 03/16/19 16:29 Morphine Sulfate (Morphine Sulfate) 2 mg Q4H PRN IVP Moderate Pain (Pain Scale 4-6) 03/09/19 18:15 03/16/19 18:14 Nitroglycerin (Ntg) 0.4 mg Q5M PRN SL Prn Chest Pain 03/09/19 18:15 04/08/19 18:14 Ondansetron HCl (Zofran) 4 mg Q6H PRN IVP Nausea & Vomiting 03/09/19 18:15 04/08/19 18:14 Polyethylene Glycol (Miralax) 17 gm DAILYPRN PRN ORAL Constipation 03/09/19 18:15 04/08/19 18:14 Risperidone (RisperDAL) 0.25 mg QHS GT 03/09/19 21:00 04/08/19 20:59 03/09/19 21:02 Temazepam (Restoril) 15 mg HSPRN PRN ORAL Insomnia 03/09/19 18:15 03/16/19 18:14 Vancomycin HCl (Vanco rx to dose) 1 ea DAILY PRN MISC Per rx protocol 03/09/19 15:45 04/08/19 15:44 Vancomycin HCl 1 gm/Dextrose 275 ml @ 183.708 mls/hr Q12HR@0500,1700 IVPB 03/10/19 05:00 03/15/19 04:59 03/10/19 05:18 Geronimo Antoine MD Mar 10, 2019 16:42
--- NOTE | 2019-03-10 19:50 | NUR ---
HAND-OFF: Report given to Kevin Montes De Oca RN.
--- NOTE | 2019-03-10 19:51 | NUR ---
NURSE NOTES: Got report from [place] CHAVEZ. Pt in stable condition. Denies any pain. No s/s of distress or discomfort noted. Pt resting in bed comfortably. Bed in low and locked position, call light within reach, bedside table within reach. Continue to monitor.
[2019-03-10 20:00] VITALS: BP 126/81
--- NOTE | 2019-03-10 20:32 | NUR ---
CASE MANAGEMENT: REVIEW 79Y/MALE BIBA FROM [facility] CONV CC: BUTTOCK ABSCESS SI: RIGHT BUTTOCK ABSCESS T 97.9 HR 87 RR 16 BP 147/107 SAT 93% NC/2L PLT CT 137 BUN 25 ALK PHOS 284 IS: NS IVF BOLUS X1 FLAGYL IV X1 CEFEPIME IV X1 VANCO IV X1 PATIENT ADMITTED TO TELEMETRY UNIT 03/09/2019 DCP: PATIENT IS FROM [facility]
[2019-03-10] MEDS: NovoLOG Insulin Flexpen SUBQ SCH (21:00)
[2019-03-10] MEDS: Eliquis 2.5mg tablet GT SCH (21:00)
[2019-03-11] VITALS: BP 129/77
--- NOTE | 2019-03-11 02:45 | Consultation ---
DATE OF CONSULTATION: 03/10/2019 CARDIOLOGY CONSULTATION CONSULTING PHYSICIAN: Kevin Cano M.D. REFERRING PHYSICIAN: Han Swenson D.O. REASON FOR CONSULTATION: Management of atrial fibrillation, questionable pacemaker on the telemetry strips. HISTORY OF PRESENT ILLNESS: The patient is an 79-year-old gentleman history of hypertension, coronary artery disease, prior myocardial infarction, atrial fibrillation, COPD, gastroesophageal reflux disease, history of CVA, and dementia, was brought from residential facility for abscess and skin infection on his buttock. The patient is nonverbal, however, he is able to communicate with signs. The patient was admitted on telemetry. Even though he was in atrial fibrillation, there were multiple pacing spikes on telemetry. Cardiac electrophysiology consultation was requested to evaluate the patient's atrial fibrillation as well as where the patient's pacemaker is. REVIEW OF SYSTEMS: Negative. PAST MEDICAL HISTORY: As mentioned above. FAMILY HISTORY: Noncontributory. SOCIAL HISTORY: He is a detention resident. Does not smoke or drink alcohol. MEDICATIONS: Include Eliquis 2.5 mg b.i.d., Pravachol, risperidone as well as insulin. PHYSICAL EXAMINATION: VITAL SIGNS: Show blood pressure of 118/68, pulse 66, respirations 20, temperature 97.5. HEAD AND NECK: Shows no JVD. LUNGS: Clear. CARDIOVASCULAR: Irregular. S1 and S2 with no gallop or murmur. ABDOMEN: Soft. EXTREMITIES: No pitting edema. LABORATORY AND DIAGNOSTIC DATA: Chest x-ray showed no evidence of pacemaker and no cardiomegaly. EKG showed atrial fibrillation and low-voltage QRS. Telemetry strip showed multiple pacing spikes, three in a row and four in a row without any specific timing, but none of them captured and these are all artifact. LABORATORY DATA: Labs show white count of 8.2, hemoglobin of 15.1, hematocrit of 46.2, platelet count of 116. Sodium is 137, potassium 4.3, BUN of 20, creatinine 0.8, glucose of 135. Troponin is negative. INR is 1. ASSESSMENT/PLAN: 1. Atrial fibrillation, the rate is currently controlled. The patient is off any AV armya blocking agents. However, on Eliquis 2.5 mg b.i.d. We will keep the patient on telemetry. The patient most likely had significant AV ramya disease as the rate is controlled, in atrial fibrillation without being any AV ramya sadiq. 2. Questionable pacemaker. There is no evidence of pacemaker on the chest x-ray and the pacing spikes are not supportive of pacing, these are actually all artifact. 3. Questionable coronary artery disease. EKG does not show any evidence of ischemia. 4. Diabetes. 5. Buttock abscess. 6. Dysphagia, status post G-tube. Thank you very much, Dr. Swenson, for allowing me to participate in the care of this patient. Please do not hesitate to contact me for any questions regarding my evaluation. Kevin Cano M.D. DR: Sharmila JOB#: [id number] CC:
[2019-03-11 04:00] VITALS: BP 124/76
[2019-03-11 04:53] LABS: BASOPHILS % (AUTO) 1.9 % (0.0-2.0); HEMOGLOBIN 16.5 G/DL (14.2-18.0); LYMPHOCYTES % (AUTO) 7.4 % (20.0-45.0); MEAN CORPUSCULAR VOLUME 95 FL (80-99); MONOCYTES % (AUTO) 12.6 % (1.0-10.0); PLATELET COUNT 119 K/UL (150-450); RED BLOOD COUNT 5.26 M/UL (4.70-6.10); RED CELL DISTRIBUTION WIDTH 13.8 % (11.6-14.8); WHITE BLOOD COUNT 7.9 K/UL (4.8-10.8)
[2019-03-11] MEDS: Vancomycin 1gm/D5W 275ml IVPB SCH ×4 (05:05→17:28)
[2019-03-11 05:19] LABS: ANION GAP 5 mmol/L (5-15); BLOOD UREA NITROGEN 15 mg/dL (7-18); CALCIUM 8.3 MG/DL (8.5-10.1); CARBON DIOXIDE 26 MMOL/L (21-32); CHLORIDE 107 MMOL/L (98-107); CREATININE 0.8 MG/DL (0.55-1.30); POTASSIUM 4.2 MMOL/L (3.5-5.1); SODIUM 138 MMOL/L (136-145)
[2019-03-11] MEDS: NovoLOG Insulin Flexpen SUBQ SCH ×3 (06:10→16:30)
[2019-03-11] MEDS: Levothyroxine 25mcg tab GT SCH (06:45)
--- NOTE | 2019-03-11 07:00 | NUR ---
HAND-OFF: Report given to Mar CHAVEZ.
--- NOTE | 2019-03-11 07:43 | Pulmonology Progress Note ---
Assessment/Plan Assessment/Plan ASSESSMENT Small buttock abscess, spontaneously drained Atrial fibrillation COPD Diabetes mellitus Dysphasia , G-tube Severe protein calorie malnutrition Alzheimer dementia Major depressive disorder with psychotic features Hypothyroidism PLAN OF CARE tele remains in A. fib Eliquis continue, off any AV ramya blockers cardio follows venous duplex BLE negative O2 HHN prn CXR with findings suspicious for bilateral pneumonia, doubt PNA fup with CXR remains afebrile, no leukocytosis WCX with Staph aureus abx as per ID wound care as per surgeon recommendation per surgeon no need for acute surgical intervention strict aspiration precautions, G-tube feeding tube feeding formula and protein supplements as per registered private duty nurse recommendation check TSH , for now continue current dose of levothyroxine psych meds as per psychiatrist BS management with SSI bowel regimen supportive care case discussed and evaluated by supervising physician Subjective Allergies: Coded Allergies: No Known Allergies (Unverified , 01/27/17) Subjective remains afebrile, no leukocytosis pusle ox stable on RA janie with A fib, rate controlled no chest pain Objective Last 24 Hour Vital Signs Date Time Temp Pulse Resp B/P (MAP) Pulse Ox O2 Delivery O2 Flow Rate FiO2 03/11/19 04:00 63 03/11/19 04:00 97.3 76 18 124/76 (92) 95 03/11/19 00:00 71 03/11/19 00:00 97.6 72 17 129/77 (94) 95 03/10/19 21:00 Nasal Cannula 2.0 03/10/19 20:00 76 03/10/19 20:00 97.9 78 18 126/81 (96) 95 03/10/19 19:38 97 Nasal Cannula 2.0 28 03/10/19 19:37 71 18 96 Nasal Cannula 2.0 28 03/10/19 16:00 98.0 67 22 116/73 (87) 93 03/10/19 15:26 84 03/10/19 12:00 97.5 66 22 118/68 (85) 95 03/10/19 11:34 47 03/10/19 09:00 Nasal Cannula 2.0 03/10/19 08:00 98.4 77 20 115/70 (85) 94 03/10/19 07:45 58 Intake and Output 03/10/19 03/11/19 19:00 07:00 Intake Total 1093.708 ml Balance 1093.708 ml Intake Free Water 30 ml IV Total 293.708 ml Tube Feeding 770 ml # Voids 2 2 # Bowel Movements 1 2 General Appearance: no acute distress HEENT: normocephalic, atraumatic, anicteric Respiratory/Chest: lungs clear, no respiratory distress, no accessory muscle use Cardiovascular: normal peripheral pulses, no JVD, irregularly irregular - A fib on tele, rate controlled Abdomen: normal bowel sounds, soft, non tender, other - G tube with TF Extremities: no edema, pedal pulses normal Neurologic/Psychiatric: abnormal gait, alert, responsive Musculoskeletal: atrophy - BLE Microbiology Date/Time Source Procedure Growth Status 03/09/19 13:20 Buttock Left Gram Stain - Final Complete 03/09/19 13:20 Wound Culture - Final Staphylococcus Aureus Complete Laboratory Tests 03/11/19 04:35: White Blood Count 7.9, Red Blood Count 5.26, Hemoglobin 16.5, Hematocrit 50.0, Mean Corpuscular Volume 95, Mean Corpuscular Hemoglobin 31.4H, Mean Corpuscular Hemoglobin Concent 33.1, Red Cell Distribution Width 13.8, Platelet Count 119L, Mean Platelet Volume 12.0H, Neutrophils (%) (Auto) 65.0, Lymphocytes (%) (Auto) 7.4L, Monocytes (%) (Auto) 12.6H, Eosinophils (%) (Auto) 13.0H, Basophils (%) ( Auto) 1.9, Sodium Level 138, Potassium Level 4.2, Chloride Level 107, Carbon Dioxide Level 26, Anion Gap 5, Blood Urea Nitrogen 15, Creatinine 0.8, Estimat Glomerular Filtration Rate , Glucose Level 82, Hemoglobin A1c 5.8, Calcium Level 8.3L, Troponin I 0.023, Vancomycin Level Trough 16.5H Current Medications Medications (Trade) Dose Ordered Sig/Robin Route PRN Reason Start Time Stop Time Status Last Admin Dose Admin Acetaminophen (Tylenol) 650 mg Q4H PRN ORAL fever 03/09/19 18:15 04/08/19 18:14 Albuterol/ Ipratropium (Albuterol/ Ipratropium) 3 ml Q4H PRN HHN Shortness of Breath 03/09/19 18:15 03/14/19 18:14 Apixaban (Eliquis) 2.5 mg EVERY 12 HOURS GT 03/10/19 21:00 04/09/19 20:59 03/10/19 21:00 Dextrose (Dextrose 50%) 25 ml Q30M PRN IV Hypoglycemia 03/10/19 20:00 04/09/19 19:59 Dextrose (Dextrose 50%) 50 ml Q30M PRN IV Hypoglycemia 03/10/19 20:00 04/09/19 19:59 Insulin Aspart (NovoLOG) BEFORE MEALS AND HS SUBQ 03/10/19 21:00 04/09/19 20:59 Levothyroxine Sodium (Synthroid) 25 mcg DAILY@0630 GT 03/10/19 06:30 04/09/19 06:29 03/11/19 06:45 Lorazepam (Ativan) 0.5 mg Q6H PRN ORAL For Anxiety 03/09/19 16:30 03/16/19 16:29 Morphine Sulfate (Morphine Sulfate) 2 mg Q4H PRN IVP Moderate Pain (Pain Scale 4-6) 03/09/19 18:15 03/16/19 18:14 Nitroglycerin (Ntg) 0.4 mg Q5M PRN SL Prn Chest Pain 03/09/19 18:15 04/08/19 18:14 Ondansetron HCl (Zofran) 4 mg Q6H PRN IVP Nausea & Vomiting 03/09/19 18:15 04/08/19 18:14 Polyethylene Glycol (Miralax) 17 gm DAILYPRN PRN ORAL Constipation 03/09/19 18:15 04/08/19 18:14 Risperidone (RisperDAL) 0.25 mg QHS GT 03/09/19 21:00 04/08/19 20:59 03/10/19 21:38 Temazepam (Restoril) 15 mg HSPRN PRN ORAL Insomnia 03/09/19 18:15 03/16/19 18:14 Vancomycin HCl (Vanco rx to dose) 1 ea DAILY PRN MISC Per rx protocol 03/09/19 15:45 04/08/19 15:44 Vancomycin HCl 1 gm/Dextrose 275 ml @ 183.708 mls/hr Q12HR@0500,1700 IVPB 03/10/19 05:00 03/15/19 04:59 03/11/19 05:05 Mirtha Brito IT COMMUNICATIONS SPECIALIST Mar 11, 2019 07:43
--- NOTE | 2019-03-11 07:43 | NUR ---
NURSE NOTES: Patient stable,. No s/s of distress. Nonverbal. RR even and unlabored on RA. Gtube feeding on hold until 8 AM. HOB at 30 degrees. Patient had BM and was cleaned. Dressing intact. Side rails up x2, bed locked in lowest position. Will continue to monitor.
[2019-03-11 08:00] VITALS: BP 108/59
[2019-03-11] MEDS: Eliquis 2.5mg tablet GT SCH ×2 (09:11→21:25)
--- NOTE | 2019-03-11 09:34 | General Progress Note ---
Assessment/Plan Problem List: (1) Dementia with psychosis ICD Codes: F03.91 - Unspecified dementia with behavioral disturbance SNOMED: 69825017, 16118166 (2) Diabetes mellitus ICD Codes: E11.9 - Type 2 diabetes mellitus without complications SNOMED: 71433661 (3) Abscess ICD Codes: L02.91 - Cutaneous abscess, unspecified SNOMED: 866333992 (4) Alzheimer's disease ICD Codes: G30.9 - Alzheimer's disease, unspecified; F02.80 - Dementia in other diseases classified elsewhere without behavioral disturbance SNOMED: 39220200 (5) Feeding by G-tube ICD Codes: Z93.1 - Gastrostomy status SNOMED: 844407334, 799806085, 659277868 (6) Abscess of buttock ICD Codes: L02.31 - Cutaneous abscess of buttock SNOMED: 61581021 Status: stable, progressing Assessment/Plan: wound care abx sx f/u cbc bmp am Subjective Constitutional: Reports: weakness Allergies: Coded Allergies: No Known Allergies (Unverified , 01/27/17) All Systems: reviewed and negative except above Subjective o2nc calm Objective Last 24 Hour Vital Signs Date Time Temp Pulse Resp B/P (MAP) Pulse Ox O2 Delivery O2 Flow Rate FiO2 03/11/19 08:29 Nasal Cannula 2.0 03/11/19 04:00 63 03/11/19 04:00 97.3 76 18 124/76 (92) 95 03/11/19 00:00 71 03/11/19 00:00 97.6 72 17 129/77 (94) 95 03/10/19 21:00 Nasal Cannula 2.0 03/10/19 20:00 76 03/10/19 20:00 97.9 78 18 126/81 (96) 95 03/10/19 19:38 97 Nasal Cannula 2.0 28 03/10/19 19:37 71 18 96 Nasal Cannula 2.0 28 03/10/19 16:00 98.0 67 22 116/73 (87) 93 03/10/19 15:26 84 03/10/19 12:00 97.5 66 22 118/68 (85) 95 03/10/19 11:34 47 Intake and Output 03/10/19 03/11/19 18:59 06:59 Intake Total 1185.000 ml Balance 1185.000 ml Intake Free Water 30 ml IV Total 385.000 ml Tube Feeding 770 ml # Voids 4 # Bowel Movements 3 Laboratory Tests 03/11/19 04:35: White Blood Count 7.9, Red Blood Count 5.26, Hemoglobin 16.5, Hematocrit 50.0, Mean Corpuscular Volume 95, Mean Corpuscular Hemoglobin 31.4H, Mean Corpuscular Hemoglobin Concent 33.1, Red Cell Distribution Width 13.8, Platelet Count 119L, Mean Platelet Volume 12.0H, Neutrophils (%) (Auto) 65.0, Lymphocytes (%) (Auto) 7.4L, Monocytes (%) (Auto) 12.6H, Eosinophils (%) (Auto) 13.0H, Basophils (%) ( Auto) 1.9, Sodium Level 138, Potassium Level 4.2, Chloride Level 107, Carbon Dioxide Level 26, Anion Gap 5, Blood Urea Nitrogen 15, Creatinine 0.8, Estimat Glomerular Filtration Rate , Glucose Level 82, Hemoglobin A1c 5.8, Calcium Level 8.3L, Troponin I 0.023, Vancomycin Level Trough 16.5H Height (Feet): 5 Height (Inches): 8.00 Weight (Pounds): 180 General Appearance: lethargic EENT: normal ENT inspection Neck: normal alignment Cardiovascular: normal peripheral pulses, normal rate, regular rhythm Respiratory/Chest: chest wall non-tender, lungs clear, normal breath sounds Abdomen: normal bowel sounds, non tender, soft Extremities: normal inspection Edema: no edema noted Arm (L), no edema noted Arm (R), no edema noted Leg (L), no edema noted Leg (R), no edema noted Pedal (L), no edema noted Pedal (R), no edema noted Generalized Neurologic: motor weakness Skin: normal pigmentation, warm/dry Han Swenson DO Mar 11, 2019 09:34
[2019-03-11 12:00] VITALS: BP 134/79
[2019-03-11] MEDS ORDERED: DiphenhydrAMINE 50mg/ml Inj IVP PRN (12:00)
--- NOTE | 2019-03-11 12:23 | Surgery Progress Note ---
Surgery Progress Note Subjective Additional Comments Patient seen and examined bedside. No acute events. Comfortable appearing. No complaints. Dressings intact. Objective Last 24 Hour Vital Signs Date Time Temp Pulse Resp B/P (MAP) Pulse Ox O2 Delivery O2 Flow Rate FiO2 03/11/19 08:29 Nasal Cannula 2.0 03/11/19 08:05 75 18 96 Nasal Cannula 2.0 28 03/11/19 08:05 96 Nasal Cannula 2.0 28 03/11/19 08:00 97.3 66 22 108/59 (75) 94 03/11/19 08:00 59 03/11/19 04:00 63 03/11/19 04:00 97.3 76 18 124/76 (92) 95 03/11/19 00:00 71 03/11/19 00:00 97.6 72 17 129/77 (94) 95 03/10/19 21:00 Nasal Cannula 2.0 03/10/19 20:00 76 03/10/19 20:00 97.9 78 18 126/81 (96) 95 03/10/19 19:38 97 Nasal Cannula 2.0 28 03/10/19 19:37 71 18 96 Nasal Cannula 2.0 28 03/10/19 16:00 98.0 67 22 116/73 (87) 93 03/10/19 15:26 84 I&O Intake and Output 03/10/19 03/11/19 18:59 06:59 Intake Total 1185.000 ml Balance 1185.000 ml Intake Free Water 30 ml IV Total 385.000 ml Tube Feeding 770 ml # Voids 4 # Bowel Movements 3 Dressing: dry Wound: clean, dry Cardiovascular: RSR Respiratory: clear Abdomen: soft, flat, non-tender, present bowel sounds Extremities: no edema, no tenderness, no cyanosis Laboratory Tests Test 03/11/19 04:35 White Blood Count 7.9 K/UL (4.8-10.8) Red Blood Count 5.26 M/UL (4.70-6.10) Hemoglobin 16.5 G/DL (14.2-18.0) Hematocrit 50.0 % (42.0-52.0) Mean Corpuscular Volume 95 FL (80-99) Mean Corpuscular Hemoglobin 31.4 PG (27.0-31.0) H Mean Corpuscular Hemoglobin Concent 33.1 G/DL (32.0-36.0) Red Cell Distribution Width 13.8 % (11.6-14.8) Platelet Count 119 K/UL (150-450) L Mean Platelet Volume 12.0 FL (6.5-10.1) H Neutrophils (%) (Auto) 65.0 % (45.0-75.0) Lymphocytes (%) (Auto) 7.4 % (20.0-45.0) L Monocytes (%) (Auto) 12.6 % (1.0-10.0) H Eosinophils (%) (Auto) 13.0 % (0.0-3.0) H Basophils (%) (Auto) 1.9 % (0.0-2.0) Sodium Level 138 MMOL/L (136-145) Potassium Level 4.2 MMOL/L (3.5-5.1) Chloride Level 107 MMOL/L (98-107) Carbon Dioxide Level 26 MMOL/L (21-32) Anion Gap 5 mmol/L (5-15) Blood Urea Nitrogen 15 mg/dL (7-18) Creatinine 0.8 MG/DL (0.55-1.30) Estimat Glomerular Filtration Rate mL/min (>60) Glucose Level 82 MG/DL (74-106) Hemoglobin A1c 5.8 % (4.3-6.0) Calcium Level 8.3 MG/DL (8.5-10.1) L Troponin I 0.023 ng/mL (0.000-0.056) Vancomycin Level Trough 16.5 ug/mL (5.0-12.0) H Plan Problems: (1) Abscess (2) Abscess of buttock Assessment & Plan: afebrile, HD stable, labs okay no leukocytosis left buttock small abscess that spontaneously drained and now with cellulitis and some overlying sloth. no fluctuance. no drainage currently no acute surgical intervention necessary at this time local wound care -IV abx as per ID -AM labs -will monitor wound. thank you will follow with Eric Hansen Mar 11, 2019 12:23
--- NOTE | 2019-03-11 12:32 | NUR ---
NURSE NOTES: Patient cleaned. Wound dressing to Lt buttock changed. Pictures taken for wounds.
--- NOTE | 2019-03-11 14:58 | Cardiac Electrophysiology PN ---
Assessment/Plan Assessment/Plan 1. Atrial fibrillation, the rate is currently controlled off any AV ramya blocking agents. On Eliquis 2.5 mg b.i.d. The patient most likely had significant AV ramya disease as the rate is controlled, in atrial fibrillation without being any AV ramya sadiq. 2. Questionable pacemaker. There is no evidence of pacemaker on the chest x-ray and the pacing spikes are not supportive of pacing, these are actually all artifact. 3. Questionable coronary artery disease. EKG does not show any evidence of ischemia. 4. Diabetes. 5. Left buttock small abscess that spontaneously drained No acute surgical intervention necessary per Dr Dickey 6. Dysphagia, status post G-tube. DW RN Subjective Subjective No new events in atrial fib with controlled rate Objective Last 24 Hour Vital Signs Date Time Temp Pulse Resp B/P (MAP) Pulse Ox O2 Delivery O2 Flow Rate FiO2 03/11/19 12:00 97.3 78 23 134/79 (97) 92 03/11/19 12:00 75 03/11/19 08:29 Nasal Cannula 2.0 03/11/19 08:05 75 18 96 Nasal Cannula 2.0 28 03/11/19 08:05 96 Nasal Cannula 2.0 28 03/11/19 08:00 97.3 66 22 108/59 (75) 94 03/11/19 08:00 59 03/11/19 04:00 63 03/11/19 04:00 97.3 76 18 124/76 (92) 95 03/11/19 00:00 71 03/11/19 00:00 97.6 72 17 129/77 (94) 95 03/10/19 21:00 Nasal Cannula 2.0 03/10/19 20:00 76 03/10/19 20:00 97.9 78 18 126/81 (96) 95 03/10/19 19:38 97 Nasal Cannula 2.0 28 03/10/19 19:37 71 18 96 Nasal Cannula 2.0 28 03/10/19 16:00 98.0 67 22 116/73 (87) 93 03/10/19 15:26 84 Intake and Output 03/10/19 03/11/19 18:59 06:59 Intake Total 1185.000 ml Balance 1185.000 ml Intake Free Water 30 ml IV Total 385.000 ml Tube Feeding 770 ml # Voids 4 # Bowel Movements 3 Laboratory Tests Test 03/11/19 04:35 White Blood Count 7.9 K/UL (4.8-10.8) Red Blood Count 5.26 M/UL (4.70-6.10) Hemoglobin 16.5 G/DL (14.2-18.0) Hematocrit 50.0 % (42.0-52.0) Mean Corpuscular Volume 95 FL (80-99) Mean Corpuscular Hemoglobin 31.4 PG (27.0-31.0) H Mean Corpuscular Hemoglobin Concent 33.1 G/DL (32.0-36.0) Red Cell Distribution Width 13.8 % (11.6-14.8) Platelet Count 119 K/UL (150-450) L Mean Platelet Volume 12.0 FL (6.5-10.1) H Neutrophils (%) (Auto) 65.0 % (45.0-75.0) Lymphocytes (%) (Auto) 7.4 % (20.0-45.0) L Monocytes (%) (Auto) 12.6 % (1.0-10.0) H Eosinophils (%) (Auto) 13.0 % (0.0-3.0) H Basophils (%) (Auto) 1.9 % (0.0-2.0) Sodium Level 138 MMOL/L (136-145) Potassium Level 4.2 MMOL/L (3.5-5.1) Chloride Level 107 MMOL/L (98-107) Carbon Dioxide Level 26 MMOL/L (21-32) Anion Gap 5 mmol/L (5-15) Blood Urea Nitrogen 15 mg/dL (7-18) Creatinine 0.8 MG/DL (0.55-1.30) Estimat Glomerular Filtration Rate mL/min (>60) Glucose Level 82 MG/DL (74-106) Hemoglobin A1c 5.8 % (4.3-6.0) Calcium Level 8.3 MG/DL (8.5-10.1) L Troponin I 0.023 ng/mL (0.000-0.056) Vancomycin Level Trough 16.5 ug/mL (5.0-12.0) H Microbiology Date/Time Source Procedure Growth Status 03/09/19 13:20 Buttock Left Gram Stain - Final Complete 03/09/19 13:20 Wound Culture - Final Staphylococcus Aureus Complete Objective HEAD AND NECK: Shows no JVD. LUNGS: Clear. CARDIOVASCULAR: Irregular. S1 and S2 with no gallop or murmur. ABDOMEN: Soft. EXTREMITIES: No pitting edema. Kevin Cano MD Mar 11, 2019 14:58
[2019-03-11 16:00] VITALS: BP 132/79
--- NOTE | 2019-03-11 19:21 | NUR ---
NURSE NOTES: Received report from SCOTT Ware. Pt in bed resting. HOB elevated. GT intact and patent. Pt in no acute distress. Will continue plan of care.
--- NOTE | 2019-03-11 19:21 | NUR ---
HAND-OFF: Report given to Garland Cohen RN. Patient stable resting comfortably in bed.
--- NOTE | 2019-03-11 19:45 | Progress Note ---
DATE: 03/11/2019 SUBJECTIVE: This is an 79-year-old male patient with buttock abscess. He continues to have some confusion, disorganized thought process, and mood lability. He has got no logical plan for his own self-care. He has got feelings of helplessness, hopelessness, low energy, poor appetite, and loss of interest in activity. That is why, he does require inpatient treatment at this time. He does have feelings of helplessness, hopelessness, low energy, poor appetite, and loss of interest in activity. He has buttock abscess, but he still has some mood lability, confusion, and disorganized thought process. He has altered mental status, confusion, and some mood lability worsened by the stress of his medical illness, so attending has requested daily psychiatric consultation for this patient. MENTAL STATUS EXAMINATION: An 79-year-old male. Appearance is disheveled. Attitude, irritable and agitated. Affect, guarded and restricted. Intellect poor. Mood, depressed and anxious. Motor activity, psychomotor agitation. Attention span is poor. Orientation x2. Speech is low volume, slurred. Thought process, disorganized and illogical. Insight and judgment is poor. DIAGNOSIS: Major depressive disorder, severe, recurrent with psychotic features, rule out dementia with psychosis. PLAN: Treat him with Risperdal 0.25 mg per G-tube nightly. Twenty minutes of cognitive behavioral therapy provided to help him identify his automatic negative thoughts and help him convert those negative thoughts to more positive thoughts to reduce depression, anxiety, mood lability. Chart reviewed. Discussed with staff. Seen and assessed at bedside. Елена Lang M.D. : [place] JOB#: [id number] CC:
[2019-03-11 20:00] VITALS: BP 106/62
[2019-03-12] VITALS: BP 108/54
--- NOTE | 2019-03-12 01:43 | NUR ---
NURSE NOTES: Pt asleep in bed, calm and resting with no acute s/s of distress noted. G tube feed tolerated - HOB elevated with no gastric residual noted. Roll Forming Machine Set Up Operator on - Aflutter (65). Bed in lowest position, bed alarm on. Call light and belongings within reach.
[2019-03-12 04:00] VITALS: BP 110/67
[2019-03-12] MEDS: Vancomycin 1gm/D5W 275ml IVPB SCH ×4 (05:14→17:29)
[2019-03-12] MEDS: NovoLOG Insulin Flexpen SUBQ SCH ×4 (05:15→18:00)
[2019-03-12] MEDS: Levothyroxine 25mcg tab GT SCH (06:25)
[2019-03-12 07:10] LABS: BASOPHILS % (AUTO) 2.2 % (0.0-2.0); EOSINOPHILS % (AUTO) 12.6 % (0.0-3.0); HEMATOCRIT 47.5 % (42.0-52.0); HEMOGLOBIN 15.5 G/DL (14.2-18.0); LYMPHOCYTES % (AUTO) 8.4 % (20.0-45.0); MEAN CORPUSCULAR VOLUME 96 FL (80-99); MONOCYTES % (AUTO) 13.9 % (1.0-10.0); NEUTROPHILS % (AUTO) 62.9 % (45.0-75.0); PLATELET COUNT 113 K/UL (150-450); RED BLOOD COUNT 4.93 M/UL (4.70-6.10); RED CELL DISTRIBUTION WIDTH 13.7 % (11.6-14.8); WHITE BLOOD COUNT 7.9 K/UL (4.8-10.8)
[2019-03-12 07:22] LABS: ANION GAP 4 mmol/L (5-15); BLOOD UREA NITROGEN 20 mg/dL (7-18); CALCIUM 8.1 MG/DL (8.5-10.1); CARBON DIOXIDE 29 MMOL/L (21-32); CHLORIDE 106 MMOL/L (98-107); CREATININE 0.8 MG/DL (0.55-1.30); POTASSIUM 4.2 MMOL/L (3.5-5.1); SODIUM 139 MMOL/L (136-145)
--- NOTE | 2019-03-12 07:34 | NUR ---
HAND-OFF: Report given to SCOTT Currie and SCOTT Carrillo. Plan of care endorsed.
--- NOTE | 2019-03-12 07:45 | General Progress Note ---
Assessment/Plan Problem List: (1) Dementia with psychosis ICD Codes: F03.91 - Unspecified dementia with behavioral disturbance SNOMED: 18936750, 79413316 (2) Diabetes mellitus ICD Codes: E11.9 - Type 2 diabetes mellitus without complications SNOMED: 98163187 (3) Abscess ICD Codes: L02.91 - Cutaneous abscess, unspecified SNOMED: 833935651 (4) Alzheimer's disease ICD Codes: G30.9 - Alzheimer's disease, unspecified; F02.80 - Dementia in other diseases classified elsewhere without behavioral disturbance SNOMED: 53662582 (5) Feeding by G-tube ICD Codes: Z93.1 - Gastrostomy status SNOMED: 374566005, 479465272, 136943135 (6) Abscess of buttock ICD Codes: L02.31 - Cutaneous abscess of buttock SNOMED: 39297189 Status: stable, progressing Assessment/Plan: wound care abx sx f/u dc if clear Subjective Constitutional: Reports: weakness Allergies: Coded Allergies: No Known Allergies (Unverified , 01/27/17) All Systems: reviewed and negative except above Subjective o2nc calm Objective Last 24 Hour Vital Signs Date Time Temp Pulse Resp B/P (MAP) Pulse Ox O2 Delivery O2 Flow Rate FiO2 03/12/19 07:07 97 Nasal Cannula 2.0 03/12/19 07:06 59 16 97 Nasal Cannula 2.0 03/12/19 04:00 97.4 61 18 110/67 (81) 95 03/12/19 04:00 52 03/12/19 00:00 97.2 54 18 108/54 (72) 95 03/12/19 00:00 64 03/11/19 21:00 Nasal Cannula 2.0 03/11/19 20:00 97.2 70 18 106/62 (77) 97 03/11/19 20:00 64 03/11/19 19:58 90 Nasal Cannula 21 03/11/19 19:56 76 18 90 Room Air 21 03/11/19 16:00 98.0 80 21 132/79 (96) 92 03/11/19 15:47 70 03/11/19 12:00 97.3 78 23 134/79 (97) 92 03/11/19 12:00 75 03/11/19 08:29 Nasal Cannula 2.0 03/11/19 08:05 75 18 96 Nasal Cannula 2.0 28 03/11/19 08:05 96 Nasal Cannula 2.0 28 03/11/19 08:00 97.3 66 22 108/59 (75) 94 03/11/19 08:00 59 Intake and Output 03/11/19 03/12/19 19:00 07:00 Intake Total 770 ml 850 ml Balance 770 ml 850 ml Intake Free Water 150 ml Tube Feeding 770 ml 700 ml # Voids 4 8 Laboratory Tests 03/12/19 06:51: White Blood Count 7.9, Red Blood Count 4.93, Hemoglobin 15.5, Hematocrit 47.5, Mean Corpuscular Volume 96, Mean Corpuscular Hemoglobin 31.5H, Mean Corpuscular Hemoglobin Concent 32.7, Red Cell Distribution Width 13.7, Platelet Count 113L, Mean Platelet Volume 10.7H, Neutrophils (%) (Auto) 62.9, Lymphocytes (%) (Auto) 8.4L, Monocytes (%) (Auto) 13.9H, Eosinophils (%) (Auto) 12.6H, Basophils (%) ( Auto) 2.2H, Sodium Level 139, Potassium Level 4.2, Chloride Level 106, Carbon Dioxide Level 29, Anion Gap 4L, Blood Urea Nitrogen 20H, Creatinine 0.8, Estimat Glomerular Filtration Rate , Glucose Level 133H, Calcium Level 8.1L, Thyroid Stimulating Hormone (TSH) [Pending] Height (Feet): 5 Height (Inches): 8.00 Weight (Pounds): 180 General Appearance: lethargic EENT: normal ENT inspection Neck: normal alignment Cardiovascular: normal peripheral pulses, normal rate, regular rhythm Respiratory/Chest: chest wall non-tender, lungs clear, normal breath sounds Abdomen: normal bowel sounds, non tender, soft Extremities: normal inspection Edema: no edema noted Arm (L), no edema noted Arm (R), no edema noted Leg (L), no edema noted Leg (R), no edema noted Pedal (L), no edema noted Pedal (R), no edema noted Generalized Neurologic: motor weakness Skin: normal pigmentation, warm/dry Han Swenson DO Mar 12, 2019 07:45
--- NOTE | 2019-03-12 07:50 | NUR ---
NURSE NOTES: Received report from SCOTT Haque. Pt is in bed resting. HOB elevated to 35 degree. GT intact and patent. Tube feeding hold til 9am. Pt in no acute distress. Patient is alert and orientated x0. Patient is breathing even and unlabored on 2L NC. Patient is on fall precaution and aspiration precaution. Bed is locked, call light within reach, side rails x 3 are up, and bed in lowest position. Noted discharge plan. Will continue plan of care.
[2019-03-12 08:00] VITALS: BP 126/95
--- NOTE | 2019-03-12 09:46 | Pulmonology Progress Note ---
Assessment/Plan Assessment/Plan ASSESSMENT Small buttock abscess, spontaneously drained Atrial fibrillation COPD Diabetes mellitus Dysphasia , G-tube Severe protein calorie malnutrition Alzheimer dementia Major depressive disorder with psychotic features Hypothyroidism PLAN OF CARE tele remains in A. fib , marlon Eliquis continue, off any AV ramya blockers cardio follows venous duplex BLE negative O2 HHN prn CXR with findings suspicious for bilateral pneumonia, doubt PNA fup with CXR remains afebrile, no leukocytosis WCX with Staph aureus abx as per ID wound care as per surgeon recommendation per surgeon no need for acute surgical intervention strict aspiration precautions, G-tube feeding tube feeding formula and protein supplements as per thermo cementing folder operator recommendation check TSH , for now continue current dose of levothyroxine psych meds as per psychiatrist BS management with SSI bowel regimen supportive care case discussed and evaluated by supervising physician Subjective Allergies: Coded Allergies: No Known Allergies (Unverified , 01/27/17) Subjective remains afebrile, no leukocytosis pulse ox stable on RA janie with A fib, rate controlled no chest pain Objective Last 24 Hour Vital Signs Date Time Temp Pulse Resp B/P (MAP) Pulse Ox O2 Delivery O2 Flow Rate FiO2 03/12/19 08:00 97.1 57 20 126/95 (105) 95 03/12/19 07:07 97 Nasal Cannula 2.0 28 03/12/19 07:06 59 16 97 Nasal Cannula 2.0 28 03/12/19 04:00 97.4 61 18 110/67 (81) 95 03/12/19 04:00 52 03/12/19 00:00 97.2 54 18 108/54 (72) 95 03/12/19 00:00 64 03/11/19 21:00 Nasal Cannula 2.0 03/11/19 20:00 97.2 70 18 106/62 (77) 97 03/11/19 20:00 64 03/11/19 19:58 90 Nasal Cannula 21 03/11/19 19:56 76 18 90 Room Air 21 03/11/19 16:00 98.0 80 21 132/79 (96) 92 03/11/19 15:47 70 03/11/19 12:00 97.3 78 23 134/79 (97) 92 03/11/19 12:00 75 Intake and Output 03/11/19 03/12/19 19:00 07:00 Intake Total 770 ml 850 ml Balance 770 ml 850 ml Intake Free Water 150 ml Tube Feeding 770 ml 700 ml # Voids 4 8 Objective General Appearance: no acute distress HEENT: normocephalic, atraumatic, anicteric Respiratory/Chest: lungs clear, no respiratory distress, no accessory muscle use Cardiovascular: normal peripheral pulses, no JVD, A fib on tele, marlon Abdomen: normal bowel sounds, soft, non tender G tube with TF Extremities: no edema, pedal pulses normal Neurologic/Psychiatric: abnormal gait, alert, responsive Musculoskeletal: atrophy - BLE Microbiology Date/Time Source Procedure Growth Status 03/09/19 13:35 Blood Blood Culture - Preliminary NO GROWTH AFTER 48 HOURS Resulted 03/09/19 13:20 Blood Blood Culture - Preliminary NO GROWTH AFTER 48 HOURS Resulted 03/09/19 13:20 Buttock Left Gram Stain - Final Complete 03/09/19 13:20 Wound Culture - Final Staphylococcus Aureus Complete Laboratory Tests 03/12/19 06:51: White Blood Count 7.9, Red Blood Count 4.93, Hemoglobin 15.5, Hematocrit 47.5, Mean Corpuscular Volume 96, Mean Corpuscular Hemoglobin 31.5H, Mean Corpuscular Hemoglobin Concent 32.7, Red Cell Distribution Width 13.7, Platelet Count 113L, Mean Platelet Volume 10.7H, Neutrophils (%) (Auto) 62.9, Lymphocytes (%) (Auto) 8.4L, Monocytes (%) (Auto) 13.9H, Eosinophils (%) (Auto) 12.6H, Basophils (%) ( Auto) 2.2H, Sodium Level 139, Potassium Level 4.2, Chloride Level 106, Carbon Dioxide Level 29, Anion Gap 4L, Blood Urea Nitrogen 20H, Creatinine 0.8, Estimat Glomerular Filtration Rate , Glucose Level 133H, Calcium Level 8.1L, Thyroid Stimulating Hormone (TSH) 4.802H Current Medications Medications (Trade) Dose Ordered Sig/Robin Route PRN Reason Start Time Stop Time Status Last Admin Dose Admin Acetaminophen (Tylenol) 650 mg Q4H PRN ORAL fever 03/09/19 18:15 04/08/19 18:14 Albuterol/ Ipratropium (Albuterol/ Ipratropium) 3 ml Q4H PRN HHN Shortness of Breath 03/09/19 18:15 03/14/19 18:14 Apixaban (Eliquis) 2.5 mg EVERY 12 HOURS GT 03/10/19 21:00 04/09/19 20:59 03/11/19 21:25 Dextrose (Dextrose 50%) 25 ml Q30M PRN IV Hypoglycemia 03/10/19 20:00 04/09/19 19:59 Dextrose (Dextrose 50%) 50 ml Q30M PRN IV Hypoglycemia 03/10/19 20:00 04/09/19 19:59 Diphenhydramine HCl (Benadryl) 25 mg Q6H PRN IVP Itching 03/11/19 12:00 04/10/19 11:59 03/11/19 12:02 Insulin Aspart (NovoLOG) Q6HR SUBQ 03/12/19 00:00 04/09/19 20:59 Levothyroxine Sodium (Synthroid) 25 mcg DAILY@0630 GT 03/10/19 06:30 04/09/19 06:29 03/12/19 06:25 Lorazepam (Ativan) 0.5 mg Q6H PRN ORAL For Anxiety 03/09/19 16:30 03/16/19 16:29 Morphine Sulfate (Morphine Sulfate) 2 mg Q4H PRN IVP Moderate Pain (Pain Scale 4-6) 03/09/19 18:15 03/16/19 18:14 Nitroglycerin (Ntg) 0.4 mg Q5M PRN SL Prn Chest Pain 03/09/19 18:15 04/08/19 18:14 Ondansetron HCl (Zofran) 4 mg Q6H PRN IVP Nausea & Vomiting 03/09/19 18:15 04/08/19 18:14 Polyethylene Glycol (Miralax) 17 gm DAILYPRN PRN ORAL Constipation 03/09/19 18:15 04/08/19 18:14 Risperidone (RisperDAL) 0.25 mg QHS GT 03/09/19 21:00 04/08/19 20:59 03/11/19 21:25 Temazepam (Restoril) 15 mg HSPRN PRN ORAL Insomnia 03/09/19 18:15 03/16/19 18:14 Vancomycin HCl (Vanco rx to dose) 1 ea DAILY PRN MISC Per rx protocol 03/09/19 15:45 10/26/19 15:44 Vancomycin HCl 1 gm/Dextrose 275 ml @ 183.708 mls/hr Q12HR@0500,1700 IVPB 03/10/19 05:00 03/15/19 04:59 03/12/19 05:14 Mirtha Brito NP Mar 12, 2019 09:46
[2019-03-12] MEDS: Eliquis 2.5mg tablet GT SCH ×2 (09:51→21:12)
--- NOTE | 2019-03-12 11:38 | NUR ---
NURSE NOTES: Attempt to call [facility] . Spoke with Jeana. Jeana states awaiting callback from admission coordinator who is suppose to come in the afternoon. Awaiting call back in one hour. Notified charge nurse
[2019-03-12 12:00] VITALS: BP 119/63
--- NOTE | 2019-03-12 15:17 | Cardiology Report ---
APPROVED REPORT EXAM: Two-dimensional and M-mode echocardiogram with Doppler and color Doppler. INDICATION Chest Pain M-Mode DIMENSIONS IVSd1.5 (0.7-1.1cm)Left Atrium (MM)4.5 (1.6-4.0cm) LVDd3.9 (3.5-5.6cm)Aortic Root3.1 (2.0-3.7cm) PWd1.1 (0.7-1.1cm)Aortic Cusp Exc.1.7 (1.5-2.0cm) LVDs2.5 (2.5-4.0cm) PWs1.4 cm Normal left ventricular chamber size, systolic function and wall motion. Left ventricular ejection fraction estimated to be 60%. Mild left ventricular hypertrophy. No evidence of pericardial effusion. All other cardiac chamber sizes are within normal limits. Focal aortic valve sclerosis with adequate cusp excursion. Thickened mitral valve leaflets with normal excursion. Mitral annulus and aortic root calcification. Pulmonic valve not well visualized. Normal tricuspid valve structure. IVC at normal size without physiologic collapse. A color flow and spectral Doppler study was performed and revealed: Moderate aortic regurgitation. Trace mitral regurgitation. Mitral diastolic velocities are non-diagnostic due to A-Fib. Trace tricuspid regurgitation. Tricuspid systolic velocities suggests peak right ventricular systolic pressure of 31mmHg. Pulmonic regurgitation present.
--- NOTE | 2019-03-12 15:24 | Cardiology Report ---
APPROVED REPORT EKG Measurement Heart [id number] Atrial fibrillation Low voltage QRS Septal infarct, age undetermined Abnormal ECG
--- NOTE | 2019-03-12 15:35 | Surgery Progress Note ---
Surgery Progress Note Subjective Additional Comments Patient seen and examined bedside. No acute events. Comfortable. Dressing changes going well. Labs okay. Objective Last 24 Hour Vital Signs Date Time Temp Pulse Resp B/P (MAP) Pulse Ox O2 Delivery O2 Flow Rate FiO2 03/12/19 09:00 Nasal Cannula 2.0 03/12/19 08:00 97.1 57 20 126/95 (105) 95 03/12/19 07:55 53 03/12/19 07:07 97 Nasal Cannula 2.0 03/12/19 07:06 59 16 97 Nasal Cannula 2.0 28 03/12/19 04:00 97.4 61 18 110/67 (81) 95 03/12/19 04:00 52 03/12/19 00:00 97.2 54 18 108/54 (72) 95 03/12/19 00:00 64 03/11/19 21:00 Nasal Cannula 2.0 03/11/19 20:00 97.2 70 18 106/62 (77) 97 03/11/19 20:00 64 03/11/19 19:58 90 Nasal Cannula 21 03/11/19 19:56 76 18 90 Room Air 21 03/11/19 16:00 98.0 80 21 132/79 (96) 92 03/11/19 15:47 70 I&O Intake and Output 03/11/19 03/12/19 19:00 07:00 Intake Total 770 ml 850 ml Balance 770 ml 850 ml Intake Free Water 150 ml Tube Feeding 770 ml 700 ml # Voids 4 8 Dressing: saturated Wound: clean Cardiovascular: RSR Respiratory: clear Abdomen: soft, flat, non-tender, present bowel sounds Extremities: no edema, no tenderness, no cyanosis Laboratory Tests Test 03/12/19 06:51 White Blood Count 7.9 K/UL (4.8-10.8) Red Blood Count 4.93 M/UL (4.70-6.10) Hemoglobin 15.5 G/DL (14.2-18.0) Hematocrit 47.5 % (42.0-52.0) Mean Corpuscular Volume 96 FL (80-99) Mean Corpuscular Hemoglobin 31.5 PG (27.0-31.0) H Mean Corpuscular Hemoglobin Concent 32.7 G/DL (32.0-36.0) Red Cell Distribution Width 13.7 % (11.6-14.8) Platelet Count 113 K/UL (150-450) L Mean Platelet Volume 10.7 FL (6.5-10.1) H Neutrophils (%) (Auto) 62.9 % (45.0-75.0) Lymphocytes (%) (Auto) 8.4 % (20.0-45.0) L Monocytes (%) (Auto) 13.9 % (1.0-10.0) H Eosinophils (%) (Auto) 12.6 % (0.0-3.0) H Basophils (%) (Auto) 2.2 % (0.0-2.0) H Sodium Level 139 MMOL/L (136-145) Potassium Level 4.2 MMOL/L (3.5-5.1) Chloride Level 106 MMOL/L (98-107) Carbon Dioxide Level 29 MMOL/L (21-32) Anion Gap 4 mmol/L (5-15) L Blood Urea Nitrogen 20 mg/dL (7-18) H Creatinine 0.8 MG/DL (0.55-1.30) Estimat Glomerular Filtration Rate mL/min (>60) Glucose Level 133 MG/DL (74-106) H Calcium Level 8.1 MG/DL (8.5-10.1) L Thyroid Stimulating Hormone (TSH) 4.802 uiU/mL (0.358-3.740) Plan Problems: (1) Abscess (2) Abscess of buttock Assessment & Plan: afebrile, HD stable, labs okay no leukocytosis left buttock small abscess that spontaneously drained and now with cellulitis and some overlying sloth. no fluctuance. no drainage currently no acute surgical intervention necessary at this time local wound care -IV abx as per ID -AM labs -will monitor wound. thank you will follow with Eric Hansen Mar 12, 2019 15:35
[2019-03-12] MEDS ORDERED: Tubing IV Secondary IV ONE (15:51)
[2019-03-12] MEDS ORDERED: NS 275ml ONE (15:51)
[2019-03-12] MEDS ORDERED: Sterile Water Irrig 1000ml IRRIG ONE (15:53)
[2019-03-12 16:00] VITALS: BP 112/58
--- NOTE | 2019-03-12 17:18 | NUR ---
NURSE NOTES: Paged Dr. Swenson @ 17:10 about medication reconciliation and abdominal g-tube dressing. 17:18- paged Dr. Antoine about IV antibiotics transfer orders to SNF
--- NOTE | 2019-03-12 17:30 | Progress Note ---
DATE: 03/12/2019 SUBJECTIVE: This is an 79-year-old male patient with buttock abscess. He continues to have some mood lability, confusion, disorganized thought process, mood lability. He has altered mental status worsened by stress of his medical illness that is why his attending physician has requested daily psychiatric consultation because his cognition has declined below his baseline. MENTAL STATUS EXAMINATION: The patient is an 79-year-old male. Appearance is disheveled. Attitude, irritable and agitated. Affect, guarded and restricted. Intellect poor. Mood, depressed and anxious. Motor activity, psychomotor . Attention span is poor. Insight and judgment is poor. DIAGNOSIS: Major depressive disorder, mild, recurrent psychotic features. PLAN: Treat him with Risperdal 0.25 mg per G-tube nightly. Twenty minutes of cognitive behavioral therapy provided to help him identify his automatic negative thoughts and help him convert those negative thoughts to more positive thoughts to reduce depression, anxiety, mood lability. Chart reviewed and discussed with staff. Seen and assessed in his room. Елена Lang M.D. DR: Yasir JOB#: [id number] CC:
--- NOTE | 2019-03-12 18:15 | NUR ---
NURSE NOTES: Spoke with Dr. Antoine. States order to continue IV vanco for one week.
--- NOTE | 2019-03-12 18:15 | NUR ---
HAND-OFF: Report given to SCOTT Haque. Addendum: 03/12/19 at 1943 by Kush Edmonds RN wrong time
--- NOTE | 2019-03-12 18:50 | NUR ---
NURSE NOTES: IV heplock was poor. Reinserted 22g on left FA, intact and patent. Received noticed that antibiotics was changed for discharge.
--- NOTE | 2019-03-12 18:56 | Infectious Diseases Prog Note ---
Assessment/Plan Assessment/Plan ASSESSMENT: Left buttock abscess. Wnd Cx: MSSA Dementia Psychosis. Malnutrition. Diabetes. Alzheimer PLAN: IV Vanco # / change to Ancef upon DC will change to Keflex to complete the course 03/10 Sp Cefepime # 2 Monitor CBC and BMP Monitor CXR blood Cx Surg Eval for I/d Subjective Allergies: Coded Allergies: No Known Allergies (Unverified , 01/27/17) Subjective probable DC today Objective Vital Signs Last 24 Hour Vital Signs Date Time Temp Pulse Resp B/P (MAP) Pulse Ox O2 Delivery O2 Flow Rate FiO2 03/12/19 16:00 96.8 57 20 112/58 (76) 96 03/12/19 15:37 57 03/12/19 12:00 97.3 64 20 119/63 (81) 96 03/12/19 11:46 61 03/12/19 09:00 Nasal Cannula 2.0 03/12/19 08:00 97.1 57 20 126/95 (105) 95 03/12/19 07:55 53 03/12/19 07:07 97 Nasal Cannula 2.0 28 03/12/19 07:06 59 16 97 Nasal Cannula 2.0 28 03/12/19 04:00 97.4 61 18 110/67 (81) 95 03/12/19 04:00 52 03/12/19 00:00 97.2 54 18 108/54 (72) 95 03/12/19 00:00 64 03/11/19 21:00 Nasal Cannula 2.0 03/11/19 20:00 97.2 70 18 106/62 (77) 97 03/11/19 20:00 64 03/11/19 19:58 90 Nasal Cannula 21 03/11/19 19:56 76 18 90 Room Air 21 Height (Feet): 5 Height (Inches): 8.00 Weight (Pounds): 180 Respiratory/Chest: normal breath sounds Cardiovascular: normal rate Abdomen: no organomegaly Laboratory Tests Test 03/12/19 06:51 White Blood Count 7.9 K/UL (4.8-10.8) Red Blood Count 4.93 M/UL (4.70-6.10) Hemoglobin 15.5 G/DL (14.2-18.0) Hematocrit 47.5 % (42.0-52.0) Mean Corpuscular Volume 96 FL (80-99) Mean Corpuscular Hemoglobin 31.5 PG (27.0-31.0) H Mean Corpuscular Hemoglobin Concent 32.7 G/DL (32.0-36.0) Red Cell Distribution Width 13.7 % (11.6-14.8) Platelet Count 113 K/UL (150-450) L Mean Platelet Volume 10.7 FL (6.5-10.1) H Neutrophils (%) (Auto) 62.9 % (45.0-75.0) Lymphocytes (%) (Auto) 8.4 % (20.0-45.0) L Monocytes (%) (Auto) 13.9 % (1.0-10.0) H Eosinophils (%) (Auto) 12.6 % (0.0-3.0) H Basophils (%) (Auto) 2.2 % (0.0-2.0) H Sodium Level 139 MMOL/L (136-145) Potassium Level 4.2 MMOL/L (3.5-5.1) Chloride Level 106 MMOL/L (98-107) Carbon Dioxide Level 29 MMOL/L (21-32) Anion Gap 4 mmol/L (5-15) L Blood Urea Nitrogen 20 mg/dL (7-18) H Creatinine 0.8 MG/DL (0.55-1.30) Estimat Glomerular Filtration Rate mL/min (>60) Glucose Level 133 MG/DL (74-106) H Calcium Level 8.1 MG/DL (8.5-10.1) L Thyroid Stimulating Hormone (TSH) 4.802 uiU/mL (0.358-3.740) Current Medications Medications (Trade) Dose Ordered Sig/Robin Route PRN Reason Start Time Stop Time Status Last Admin Dose Admin Acetaminophen (Tylenol) 650 mg Q4H PRN ORAL fever 03/09/19 18:15 04/08/19 18:14 Albuterol/ Ipratropium (Albuterol/ Ipratropium) 3 ml Q4H PRN HHN Shortness of Breath 03/09/19 18:15 03/14/19 18:14 Apixaban (Eliquis) 2.5 mg EVERY 12 HOURS GT 03/10/19 21:00 04/09/19 20:59 03/12/19 09:51 Dextrose (Dextrose 50%) 25 ml Q30M PRN IV Hypoglycemia 03/10/19 20:00 04/09/19 19:59 Dextrose (Dextrose 50%) 50 ml Q30M PRN IV Hypoglycemia 03/10/19 20:00 04/09/19 19:59 Diphenhydramine HCl (Benadryl) 25 mg Q6H PRN IVP Itching 03/11/19 12:00 04/10/19 11:59 03/11/19 12:02 Insulin Aspart (NovoLOG) Q6HR SUBQ 03/12/19 00:00 04/09/19 20:59 Levothyroxine Sodium (Synthroid) 25 mcg DAILY@0630 GT 03/10/19 06:30 04/09/19 06:29 03/12/19 06:25 Lorazepam (Ativan) 0.5 mg Q6H PRN ORAL For Anxiety 03/09/19 16:30 03/16/19 16:29 Morphine Sulfate (Morphine Sulfate) 2 mg Q4H PRN IVP Moderate Pain (Pain Scale 4-6) 03/09/19 18:15 03/16/19 18:14 Nitroglycerin (Ntg) 0.4 mg Q5M PRN SL Prn Chest Pain 03/09/19 18:15 04/08/19 18:14 Ondansetron HCl (Zofran) 4 mg Q6H PRN IVP Nausea & Vomiting 03/09/19 18:15 04/08/19 18:14 Polyethylene Glycol (Miralax) 17 gm DAILYPRN PRN ORAL Constipation 03/09/19 18:15 04/08/19 18:14 Risperidone (RisperDAL) 0.25 mg QHS GT 03/09/19 21:00 04/08/19 20:59 03/11/19 21:25 Temazepam (Restoril) 15 mg HSPRN PRN ORAL Insomnia 03/09/19 18:15 03/16/19 18:14 Vancomycin HCl (Vanco rx to dose) 1 ea DAILY PRN MISC Per rx protocol 03/09/19 15:45 04/08/19 15:44 Vancomycin HCl 1 gm/Dextrose 275 ml @ 183.708 mls/hr Q12HR@0500,1700 IVPB 03/10/19 05:00 03/15/19 04:59 03/12/19 17:29 Geronimo Antoine MD Mar 12, 2019 18:56
--- NOTE | 2019-03-12 19:40 | NUR ---
HAND-OFF: Report given to Garland and SCOTT Patel. Endorsed about discharge order. Clarified still need clearnace from pulmonary.
--- NOTE | 2019-03-12 19:48 | NUR ---
Received patient from SCOTT Currie. Patient is alert and in bed resting comfortably. No signs of distress or pain noted. Patient is non-verbal, and able to make needs known to a limited ability. Patient has G-tube with Glucerna 1.2 running at 70 ml/hr. Bed in lowest position, brakes on, siderails up x4, and call light within reach. Bed alarm activated. Will continue plan of care.
[2019-03-12 20:00] VITALS: BP 119/66
--- NOTE | 2019-03-12 21:01 | NUR ---
NURSE NOTES: Per Dr. León, pt is cleared from discharge from pulm standpoint.
[2019-03-12] MEDS: ceFAZolin sod 1 GM in D5W 55 ML IVPB SCH (21:12)
--- NOTE | 2019-03-12 21:48 | NUR ---
NURSE NOTES: Spoke with Jeana Langston, Fishing Boat Captain from [facility] if staff are available to receive pt if discharged at this time. Per Jeana, "we cannot take him at this time of the night d/t staffing but we are able to receive him early tomorrow morning." Will endorse to AM shift. Addendum: 03/12/19 at 2150 by Garland Cohen RN Dr. Swenson made aware.
[2019-03-13] VITALS: BP 122/69
[2019-03-13] MEDS ORDERED: Cephalexin 500mg cap ORAL SCH
--- NOTE | 2019-03-13 02:28 | NUR ---
NURSE NOTES: Received message from Dr. Antoine - "place pt on Ancef 1 gm q8hr IVPB while inpatient and then switch to Keflex 500 mg PO q6h upon discharge" Will carry out orders and continue plan of care.
[2019-03-13] MEDS ORDERED: RISPERDAL0.25 MG ORAL (02:38)
[2019-03-13] MEDS: NovoLOG Insulin Flexpen SUBQ SCH ×3 (05:27→12:00)
[2019-03-13] MEDS: Levothyroxine 25mcg tab GT SCH (05:43)
[2019-03-13] MEDS: ceFAZolin sod 1 GM in D5W 55 ML IVPB SCH ×2 (05:43→14:00)
--- NOTE | 2019-03-13 07:23 | NUR ---
HAND-OFF: Report given to SCOTT Currie. Patient asleep in bed, no signs of discomfort or pain. Patient is stable. Plan of care endorsed.
--- NOTE | 2019-03-13 07:32 | NUR ---
NURSE NOTES: Received report from SCOTT Haque. Pt is in bed resting. HOB elevated to 35 degree. GT intact and patent. Tube feeding hold til 9am. Pt is in no acute distress. Patient is alert. Patient is breathing even and unlabored on 2L NC. Patient is on fall precaution and aspiration precaution. Bed is locked, call light within reach, side rails x 3 are up, and bed in lowest position. Noted discharge plan for this morning. Will continue plan of care.
[2019-03-13 07:44] LABS: BASOPHILS % (AUTO) 1.6 % (0.0-2.0); EOSINOPHILS % (AUTO) 14.6 % (0.0-3.0); HEMATOCRIT 49.6 % (42.0-52.0); HEMOGLOBIN 16.3 G/DL (14.2-18.0); LYMPHOCYTES % (AUTO) 8.1 % (20.0-45.0); MEAN CORPUSCULAR VOLUME 97 FL (80-99); MONOCYTES % (AUTO) 13.2 % (1.0-10.0); NEUTROPHILS % (AUTO) 62.6 % (45.0-75.0); PLATELET COUNT 122 K/UL (150-450); RED BLOOD COUNT 5.14 M/UL (4.70-6.10); RED CELL DISTRIBUTION WIDTH 14.1 % (11.6-14.8); WHITE BLOOD COUNT 7.7 K/UL (4.8-10.8)
[2019-03-13 07:55] LABS: ANION GAP 4 mmol/L (5-15); BLOOD UREA NITROGEN 18 mg/dL (7-18); CALCIUM 8.5 MG/DL (8.5-10.1); CARBON DIOXIDE 28 MMOL/L (21-32); CHLORIDE 107 MMOL/L (98-107); CREATININE 0.9 MG/DL (0.55-1.30); POTASSIUM 4.1 MMOL/L (3.5-5.1); SODIUM 139 MMOL/L (136-145)
[2019-03-13 08:00] VITALS: BP 106/67
--- NOTE | 2019-03-13 09:12 | General Progress Note ---
Assessment/Plan Problem List: (1) Dementia with psychosis ICD Codes: F03.91 - Unspecified dementia with behavioral disturbance SNOMED: 92818396, 51138708 (2) Diabetes mellitus ICD Codes: E11.9 - Type 2 diabetes mellitus without complications SNOMED: 51290419 (3) Abscess ICD Codes: L02.91 - Cutaneous abscess, unspecified SNOMED: 707507026 (4) Alzheimer's disease ICD Codes: G30.9 - Alzheimer's disease, unspecified; F02.80 - Dementia in other diseases classified elsewhere without behavioral disturbance SNOMED: 40863797 (5) Feeding by G-tube ICD Codes: Z93.1 - Gastrostomy status SNOMED: 010617993, 442134658, 231212654 (6) Abscess of buttock ICD Codes: L02.31 - Cutaneous abscess of buttock SNOMED: 32574021 Status: stable, progressing Assessment/Plan: wound care abx sx f/u dc if clear Subjective Constitutional: Reports: weakness Allergies: Coded Allergies: No Known Allergies (Unverified , 01/27/17) All Systems: reviewed and negative except above Subjective o2nc calm Objective Last 24 Hour Vital Signs Date Time Temp Pulse Resp B/P (MAP) Pulse Ox O2 Delivery O2 Flow Rate FiO2 03/13/19 08:00 97.8 66 18 106/67 (80) 96 03/13/19 04:00 67 03/13/19 00:00 53 03/13/19 00:00 97.8 68 17 122/69 (86) 96 03/12/19 21:01 96 Nasal Cannula 2.0 28 03/12/19 21:01 60 18 96 Nasal Cannula 2.0 28 03/12/19 21:00 Nasal Cannula 2.0 03/12/19 20:00 97.4 62 18 119/66 (83) 94 03/12/19 20:00 63 03/12/19 16:00 96.8 57 20 112/58 (76) 96 03/12/19 15:37 57 03/12/19 12:00 97.3 64 20 119/63 (81) 96 03/12/19 11:46 61 Intake and Output 03/12/19 03/13/19 19:00 07:00 Intake Total 70 ml 800 ml Balance 70 ml 800 ml Intake Free Water 100 ml Tube Feeding 70 ml 700 ml # Voids 1 1 # Bowel Movements 1 1 Laboratory Tests 03/13/19 06:21: White Blood Count 7.7, Red Blood Count 5.14, Hemoglobin 16.3, Hematocrit 49.6, Mean Corpuscular Volume 97, Mean Corpuscular Hemoglobin 31.7H, Mean Corpuscular Hemoglobin Concent 32.8, Red Cell Distribution Width 14.1, Platelet Count 122L, Mean Platelet Volume 12.2H, Neutrophils (%) (Auto) 62.6, Lymphocytes (%) (Auto) 8.1L, Monocytes (%) (Auto) 13.2H, Eosinophils (%) (Auto) 14.6H, Basophils (%) ( Auto) 1.6, Sodium Level 139, Potassium Level 4.1, Chloride Level 107, Carbon Dioxide Level 28, Anion Gap 4L, Blood Urea Nitrogen 18, Creatinine 0.9, Estimat Glomerular Filtration Rate , Glucose Level 105, Calcium Level 8.5 Height (Feet): 5 Height (Inches): 8.00 Weight (Pounds): 180 General Appearance: lethargic EENT: normal ENT inspection Neck: normal alignment Cardiovascular: normal peripheral pulses, normal rate, regular rhythm Respiratory/Chest: chest wall non-tender, lungs clear, normal breath sounds Abdomen: normal bowel sounds, non tender, soft Extremities: normal inspection Edema: no edema noted Arm (L), no edema noted Arm (R), no edema noted Leg (L), no edema noted Leg (R), no edema noted Pedal (L), no edema noted Pedal (R), no edema noted Generalized Neurologic: motor weakness Skin: normal pigmentation, warm/dry Han Swenson DO Mar 13, 2019 09:12
[2019-03-13] MEDS: Eliquis 2.5mg tablet GT SCH (09:21)
--- NOTE | 2019-03-13 09:25 | Diagnostic Imaging Report ---
Indication: Cough Technique: One view of the chest Comparison: 03/09/2019 Findings: Right upper lobe and left mid and lower lung infiltrates appear largely unchanged. There is suggestion of increased infiltrate in the right lower lobe, however. The pleural spaces remain clear. The heart size is normal Impression: New/increased right lower lobe infiltrate. Other bilateral infiltrates are stable
[2019-03-13] MEDS ORDERED: LORazepam 0.5mg tab GT PRN (09:30)
[2019-03-13] MEDS ORDERED: Miralax 17gm pkt GT PRN (09:30)
[2019-03-13] MEDS ORDERED: Acetaminophen 650mg/20.3ml GT PRN (09:30)
--- NOTE | 2019-03-13 10:32 | NUR ---
RADIOLOGY DEPT., CHEST X-RAY DONE.-P.DYE
[2019-03-13 12:00] VITALS: BP 109/65
--- NOTE | 2019-03-13 12:43 | NUR ---
DISCHARGE DISPOSITION: PLEASE READ PATIENT TO BE DISCHARGED TO [facility] [address] T: [phone]>> CALL FOR REPORT [facility] ETA 1500 DAUGHTER JOHNATHAN MENDIETA IS AWARE AND AGREEABLE TO DCP [facility]
--- NOTE | 2019-03-13 13:40 | Pulmonology Progress Note ---
Assessment/Plan Problems: (1) Nosocomial pneumonia (2) Abscess (3) Interstitial lung disease (4) Alzheimer's disease (5) Diabetes mellitus (6) Feeding by G-tube (7) Chronic lung disease Assessment/Plan check sputum noew cxr reviewed, now infiltrate all noted surgical evaluation telemetry monitoring hold anticoagulation b/o possible surgery cardiology evaluation iv abx by ID consult symptomatic treatment. Subjective ROS Limited/Unobtainable: No Constitutional: Reports: no symptoms HEENT: Repors: no symptoms Respiratory: Reports: no symptoms Allergies: Coded Allergies: No Known Allergies (Unverified , 01/27/17) Objective Last 24 Hour Vital Signs Date Time Temp Pulse Resp B/P (MAP) Pulse Ox O2 Delivery O2 Flow Rate FiO2 03/13/19 12:00 97.3 70 18 109/65 (80) 95 03/13/19 09:01 68 18 96 Nasal Cannula 2.0 28 03/13/19 09:01 96 Nasal Cannula 2.0 28 03/13/19 09:00 Nasal Cannula 2.0 03/13/19 08:22 54 03/13/19 08:00 97.8 66 18 106/67 (80) 96 03/13/19 04:00 67 03/13/19 00:00 53 03/13/19 00:00 97.8 68 17 122/69 (86) 96 03/12/19 21:01 96 Nasal Cannula 2.0 28 03/12/19 21:01 60 18 96 Nasal Cannula 2.0 28 03/12/19 21:00 Nasal Cannula 2.0 03/12/19 20:00 97.4 62 18 119/66 (83) 94 03/12/19 20:00 63 03/12/19 16:00 96.8 57 20 112/58 (76) 96 03/12/19 15:37 57 Intake and Output 03/12/19 03/13/19 19:00 07:00 Intake Total 70 ml 800 ml Balance 70 ml 800 ml Intake Free Water 100 ml Tube Feeding 70 ml 700 ml # Voids 1 1 # Bowel Movements 1 1 General Appearance: WD/WN HEENT: normocephalic Respiratory/Chest: chest wall non-tender, lungs clear, normal breath sounds Cardiovascular: normal peripheral pulses, normal rate Abdomen: normal bowel sounds, soft, non tender Genitourinary: normal external genitalia 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 Lymphatic: no neck adenopathy Laboratory Tests 03/13/19 06:21: White Blood Count 7.7, Red Blood Count 5.14, Hemoglobin 16.3, Hematocrit 49.6, Mean Corpuscular Volume 97, Mean Corpuscular Hemoglobin 31.7H, Mean Corpuscular Hemoglobin Concent 32.8, Red Cell Distribution Width 14.1, Platelet Count 122L, Mean Platelet Volume 12.2H, Neutrophils (%) (Auto) 62.6, Lymphocytes (%) (Auto) 8.1L, Monocytes (%) (Auto) 13.2H, Eosinophils (%) (Auto) 14.6H, Basophils (%) ( Auto) 1.6, Sodium Level 139, Potassium Level 4.1, Chloride Level 107, Carbon Dioxide Level 28, Anion Gap 4L, Blood Urea Nitrogen 18, Creatinine 0.9, Estimat Glomerular Filtration Rate , Glucose Level 105, Calcium Level 8.5 Current Medications Medications (Trade) Dose Ordered Sig/Robin Route PRN Reason Start Time Stop Time Status Last Admin Dose Admin Acetaminophen (Tylenol) 650 mg Q4H PRN GT fever 03/13/19 09:30 04/08/19 18:14 Albuterol/ Ipratropium (Albuterol/ Ipratropium) 3 ml Q4H PRN HHN Shortness of Breath 03/09/19 18:15 03/14/19 18:14 Apixaban (Eliquis) 2.5 mg EVERY 12 HOURS GT 03/10/19 21:00 04/09/19 20:59 03/13/19 09:21 Cefazolin Sodium 1 gm/Dextrose 55 ml @ 110 mls/hr Q8HR IVPB 03/12/19 22:00 03/19/19 21:59 03/13/19 05:43 Dextrose (Dextrose 50%) 25 ml Q30M PRN IV Hypoglycemia 03/10/19 20:00 04/09/19 19:59 Dextrose (Dextrose 50%) 50 ml Q30M PRN IV Hypoglycemia 03/10/19 20:00 04/09/19 19:59 Diphenhydramine HCl (Benadryl) 25 mg Q6H PRN IVP Itching 03/11/19 12:00 04/10/19 11:59 03/11/19 12:02 Insulin Aspart (NovoLOG) Q6HR SUBQ 03/12/19 00:00 04/09/19 20:59 Levothyroxine Sodium (Synthroid) 25 mcg DAILY@0630 GT 03/10/19 06:30 04/09/19 06:29 03/13/19 05:43 Lorazepam (Ativan) 0.5 mg Q6H PRN GT For Anxiety 03/13/19 09:30 03/16/19 16:29 Morphine Sulfate (Morphine Sulfate) 2 mg Q4H PRN IVP Moderate Pain (Pain Scale 4-6) 03/09/19 18:15 03/16/19 18:14 Nitroglycerin (Ntg) 0.4 mg Q5M PRN SL Prn Chest Pain 03/09/19 18:15 04/08/19 18:14 Ondansetron HCl (Zofran) 4 mg Q6H PRN IVP Nausea & Vomiting 03/09/19 18:15 04/08/19 18:14 Polyethylene Glycol (Miralax) 17 gm DAILYPRN PRN GT Constipation 03/13/19 09:30 04/08/19 18:14 Risperidone (RisperDAL) 0.25 mg QHS GT 03/09/19 21:00 04/08/19 20:59 03/12/19 21:12 Temazepam (Restoril) 15 mg HSPRN PRN GT Insomnia 03/13/19 09:30 03/16/19 18:14 Fco León MD Mar 13, 2019 13:40
--- NOTE | 2019-03-13 13:58 | NUR ---
NURSE NOTES: Gave report to SCOTT Hunt supervisor electrolytic tinning of [facility].
[2019-03-13] MEDS ORDERED: RESTORIL15 MG ORAL (14:06)
[2019-03-13] MEDS ORDERED: SYNTHROID25 MCG ORAL (14:06)
[2019-03-13] MEDS ORDERED: CEPHALEXIN500 MG ORAL (14:07)
--- NOTE | 2019-03-13 14:42 | Cardiac Electrophysiology PN ---
Assessment/Plan Assessment/Plan 1. Atrial fibrillation, the rate is controlled off any AV ramya blocking agents. On Eliquis 2.5 mg b.i.d. Most likely had significant AV ramya disease as the rate is controlled, in atrial fibrillation without being any AV ramya sadiq. 2. Pacing artifact. There is no evidence of pacemaker on the chest x-ray and the pacing spikes are not supportive of pacing, these are actually all artifact. 3. Questionable coronary artery disease. EKG does not show any evidence of ischemia. 4. Diabetes. 5. Left buttock small abscess that spontaneously drained No acute surgical intervention necessary per Dr Dickey 6. Dysphagia, status post G-tube. DW RN Subjective Subjective No new events in atrial fib with controlled rate. Objective Last 24 Hour Vital Signs Date Time Temp Pulse Resp B/P (MAP) Pulse Ox O2 Delivery O2 Flow Rate FiO2 03/13/19 12:00 97.3 70 18 109/65 (80) 95 03/13/19 09:01 68 18 96 Nasal Cannula 2.0 28 03/13/19 09:01 96 Nasal Cannula 2.0 28 03/13/19 09:00 Nasal Cannula 2.0 03/13/19 08:22 54 03/13/19 08:00 97.8 66 18 106/67 (80) 96 03/13/19 04:00 67 03/13/19 00:00 53 03/13/19 00:00 97.8 68 17 122/69 (86) 96 03/12/19 21:01 96 Nasal Cannula 2.0 28 03/12/19 21:01 60 18 96 Nasal Cannula 2.0 28 03/12/19 21:00 Nasal Cannula 2.0 03/12/19 20:00 97.4 62 18 119/66 (83) 94 03/12/19 20:00 63 03/12/19 16:00 96.8 57 20 112/58 (76) 96 03/12/19 15:37 57 Intake and Output 03/12/19 03/13/19 19:00 07:00 Intake Total 70 ml 800 ml Balance 70 ml 800 ml Intake Free Water 100 ml Tube Feeding 70 ml 700 ml # Voids 1 1 # Bowel Movements 1 1 Laboratory Tests Test 03/13/19 06:21 White Blood Count 7.7 K/UL (4.8-10.8) Red Blood Count 5.14 M/UL (4.70-6.10) Hemoglobin 16.3 G/DL (14.2-18.0) Hematocrit 49.6 % (42.0-52.0) Mean Corpuscular Volume 97 FL (80-99) Mean Corpuscular Hemoglobin 31.7 PG (27.0-31.0) H Mean Corpuscular Hemoglobin Concent 32.8 G/DL (32.0-36.0) Red Cell Distribution Width 14.1 % (11.6-14.8) Platelet Count 122 K/UL (150-450) L Mean Platelet Volume 12.2 FL (6.5-10.1) H Neutrophils (%) (Auto) 62.6 % (45.0-75.0) Lymphocytes (%) (Auto) 8.1 % (20.0-45.0) L Monocytes (%) (Auto) 13.2 % (1.0-10.0) H Eosinophils (%) (Auto) 14.6 % (0.0-3.0) H Basophils (%) (Auto) 1.6 % (0.0-2.0) Sodium Level 139 MMOL/L (136-145) Potassium Level 4.1 MMOL/L (3.5-5.1) Chloride Level 107 MMOL/L (98-107) Carbon Dioxide Level 28 MMOL/L (21-32) Anion Gap 4 mmol/L (5-15) L Blood Urea Nitrogen 18 mg/dL (7-18) Creatinine 0.9 MG/DL (0.55-1.30) Estimat Glomerular Filtration Rate mL/min (>60) Glucose Level 105 MG/DL (74-106) Calcium Level 8.5 MG/DL (8.5-10.1) Objective HEAD AND NECK: No JVD. LUNGS: Clear. CARDIOVASCULAR: Irregular S1 and S2 with no gallop or murmur. ABDOMEN: Soft. EXTREMITIES: No pitting edema. Kevin Cano MD Mar 13, 2019 14:42
--- NOTE | 2019-03-13 14:49 | Infectious Diseases Prog Note ---
Assessment/Plan Assessment/Plan ASSESSMENT: Left buttock abscess. Wnd Cx: MSSA ?Pneum CXR: New/increased right lower lobe infiltrate. Other bilateral infiltrates are stable Dementia Psychosis. Malnutrition. Diabetes. Alzheimer PLAN: IV Vanco # 5/10 change to Ancef upon DC will change to Keflex to complete the course 03/10 Sp Cefepime # 2 Monitor CBC and BMP Monitor CXR blood Cx Surg Eval for I/d Subjective Allergies: Coded Allergies: No Known Allergies (Unverified , 01/27/17) Subjective afebrile Objective Vital Signs Last 24 Hour Vital Signs Date Time Temp Pulse Resp B/P (MAP) Pulse Ox O2 Delivery O2 Flow Rate FiO2 03/13/19 12:00 97.3 70 18 109/65 (80) 95 03/13/19 11:41 64 03/13/19 09:01 68 18 96 Nasal Cannula 2.0 28 03/13/19 09:01 96 Nasal Cannula 2.0 28 03/13/19 09:00 Nasal Cannula 2.0 03/13/19 08:22 54 03/13/19 08:00 97.8 66 18 106/67 (80) 96 03/13/19 04:00 67 03/13/19 00:00 53 03/13/19 00:00 97.8 68 17 122/69 (86) 96 03/12/19 21:01 96 Nasal Cannula 2.0 28 03/12/19 21:01 60 18 96 Nasal Cannula 2.0 28 03/12/19 21:00 Nasal Cannula 2.0 03/12/19 20:00 97.4 62 18 119/66 (83) 94 03/12/19 20:00 63 03/12/19 16:00 96.8 57 20 112/58 (76) 96 03/12/19 15:37 57 Height (Feet): 5 Height (Inches): 8.00 Weight (Pounds): 180 HEENT: anicteric Respiratory/Chest: normal breath sounds Cardiovascular: normal rate Abdomen: soft, non tender Laboratory Tests Test 03/13/19 06:21 White Blood Count 7.7 K/UL (4.8-10.8) Red Blood Count 5.14 M/UL (4.70-6.10) Hemoglobin 16.3 G/DL (14.2-18.0) Hematocrit 49.6 % (42.0-52.0) Mean Corpuscular Volume 97 FL (80-99) Mean Corpuscular Hemoglobin 31.7 PG (27.0-31.0) H Mean Corpuscular Hemoglobin Concent 32.8 G/DL (32.0-36.0) Red Cell Distribution Width 14.1 % (11.6-14.8) Platelet Count 122 K/UL (150-450) L Mean Platelet Volume 12.2 FL (6.5-10.1) H Neutrophils (%) (Auto) 62.6 % (45.0-75.0) Lymphocytes (%) (Auto) 8.1 % (20.0-45.0) L Monocytes (%) (Auto) 13.2 % (1.0-10.0) H Eosinophils (%) (Auto) 14.6 % (0.0-3.0) H Basophils (%) (Auto) 1.6 % (0.0-2.0) Sodium Level 139 MMOL/L (136-145) Potassium Level 4.1 MMOL/L (3.5-5.1) Chloride Level 107 MMOL/L (98-107) Carbon Dioxide Level 28 MMOL/L (21-32) Anion Gap 4 mmol/L (5-15) L Blood Urea Nitrogen 18 mg/dL (7-18) Creatinine 0.9 MG/DL (0.55-1.30) Estimat Glomerular Filtration Rate mL/min (>60) Glucose Level 105 MG/DL (74-106) Calcium Level 8.5 MG/DL (8.5-10.1) Current Medications Medications (Trade) Dose Ordered Sig/Robin Route PRN Reason Start Time Stop Time Status Last Admin Dose Admin Acetaminophen (Tylenol) 650 mg Q4H PRN GT fever 03/13/19 09:30 04/08/19 18:14 Albuterol/ Ipratropium (Albuterol/ Ipratropium) 3 ml Q4H PRN HHN Shortness of Breath 03/09/19 18:15 03/14/19 18:14 Apixaban (Eliquis) 2.5 mg EVERY 12 HOURS GT 03/10/19 21:00 04/09/19 20:59 03/13/19 09:21 Cefazolin Sodium 1 gm/Dextrose 55 ml @ 110 mls/hr Q8HR IVPB 03/12/19 22:00 03/19/19 21:59 03/13/19 05:43 Dextrose (Dextrose 50%) 25 ml Q30M PRN IV Hypoglycemia 03/10/19 20:00 04/09/19 19:59 Dextrose (Dextrose 50%) 50 ml Q30M PRN IV Hypoglycemia 03/10/19 20:00 04/09/19 19:59 Diphenhydramine HCl (Benadryl) 25 mg Q6H PRN IVP Itching 03/11/19 12:00 04/10/19 11:59 03/11/19 12:02 Insulin Aspart (NovoLOG) Q6HR SUBQ 03/12/19 00:00 04/09/19 20:59 Levothyroxine Sodium (Synthroid) 25 mcg DAILY@0630 GT 03/10/19 06:30 04/09/19 06:29 03/13/19 05:43 Lorazepam (Ativan) 0.5 mg Q6H PRN GT For Anxiety 03/13/19 09:30 03/16/19 16:29 Morphine Sulfate (Morphine Sulfate) 2 mg Q4H PRN IVP Moderate Pain (Pain Scale 4-6) 03/09/19 18:15 03/16/19 18:14 Nitroglycerin (Ntg) 0.4 mg Q5M PRN SL Prn Chest Pain 03/09/19 18:15 04/08/19 18:14 Ondansetron HCl (Zofran) 4 mg Q6H PRN IVP Nausea & Vomiting 03/09/19 18:15 04/08/19 18:14 Polyethylene Glycol (Miralax) 17 gm DAILYPRN PRN GT Constipation 03/13/19 09:30 04/08/19 18:14 Risperidone (RisperDAL) 0.25 mg QHS GT 03/09/19 21:00 04/08/19 20:59 03/12/19 21:12 Temazepam (Restoril) 15 mg HSPRN PRN GT Insomnia 03/13/19 09:30 03/16/19 18:14 Geronimo Antoine MD Mar 13, 2019 14:49
[2019-03-13] MEDS ORDERED: Tubing IV Secondary IV ONE (15:07)
--- NOTE | 2019-03-13 15:08 | NUR ---
Home Discharge: Patient is being discharged from medical care. Patient is alert and aphasic. Patient unable to sign belonging checklist and discharge papers. All medical devices such as IV, heart monitor, and ID band were removed. Patient left on gureldena with [facility] personnel to [facility].
--- NOTE | 2019-03-13 15:52 | Surgery Progress Note ---
Surgery Progress Note Subjective Symptoms: improved, pain absent, tolerating diet, voiding well, passing flatus Objective Last 24 Hour Vital Signs Date Time Temp Pulse Resp B/P (MAP) Pulse Ox O2 Delivery O2 Flow Rate FiO2 03/13/19 12:00 97.3 70 18 109/65 (80) 95 03/13/19 11:41 64 03/13/19 09:01 68 18 96 Nasal Cannula 2.0 28 03/13/19 09:01 96 Nasal Cannula 2.0 28 03/13/19 09:00 Nasal Cannula 2.0 03/13/19 08:22 54 03/13/19 08:00 97.8 66 18 106/67 (80) 96 03/13/19 04:00 67 03/13/19 00:00 53 03/13/19 00:00 97.8 68 17 122/69 (86) 96 03/12/19 21:01 96 Nasal Cannula 2.0 28 03/12/19 21:01 60 18 96 Nasal Cannula 2.0 28 03/12/19 21:00 Nasal Cannula 2.0 03/12/19 20:00 97.4 62 18 119/66 (83) 94 03/12/19 20:00 63 03/12/19 16:00 96.8 57 20 112/58 (76) 96 I&O Intake and Output 03/12/19 03/13/19 19:00 07:00 Intake Total 70 ml 800 ml Balance 70 ml 800 ml Intake Free Water 100 ml Tube Feeding 70 ml 700 ml # Voids 1 1 # Bowel Movements 1 1 Dressing: dry Wound: clean, other Cardiovascular: RSR Respiratory: clear Abdomen: soft, flat, non-tender, present bowel sounds Extremities: no edema, no tenderness, no cyanosis Laboratory Tests Test 03/13/19 06:21 White Blood Count 7.7 K/UL (4.8-10.8) Red Blood Count 5.14 M/UL (4.70-6.10) Hemoglobin 16.3 G/DL (14.2-18.0) Hematocrit 49.6 % (42.0-52.0) Mean Corpuscular Volume 97 FL (80-99) Mean Corpuscular Hemoglobin 31.7 PG (27.0-31.0) H Mean Corpuscular Hemoglobin Concent 32.8 G/DL (32.0-36.0) Red Cell Distribution Width 14.1 % (11.6-14.8) Platelet Count 122 K/UL (150-450) L Mean Platelet Volume 12.2 FL (6.5-10.1) H Neutrophils (%) (Auto) 62.6 % (45.0-75.0) Lymphocytes (%) (Auto) 8.1 % (20.0-45.0) L Monocytes (%) (Auto) 13.2 % (1.0-10.0) H Eosinophils (%) (Auto) 14.6 % (0.0-3.0) H Basophils (%) (Auto) 1.6 % (0.0-2.0) Sodium Level 139 MMOL/L (136-145) Potassium Level 4.1 MMOL/L (3.5-5.1) Chloride Level 107 MMOL/L (98-107) Carbon Dioxide Level 28 MMOL/L (21-32) Anion Gap 4 mmol/L (5-15) L Blood Urea Nitrogen 18 mg/dL (7-18) Creatinine 0.9 MG/DL (0.55-1.30) Estimat Glomerular Filtration Rate mL/min (>60) Glucose Level 105 MG/DL (74-106) Calcium Level 8.5 MG/DL (8.5-10.1) Plan Problems: (1) Abscess (2) Abscess of buttock Assessment & Plan: afebrile, HD stable, labs okay no leukocytosis left buttock small abscess that spontaneously drained and now with cellulitis and some overlying sloth. no fluctuance. no drainage currently no acute surgical intervention necessary at this time local wound care abx as per ave tse for d/c outpatient wound care and follow up thank you will follow with Eric Hansen Mar 13, 2019 15:52
--- NOTE | 2019-03-13 17:00 | Progress Note ---
DATE: 03/13/2019 SUBJECTIVE: This is an 79-year-old male patient with buttock abscess. He continues to have confusion, disorganized thought process, and mood lability. That is why, his attending has requested daily psychiatric consultation. MENTAL STATUS EXAMINATION: This is an 79-year-old male. Appearance is disheveled. Attitude, irritable and agitated. Affect, guarded and restricted. Intellect poor. Mood, depressed and anxious. Motor activity, psychomotor agitation. Attention span is poor. Orientation x2. Speech is pressured. Thought process, disorganized and illogical. Insight and judgment is poor. DIAGNOSIS: Major depressive disorder, mild, recurrent with psychotic features, rule out dementia with psychosis. PLAN: Treat him with Risperdal at a dose of 0.25 mg p.o. nightly. Provided him with 20 minutes of cognitive behavioral therapy to him identify his automatic negative thoughts, help convert negative thoughts to more positive thoughts to reduce depression, anxiety, mood lability. Chart reviewed and discussed with staff. Seen and assessed in his room. A 20 minutes of cognitive behavioral therapy provided. Елена Lang M.D. DR: ANDREW JOB#: [id number] CC:
--- NOTE | 2019-03-13 21:31 | Discharge Summary ---
Discharge Summary Discharge Summary _ DATE OF ADMISSION: 03/09/2019 DATE OF DISCHARGE: 03/13/2019 DISCHARGED BY: REASON FOR ADMISSION: 79 years old male with past medical history of hypertension, COPD, diabetes mellitus type 2, TIA, dysphagia, feeding by G-tube, Alzheimer dementia, presented for buttock abscess. In the custodial facility patient was noted to have gradual onset of increased swelling to his buttock with purulent drainage. Patient had a prior history of similar abscesses in the past. Patient had multiple episodes of incision and drainage. History was markedly limited by patient mental status. Upon evaluation patient was afebrile. Laboratory work-up revealed no leukocytosis, stable hemoglobin and hematocrit. Lactic acid 1.4. Troponin negative. Stable electrolytes. BUN 25, creatinine 0.9. Glucose 127. Stable LFT. Chest x-ray demonstrated bilateral pneumonia. Patient admitted to telemetry floor for further management. CONSULTANTS: packager machine Dr. Fong industrial roof plumber/ hospitalist Dr. León ID specialist Dr. Antoine surgery Dr. Dickey psychiatrist Dr. Lang [facility]: Patient admitted to telemetry floor. Surgery evaluation was requested. Patient started on empiric antibiotic as per ID specialist recommendation. Pain management was addressed as needed. Patient remained in atrial fibrillation/flutter. Anticoagulation with Eliquis continued. Patient was off any AV ramya blockers. Rate controlled. Venous duplex bilateral lower extremity was negative. Supplemental oxygen titrated to keep pulse oximetry above 92%. Nebulizing treatment with bronchodilator was on board as needed. Patient remained afebrile no leukocytosis despite chest x-ray findings of bilateral pneumonia. Wound culture revealed Staph aureus. Blood cultures were negative. Antibiotic provided as per ID specialist recommendation. Wound care provided per surgeon recommendation. Abscess was small and spontaneously draining. Per surgeon, no acute surgical intervention was required at this time. Strict aspiration precaution maintained. G-tube feeding continued. Follow-up chest x-ray revealed new increased right lower lobe infiltrate. Other bilateral infiltrates were stable. Per industrial roof plumber, patient probably had nosocomial pneumonia. ID specialist recommended to change antibiotic to oral upon discharge to complete the course and the facility. Follow-up with chest x-ray at the facility. Blood sugar was managed with sliding scale of insulin. Bowel regimen instituted. Supportive care provided. Protein supplements implemented in plan of care as per registered radiologic technologist recommendations. Psychiatrist followed. Psychiatric medication regimen was optimized. Patient clinically stabilized and was ready for transfer back to custodial facility for continuation of care. FINAL DIAGNOSES: Probably pneumonia Small buttock abscess, spontaneously drained Atrial fibrillation Interstitial lung disease Diabetes mellitus Dysphagia, feeding by G-tube Alzheimer's dementia Hypothyroidism Severe protein calorie malnutrition Major depressive disorder with psychotic features DISCHARGE MEDICATIONS: See Medication Reconciliation list. DISCHARGE INSTRUCTIONS: Patient was discharged to the custodial facility. Follow up with medical doctor at the facility. I have been assigned to dictate discharge summary for this account. I was not involved in the patient's management. Mirtha Brito NP Mar 13, 2019 21:31
--- NOTE | 2019-03-16 13:04 | Diagnostic Imaging Report ---
APPROVED REPORT CPT Code: 67932 Present Symptoms Lower Extremity Pain: Bilateral BILATERAL: Imaging reveals a patent deep venous system bilaterally. There is no evidence of thrombus within the femoral, popliteal or tibial segments. The greater saphenous veins are also within normal limits. Doppler indicates normal spontaneous flow within these segments.
== END 2019-03-13 15:08 | DRG 602 ==
LOC: EDBD 12:09 → EMR 12:38 → 2E 13:05 → EDBEDREQ 14:31 → 2E 03-10 15:11
DX: L02.31 Cutaneous abscess of buttock (principal); J18.9 Pneumonia, unspecified organism; E43 Unspecified severe protein-calorie malnutrition; Z43.1 Encounter for attention to gastrostomy; F33.3 Major depressive disorder, recurrent, severe with psychotic symptoms; Y95 Nosocomial condition; R53.1 Weakness; G30.9 Alzheimer's disease, unspecified; F02.80 Dementia in other diseases classified elsewhere, unspecified severity, without behavioral disturbance, psychotic disturbance, mood disturbance, and anxiety; F29 Unspecified psychosis not due to a substance or known physiological condition; E11.9 Type 2 diabetes mellitus without complications; Z86.73 Personal history of transient ischemic attack (TIA), and cerebral infarction without residual deficits; Z79.01 Long term (current) use of anticoagulants; I48.91 Unspecified atrial fibrillation; E03.9 Hypothyroidism, unspecified; I25.2 Old myocardial infarction; R13.10 Dysphagia, unspecified
CPT/HCPCS: 36415; 71045; 80048; 80053; 80202; 82550; 82553; 82962; 83036; 83605; 83735; 84100; 84443; 84484; 85025; 85610; 85730; 87040; 87070; 87181; 87205; 93005; 93306; 93970; 94664; 96365; 96366; 96367; 96368; 97803; 99285; J1815

== ENCOUNTER 2019-12-16 18:50 | Inpatient (IN) | payer MEDICARE, MEDICAID ==
[~2019-12-16] VITALS: Ht 167.6 cm; Wt 74.8 kg
[~2019-12-16 18:50] MED LIST changes: +CEPHALEXIN500 MG ORAL; +RESTORIL15 MG ORAL; +RISPERDAL0.25 MG ORAL; +SYNTHROID25 MCG ORAL
[2019-12-16 19:09] VITALS: BP 152/99
[2019-12-16] MEDS ORDERED: Omnipaque-300 100ml vial INJ PRN (19:15)
--- NOTE | 2019-12-16 19:34 | Diagnostic Imaging Report ---
EXAM: XR Chest, 1 View CLINICAL HISTORY: SOB TECHNIQUE: Frontal view of the chest. COMPARISON: 03/13/2019 FINDINGS: Lungs: Coarse bilateral interstitial lung markings. Asymmetric increased opacification of the left lower lobe, not significant changes compared to prior imaging. Pleural space: Unremarkable. No pneumothorax. Heart: Unremarkable. No cardiomegaly. Aorta is tortuous. Mediastinum: Unremarkable. Bones/joints: Unremarkable. IMPRESSION: Coarse bilateral interstitial lung markings suggesting chronic interstitial lung disease. Asymmetric increased density of the left lung not significant changed as compared to prior imaging may be sequela of chronic interstitial lung disease. Underlying concomitant infection is not entirely excluded. Dedicated frontal and lateral radiographs can be considered for further evaluation.
--- NOTE | 2019-12-16 19:35 | Emergency Room Report ---
History of Present Illness General Chief Complaint: Malfunctioning Gastric Tube Source: Patient, Medical Record Present Illness HPI Patient is an 79-year-old male sent in from facility for increased drainage from his G-tube. Patient had prior history of G-tube dependence. Had recent positive for coronavirus testing. Was noted to have increased leakage from stoma site. Patient was sent in from facility. Allergies: Coded Allergies: No Known Allergies (Unverified , 01/27/17) COVID-19 Screening Contact w/high risk pt: No Recent Travel to affected area: No Experienced COVID-19 symptoms?: Yes COVID-19 symptoms experienced: Cough COVID-19 Testing performed SAMPLES AND REPAIRS PREPARER: Yes COVID-19 Screening: Negative COVID-19 COVID-19 Testing Source: 12/12/19 Patient History Past Medical History: see triage record Reviewed Nursing Documentation: PMH: Agreed; PSxH: Agreed Nursing Documentation-PMH Past Medical History: No History, Except For Hx Hypertension: Yes Hx COPD: Yes Hx Diabetes: Yes - DMII Hx Cancer: No Hx Gastrointestinal Problems: Yes Hx Neurological Problems: No Hx Cerebrovascular Accident: Yes Hx Transient Ischemic Attacks: Yes Hx Dementia: Yes Hx Alzheimer's Disease: Yes Hx Aphasia: Yes Review of Systems All Other Systems: negative except mentioned in HPI Physical Exam Vital Signs Date Time Temp Pulse Resp B/P (MAP) Pulse Ox O2 Delivery O2 Flow Rate FiO2 12/16/19 18:51 98.2 89 20 140/75 (96) 90 Room Air Sp02 EP Interpretation: reviewed, normal General Appearance: normal inspection, well appearing, no apparent distress, alert, GCS 15 Head: atraumatic ENT: normal ENT inspection, hearing grossly normal, normal voice Neck: normal inspection, full range of motion, supple, no bony tend Respiratory: normal inspection, lungs clear, normal breath sounds, no respiratory distress, no retraction, no wheezing Cardiovascular #1: regular rate, rhythm, no edema Gastrointestinal: normal inspection, normal bowel sounds, non tender, soft, no guarding, no hernia Genitourinary: no CVA tenderness Musculoskeletal: normal inspection, back normal, normal range of motion Neurologic: alert, motor strength/tone normal, cat scanner operator III-XII nml as tested, responsive, speech normal, normal inspection Psychiatric: normal inspection, judgement/insight normal, mood/affect normal Medical Decision Making Diagnostic Impression: Primary Impression: Feeding by G-tube Additional Impressions: G-tube site cellulitis 2019 novel coronavirus disease (COVID-19) ER Course Patient presented for G-tube malfunctioning. Patient had known recent diagnosis of coronavirus infection. He was noted to have fever as well as increased tenderness from the area around his G-tube. Patient laboratory testing showed a markedly elevated white blood count. Patient was given IV fluids as well as IV antibiotics. CT of the abdomen pelvis read by radiology showed. 1. 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 2. Cholelithiasis without CT evidence of acute cholecystitis. 3. Impacted stool within the rectum measuring 8 cm in diameter. 4. Percutaneous gastrostomy tube positioned within the gastric antrum. Mild gastric mucosal thickening, underdistention versus gastritis. Patient will be admitted to the hospital for further evaluation and treatment of likely COVID pneumonitis as well as management of malfunctioning gastrostomy tube. Dr. Han Swenson was contacted for inpatient management. Laboratory Tests Test 12/16/19 19:34 White Blood Count 21.2 K/UL (4.8-10.8) H Red Blood Count 4.84 M/UL (4.70-6.10) Hemoglobin 15.7 G/DL (14.2-18.0) Hematocrit 47.6 % (42.0-52.0) Mean Corpuscular Volume 98 FL (80-99) Mean Corpuscular Hemoglobin 32.4 PG (27.0-31.0) H Mean Corpuscular Hemoglobin Concent 32.9 G/DL (32.0-36.0) Red Cell Distribution Width 13.5 % (11.6-14.8) Platelet Count 115 K/UL (150-450) L Mean Platelet Volume 12.8 FL (6.5-10.1) H Neutrophils (%) (Auto) 85.8 % (45.0-75.0) H Lymphocytes (%) (Auto) 4.2 % (20.0-45.0) L Monocytes (%) (Auto) 8.9 % (1.0-10.0) Eosinophils (%) (Auto) 0.1 % (0.0-3.0) Basophils (%) (Auto) 1.1 % (0.0-2.0) Sodium Level 140 MMOL/L (136-145) Potassium Level 4.2 MMOL/L (3.5-5.1) Chloride Level 107 MMOL/L (98-107) Carbon Dioxide Level 27 MMOL/L (21-32) Anion Gap 7 mmol/L (5-15) Blood Urea Nitrogen 38 mg/dL (7-18) H Creatinine 1.0 MG/DL (0.55-1.30) Estimated Glomerular Filtration Rate > 60 mL/min (>60) Glucose Level 177 MG/DL (74-106) H Lactic Acid Level 1.60 mmol/L (0.4-2.0) Calcium Level 8.5 MG/DL (8.5-10.1) Total Bilirubin 0.7 MG/DL (0.2-1.0) Aspartate Amino Transferase (AST) 58 U/L (15-37) H Alanine Aminotransferase (ALT) 29 U/L (12-78) Alkaline Phosphatase 280 U/L (46-116) H Total Creatine Kinase 531 U/L (26-308) H Creatine Kinase MB 2.6 NG/ML (0.0-3.6) Creatine Kinase MB Relative Index 0.4 Troponin I 0.007 ng/mL (0.000-0.056) Total Protein 7.9 G/DL (6.4-8.2) Albumin 2.6 G/DL (3.4-5.0) L Globulin 5.3 g/dL Albumin/Globulin Ratio 0.5 (1.0-2.7) L Urine Color Yellow Urine Appearance Clear Urine pH 7 (4.5-8.0) Urine Specific [place] 1.010 (1.005-1.035) Urine Protein 2+ (NEGATIVE) H Urine Glucose (UA) Negative (NEGATIVE) Urine Ketones Negative (NEGATIVE) Urine Blood 2+ (NEGATIVE) H Urine Nitrite Negative (NEGATIVE) Urine Bilirubin Negative (NEGATIVE) Urine Urobilinogen 4 MG/DL (0.0-1.0) H Urine Leukocyte Esterase Negative (NEGATIVE) Urine RBC 2-4 /HPF (0 - 0) H Urine WBC 2-4 /HPF (0 - 0) Urine Squamous Epithelial Cells Occasional /LPF Urine Amorphous Sediment Few /LPF (NONE) H Urine Bacteria Few /HPF (NONE) Differential Total Cells Counted Neutrophils % (Manual) Lymphocytes % (Manual) Monocytes % (Manual) Basophils % (Manual) Band Neutrophils Platelet Estimate Platelet Morphology Macrocytosis Prothrombin Time Prothrombin Time INR Activated Partial Thromboplast Time Hemoglobin A1c Amylase Level Lipase Thyroid Stimulating Hormone (TSH) POC Whole Blood Glucose Test POC Whole Blood Glucose Last Vital Signs Date Time Temp Pulse Resp B/P (MAP) Pulse Ox O2 Delivery O2 Flow Rate FiO2 12/16/19 18:51 98.2 89 20 140/75 (96) 90 Room Air Status: unchanged Disposition: ADMITTED INPATIENT Condition: Stable Veto Yi MD Dec 16, 2019 19:35
[2019-12-16 19:58] LABS: ANION GAP 7 mmol/L (5-15); BLOOD UREA NITROGEN 38 mg/dL (7-18); CALCIUM 8.5 MG/DL (8.5-10.1); CARBON DIOXIDE 27 MMOL/L (21-32); CHLORIDE 107 MMOL/L (98-107); POTASSIUM 4.2 MMOL/L (3.5-5.1); SODIUM 140 MMOL/L (136-145)
[2019-12-16 20:10] LABS: HEMATOCRIT 47.6 % (42.0-52.0); HEMOGLOBIN 15.7 G/DL (14.2-18.0); MEAN CORPUSCULAR VOLUME 98 FL (80-99); PLATELET COUNT 115 K/UL (150-450); RED BLOOD COUNT 4.84 M/UL (4.70-6.10); RED CELL DISTRIBUTION WIDTH 13.5 % (11.6-14.8); WHITE BLOOD COUNT 21.2 K/UL (4.8-10.8)
[2019-12-16 20:12] LABS: ALANINE AMINOTRANSFERASE 29 U/L (12-78); ALBUMIN 2.6 G/DL (3.4-5.0); ALBUMIN/GLOBULIN RATIO 0.5 (1.0-2.7); ALKALINE PHOSPHATASE 280 U/L (46-116); ASPARTATE AMINO TRANSFERASE 58 U/L (15-37); BILIRUBIN,TOTAL 0.7 MG/DL (0.2-1.0); CKMB 2.6 NG/ML (0.0-3.6); CREATINE KINASE 531 U/L (26-308); LYMPHOCYTES % (AUTO) 4.2 % (20.0-45.0); MONOCYTES % (AUTO) 8.9 % (1.0-10.0); NEUTROPHILS % (AUTO) 85.8 % (45.0-75.0)
[2019-12-16 20:13] LABS: BASOPHILS % (AUTO) 1.1 % (0.0-2.0); EOSINOPHILS % (AUTO) 0.1 % (0.0-3.0)
[2019-12-16] MEDS ORDERED: Piperacillin/Tazobactam 3.375 GM in NS 110 ML IVPB ONE (20:30)
--- NOTE | 2019-12-16 21:01 | Diagnostic Imaging Report ---
EXAM: CT Abdomen and Pelvis With Intravenous Contrast CLINICAL HISTORY: SOB TECHNIQUE: Axial computed tomography images of the abdomen and pelvis with intravenous contrast. CTDI is 7.8 mGy and DLP is 433.1 mGy-cm. One or more of the following dose reduction techniques were used: automated exposure control, adjustment of the mA and/or kV according to patient size, use of iterative reconstruction technique. COMPARISON: No relevant prior studies available. FINDINGS: Lung bases: Emphysematous and interstitial changes at the lung bases. ABDOMEN: Liver: Unremarkable. Gallbladder and bile ducts: Cholelithiasis without CT evidence of acute cholecystitis. Pancreas: Unremarkable. Spleen: Unremarkable. Adrenals: Unremarkable. Kidneys and ureters: Unremarkable. No obstructing stones. No hydronephrosis. Stomach and bowel: Percutaneous gastrostomy tube positioned within the gastric antrum. Gastric mucosal thickening, underdistention versus gastritis. Impacted stool within the rectum measuring 8 cm in diameter. Mild colonic diverticulosis without diverticulitis. PELVIS: Appendix: No findings to suggest acute appendicitis. Bladder: Unremarkable. Reproductive: Unremarkable as visualized. ABDOMEN and PELVIS: Intraperitoneal space: Unremarkable. No free air. No significant fluid collection. Bones/joints: No acute fracture. Chronic appearing vertebral body height loss L2 and L4. Soft tissues: Unremarkable. Vasculature: Unremarkable. Lymph nodes: Unremarkable. IMPRESSION: 1. 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 2. Cholelithiasis without CT evidence of acute cholecystitis. 3. Impacted stool within the rectum measuring 8 cm in diameter. 4. Percutaneous gastrostomy tube positioned within the gastric antrum. Mild gastric mucosal thickening, underdistention versus gastritis.
[2019-12-16 21:57] VITALS: BP 149/85
[2019-12-16] MEDS ORDERED: Nitroglycerin Subl 0.4mg tab SL PRN (23:45)
[2019-12-17 02:10] LABS: APPEARANCE,URINE CLEAR; BILIRUBIN, URINE NEGATIVE (NEGATIVE); GLUCOSE, URINE (UA) NEGATIVE (NEGATIVE); KETONES,URINE NEGATIVE (NEGATIVE); LEUKOCYTE ESTERASE ,URINE NEGATIVE (NEGATIVE); NITRITE,URINE NEGATIVE (NEGATIVE); PH,URINE 7 (4.5-8.0); PROTEIN,URINE 2+ (NEGATIVE); UROBILINOGEN,URINE 4 MG/DL (0.0-1.0)
[2019-12-17 02:12] LABS: COLOR,URINE YELLOW
[2019-12-17 03:01] VITALS: BP 140/57
[2019-12-17 05:02] LABS: HEMATOCRIT 45.2 % (42.0-52.0); HEMOGLOBIN 14.4 G/DL (14.2-18.0); MEAN CORPUSCULAR VOLUME 102 FL (80-99); PLATELET COUNT 107 K/UL (150-450); RED BLOOD COUNT 4.44 M/UL (4.70-6.10); RED CELL DISTRIBUTION WIDTH 13.9 % (11.6-14.8); WHITE BLOOD COUNT 18.9 K/UL (4.8-10.8)
[2019-12-17 05:03] LABS: INR 1.1 (0.9-1.1)
[2019-12-17 05:07] VITALS: BP 136/65
[2019-12-17 05:30] LABS: ALANINE AMINOTRANSFERASE 26 U/L (12-78); ALBUMIN 2.2 G/DL (3.4-5.0); ALBUMIN/GLOBULIN RATIO 0.4 (1.0-2.7); ALKALINE PHOSPHATASE 230 U/L (46-116); AMYLASE 39 U/L (25-115); ANION GAP 9 mmol/L (5-15); ASPARTATE AMINO TRANSFERASE 53 U/L (15-37); BILIRUBIN,TOTAL 0.9 MG/DL (0.2-1.0); BLOOD UREA NITROGEN 30 mg/dL (7-18); CALCIUM 7.5 MG/DL (8.5-10.1); CARBON DIOXIDE 25 MMOL/L (21-32); CHLORIDE 111 MMOL/L (98-107); CREATININE 0.8 MG/DL (0.55-1.30); SODIUM 145 MMOL/L (136-145)
[2019-12-17] MEDS: NovoLOG Insulin Flexpen SUBQ SCH ×3 (06:29→17:50)
[2019-12-17] MEDS ORDERED: Levothyroxine 25mcg tab ONE (06:32)
[2019-12-17] MEDS: Levothyroxine 25mcg tab ORAL SCH (06:33)
--- NOTE | 2019-12-17 07:34 | Consultation ---
History of Present Illness General Date patient seen: Dec 17, 2019 Time patient seen: 08:34 Chief Complaint: Malfunctioning Gastric Tube Referring physician: dr. hanley Reason for Consultation: leuko tyosis Present Illness HPI 79yo gentleman with PMH below presents from facility for increased drainage from G tube and malfunctioning. Pt with recent positive COVID. Pt unable to speak but is alert, nods/shakes head and follows commands. Denies fever, chills , cough, sob, abd pain, diarrhea. PMH: DM Hypothyroidism HTN Dementia COPD moreno failure schizophrenia anxiety h/o CVA Allergies: Coded Allergies: No Known Allergies (Unverified , 01/27/17) Medication History Scheduled Apixaban (Eliquis), 2.5 MG GT BID, (Reported) Ascorbic Acid* (Ascorbic Acid*), 500 MG GT DAILY, (Reported) Docusate Sodium* (Colace*), 100 MG GT BID, (Reported) Insulin Aspart (Novolog Flexpen), SQ Q6HR, (Reported) Insulin Regular, Human* (Novolin R*), 0 SUBQ .SLIDING SCALE, (Reported) Levothyroxine Sodium* (Synthroid*), 25 MCG ORAL DAILY, (Reported) Lorazepam* (Ativan*), 0.5 MG GT Q6HR, (Reported) Memantine Hcl* (Namenda*), 5 MG GT BID, (Reported) Multivitamin With Minerals (Multivitamins With Minerals*), 1 TAB ORAL DAILY, ( Reported) Pravastatin Sod* (Pravastatin Sod*), 20 MG GT BEDTIME, (Reported) Risperidone* (Risperdal*), 0.25 MG GT QHS, (Reported) Scheduled PRN Acetaminophen* (Tylenol Extra Strength*), 1,000 MG GT Q4HR PRN for Moderate Pain (Pain Scale 4-6), (Reported) Bisacodyl (Bisacodyl), 10 MG RC DAILY PRN for CONSTIPATION IF MOM IS INEFFEC, ( Reported) Ipratropium [place] 0.5MG/2.5ML (Ipratropium [place] 0.5MG/2.5ML), 0.5 MG HHN Q4HR PRN for Shortness of Breath, (Reported) Magnesium Hydroxide* (Milk Of Magnesia*), 30 ML GT QHS PRN for CONST IF SOFTENER IS INEFFECTI, (Reported) Na Phos,M-B/Na Phos,Di-Ba* (Fleet Enema*), 133 ML RECTAL EVERY OTHER DAY PRN for CONST IF BISACODYL IS INEFFECT, (Reported) Temazepam* (Restoril*), 15 MG ORAL BEDTIME PRN for Insomnia, (Reported) Discontinued Medications Acetaminophen* (Acetaminophen 325MG Tablet*), 325 MG ORAL Q4H PRN for Mild Pain/ Temp > 100.5, (Reported) Discontinued Reason: MD discontinued med Cephalexin* (Keflex*), 500 MG ORAL EVERY 6 HOURS, (Reported) Discontinued Reason: MD discontinued med Memantine Hcl* (Namenda*), 5 MG GT BID, (Reported) Discontinued Reason: MD discontinued med Memantine Hcl* (Namenda*), 5 MG GT BID, (Reported) Discontinued Reason: MD discontinued med Risperidone* (Risperdal*), 0.25 MG ORAL QHS, (Reported) Discontinued Reason: MD discontinued med Trimethoprim/Sulfamethoxazole (Bactrim Ds Tablet), 1 TAB ORAL TWICE A DAY, ( Reported) Discontinued Reason: Therapy completed Patient History Healthcare decision maker Resuscitation status Advanced Directive on File Review of Systems All Other Systems: negative except mentioned in HPI Physical Exam General Appearance: no apparent distress, thin Lines, tubes and drains: gtube - irritation HEENT: anicteric, mucous membranes moist, thrush Neck: supple Respiratory/Chest: no respiratory distress, no accessory muscle use, decreased breath sounds Cardiovascular/Chest: normal rate, regular rhythm Abdomen: normal bowel sounds, non tender, soft, no mass Skin Exam: normal pigmentation, warm/dry Neurologic: alert, responsive, normal mood/affect Last 24 Hour Vital Signs Date Time Temp Pulse Resp B/P (MAP) Pulse Ox O2 Delivery O2 Flow Rate FiO2 12/17/19 05:07 84 24 136/65 97 Room Air 12/17/19 03:01 84 14 140/57 98 Room Air 12/16/19 21:57 81 26 149/85 95 Room Air 12/16/19 19:09 98.4 89 28 152/99 96 Room Air 12/16/19 18:51 98.2 89 20 140/75 (96) 90 Room Air Intake and Output 12/16/19 12/17/19 19:00 07:00 Intake Total 160 ml Output Total 300 ml Balance -140 ml Intake Oral 0 ml IV Total 160 ml Output Urine Total 300 ml Laboratory Tests Test 12/16/19 19:34 12/17/19 01:29 12/17/19 04:00 12/17/19 06:28 White Blood Count 21.2 K/UL (4.8-10.8) H 18.9 K/UL (4.8-10.8) H Red Blood Count 4.84 M/UL (4.70-6.10) 4.44 M/UL (4.70-6.10) L Hemoglobin 15.7 G/DL (14.2-18.0) 14.4 G/DL (14.2-18.0) Hematocrit 47.6 % (42.0-52.0) 45.2 % (42.0-52.0) Mean Corpuscular Volume 98 FL (80-99) 102 FL (80-99) H Mean Corpuscular Hemoglobin 32.4 PG (27.0-31.0) H 32.5 PG (27.0-31.0) H Mean Corpuscular Hemoglobin Concent 32.9 G/DL (32.0-36.0) 31.9 G/DL (32.0-36.0) L Red Cell Distribution Width 13.5 % (11.6-14.8) 13.9 % (11.6-14.8) Platelet Count 115 K/UL (150-450) L 107 K/UL (150-450) L Mean Platelet Volume 12.8 FL (6.5-10.1) H 11.8 FL (6.5-10.1) H Neutrophils (%) (Auto) 85.8 % (45.0-75.0) H % (45.0-75.0) Lymphocytes (%) (Auto) 4.2 % (20.0-45.0) L % (20.0-45.0) Monocytes (%) (Auto) 8.9 % (1.0-10.0) % (1.0-10.0) Eosinophils (%) (Auto) 0.1 % (0.0-3.0) % (0.0-3.0) Basophils (%) (Auto) 1.1 % (0.0-2.0) % (0.0-2.0) Sodium Level 140 MMOL/L (136-145) 145 MMOL/L (136-145) Potassium Level 4.2 MMOL/L (3.5-5.1) 4.0 MMOL/L (3.5-5.1) Chloride Level 107 MMOL/L (98-107) 111 MMOL/L (98-107) H Carbon Dioxide Level 27 MMOL/L (21-32) 25 MMOL/L (21-32) Anion Gap 7 mmol/L (5-15) 9 mmol/L (5-15) Blood Urea Nitrogen 38 mg/dL (7-18) H 30 mg/dL (7-18) H Creatinine 1.0 MG/DL (0.55-1.30) 0.8 MG/DL (0.55-1.30) Estimat Glomerular Filtration Rate > 60 mL/min (>60) > 60 mL/min (>60) Glucose Level 177 MG/DL (74-106) H 124 MG/DL (74-106) H Lactic Acid Level 1.60 mmol/L (0.4-2.0) Calcium Level 8.5 MG/DL (8.5-10.1) 7.5 MG/DL (8.5-10.1) L Total Bilirubin 0.7 MG/DL (0.2-1.0) 0.9 MG/DL (0.2-1.0) Aspartate Amino Transf (AST/SGOT) 58 U/L (15-37) H 53 U/L (15-37) H Alanine Aminotransferase (ALT/SGPT) 29 U/L (12-78) 26 U/L (12-78) Alkaline Phosphatase 280 U/L (46-116) H 230 U/L (46-116) H Total Creatine Kinase 531 U/L (26-308) H Creatine Kinase MB 2.6 NG/ML (0.0-3.6) Creatine Kinase MB Relative Index 0.4 Troponin I 0.007 ng/mL (0.000-0.056) Total Protein 7.9 G/DL (6.4-8.2) 7.1 G/DL (6.4-8.2) Albumin 2.6 G/DL (3.4-5.0) L 2.2 G/DL (3.4-5.0) L Globulin 5.3 g/dL 4.9 g/dL Albumin/Globulin Ratio 0.5 (1.0-2.7) L 0.4 (1.0-2.7) L Urine Color Yellow Urine Appearance Clear Urine pH 7 (4.5-8.0) Urine Specific [place] 1.010 (1.005-1.035) Urine Protein 2+ (NEGATIVE) H Urine Glucose (UA) Negative (NEGATIVE) Urine Ketones Negative (NEGATIVE) Urine Blood 2+ (NEGATIVE) H Urine Nitrite Negative (NEGATIVE) Urine Bilirubin Negative (NEGATIVE) Urine Urobilinogen 4 MG/DL (0.0-1.0) H Urine Leukocyte Esterase Negative (NEGATIVE) Urine RBC 2-4 /HPF (0 - 0) H Urine WBC 2-4 /HPF (0 - 0) Urine Squamous Epithelial Cells Occasional /LPF Urine Amorphous Sediment Few /LPF (NONE) H Urine Bacteria Few /HPF (NONE) Neutrophils % (Manual) Pending Lymphocytes % (Manual) Pending Platelet Estimate Pending Platelet Morphology Pending Prothrombin Time 11.6 SEC (9.30-11.50) H Prothromb Time International Ratio 1.1 (0.9-1.1) Activated Partial Thromboplast Time 29 SEC (23-33) Hemoglobin A1c 6.3 % (4.3-6.0) H Amylase Level 39 U/L (25-115) Lipase 97 U/L (73-393) Thyroid Stimulating Hormone (TSH) 1.958 uiU/mL (0.358-3.740) POC Whole Blood Glucose 120 MG/DL (74-106) H Microbiology Date/Time Source Procedure Growth Status 12/17/19 01:29 Rectum Received Height (Feet): 5 Height (Inches): 6.00 Weight (Pounds): 150 Medications Current Medications Medications (Trade) Dose Ordered Sig/Robin Route PRN Reason Start Time Stop Time Status Last Admin Dose Admin Acetaminophen (Tylenol) 650 mg Q4H PRN ORAL fever 12/16/19 23:45 01/15/20 23:44 Dextrose (Dextrose 50%) 25 ml Q30M PRN IV Hypoglycemia 12/16/19 23:45 03/15/20 23:44 Dextrose (Dextrose 50%) 50 ml Q30M PRN IV Hypoglycemia 12/16/19 23:45 03/15/20 23:44 Diphenhydramine HCl (Benadryl) 25 mg Q6H PRN ORAL Itching/Pruritis 12/16/19 23:45 01/15/20 23:44 Heparin Sodium (Porcine) (Heparin 5000 units/ml) 5,000 units EVERY 12 HOURS SUBQ 12/17/19 09:00 01/31/20 08:59 Insulin Aspart (NovoLOG) BEFORE MEALS AND HS SUBQ 12/17/19 06:30 03/16/20 06:29 Iohexol (OMNIPAQUE-300 100ml) 100 ml NOW PRN INJ Radiology Procedure 12/16/19 19:15 12/18/19 19:07 Levothyroxine Sodium (Synthroid) 25 mcg ACBREAKFAST ORAL 12/17/19 06:30 01/16/20 06:29 12/17/19 06:33 Nitroglycerin (Ntg) 0.4 mg Q5M X 3 DOSES PRN SL Prn Chest Pain 12/16/19 23:45 01/15/20 23:44 Ondansetron HCl (Zofran) 4 mg Q6H PRN IVP Nausea & Vomiting 12/16/19 23:45 01/15/20 23:44 Risperidone (RisperDAL) 0.25 mg QHS GT 12/17/19 21:00 01/31/20 20:59 Sodium Chloride 1,000 ml @ 50 mls/hr Q20H IV 12/16/19 23:41 01/15/20 23:40 12/16/19 23:57 Assessment/Plan Assessment/Plan: Afebrile RA Leukocytosis Recent COVID 19 PNA 11/12 COVID pos? (no lab result, just from notes) 11/26 COVID pos 12/06 COVID pos 12/11 COVID negative CXR: Coarse bilateral interstitial lung markings suggesting chronic interstitial lung disease. Asymmetric increased density of the left lung not significant changed as compared to prior imaging may be sequela of chronic interstitial lung disease. Underlying concomitant infection is not entirely excluded. Dedicated frontal and lateral radiographs can be considered for further evaluation. G tube site drainage, irritation and cellulitis CT abd: Emphysematous and interstitial changes at the lung bases. Cholelithiasis without CT evidence of acute cholecystitis. Impacted stool within the rectum measuring 8 cm in diameter. Percutaneous gastrostomy tube positioned within the gastric antrum. Mild gastric mucosal thickening, underdistention versus gastritis. r/o bacteremia Bcx: P Unlikely UTI UA negative Dementia with psychosis DM Alzheimer's disease ILD MRSA colonization Hypothyroidism HTN COPD heart failure schizophrenia anxiety h/o CVA Plan: Zosyn and Vanc #1 monitor temp and cbc monitor resp status f/u bcx repeat COVID 19 swab COVID isolation for now VERA CHAVEZ and primary Bhumika Johnson MD Dec 17, 2019 07:34
[2019-12-17 07:50] VITALS: BP 140/93
[2019-12-17] MEDS ORDERED: Vancomycin 1.5gm/NS Premix 275 ML IVPB SCH (08:00)
[2019-12-17] MEDS ORDERED: Piperacillin/Tazobactam 3.375 GM in NS 110 ML IVPB SCH (08:00)
[2019-12-17] MEDS: Nystatin Susp 500,000 units/5ml ORAL SCH ×4 (09:00→21:15)
[2019-12-17] MEDS ORDERED: Heparin 5000 units/ml inj ONE (09:04)
[2019-12-17] MEDS: Heparin 5000 units/ml inj SUBQ SCH ×2 (09:06→21:00)
[2019-12-17] MEDS: Piperacillin/Tazobactam 3.375 GM in NS 110 ML IVPB SCH ×2 (10:00→18:00)
--- NOTE | 2019-12-17 10:08 | Consultation ---
History of Present Illness General Date patient seen: Dec 17, 2019 Time patient seen: 09:00 Chief Complaint: Malfunctioning Gastric Tube Referring physician: Dr Swenson Reason for Consultation: + COVID, prob PNA Present Illness HPI 79 y/old male with PMH of CVA, COPD, hypertension, CAD, DM type 2, dysphagia, feeding by G-tube, schizophrenia, dementia, resident of group home facility, was sent for evaluation due to leaking G-tube. Patient apparently about a month ago was tested positive for COVID 19, last testing 12/11 was negative. Upon evaluation patient was afebrile , pulse oximetry was 90% on room air. Laboratory work-up revealed significant leukocytosis WBC 21.2, stable hemoglobin , hematocrit. Platelet count 115 BUN 38, creatinine 1.0 Glucose 177. Stable electrolytes. Lactic acid 1.6. AST 58, ALT 29, alkaline phosphatase 280. Troponin negative. Albumin 2.6. Stable amylase and lipase. Urinalysis revealed +2 protein , no evidence of urinary tract infection. CXR demonstrated coarse bilateral interstitial lung markings, suggesting chronic interstitial lung disease. Asymmetric increased density of the left lung, no significant change as compared to prior imaging and probably sequela of chronic interstitial lung disease. Underlying concomitant infection was not excluded. CT of the abdomen and pelvis revealed emphysematous and interstitial changes in the lung bases. Cholelithiasis without evidence of acute cholecystitis Impacted stool within the rectum G-tube positioned within the gastric antrum. Mild gastric mucosal thickening : underdistention versus gastritis In emergency room patient received fluids, empiric antibiotics and admitted for further management. Pulmo consult was requested to assist with resp management of this patient Allergies: Coded Allergies: No Known Allergies (Unverified , 01/27/17) Medication History Scheduled Apixaban (Eliquis), 2.5 MG GT BID, (Reported) Ascorbic Acid* (Ascorbic Acid*), 500 MG GT DAILY, (Reported) Docusate Sodium* (Colace*), 100 MG GT BID, (Reported) Insulin Aspart (Novolog Flexpen), SQ Q6HR, (Reported) Insulin Regular, Human* (Novolin R*), 0 SUBQ .SLIDING SCALE, (Reported) Levothyroxine Sodium* (Synthroid*), 25 MCG ORAL DAILY, (Reported) Lorazepam* (Ativan*), 0.5 MG GT Q6HR, (Reported) Memantine Hcl* (Namenda*), 5 MG GT BID, (Reported) Multivitamin With Minerals (Multivitamins With Minerals*), 1 TAB ORAL DAILY, ( Reported) Pravastatin Sod* (Pravastatin Sod*), 20 MG GT BEDTIME, (Reported) Risperidone* (Risperdal*), 0.25 MG GT QHS, (Reported) Scheduled PRN Acetaminophen* (Tylenol Extra Strength*), 1,000 MG GT Q4HR PRN for Moderate Pain (Pain Scale 4-6), (Reported) Bisacodyl (Bisacodyl), 10 MG RC DAILY PRN for CONSTIPATION IF MOM IS INEFFEC, ( Reported) Ipratropium [place] 0.5MG/2.5ML (Ipratropium [place] 0.5MG/2.5ML), 0.5 MG HHN Q4HR PRN for Shortness of Breath, (Reported) Magnesium Hydroxide* (Milk Of Magnesia*), 30 ML GT QHS PRN for CONST IF SOFTENER IS INEFFECTI, (Reported) Na Phos,M-B/Na Phos,Di-Ba* (Fleet Enema*), 133 ML RECTAL EVERY OTHER DAY PRN for CONST IF BISACODYL IS INEFFECT, (Reported) Temazepam* (Restoril*), 15 MG ORAL BEDTIME PRN for Insomnia, (Reported) Discontinued Medications Acetaminophen* (Acetaminophen 325MG Tablet*), 325 MG ORAL Q4H PRN for Mild Pain/ Temp > 100.5, (Reported) Discontinued Reason: MD discontinued med Cephalexin* (Keflex*), 500 MG ORAL EVERY 6 HOURS, (Reported) Discontinued Reason: MD discontinued med Memantine Hcl* (Namenda*), 5 MG GT BID, (Reported) Discontinued Reason: MD discontinued med Memantine Hcl* (Namenda*), 5 MG GT BID, (Reported) Discontinued Reason: MD discontinued med Risperidone* (Risperdal*), 0.25 MG ORAL QHS, (Reported) Discontinued Reason: MD discontinued med Trimethoprim/Sulfamethoxazole (Bactrim Ds Tablet), 1 TAB ORAL TWICE A DAY, ( Reported) Discontinued Reason: Therapy completed Patient History History Provided By: Medical Record Healthcare decision maker Resuscitation status full code Advanced Directive on File Past Medical/Surgical History Past Medical/Surgical History: (1) Feeding by G-tube (2) Interstitial lung disease (3) Alzheimer's disease (4) 2019 novel coronavirus disease (COVID-19) Review of Systems ROS Narrative unable to obtain ROS due to me dical condition ( advanced dementia) Physical Exam General Appearance: other - bedridden, confused, aphasic male in NAD Lines, tubes and drains: peripheral HEENT: normocephalic, atraumatic, anicteric Neck: supple Respiratory/Chest: no respiratory distress, no accessory muscle use, rhonchi - bilaterally - few scattered bibasialr rhonchi Cardiovascular/Chest: normal rate, regular rhythm Abdomen: normal bowel sounds, non tender, soft, other - G tube with surreound mild erythema., no drainage, no edema Extremities: no calf tenderness, normal capillary refill Neurologic: abnormal gait, responsive - severe dementia, aphasic Last 24 Hour Vital Signs Date Time Temp Pulse Resp B/P (MAP) Pulse Ox O2 Delivery O2 Flow Rate FiO2 12/17/19 07:50 98.4 89 25 140/93 96 Room Air 12/17/19 05:07 84 24 136/65 97 Room Air 12/17/19 03:01 84 14 140/57 98 Room Air 12/16/19 21:57 81 26 149/85 95 Room Air 12/16/19 19:09 98.4 89 28 152/99 96 Room Air 12/16/19 18:51 98.2 89 20 140/75 (96) 90 Room Air Intake and Output 12/16/19 12/17/19 19:00 07:00 Intake Total 160 ml Output Total 300 ml Balance -140 ml Intake Oral 0 ml IV Total 160 ml Output Urine Total 300 ml Laboratory Tests Test 12/16/19 19:34 12/17/19 01:29 12/17/19 04:00 12/17/19 06:28 White Blood Count 21.2 K/UL (4.8-10.8) H 18.9 K/UL (4.8-10.8) H Red Blood Count 4.84 M/UL (4.70-6.10) 4.44 M/UL (4.70-6.10) L Hemoglobin 15.7 G/DL (14.2-18.0) 14.4 G/DL (14.2-18.0) Hematocrit 47.6 % (42.0-52.0) 45.2 % (42.0-52.0) Mean Corpuscular Volume 98 FL (80-99) 102 FL (80-99) H Mean Corpuscular Hemoglobin 32.4 PG (27.0-31.0) H 32.5 PG (27.0-31.0) H Mean Corpuscular Hemoglobin Concent 32.9 G/DL (32.0-36.0) 31.9 G/DL (32.0-36.0) L Red Cell Distribution Width 13.5 % (11.6-14.8) 13.9 % (11.6-14.8) Platelet Count 115 K/UL (150-450) L 107 K/UL (150-450) L Mean Platelet Volume 12.8 FL (6.5-10.1) H 11.8 FL (6.5-10.1) H Neutrophils (%) (Auto) 85.8 % (45.0-75.0) H % (45.0-75.0) Lymphocytes (%) (Auto) 4.2 % (20.0-45.0) L % (20.0-45.0) Monocytes (%) (Auto) 8.9 % (1.0-10.0) % (1.0-10.0) Eosinophils (%) (Auto) 0.1 % (0.0-3.0) % (0.0-3.0) Basophils (%) (Auto) 1.1 % (0.0-2.0) % (0.0-2.0) Sodium Level 140 MMOL/L (136-145) 145 MMOL/L (136-145) Potassium Level 4.2 MMOL/L (3.5-5.1) 4.0 MMOL/L (3.5-5.1) Chloride Level 107 MMOL/L (98-107) 111 MMOL/L (98-107) H Carbon Dioxide Level 27 MMOL/L (21-32) 25 MMOL/L (21-32) Anion Gap 7 mmol/L (5-15) 9 mmol/L (5-15) Blood Urea Nitrogen 38 mg/dL (7-18) H 30 mg/dL (7-18) H Creatinine 1.0 MG/DL (0.55-1.30) 0.8 MG/DL (0.55-1.30) Estimat Glomerular Filtration Rate > 60 mL/min (>60) > 60 mL/min (>60) Glucose Level 177 MG/DL (74-106) H 124 MG/DL (74-106) H Lactic Acid Level 1.60 mmol/L (0.4-2.0) Calcium Level 8.5 MG/DL (8.5-10.1) 7.5 MG/DL (8.5-10.1) L Total Bilirubin 0.7 MG/DL (0.2-1.0) 0.9 MG/DL (0.2-1.0) Aspartate Amino Transf (AST/SGOT) 58 U/L (15-37) H 53 U/L (15-37) H Alanine Aminotransferase (ALT/SGPT) 29 U/L (12-78) 26 U/L (12-78) Alkaline Phosphatase 280 U/L (46-116) H 230 U/L (46-116) H Total Creatine Kinase 531 U/L (26-308) H Creatine Kinase MB 2.6 NG/ML (0.0-3.6) Creatine Kinase MB Relative Index 0.4 Troponin I 0.007 ng/mL (0.000-0.056) Total Protein 7.9 G/DL (6.4-8.2) 7.1 G/DL (6.4-8.2) Albumin 2.6 G/DL (3.4-5.0) L 2.2 G/DL (3.4-5.0) L Globulin 5.3 g/dL 4.9 g/dL Albumin/Globulin Ratio 0.5 (1.0-2.7) L 0.4 (1.0-2.7) L Urine Color Yellow Urine Appearance Clear Urine pH 7 (4.5-8.0) Urine Specific [place] 1.010 (1.005-1.035) Urine Protein 2+ (NEGATIVE) H Urine Glucose (UA) Negative (NEGATIVE) Urine Ketones Negative (NEGATIVE) Urine Blood 2+ (NEGATIVE) H Urine Nitrite Negative (NEGATIVE) Urine Bilirubin Negative (NEGATIVE) Urine Urobilinogen 4 MG/DL (0.0-1.0) H Urine Leukocyte Esterase Negative (NEGATIVE) Urine RBC 2-4 /HPF (0 - 0) H Urine WBC 2-4 /HPF (0 - 0) Urine Squamous Epithelial Cells Occasional /LPF Urine Amorphous Sediment Few /LPF (NONE) H Urine Bacteria Few /HPF (NONE) Differential Total Cells Counted 100 Neutrophils % (Manual) 86 % (45-75) H Lymphocytes % (Manual) 3 % (20-45) L Monocytes % (Manual) 11 % (1-10) H Eosinophils % (Manual) 0 % (0-3) Basophils % (Manual) 0 % (0-2) Band Neutrophils 0 % (0-8) Platelet Estimate Adequate Platelet Morphology Normal Macrocytosis 1+ Prothrombin Time 11.6 SEC (9.30-11.50) H Prothromb Time International Ratio 1.1 (0.9-1.1) Activated Partial Thromboplast Time 29 SEC (23-33) Hemoglobin A1c 6.3 % (4.3-6.0) H Amylase Level 39 U/L (25-115) Lipase 97 U/L (73-393) Thyroid Stimulating Hormone (TSH) 1.958 uiU/mL (0.358-3.740) POC Whole Blood Glucose 120 MG/DL (74-106) H Microbiology Date/Time Source Procedure Growth Status 12/17/19 01:29 Rectum Received Height (Feet): 5 Height (Inches): 6.00 Weight (Pounds): 150 Medications Current Medications Medications (Trade) Dose Ordered Sig/Robin Route PRN Reason Start Time Stop Time Status Last Admin Dose Admin Acetaminophen (Tylenol) 650 mg Q4H PRN ORAL fever 12/16/19 23:45 01/15/20 23:44 Dextrose (Dextrose 50%) 25 ml Q30M PRN IV Hypoglycemia 12/16/19 23:45 03/15/20 23:44 Dextrose (Dextrose 50%) 50 ml Q30M PRN IV Hypoglycemia 12/16/19 23:45 03/15/20 23:44 Diphenhydramine HCl (Benadryl) 25 mg Q6H PRN ORAL Itching/Pruritis 12/16/19 23:45 01/15/20 23:44 Heparin Sodium (Porcine) (Heparin 5000 units/ml) 5,000 units EVERY 12 HOURS SUBQ 12/17/19 09:00 01/31/20 08:59 12/17/19 09:06 Insulin Aspart (NovoLOG) BEFORE MEALS AND HS SUBQ 12/17/19 06:30 03/16/20 06:29 Iohexol (OMNIPAQUE-300 100ml) 100 ml NOW PRN INJ Radiology Procedure 12/16/19 19:15 12/18/19 19:07 Levothyroxine Sodium (Synthroid) 25 mcg ACBREAKFAST ORAL 12/17/19 06:30 01/16/20 06:29 12/17/19 06:33 Nitroglycerin (Ntg) 0.4 mg Q5M X 3 DOSES PRN SL Prn Chest Pain 12/16/19 23:45 01/15/20 23:44 Nystatin (Nystatin) 5 ml QID ORAL 12/17/19 09:00 12/24/19 08:59 Ondansetron HCl (Zofran) 4 mg Q6H PRN IVP Nausea & Vomiting 12/16/19 23:45 01/15/20 23:44 Piperacillin Sod/ Tazobactam Sod 3.375 gm/Sodium Chloride 110 ml @ 220 mls/hr Q8H IVPB 12/17/19 10:00 12/24/19 09:59 Risperidone (RisperDAL) 0.25 mg QHS GT 12/17/19 21:00 01/31/20 20:59 Sodium Chloride 1,000 ml @ 50 mls/hr Q20H IV 12/16/19 23:41 01/15/20 23:40 12/16/19 23:57 Vancomycin HCl (Vanco pharmacy to dose) 1 ea DAILY PRN MISC Per rx protocol 12/17/19 07:30 01/16/20 07:29 Vancomycin HCl 1 gm/Dextrose 275 ml @ 183.708 mls/hr Q24H IVPB 12/17/19 14:00 12/22/19 13:59 Vancomycin/Sodium Chloride 275 ml @ 150 mls/hr ONCE IVPB 12/17/19 08:00 12/17/19 10:00 12/17/19 09:06 Assessment/Plan Assessment/Plan: ASSESSMENT Sepsis COVID 19 infection Possible PNA COPD Malfunctioning G tube/leaking Probably cellulitis G tube site Dysphagia, feeding by G tube Hx of CVA Thrombocytopenia HTN DM ANGELA Protein calorie malnutrition PLAN OF CARE isolation fup with another COVID 19 NPO IVF O2 titrate to keep sat above 90%, pulm toilet shaylee YOUSSEFI fup with CXR DVT prophylaxis aspir precautions abx as per ID recs fup with cx G tube site care GI eval dietary eval BS management with SSI monitor renal parameters, lytes, correct lytes as needed monitor counts supportive care case discussed and evaluated by supervising physician Mirtha Brito NP Dec 17, 2019 10:08
[2019-12-17] MEDS ORDERED: Albuterol 90mcg Inhaler 8gm INH PRN (10:15)
[2019-12-17 12:00] VITALS: BP 161/93
--- NOTE | 2019-12-17 12:47 | Diagnostic Imaging Report ---
EXAM: XR Chest, 1 View CLINICAL HISTORY: SOB TECHNIQUE: Frontal view of the chest. COMPARISON: CXR and CT A/P of 12/16/19. FINDINGS: Lungs: Basilar-predominant fibrosis is again noted. Once again, there is somewhat greater opacification of the left lower chest, favored to reflect some asymmetry in chronic interstitial disease. No clear consolidation was identified on the abdominal CT, which included this area. Pleural space: Unremarkable. No pneumothorax. Heart: Unremarkable. No cardiomegaly. Mediastinum: Unremarkable. Bones/joints: Unremarkable. IMPRESSION: Basilar-predominant fibrosis is again noted. Once again, there is somewhat greater opacification of the left lower chest, favored to reflect some asymmetry in chronic interstitial disease. No clear consolidation was identified on the abdominal CT, which included this area.
--- NOTE | 2019-12-17 13:00 | History and Physical Report ---
DATE OF ADMISSION: 12/16/2019 DATE AND TIME SEEN: 12/17/2019 at 8 a.m. CONSULTANTS: 1. Fco León MD. 2. Geronimo Antoine MD. 3. Randall Torres MD. CHIEF COMPLAINT: Abdominal wall cellulitis at the G-tube site and sepsis and bilateral pneumonia. BRIEF HISTORY: This is an 79-year-old male from [facility], presented with above-mentioned diagnosis. In the ER, currently awaiting admission. Currently, sleeping in bed in the ER gurney, not talking much. REVIEW OF SYSTEMS: Unavailable. PAST MEDICAL HISTORY: Includes diabetes, Alzheimer's, dementia, COVID-19. PAST SURGICAL HISTORY: G-tube. MEDICATIONS: Include risperidone, Zosyn, heparin, vancomycin, levofloxacin, Zofran, diphenhydramine. ALLERGIES: Denies. SOCIAL HISTORY: No smoking. No alcohol. No intravenous drug abuse. FAMILY HISTORY: Noncontributory. PHYSICAL EXAMINATION: GENERAL: Lethargic, sleeping in bed, not talking much. VITAL SIGNS: Temperature is 98 degrees, pulse 84, respirations 24, blood pressure 136/65. HEENT: Normocephalic and atraumatic. NECK: Trachea midline. CARDIOVASCULAR: No peripheral edema. LUNGS: Slight short of breath on room air. ABDOMEN: No apparent wounds. EXTREMITIES: No cyanosis or clubbing. NEUROLOGIC: The patient moves all extremities, slightly weak. LABORATORY AND DIAGNOSTIC DATA: Labs at this time show white count 18, platelet 107,000, otherwise normal. Chloride 111, BUN 30, glucose 124, calcium 7.5. Albumin 2.2. INR 1.1. Urinalysis, 2+ blood, 2+ protein. ASSESSMENT: 1. Abdominal wall cellulitis. 2. Sepsis. 3. G-tube site cellulitis. 4. History of COVID. 5. Bilateral pneumonia. 6. Malnutrition. 7. Diabetes. 8. Alzheimer's. PLAN: O2 and pulmonary treatment as needed. Antibiotics per Infectious Disease. Wound care. Blood pressure, blood sugar, and pain control. Resume home medications. PT and dietary evaluation. CBC and BMP in the morning. Han Swenson D.O. DR: MILLA JOB#: [id number] CC:
[2019-12-17] MEDS ORDERED: Fleet's Enema 133ml RECTAL SCH (13:45)
[2019-12-17] MEDS ORDERED: Sorbitol Solution UD 30ml ORAL SCH (13:45)
[2019-12-17] MEDS ORDERED: Vancomycin 1gm in D5W 275ml IVPB SCH (14:00)
[2019-12-17 16:00] VITALS: BP 161/93
[2019-12-17 20:00] VITALS: BP 127/76
[2019-12-17] MEDS: Vancomycin 750mg/NS 275ml IVPB SCH ×2 (21:16)
--- NOTE | 2019-12-17 23:44 | Consultation ---
DATE OF CONSULTATION: 12/17/2019 GASTROENTEROLOGY CONSULTATION CONSULTING PHYSICIAN: Alexis White M.D. CHIEF COMPLAINT: I was asked to see this patient by Dr. Han Swenson for evaluation of gastrostomy site dysfunction and complication. HISTORY OF PRESENT ILLNESS: The patient is a debilitated 79-year-old white man from the retirement, was brought into the hospital due to sepsis, pneumonia, and concern about gastrostomy site infection. The patient himself is unable to provide any history. Most of the information is available only from the chart. The patient has been receiving enteral feeding from the tube. There has been no reports of nausea and vomiting. PAST MEDICAL HISTORY: History of diabetes, Alzheimer's dementia, history of recent COVID-19 infection, malnutrition, status post gastrostomy tube placement. FAMILY HISTORY: Unavailable and unobtainable. SOCIAL HISTORY: The patient is from a retirement and has had no reported recent history of smoking or drinking. ALLERGIES: None. REVIEW OF SYSTEMS: Otherwise unobtainable. PHYSICAL EXAMINATION: GENERAL: Confused debilitated white man, seen in the emergency room. HEENT: Normocephalic, atraumatic. Dentition is poor. NECK: Supple. CHEST: Revealed coarse breath sounds. CARDIOVASCULAR: Revealed a regular rate. ABDOMEN: Soft with gastrostomy tube, which appears to be in good position and with minimal discharge around the gastrostomy site without guarding, rebound, tenderness, or induration. EXTREMITIES: Revealed no edema. NEUROLOGIC: Notable for advanced dementia, although the patient is able to mumble incoherently and followed physician around the room with his eyes. LABORATORY DATA: Notable for leukocytosis, but without anemia. There was some mild degree of thrombocytopenia. His liver tests were also mildly elevated. ASSESSMENT: This patient presents to the emergency room with multiple issues including pneumonia and sepsis and also gastrostomy site with some mild amount of discharge. The gastrostomy appears to be in good position and is generally intact and can be used for feeding. He should receive broad-spectrum antibiotic, which will treat his pneumonia and infection of the gastrostomy site. The patient has some abnormal liver tests, but he only had advanced imaging. He only has cholelithiasis without evidence of cholecystitis. There is some degree of stool impaction in the rectum, therefore some laxatives will be given. Gastrostomy position is appropriate on the CT scan. RECOMMENDATIONS: Per above discussion and per orders written in the chart. Thank you for asking me to participate in the care of this patient. Alexis White M.D. DR: TK JOB#: [id number] CC: ANNELIESE
[2019-12-18] VITALS: BP 125/80
[2019-12-18] MEDS: Piperacillin/Tazobactam 3.375 GM in NS 110 ML IVPB SCH ×2 (01:50→10:00)
[2019-12-18 04:00] VITALS: BP 130/74
[2019-12-18] MEDS: NovoLOG Insulin Flexpen SUBQ SCH ×4 (05:43→18:00)
[2019-12-18] MEDS: Levothyroxine 25mcg tab ORAL SCH (05:48)
[2019-12-18 07:04] LABS: BASOPHILS % (AUTO) 0.9 % (0.0-2.0); EOSINOPHILS % (AUTO) 3.9 % (0.0-3.0); HEMATOCRIT 40.8 % (42.0-52.0); LYMPHOCYTES % (AUTO) 6.4 % (20.0-45.0); MEAN CORPUSCULAR VOLUME 102 FL (80-99); MONOCYTES % (AUTO) 9.8 % (1.0-10.0); PLATELET COUNT 101 K/UL (150-450); RED BLOOD COUNT 4.02 M/UL (4.70-6.10); RED CELL DISTRIBUTION WIDTH 14.1 % (11.6-14.8); WHITE BLOOD COUNT 10.5 K/UL (4.8-10.8)
[2019-12-18 07:13] LABS: ALANINE AMINOTRANSFERASE 22 U/L (12-78); ALBUMIN 1.7 G/DL (3.4-5.0); ALBUMIN/GLOBULIN RATIO 0.4 (1.0-2.7); ALKALINE PHOSPHATASE 194 U/L (46-116); ANION GAP 6 mmol/L (5-15); ASPARTATE AMINO TRANSFERASE 35 U/L (15-37); BILIRUBIN,TOTAL 0.6 MG/DL (0.2-1.0); BLOOD UREA NITROGEN 23 mg/dL (7-18); CALCIUM 7.6 MG/DL (8.5-10.1); CARBON DIOXIDE 26 MMOL/L (21-32); CHLORIDE 116 MMOL/L (98-107); CREATININE 0.8 MG/DL (0.55-1.30); POTASSIUM 3.7 MMOL/L (3.5-5.1); SODIUM 148 MMOL/L (136-145)
[2019-12-18 07:44] LABS: CREATINE KINASE 144 U/L (26-308)
[2019-12-18 08:00] VITALS: BP 118/54
--- NOTE | 2019-12-18 08:21 | General Progress Note ---
Assessment/Plan Problem List: (1) 2019 novel coronavirus disease (COVID-19) ICD Codes: U07.1 - COVID-19; L03.319 - Cellulitis of trunk, unspecified SNOMED: 455854585, 419873965 (2) G-tube site cellulitis ICD Codes: K94.22 - Gastrostomy infection; L03.319 - Cellulitis of trunk, unspecified SNOMED: 875065613, 287274857 (3) Nosocomial pneumonia ICD Codes: J18.9 - Pneumonia, unspecified organism; Y95 - Nosocomial condition SNOMED: 188780258 (4) Dementia with psychosis ICD Codes: F03.91 - Unspecified dementia with behavioral disturbance SNOMED: 58504128, 12366925 (5) Diabetes mellitus ICD Codes: E11.9 - Type 2 diabetes mellitus without complications SNOMED: 51456593 (6) Alzheimer's disease ICD Codes: G30.9 - Alzheimer's disease, unspecified; F02.80 - Dementia in other diseases classified elsewhere without behavioral disturbance SNOMED: 49378484 Status: unchanged Assessment/Plan: pt diet abx wound care cbc bmp am Subjective Constitutional: Reports: weakness Allergies: Coded Allergies: No Known Allergies (Unverified , 01/27/17) All Systems: reviewed and negative except above Subjective sleepy in bed Objective Last 24 Hour Vital Signs Date Time Temp Pulse Resp B/P (MAP) Pulse Ox O2 Delivery O2 Flow Rate FiO2 12/18/19 04:00 65 12/18/19 04:00 97.8 77 17 130/74 (92) 94 12/18/19 00:00 76 12/18/19 00:00 97.1 85 16 125/80 (95) 93 12/17/19 21:00 Room Air 12/17/19 20:00 96.6 68 18 127/76 (93) 93 12/17/19 20:00 78 12/17/19 16:29 89 12/17/19 16:00 97.9 68 20 161/93 (115) 100 12/17/19 12:00 97.9 68 20 161/93 (115) 100 12/17/19 11:14 Room Air 12/17/19 10:35 98.4 88 22 118/90 97 Room Air Intake and Output 12/17/19 12/18/19 19:00 07:00 Intake Total 450 ml Balance 450 ml Free Water 300 ml Tube Feeding 150 ml # Voids 2 # Bowel Movements 1 Laboratory Tests 12/17/19 17:07: POC Whole Blood Glucose 122H 12/17/19 23:56: POC Whole Blood Glucose 128H 12/18/19 05:01: POC Whole Blood Glucose [Pending] 12/18/19 05:20: White Blood Count 10.5, Red Blood Count 4.02L, Hemoglobin 13.0L, Hematocrit 40.8L, Mean Corpuscular Volume 102H, Mean Corpuscular Hemoglobin 32.3H, Mean Corpuscular Hemoglobin Concent 31.8L, Red Cell Distribution Width 14.1, Platelet Count 101L, Mean Platelet Volume 13.5H, Neutrophils (%) (Auto) 79.0H, Lymphocytes (%) (Auto) 6.4L, Monocytes (%) (Auto) 9.8, Eosinophils (%) (Auto) 3.9H, Basophils (%) (Auto) 0.9, Sodium Level 148H, Potassium Level 3.7, Chloride Level 116H, Carbon Dioxide Level 26, Anion Gap 6, Blood Urea Nitrogen 23H, Creatinine 0.8, Estimat Glomerular Filtration Rate > 60, Glucose Level 127H , Calcium Level 7.6L, Total Bilirubin 0.6, Aspartate Amino Transf (AST/SGOT) 35 , Alanine Aminotransferase (ALT/SGPT) 22, Alkaline Phosphatase 194H, Total Creatine Kinase 144, Total Protein 6.0L, Albumin 1.7L, Globulin 4.3, Albumin/ Globulin Ratio 0.4L, Hepatitis A IgM Antibody [Pending], Hepatitis B Surface Antigen [Pending], Hepatitis B Core IgM Antibody [Pending], Hepatitis C Antibody [Pending] Height (Feet): 5 Height (Inches): 6.00 Weight (Pounds): 158 General Appearance: lethargic EENT: normal ENT inspection Neck: normal alignment Cardiovascular: normal rate, regular rhythm Respiratory/Chest: no respiratory distress, no accessory muscle use Extremities: normal inspection Skin: normal pigmentation Han Swenson DO Dec 18, 2019 08:21
[2019-12-18] MEDS: Heparin 5000 units/ml inj SUBQ SCH ×2 (09:00→21:00)
[2019-12-18] MEDS: Nystatin Susp 500,000 units/5ml ORAL SCH ×4 (09:56→21:22)
--- NOTE | 2019-12-18 10:48 | Infectious Diseases Prog Note ---
Assessment/Plan Afebrile RA Leukocytosis- SP Recent COVID 19 PNA 11/12 COVID pos? (no lab result, just from notes) 11/26 COVID pos 12/06 COVID pos 12/11 COVID negative XR: Coarse bilateral interstitial lung markings suggesting chronic interstitial lung disease. Asymmetric increased density of the left lung not significant changed as compared to prior imaging may be sequela of chronic interstitial lung disease. Underlying concomitant infection is not entirely excluded. Dedicated frontal and lateral radiographs can be considered for further evaluation. 12/16 CXR: Basilar-predominant fibrosis is again noted. Once again, there is somewhat greater opacification of the left lower chest, favored to reflect some asymmetry in chronic interstitial disease. No clear consolidation was identified on the abdominal CT, which included this area. G tube site drainage, irritation and cellulitis CT abd: Emphysematous and interstitial changes at the lung bases. Cholelithiasis without CT evidence of acute cholecystitis. Impacted stool within the rectum measuring 8 cm in diameter. Percutaneous gastrostomy tube positioned within the gastric antrum. Mild gastric mucosal thickening, underdistention versus gastritis. 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 Subjective Allergies: Coded Allergies: No Known Allergies (Unverified , 01/27/17) afebrile leukocytosis resolved Bcx NTD Objective Last 24 Hour Vital Signs Date Time Temp Pulse Resp B/P (MAP) Pulse Ox O2 Delivery O2 Flow Rate FiO2 12/18/19 08:00 97.7 71 20 118/54 (75) 92 12/18/19 08:00 70 12/18/19 04:00 65 12/18/19 04:00 97.8 77 17 130/74 (92) 94 12/18/19 00:00 76 12/18/19 00:00 97.1 85 16 125/80 (95) 93 12/17/19 21:00 Room Air 12/17/19 20:00 96.6 68 18 127/76 (93) 93 12/17/19 20:00 78 12/17/19 16:29 89 12/17/19 16:00 97.9 68 20 161/93 (115) 100 12/17/19 12:00 97.9 68 20 161/93 (115) 100 12/17/19 11:14 Room Air Height (Feet): 5 Height (Inches): 6.00 Weight (Pounds): 158 not examined to limit COVID19 exposure Microbiology Date/Time Source Procedure Growth Status 12/16/19 19:34 Blood Blood Culture - Preliminary NO GROWTH AFTER 24 HOURS Resulted 12/16/19 19:15 Blood Blood Culture - Preliminary NO GROWTH AFTER 24 HOURS Resulted 12/17/19 01:29 Rectum Received Laboratory Tests Test 12/17/19 17:07 12/17/19 23:56 12/18/19 05:01 12/18/19 05:20 POC Whole Blood Glucose 122 MG/DL (74-106) H 128 MG/DL (74-106) H Pending White Blood Count 10.5 K/UL (4.8-10.8) Red Blood Count 4.02 M/UL (4.70-6.10) L Hemoglobin 13.0 G/DL (14.2-18.0) L Hematocrit 40.8 % (42.0-52.0) L Mean Corpuscular Volume 102 FL (80-99) H Mean Corpuscular Hemoglobin 32.3 PG (27.0-31.0) H Mean Corpuscular Hemoglobin Concent 31.8 G/DL (32.0-36.0) L Red Cell Distribution Width 14.1 % (11.6-14.8) Platelet Count 101 K/UL (150-450) L Mean Platelet Volume 13.5 FL (6.5-10.1) H Neutrophils (%) (Auto) 79.0 % (45.0-75.0) H Lymphocytes (%) (Auto) 6.4 % (20.0-45.0) L Monocytes (%) (Auto) 9.8 % (1.0-10.0) Eosinophils (%) (Auto) 3.9 % (0.0-3.0) H Basophils (%) (Auto) 0.9 % (0.0-2.0) Sodium Level 148 MMOL/L (136-145) H Potassium Level 3.7 MMOL/L (3.5-5.1) Chloride Level 116 MMOL/L (98-107) H Carbon Dioxide Level 26 MMOL/L (21-32) Anion Gap 6 mmol/L (5-15) Blood Urea Nitrogen 23 mg/dL (7-18) H Creatinine 0.8 MG/DL (0.55-1.30) Estimat Glomerular Filtration Rate > 60 mL/min (>60) Glucose Level 127 MG/DL (74-106) H Calcium Level 7.6 MG/DL (8.5-10.1) L Total Bilirubin 0.6 MG/DL (0.2-1.0) Aspartate Amino Transf (AST/SGOT) 35 U/L (15-37) Alanine Aminotransferase (ALT/SGPT) 22 U/L (12-78) Alkaline Phosphatase 194 U/L (46-116) H Total Creatine Kinase 144 U/L (26-308) Total Protein 6.0 G/DL (6.4-8.2) L Albumin 1.7 G/DL (3.4-5.0) L Globulin 4.3 g/dL Albumin/Globulin Ratio 0.4 (1.0-2.7) L Hepatitis A IgM Antibody Pending Hepatitis B Surface Antigen Pending Hepatitis B Core IgM Antibody Pending Hepatitis C Antibody Pending Current Medications Medications (Trade) Dose Ordered Sig/Robin Route PRN Reason Start Time Stop Time Status Last Admin Dose Admin Acetaminophen (Tylenol) 650 mg Q4H PRN ORAL fever 12/16/19 23:45 01/15/20 23:44 Albuterol Sulfate (Proventil MDI) 2 puff Q4H PRN INH Shortness of Breath 12/17/19 10:15 03/16/20 10:14 Dextrose (Dextrose 50%) 25 ml Q30M PRN IV Hypoglycemia 12/16/19 23:45 03/15/20 23:44 Dextrose (Dextrose 50%) 50 ml Q30M PRN IV Hypoglycemia 12/16/19 23:45 03/15/20 23:44 Diphenhydramine HCl (Benadryl) 25 mg Q6H PRN ORAL Itching/Pruritis 12/16/19 23:45 01/15/20 23:44 Heparin Sodium (Porcine) (Heparin 5000 units/ml) 5,000 units EVERY 12 HOURS SUBQ 12/17/19 09:00 01/31/20 08:59 12/17/19 09:06 Insulin Aspart (NovoLOG) EVERY 6 HOURS SUBQ 12/17/19 18:00 03/16/20 06:29 Iohexol (OMNIPAQUE-300 100ml) 100 ml NOW PRN INJ Radiology Procedure 12/16/19 19:15 12/18/19 19:07 Levothyroxine Sodium (Synthroid) 25 mcg ACBREAKFAST ORAL 12/17/19 06:30 01/16/20 06:29 12/18/19 05:48 Nitroglycerin (Ntg) 0.4 mg Q5M X 3 DOSES PRN SL Prn Chest Pain 12/16/19 23:45 01/15/20 23:44 Nystatin (Nystatin) 5 ml QID ORAL 12/17/19 09:00 12/24/19 08:59 12/18/19 09:56 Ondansetron HCl (Zofran) 4 mg Q6H PRN IVP Nausea & Vomiting 12/16/19 23:45 01/15/20 23:44 Piperacillin Sod/ Tazobactam Sod 3.375 gm/Sodium Chloride 110 ml @ 27.5 mls/hr Q8HR IVPB 12/18/19 12:00 12/25/19 11:59 Risperidone (RisperDAL) 0.25 mg QHS GT 12/17/19 21:00 01/31/20 20:59 12/17/19 21:15 Sodium Chloride 1,000 ml @ 50 mls/hr Q20H IV 12/16/19 23:41 01/15/20 23:40 12/17/19 20:15 Vancomycin HCl (Vanco pharmacy to dose) 1 ea DAILY PRN MISC Per rx protocol 12/17/19 07:30 01/16/20 07:29 Vancomycin HCl 750 mg/Sodium Chloride 275 ml @ 183.333 mls/hr Q12H IVPB 12/17/19 22:00 12/22/19 21:59 12/17/19 21:16 Helen Austin M.D. Dec 18, 2019 10:48
--- NOTE | 2019-12-18 11:02 | General Progress Note ---
Assessment/Plan Problem List: (1) Feeding by G-tube ICD Codes: Z93.1 - Gastrostomy status SNOMED: 051317368, 043454440, 277849338 (2) Interstitial lung disease ICD Codes: J84.9 - Interstitial pulmonary disease, unspecified SNOMED: 412506007 (3) Alzheimer's disease ICD Codes: G30.9 - Alzheimer's disease, unspecified; F02.80 - Dementia in other diseases classified elsewhere without behavioral disturbance SNOMED: 57400158 (4) Diabetes mellitus ICD Codes: E11.9 - Type 2 diabetes mellitus without complications SNOMED: 91644382 (5) G-tube site cellulitis ICD Codes: K94.22 - Gastrostomy infection; L03.319 - Cellulitis of trunk, unspecified SNOMED: 766141827, 024605788 Status: unchanged Assessment/Plan: GTF abx per ID local GT site care bowel regimen fu LFTS Subjective ROS Limited/Unobtainable: No Allergies: Coded Allergies: No Known Allergies (Unverified , 01/27/17) Objective Last 24 Hour Vital Signs Date Time Temp Pulse Resp B/P (MAP) Pulse Ox O2 Delivery O2 Flow Rate FiO2 12/18/19 08:00 97.7 71 20 118/54 (75) 92 12/18/19 08:00 70 12/18/19 04:00 65 12/18/19 04:00 97.8 77 17 130/74 (92) 94 12/18/19 00:00 76 12/18/19 00:00 97.1 85 16 125/80 (95) 93 12/17/19 21:00 Room Air 12/17/19 20:00 96.6 68 18 127/76 (93) 93 12/17/19 20:00 78 12/17/19 16:29 89 12/17/19 16:00 97.9 68 20 161/93 (115) 100 12/17/19 12:00 97.9 68 20 161/93 (115) 100 12/17/19 11:14 Room Air Intake and Output 12/17/19 12/18/19 19:00 07:00 Intake Total 450 ml Balance 450 ml Free Water 300 ml Tube Feeding 150 ml # Voids 2 # Bowel Movements 1 Laboratory Tests 12/17/19 17:07: POC Whole Blood Glucose 122H 12/17/19 23:56: POC Whole Blood Glucose 128H 12/18/19 05:01: POC Whole Blood Glucose [Pending] 12/18/19 05:20: White Blood Count 10.5, Red Blood Count 4.02L, Hemoglobin 13.0L, Hematocrit 40.8L, Mean Corpuscular Volume 102H, Mean Corpuscular Hemoglobin 32.3H, Mean Corpuscular Hemoglobin Concent 31.8L, Red Cell Distribution Width 14.1, Platelet Count 101L, Mean Platelet Volume 13.5H, Neutrophils (%) (Auto) 79.0H, Lymphocytes (%) (Auto) 6.4L, Monocytes (%) (Auto) 9.8, Eosinophils (%) (Auto) 3.9H, Basophils (%) (Auto) 0.9, Sodium Level 148H, Potassium Level 3.7, Chloride Level 116H, Carbon Dioxide Level 26, Anion Gap 6, Blood Urea Nitrogen 23H, Creatinine 0.8, Estimat Glomerular Filtration Rate > 60, Glucose Level 127H , Calcium Level 7.6L, Total Bilirubin 0.6, Aspartate Amino Transf (AST/SGOT) 35 , Alanine Aminotransferase (ALT/SGPT) 22, Alkaline Phosphatase 194H, Total Creatine Kinase 144, Total Protein 6.0L, Albumin 1.7L, Globulin 4.3, Albumin/ Globulin Ratio 0.4L, Hepatitis A IgM Antibody [Pending], Hepatitis B Surface Antigen [Pending], Hepatitis B Core IgM Antibody [Pending], Hepatitis C Antibody [Pending] Height (Feet): 5 Height (Inches): 6.00 Weight (Pounds): 158 General Appearance: lethargic EENT: normal ENT inspection Neck: supple Cardiovascular: normal rate Respiratory/Chest: decreased breath sounds Abdomen: normal bowel sounds, non tender, soft Extremities: non-tender Randall Torres MD Dec 18, 2019 11:02
[2019-12-18] MEDS: Vancomycin 750mg/NS 275ml IVPB SCH ×4 (11:08→22:40)
[2019-12-18] MEDS: Zosyn 3.375gm q8h **Extended infusion IVPB SCH ×4 (11:10→22:42)
[2019-12-18 12:00] VITALS: BP 121/54
[2019-12-18] MEDS ORDERED: Zinc Oxide Oint 2oz TOPIC PRN (12:15)
--- NOTE | 2019-12-18 12:17 | Pulmonology Progress Note ---
Subjective ROS Limited/Unobtainable: No Constitutional: Reports: no symptoms HEENT: Repors: no symptoms Allergies: Coded Allergies: No Known Allergies (Unverified , 01/27/17) All Systems: reviewed and negative except above Objective Last 24 Hour Vital Signs Date Time Temp Pulse Resp B/P (MAP) Pulse Ox O2 Delivery O2 Flow Rate FiO2 12/18/19 08:00 97.7 71 20 118/54 (75) 92 12/18/19 08:00 70 12/18/19 04:00 65 12/18/19 04:00 97.8 77 17 130/74 (92) 94 12/18/19 00:00 76 12/18/19 00:00 97.1 85 16 125/80 (95) 93 12/17/19 21:00 Room Air 12/17/19 20:00 96.6 68 18 127/76 (93) 93 12/17/19 20:00 78 12/17/19 16:29 89 12/17/19 16:00 97.9 68 20 161/93 (115) 100 Intake and Output 12/17/19 12/18/19 19:00 07:00 Intake Total 450 ml Balance 450 ml Free Water 300 ml Tube Feeding 150 ml # Voids 2 # Bowel Movements 1 General Appearance: WD/WN HEENT: normocephalic, atraumatic Respiratory: chest wall non-tender, lungs clear, no respiratory distress Cardiovascular: normal peripheral pulses, regular rhythm Abdomen: normal bowel sounds, no organomegaly Genitourinary: normal external genitalia Extremities: no clubbing Neurologic: 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8L, Mean Corpuscular Volume 102H, Mean Corpuscular Hemoglobin 32.3H, Mean Corpuscular Hemoglobin Concent 31.8L, Red Cell Distribution Width 14.1, Platelet Count 101L, Mean Platelet Volume 13.5H, Neutrophils (%) (Auto) 79.0H, Lymphocytes (%) (Auto) 6.4L, Monocytes (%) (Auto) 9.8, Eosinophils (%) (Auto) 3.9H, Basophils (%) (Auto) 0.9, Sodium Level 148H, Potassium Level 3.7, Chloride Level 116H, Carbon Dioxide Level 26, Anion Gap 6, Blood Urea Nitrogen 23H, Creatinine 0.8, Estimat Glomerular Filtration Rate > 60, Glucose Level 127H , Calcium Level 7.6L, Total Bilirubin 0.6, Aspartate Amino Transf (AST/SGOT) 35 , Alanine Aminotransferase (ALT/SGPT) 22, Alkaline Phosphatase 194H, Total Creatine Kinase 144, Total Protein 6.0L, Albumin 1.7L, Globulin 4.3, Albumin/ Globulin Ratio 0.4L, Hepatitis A IgM Antibody [Pending], Hepatitis B Surface Antigen [Pending], Hepatitis B Core IgM Antibody [Pending], Hepatitis C Antibody [Pending] Current Medications Medications (Trade) Dose Ordered Sig/Robin Route PRN Reason Start Time Stop Time Status Last Admin Dose Admin Acetaminophen (Tylenol) 650 mg Q4H PRN ORAL fever 12/16/19 23:45 01/15/20 23:44 Albuterol Sulfate (Proventil MDI) 2 puff Q4H PRN INH Shortness of Breath 12/17/19 10:15 03/16/20 10:14 Dextrose (Dextrose 50%) 25 ml Q30M PRN IV Hypoglycemia 12/16/19 23:45 03/15/20 23:44 Dextrose (Dextrose 50%) 50 ml Q30M PRN IV Hypoglycemia 12/16/19 23:45 03/15/20 23:44 Diphenhydramine HCl (Benadryl) 25 mg Q6H PRN ORAL Itching/Pruritis 12/16/19 23:45 01/15/20 23:44 Docusate Sodium (Colace) 100 mg TWICE A DAY ORAL 12/18/19 18:00 01/17/20 17:59 Heparin Sodium (Porcine) (Heparin 5000 units/ml) 5,000 units EVERY 12 HOURS SUBQ 12/17/19 09:00 01/31/20 08:59 12/17/19 09:06 Insulin Aspart (NovoLOG) EVERY 6 HOURS SUBQ 12/17/19 18:00 03/16/20 06:29 Iohexol (OMNIPAQUE-300 100ml) 100 ml NOW PRN INJ Radiology Procedure 12/16/19 19:15 12/18/19 19:07 Levothyroxine Sodium (Synthroid) 25 mcg ACBREAKFAST ORAL 12/17/19 06:30 01/16/20 06:29 12/18/19 05:48 Nitroglycerin (Ntg) 0.4 mg Q5M X 3 DOSES PRN SL Prn Chest Pain 12/16/19 23:45 01/15/20 23:44 Nystatin (Nystatin) 5 ml QID ORAL 12/17/19 09:00 12/24/19 08:59 12/18/19 09:56 Ondansetron HCl (Zofran) 4 mg Q6H PRN IVP Nausea & Vomiting 12/16/19 23:45 01/15/20 23:44 Piperacillin Sod/ Tazobactam Sod 3.375 gm/Sodium Chloride 110 ml @ 27.5 mls/hr Q8HR IVPB 12/18/19 12:00 12/25/19 11:59 12/18/19 11:10 Polyethylene Glycol (Miralax) 17 gm BEDTIME ORAL 12/18/19 21:00 01/17/20 20:59 Risperidone (RisperDAL) 0.25 mg QHS GT 12/17/19 21:00 01/31/20 20:59 12/17/19 21:15 Sodium Chloride 1,000 ml @ 50 mls/hr Q20H IV 12/16/19 23:41 01/15/20 23:40 12/17/19 20:15 Vancomycin HCl (Vanco pharmacy to dose) 1 ea DAILY PRN MISC Per rx protocol 12/17/19 07:30 01/16/20 07:29 Vancomycin HCl 750 mg/Sodium Chloride 275 ml @ 183.333 mls/hr Q12H IVPB 12/17/19 22:00 12/22/19 21:59 12/18/19 11:08 Zinc Oxide (Zinc Oxide) 1 applic THREE TIMES A DAY PRN TOPIC GT site 12/18/19 12:15 03/17/20 12:14 Assessment/Plan Problems: (1) Nosocomial pneumonia (2) G-tube site cellulitis (3) 2019 novel coronavirus disease (COVID-19) (4) COPD (chronic obstructive pulmonary disease) (5) MRSA nasal colonization (6) Feeding by G-tube (7) Diabetes mellitus (8) Interstitial lung disease (9) Alzheimer's disease (10) Dementia with psychosis Assessment/Plan continue isolation , fup with another COVID 19 NPO , IVF O2 titrate to keep sat above 90%, pulm toilet shaylee YOUSSEFI fup with CXR DVT prophylaxis aspir precautions abx as per ID recs fup with cx G tube site care BS management with SSI Fco León MD Dec 18, 2019 12:17
[2019-12-18] MEDS ORDERED: LORazepam 0.5mg tab ORAL PRN (12:45)
--- NOTE | 2019-12-18 15:45 | Consultation ---
DATE OF CONSULTATION: 12/18/2019 CONSULTING PHYSICIAN: Елена Lang MD. REFERRING PHYSICIAN: Han Swenson DO. HISTORY OF PRESENT ILLNESS: This is an 79-year-old male patient with G-tube cellulitis and COVID positive. That is why he was admitted to the hospital. In addition to that, the patient also has overlying diagnosis of paranoid schizophrenia, rule out dementia with psychosis. That is why daily psychiatric consultation requested for this patient. I saw and assessed in his room. He is very confused and disorganized. He has altered mental status. He has got decline in cognition below his baseline . That is why, his attending has requested daily psychiatric consultation. He also has cellulitis of his G-tube site. PAST MEDICAL HISTORY: He has diabetes, cellulitis of G-tube site. He also has COPD, diabetes, COVID-19, COVID-pneumonia, G-tube cellulitis. ALLERGIES: He has got no known drug allergies. PSYCHOTROPIC MEDICATIONS ON ADMISSION: He is currently on a medication regimen consisting of Risperdal 0.25 mg nightly. SUBSTANCE ABUSE HISTORY: He has no known history of any drug or alcohol use at this time. PAIN ASSESSMENT: 0/10. DEVELOPMENTAL PROBLEMS: Denies. FAMILY PSYCHIATRIC HISTORY: Unknown. PSYCHIATRIC HISTORY: History of major depressive disorder, severe, recurrent with psychotic features, rule out paranoid schizophrenia, rule out dementia with psychosis. He is a poor historian and unable to give me detailed history of psychiatric history. STRENGTHS: He is motivated to get better and he has a place to live. WEAKNESSES AND LIABILITIES: He is impulsive. He has got minimal support system. SOCIAL HISTORY: Financially supported by [employer]. Lives in a half-way. MENTAL STATUS EXAMINATION: This is an 79-year-old male. His appearance is disheveled. Attitude, irritable and agitated. Affect is guarded and restricted. Intellect is poor because he does not know current events, does not know last four presidents. Mood, depressed and anxious. Motor activity, psychomotor agitation. Attention span is poor because he cannot do serial sevens or spell world backwards. Orientation x2. He is oriented to person and place, not to time and situation. Speech is nonsensical. Thought process, disorganized and illogical. Thought content, he has auditory hallucinations and paranoid delusions. Perception is poor because of perceptual disturbance such as paranoid delusions. Abstract reasoning is poor because he does not understand proverbs and only has concrete thinking. Insight is poor because the patient does not recognize he has psych disorder. Judgment is poor because he does not accept consequences for his actions. He has had difficulty making medical decisions for himself. No signs of any suicidal or homicidal ideation. Short-term memory is 0/3 after three-word recall, so poor short-term memory. Long-term memory is poor because he cannot recall long-term events in his life such as high school he went to. DIAGNOSES: 1. Paranoid schizophrenia, acute exacerbation, rule out depression with psychotic features, rule out dementia with psychosis. 2. No secondary. 3. Medical includes pneumonia, cellulitis of G-tube site. 4. Psychosocial stressors, financial. 5. Functional impairment is moderate. PLAN: I am going to restart this patient on Namenda 5 mg per G-tube twice a day to prevent further decline in his cognition and Ativan 0.5 mg every 6 hours p.r.n. anxiety or agitation. Continue this patient on Risperdal 0.25 mg per G-tube nightly. A 20 minutes of insight-oriented psychotherapy to help this patient recognize his psychiatric and physical condition so that he has better impulse control, better awareness of his condition to reduce depression and anxiety. The patient is seen and assessed at bedside. I would like to thank Dr. Han Swenson for this interesting consultation. I will be happy to follow this patient with you throughout his hospital course. Chart reviewed. Discussed with staff. Seen and assessed in his room. Елена Lang M.D. DR: BRIANDA JOB#: [id number] CC:
[2019-12-18 16:00] VITALS: BP 123/51
[2019-12-18] MEDS: Memantine 5 MG TAB GT SCH (18:58)
[2019-12-18] MEDS: Docusate 100mg cap ORAL SCH (18:58)
[2019-12-18] MEDS ORDERED: ZINC SULFATE220 M1 GT (19:40)
[2019-12-18] MEDS ORDERED: CRANBERRY450 M5 PO (19:40)
[2019-12-18] MEDS ORDERED: PRO-STAT LIQUID30 ML GT (19:40)
[2019-12-18] MEDS ORDERED: SYNTHROID25 MCG GT (19:40)
[2019-12-18 20:00] VITALS: BP 113/53
[2019-12-18] MEDS: Miralax 17gm pkt ORAL SCH (21:22)
[2019-12-19] VITALS: BP 126/61
[2019-12-19 04:00] VITALS: BP 118/53
[2019-12-19] MEDS: Levothyroxine 25mcg tab ORAL SCH (05:52)
[2019-12-19] MEDS: Zosyn 3.375gm q8h **Extended infusion IVPB SCH ×6 (06:00→22:39)
[2019-12-19] MEDS: NovoLOG Insulin Flexpen SUBQ SCH ×4 (06:00→18:00)
[2019-12-19 07:08] LABS: BASOPHILS % (AUTO) 2.3 % (0.0-2.0); EOSINOPHILS % (AUTO) 11.2 % (0.0-3.0); HEMOGLOBIN 13.5 G/DL (14.2-18.0); LYMPHOCYTES % (AUTO) 8.7 % (20.0-45.0); MEAN CORPUSCULAR VOLUME 102 FL (80-99); MONOCYTES % (AUTO) 10.4 % (1.0-10.0); NEUTROPHILS % (AUTO) 67.4 % (45.0-75.0); PLATELET COUNT 107 K/UL (150-450); RED BLOOD COUNT 4.12 M/UL (4.70-6.10); RED CELL DISTRIBUTION WIDTH 14.2 % (11.6-14.8); WHITE BLOOD COUNT 7.9 K/UL (4.8-10.8)
[2019-12-19 07:20] LABS: ALANINE AMINOTRANSFERASE 17 U/L (12-78); ALBUMIN 1.8 G/DL (3.4-5.0); ALBUMIN/GLOBULIN RATIO 0.4 (1.0-2.7); ALKALINE PHOSPHATASE 211 U/L (46-116); ANION GAP 6 mmol/L (5-15); ASPARTATE AMINO TRANSFERASE 28 U/L (15-37); BILIRUBIN,TOTAL 0.4 MG/DL (0.2-1.0); BLOOD UREA NITROGEN 19 mg/dL (7-18); CALCIUM 7.5 MG/DL (8.5-10.1); CARBON DIOXIDE 26 MMOL/L (21-32); CHLORIDE 114 MMOL/L (98-107); CREATININE 0.8 MG/DL (0.55-1.30); POTASSIUM 3.9 MMOL/L (3.5-5.1); SODIUM 146 MMOL/L (136-145)
[2019-12-19 08:00] VITALS: BP_SYST 120; BP_SYST 137; BP_DIAS 55; BP_DIAS 71
[2019-12-19] MEDS: Heparin 5000 units/ml inj SUBQ SCH ×2 (09:00→21:00)
[2019-12-19] MEDS: Nystatin Susp 500,000 units/5ml ORAL SCH ×4 (09:03→21:18)
[2019-12-19] MEDS: Vancomycin 750mg/NS 275ml IVPB SCH ×4 (09:03→21:18)
[2019-12-19] MEDS: Docusate 100mg cap ORAL SCH ×2 (09:03→17:42)
[2019-12-19] MEDS: Memantine 5 MG TAB GT SCH ×2 (09:03→17:43)
--- NOTE | 2019-12-19 09:45 | General Progress Note ---
Assessment/Plan Problem List: (1) Feeding by G-tube ICD Codes: Z93.1 - Gastrostomy status SNOMED: 724651273, 680903661, 377745276 (2) Interstitial lung disease ICD Codes: J84.9 - Interstitial pulmonary disease, unspecified SNOMED: 319220941 (3) Alzheimer's disease ICD Codes: G30.9 - Alzheimer's disease, unspecified; F02.80 - Dementia in other diseases classified elsewhere without behavioral disturbance SNOMED: 00579803 (4) Diabetes mellitus ICD Codes: E11.9 - Type 2 diabetes mellitus without complications SNOMED: 81244015 (5) G-tube site cellulitis ICD Codes: K94.22 - Gastrostomy infection; L03.319 - Cellulitis of trunk, unspecified SNOMED: 901474781, 279360976 Status: unchanged Assessment/Plan: GTF abx per ID local GT site care bowel regimen fu LFTS Subjective ROS Limited/Unobtainable: No Allergies: Coded Allergies: No Known Allergies (Unverified , 01/27/17) Objective Last 24 Hour Vital Signs Date Time Temp Pulse Resp B/P (MAP) Pulse Ox O2 Delivery O2 Flow Rate FiO2 12/19/19 08:00 98.6 73 20 120/55 (76) 96 12/19/19 04:00 98.8 70 19 118/53 (74) 92 12/19/19 04:00 59 12/19/19 00:00 97.9 67 19 126/61 (82) 94 12/19/19 00:00 64 12/18/19 21:00 Room Air 12/18/19 20:00 97.9 57 19 113/53 (73) 91 12/18/19 20:00 69 12/18/19 16:30 62 12/18/19 16:00 97.5 59 20 123/51 (75) 93 12/18/19 12:00 64 12/18/19 12:00 97.6 66 20 121/54 (76) 94 Intake and Output 12/18/19 12/19/19 19:00 07:00 Intake Total 1439.0 ml Balance 1439.0 ml IV Total 779.0 ml Tube Feeding 660 ml # Voids 2 Laboratory Tests 12/18/19 12:22: POC Whole Blood Glucose 149H 12/18/19 18:55: POC Whole Blood Glucose 89 12/18/19 21:00: Vancomycin Level Trough 14.1H 12/19/19 06:30: White Blood Count 7.9, Red Blood Count 4.12L, Hemoglobin 13.5L, Hematocrit 42.0 , Mean Corpuscular Volume 102H, Mean Corpuscular Hemoglobin 32.7H, Mean Corpuscular Hemoglobin Concent 32.0, Red Cell Distribution Width 14.2, Platelet Count 107L, Mean Platelet Volume 10.6H, Neutrophils (%) (Auto) 67.4, Lymphocytes (%) (Auto) 8.7L, Monocytes (%) (Auto) 10.4H, Eosinophils (%) (Auto) 11.2H, Basophils (%) (Auto) 2.3H, Sodium Level 146H, Potassium Level 3.9, Chloride Level 114H, Carbon Dioxide Level 26, Anion Gap 6, Blood Urea Nitrogen 19H, Creatinine 0.8, Estimat Glomerular Filtration Rate > 60, Glucose Level 118H , Calcium Level 7.5L, Total Bilirubin 0.4, Aspartate Amino Transf (AST/SGOT) 28 , Alanine Aminotransferase (ALT/SGPT) 17, Alkaline Phosphatase 211H, Total Protein 6.1L, Albumin 1.8L, Globulin 4.3, Albumin/Globulin Ratio 0.4L Height (Feet): 5 Height (Inches): 6.00 Weight (Pounds): 158 General Appearance: no apparent distress EENT: normal ENT inspection Neck: supple Cardiovascular: normal rate Respiratory/Chest: decreased breath sounds Abdomen: hypoactive bowel sounds Extremities: non-tender Randall Torres MD Dec 19, 2019 09:45
--- NOTE | 2019-12-19 11:52 | Pulmonology Progress Note ---
Subjective ROS Limited/Unobtainable: No Constitutional: Reports: no symptoms HEENT: Repors: no symptoms Allergies: Coded Allergies: No Known Allergies (Unverified , 01/27/17) All Systems: reviewed and negative except above Objective Last 24 Hour Vital Signs Date Time Temp Pulse Resp B/P (MAP) Pulse Ox O2 Delivery O2 Flow Rate FiO2 12/19/19 09:00 Room Air 12/19/19 08:00 98.6 73 20 120/55 (76) 96 12/19/19 08:00 70 12/19/19 04:00 98.8 70 19 118/53 (74) 92 12/19/19 04:00 59 12/19/19 00:00 97.9 67 19 126/61 (82) 94 12/19/19 00:00 64 12/18/19 21:00 Room Air 12/18/19 20:00 97.9 57 19 113/53 (73) 91 12/18/19 20:00 69 12/18/19 16:30 62 12/18/19 16:00 97.5 59 20 123/51 (75) 93 12/18/19 12:00 64 12/18/19 12:00 97.6 66 20 121/54 (76) 94 Intake and Output 12/18/19 12/19/19 19:00 07:00 Intake Total 1439.0 ml Balance 1439.0 ml IV Total 779.0 ml Tube Feeding 660 ml # Voids 2 General Appearance: WD/WN HEENT: normocephalic, atraumatic Respiratory: chest wall non-tender, lungs clear, no respiratory distress Cardiovascular: normal peripheral pulses, regular rhythm Abdomen: normal bowel sounds, no organomegaly Genitourinary: normal external genitalia Extremities: no clubbing 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 Complete 12/17/19 01:29 Rectum - Final NO CARBAPENEM-RESISTANT ENTEROBACTERI... Complete 12/17/19 01:29 Rectum VRE Culture - Final Enterococcus Faecium - Vre Complete Laboratory Tests 12/18/19 12:22: POC Whole Blood Glucose 149H 12/18/19 18:55: POC Whole Blood Glucose 89 12/18/19 21:00: Vancomycin Level Trough 14.1H 12/19/19 06:30: White Blood Count 7.9, Red Blood Count 4.12L, Hemoglobin 13.5L, Hematocrit 42.0 , Mean Corpuscular Volume 102H, Mean Corpuscular Hemoglobin 32.7H, Mean Corpuscular Hemoglobin Concent 32.0, Red Cell Distribution Width 14.2, Platelet Count 107L, Mean Platelet Volume 10.6H, Neutrophils (%) (Auto) 67.4, Lymphocytes (%) (Auto) 8.7L, Monocytes (%) (Auto) 10.4H, Eosinophils (%) (Auto) 11.2H, Basophils (%) (Auto) 2.3H, Sodium Level 146H, Potassium Level 3.9, Chloride Level 114H, Carbon Dioxide Level 26, Anion Gap 6, Blood Urea Nitrogen 19H, Creatinine 0.8, Estimat Glomerular Filtration Rate > 60, Glucose Level 118H , Calcium Level 7.5L, Total Bilirubin 0.4, Aspartate Amino Transf (AST/SGOT) 28 , Alanine Aminotransferase (ALT/SGPT) 17, Alkaline Phosphatase 211H, Total Protein 6.1L, Albumin 1.8L, Globulin 4.3, Albumin/Globulin Ratio 0.4L Current Medications Medications (Trade) Dose Ordered Sig/Robin Route PRN Reason Start Time Stop Time Status Last Admin Dose Admin Acetaminophen (Tylenol) 650 mg Q4H PRN ORAL fever 12/16/19 23:45 01/15/20 23:44 Albuterol Sulfate (Proventil MDI) 2 puff Q4H PRN INH Shortness of Breath 12/17/19 10:15 03/16/20 10:14 Dextrose (Dextrose 50%) 25 ml Q30M PRN IV Hypoglycemia 12/16/19 23:45 03/15/20 23:44 Dextrose (Dextrose 50%) 50 ml Q30M PRN IV Hypoglycemia 12/16/19 23:45 03/15/20 23:44 Diphenhydramine HCl (Benadryl) 25 mg Q6H PRN ORAL Itching/Pruritis 12/16/19 23:45 01/15/20 23:44 Docusate Sodium (Colace) 100 mg TWICE A DAY ORAL 12/18/19 18:00 01/17/20 17:59 12/19/19 09:03 Heparin Sodium (Porcine) (Heparin 5000 units/ml) 5,000 units EVERY 12 HOURS SUBQ 12/17/19 09:00 01/31/20 08:59 12/17/19 09:06 Insulin Aspart (NovoLOG) EVERY 6 HOURS SUBQ 12/17/19 18:00 03/16/20 06:29 12/18/19 12:26 Levothyroxine Sodium (Synthroid) 25 mcg ACBREAKFAST ORAL 12/17/19 06:30 01/16/20 06:29 12/19/19 05:52 Lorazepam (Ativan) 0.5 mg Q6H PRN ORAL For Anxiety 12/18/19 12:45 12/25/19 12:44 Memantine (Namenda) 5 mg BID GT 12/18/19 18:00 01/17/20 17:59 12/19/19 09:03 Nitroglycerin (Ntg) 0.4 mg Q5M X 3 DOSES PRN SL Prn Chest Pain 12/16/19 23:45 01/15/20 23:44 Nystatin (Nystatin) 5 ml QID ORAL 12/17/19 09:00 12/24/19 08:59 12/19/19 09:03 Ondansetron HCl (Zofran) 4 mg Q6H PRN IVP Nausea & Vomiting 12/16/19 23:45 01/15/20 23:44 Piperacillin Sod/ Tazobactam Sod 3.375 gm/Sodium Chloride 110 ml @ 27.5 mls/hr Q8HR IVPB 12/18/19 12:00 12/25/19 11:59 12/18/19 22:42 Polyethylene Glycol (Miralax) 17 gm BEDTIME ORAL 12/18/19 21:00 01/17/20 20:59 12/18/19 21:22 Risperidone (RisperDAL) 0.25 mg QHS GT 12/17/19 21:00 01/31/20 20:59 12/18/19 21:22 Sodium Chloride 1,000 ml @ 50 mls/hr Q20H IV 12/16/19 23:41 01/15/20 23:40 12/19/19 10:57 Vancomycin HCl (Vanco pharmacy to dose) 1 ea DAILY PRN MISC Per rx protocol 12/17/19 07:30 01/16/20 07:29 Vancomycin HCl 750 mg/Sodium Chloride 275 ml @ 183.333 mls/hr Q12H IVPB 12/17/19 22:00 12/22/19 21:59 12/19/19 09:03 Zinc Oxide (Zinc Oxide) 1 applic THREE TIMES A DAY PRN TOPIC GT site 12/18/19 12:15 03/17/20 12:14 Assessment/Plan Problems: (1) Nosocomial pneumonia (2) Bullous emphysema (3) G-tube site cellulitis (4) 2019 novel coronavirus disease (COVID-19) (5) COPD (chronic obstructive pulmonary disease) (6) Interstitial lung disease (7) Diabetes mellitus (8) MRSA nasal colonization (9) Alzheimer's disease (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
[2019-12-19 11:59] VITALS: BP 118/58
--- NOTE | 2019-12-19 12:04 | Infectious Diseases Prog Note ---
Assessment/Plan Afebrile RA Leukocytosis- SP Recent COVID 19 PNA 11/12 COVID pos? (no lab result, just from notes) 11/26 COVID pos 12/06 COVID pos 12/11 COVID negative 12/16 COVID pos XR: Coarse bilateral interstitial lung markings suggesting chronic interstitial lung disease. Asymmetric increased density of the left lung not significant changed as compared to prior imaging may be sequela of chronic interstitial lung disease. Underlying concomitant infection is not entirely excluded. Dedicated frontal and lateral radiographs can be considered for further evaluation. 12/16 CXR: Basilar-predominant fibrosis is again noted. Once again, there is somewhat greater opacification of the left lower chest, favored to reflect some asymmetry in chronic interstitial disease. No clear consolidation was identified on the abdominal CT, which included this area. G tube site drainage, irritation and cellulitis CT abd: Emphysematous and interstitial changes at the lung bases. Cholelithiasis without CT evidence of acute cholecystitis. Impacted stool within the rectum measuring 8 cm in diameter. Percutaneous gastrostomy tube positioned within the gastric antrum. Mild gastric mucosal thickening, underdistention versus gastritis. r/o bacteremia Bcx: NTD Unlikely UTI UA negative Dementia with psychosis DM Alzheimer's disease ILD MRSA colonization Hypothyroidism HTN COPD heart failure schizophrenia anxiety h/o CVA Plan: Zosynm #4 and Vanc #3 -ok to discharge on above regimen for 4 more days monitor temp and cbc monitor resp status f/u bcx COVID isolation for now VERA RN, therapeutic case manager and primary Subjective Allergies: Coded Allergies: No Known Allergies (Unverified , 01/27/17) afebrile leukocytosis resolved Bcx NTD Objective Last 24 Hour Vital Signs Date Time Temp Pulse Resp B/P (MAP) Pulse Ox O2 Delivery O2 Flow Rate FiO2 12/19/19 09:00 Room Air 12/19/19 08:00 98.6 73 20 120/55 (76) 96 12/19/19 08:00 70 12/19/19 04:00 98.8 70 19 118/53 (74) 92 12/19/19 04:00 59 12/19/19 00:00 97.9 67 19 126/61 (82) 94 12/19/19 00:00 64 12/18/19 21:00 Room Air 12/18/19 20:00 97.9 57 19 113/53 (73) 91 7/6/20 20:00 69 12/18/19 16:30 62 12/18/19 16:00 97.5 59 20 123/51 (75) 93 12/18/19 12:00 64 12/18/19 12:00 97.6 66 20 121/54 (76) 94 Height (Feet): 5 Height (Inches): 6.00 Weight (Pounds): 158 not examined to limit COVID19 exposure Microbiology Date/Time Source Procedure Growth Status 12/16/19 19:34 Blood Blood Culture - Preliminary NO GROWTH AFTER 48 HOURS Resulted 12/16/19 19:15 Blood Blood Culture - Preliminary NO GROWTH AFTER 48 HOURS Resulted 12/17/19 09:00 Nasopharynx Coronavirus COVID-19 PCR ([facility]) - Final Complete 12/17/19 01:29 Nasal Nares MRSA Culture - Final NO METHICILLIN RESISTANT STAPH AUREUS... Complete 12/17/19 01:29 Rectum - Final NO CARBAPENEM-RESISTANT ENTEROBACTERI... Complete 12/17/19 01:29 Rectum VRE Culture - Final Enterococcus Faecium - Vre Complete Laboratory Tests Test 12/18/19 12:22 12/18/19 18:55 12/18/19 21:00 12/19/19 06:30 POC Whole Blood Glucose 149 MG/DL (74-106) H 89 MG/DL (74-106) Vancomycin Level Trough 14.1 ug/mL (5.0-12.0) H White Blood Count 7.9 K/UL (4.8-10.8) Red Blood Count 4.12 M/UL (4.70-6.10) L Hemoglobin 13.5 G/DL (14.2-18.0) L Hematocrit 42.0 % (42.0-52.0) Mean Corpuscular Volume 102 FL (80-99) H Mean Corpuscular Hemoglobin 32.7 PG (27.0-31.0) H Mean Corpuscular Hemoglobin Concent 32.0 G/DL (32.0-36.0) Red Cell Distribution Width 14.2 % (11.6-14.8) Platelet Count 107 K/UL (150-450) L Mean Platelet Volume 10.6 FL (6.5-10.1) H Neutrophils (%) (Auto) 67.4 % (45.0-75.0) Lymphocytes (%) (Auto) 8.7 % (20.0-45.0) L Monocytes (%) (Auto) 10.4 % (1.0-10.0) H Eosinophils (%) (Auto) 11.2 % (0.0-3.0) H Basophils (%) (Auto) 2.3 % (0.0-2.0) H Sodium Level 146 MMOL/L (136-145) H Potassium Level 3.9 MMOL/L (3.5-5.1) Chloride Level 114 MMOL/L (98-107) H Carbon Dioxide Level 26 MMOL/L (21-32) Anion Gap 6 mmol/L (5-15) Blood Urea Nitrogen 19 mg/dL (7-18) H Creatinine 0.8 MG/DL (0.55-1.30) Estimat Glomerular Filtration Rate > 60 mL/min (>60) Glucose Level 118 MG/DL (74-106) H Calcium Level 7.5 MG/DL (8.5-10.1) L Total Bilirubin 0.4 MG/DL (0.2-1.0) Aspartate Amino Transf (AST/SGOT) 28 U/L (15-37) Alanine Aminotransferase (ALT/SGPT) 17 U/L (12-78) Alkaline Phosphatase 211 U/L (46-116) H Total Protein 6.1 G/DL (6.4-8.2) L Albumin 1.8 G/DL (3.4-5.0) L Globulin 4.3 g/dL Albumin/Globulin Ratio 0.4 (1.0-2.7) L Current Medications Medications (Trade) Dose Ordered Sig/Robin Route PRN Reason Start Time Stop Time Status Last Admin Dose Admin Acetaminophen (Tylenol) 650 mg Q4H PRN ORAL fever 12/16/19 23:45 01/15/20 23:44 Albuterol Sulfate (Proventil MDI) 2 puff Q4H PRN INH Shortness of Breath 12/17/19 10:15 03/16/20 10:14 Dextrose (Dextrose 50%) 25 ml Q30M PRN IV Hypoglycemia 12/16/19 23:45 03/15/20 23:44 Dextrose (Dextrose 50%) 50 ml Q30M PRN IV Hypoglycemia 12/16/19 23:45 03/15/20 23:44 Diphenhydramine HCl (Benadryl) 25 mg Q6H PRN ORAL Itching/Pruritis 12/16/19 23:45 01/15/20 23:44 Docusate Sodium (Colace) 100 mg TWICE A DAY ORAL 12/18/19 18:00 01/17/20 17:59 12/19/19 09:03 Heparin Sodium (Porcine) (Heparin 5000 units/ml) 5,000 units EVERY 12 HOURS SUBQ 12/17/19 09:00 01/31/20 08:59 12/17/19 09:06 Insulin Aspart (NovoLOG) EVERY 6 HOURS SUBQ 12/17/19 18:00 03/16/20 06:29 12/18/19 12:26 Levothyroxine Sodium (Synthroid) 25 mcg ACBREAKFAST ORAL 12/17/19 06:30 01/16/20 06:29 12/19/19 05:52 Lorazepam (Ativan) 0.5 mg Q6H PRN ORAL For Anxiety 12/18/19 12:45 12/25/19 12:44 Memantine (Namenda) 5 mg BID GT 12/18/19 18:00 01/17/20 17:59 12/19/19 09:03 Nitroglycerin (Ntg) 0.4 mg Q5M X 3 DOSES PRN SL Prn Chest Pain 12/16/19 23:45 01/15/20 23:44 Nystatin (Nystatin) 5 ml QID ORAL 12/17/19 09:00 12/24/19 08:59 12/19/19 09:03 Ondansetron HCl (Zofran) 4 mg Q6H PRN IVP Nausea & Vomiting 12/16/19 23:45 01/15/20 23:44 Piperacillin Sod/ Tazobactam Sod 3.375 gm/Sodium Chloride 110 ml @ 27.5 mls/hr Q8HR IVPB 12/18/19 12:00 12/25/19 11:59 12/18/19 22:42 Polyethylene Glycol (Miralax) 17 gm BEDTIME ORAL 12/18/19 21:00 01/17/20 20:59 12/18/19 21:22 Risperidone (RisperDAL) 0.25 mg QHS GT 12/17/19 21:00 01/31/20 20:59 12/18/19 21:22 Vancomycin HCl (Vanco pharmacy to dose) 1 ea DAILY PRN MISC Per rx protocol 12/17/19 07:30 01/16/20 07:29 Vancomycin HCl 750 mg/Sodium Chloride 275 ml @ 183.333 mls/hr Q12H IVPB 12/17/19 22:00 12/22/19 21:59 12/19/19 09:03 Zinc Oxide (Zinc Oxide) 1 applic THREE TIMES A DAY PRN TOPIC GT site 12/18/19 12:15 03/17/20 12:14 Helen Austin M.D. Dec 19, 2019 12:04
--- NOTE | 2019-12-19 13:37 | General Progress Note ---
Assessment/Plan Problem List: (1) 2019 novel coronavirus disease (COVID-19) ICD Codes: U07.1 - COVID-19; L03.319 - Cellulitis of trunk, unspecified SNOMED: 249074590, 279613128 (2) G-tube site cellulitis ICD Codes: K94.22 - Gastrostomy infection; L03.319 - Cellulitis of trunk, unspecified SNOMED: 988631066, 692362507 (3) Nosocomial pneumonia ICD Codes: J18.9 - Pneumonia, unspecified organism; Y95 - Nosocomial condition SNOMED: 648060932 (4) Dementia with psychosis ICD Codes: F03.91 - Unspecified dementia with behavioral disturbance SNOMED: 50031132, 41660098 (5) Diabetes mellitus ICD Codes: E11.9 - Type 2 diabetes mellitus without complications SNOMED: 95290435 (6) Alzheimer's disease ICD Codes: G30.9 - Alzheimer's disease, unspecified; F02.80 - Dementia in other diseases classified elsewhere without behavioral disturbance SNOMED: 00768597 Status: stable, progressing Assessment/Plan: pt diet abx wound care cbc bmp am dc if clear Subjective Constitutional: Reports: weakness Allergies: Coded Allergies: No Known Allergies (Unverified , 01/27/17) All Systems: reviewed and negative except above Subjective sleepy in bed Objective Last 24 Hour Vital Signs Date Time Temp Pulse Resp B/P (MAP) Pulse Ox O2 Delivery O2 Flow Rate FiO2 12/19/19 12:00 66 12/19/19 11:59 98.2 70 18 118/58 (78) 95 12/19/19 09:00 Room Air 12/19/19 08:00 98.6 73 20 120/55 (76) 96 12/19/19 08:00 70 12/19/19 04:00 98.8 70 19 118/53 (74) 92 12/19/19 04:00 59 12/19/19 00:00 97.9 67 19 126/61 (82) 94 12/19/19 00:00 64 12/18/19 21:00 Room Air 12/18/19 20:00 97.9 57 19 113/53 (73) 91 12/18/19 20:00 69 12/18/19 16:30 62 12/18/19 16:00 97.5 59 20 123/51 (31) 93 Intake and Output 12/18/19 12/19/19 19:00 07:00 Intake Total 1439.0 ml Balance 1439.0 ml IV Total 779.0 ml Tube Feeding 660 ml # Voids 2 Laboratory Tests 12/18/19 18:55: POC Whole Blood Glucose 89 12/18/19 21:00: Vancomycin Level Trough 14.1H 12/19/19 06:30: White Blood Count 7.9, Red Blood Count 4.12L, Hemoglobin 13.5L, Hematocrit 42.0 , Mean Corpuscular Volume 102H, Mean Corpuscular Hemoglobin 32.7H, Mean Corpuscular Hemoglobin Concent 32.0, Red Cell Distribution Width 14.2, Platelet Count 107L, Mean Platelet Volume 10.6H, Neutrophils (%) (Auto) 67.4, Lymphocytes (%) (Auto) 8.7L, Monocytes (%) (Auto) 10.4H, Eosinophils (%) (Auto) 11.2H, Basophils (%) (Auto) 2.3H, Sodium Level 146H, Potassium Level 3.9, Chloride Level 114H, Carbon Dioxide Level 26, Anion Gap 6, Blood Urea Nitrogen 19H, Creatinine 0.8, Estimat Glomerular Filtration Rate > 60, Glucose Level 118H , Calcium Level 7.5L, Total Bilirubin 0.4, Aspartate Amino Transf (AST/SGOT) 28 , Alanine Aminotransferase (ALT/SGPT) 17, Alkaline Phosphatase 211H, Total Protein 6.1L, Albumin 1.8L, Globulin 4.3, Albumin/Globulin Ratio 0.4L Height (Feet): 5 Height (Inches): 6.00 Weight (Pounds): 158 General Appearance: lethargic EENT: normal ENT inspection Neck: normal alignment Cardiovascular: normal rate, regular rhythm Respiratory/Chest: no respiratory distress, no accessory muscle use Extremities: normal inspection Skin: normal pigmentation Han Swenson DO Dec 19, 2019 13:37
[2019-12-19 16:00] VITALS: BP 115/54
[2019-12-19 20:00] VITALS: BP 130/65
[2019-12-19] MEDS: Miralax 17gm pkt ORAL SCH (21:18)
--- NOTE | 2019-12-19 23:00 | Consultation ---
DATE OF CONSULTATION: 12/19/2019 ADDENDUM This is an addendum to job #[id number]. I also did 20 minutes of cognitive behavioral therapy to help this patient identify his automatic negative thoughts and convert his negative thoughts to more positive thoughts to reduce depression, anxiety, and suicidality. Chart was reviewed. Discussed with staff. The patient was seen and assessed at bedside. Елена Lang M.D. DR: PAULA JOB#: [id number] CC:
--- NOTE | 2019-12-19 23:00 | Progress Note ---
DATE: 12/19/2019 SUBJECTIVE: This is an 79-year-old male patient. Patient came into the hospital. He is an 79-year-old male with G-tube cellulitis. He is COVID positive. He has got altered mental status, confusion. He has got decline in cognition below his baseline. He has got hematuria, MRSA, diabetes, Alzheimer's, COPD that is causing him to have a decline in cognition below his baseline. That is why his attending physician has requested daily psychiatric consultation. MENTAL STATUS EXAMINATION: An 79-year-old male patient. Appearance is disheveled. Attitude irritable and agitated. Affect restricted. Intellect poor. Mood depressed and anxious. Motor activity, psychomotor agitation. Attention is poor. Orientation x2. Speech is pressured. Thought process disorganized and illogical. Insight and judgment are poor. DIAGNOSIS: Paranoid schizophrenia with acute exacerbation, rule out dementia with psychosis. PLAN: My plan for this patient is to treat him with a medication regimen consisting of Namenda at a dose of 5 mg per G-tube twice a day, Ativan 0.5 mg every 6 hours p.r.n. anxiety, agitation. Twenty minutes of reality-based supportive psychotherapy provided. patient. Chart was reviewed. Discussed with staff. The patient was seen and assessed in his room. Елена Lang M.D. DR: PAULA JOB#: [id number] CC:
[2019-12-20] VITALS (7 sets, daily range): BP systolic 118–145; BP diastolic 60–89
[2019-12-20] MEDS: Zosyn 3.375gm q8h **Extended infusion IVPB SCH ×4 (05:41→13:53)
[2019-12-20] MEDS: Levothyroxine 25mcg tab ORAL SCH (05:42)
[2019-12-20] MEDS: NovoLOG Insulin Flexpen SUBQ SCH ×5 (05:44→23:33)
[2019-12-20 06:25] LABS: ANION GAP 6 mmol/L (5-15); BLOOD UREA NITROGEN 17 mg/dL (7-18); CALCIUM 7.6 MG/DL (8.5-10.1); CARBON DIOXIDE 25 MMOL/L (21-32); CHLORIDE 111 MMOL/L (98-107); CREATININE 0.7 MG/DL (0.55-1.30); POTASSIUM 4.2 MMOL/L (3.5-5.1); SODIUM 142 MMOL/L (136-145)
[2019-12-20 06:29] LABS: BASOPHILS % (AUTO) 2.8 % (0.0-2.0); EOSINOPHILS % (AUTO) 12.2 % (0.0-3.0); HEMATOCRIT 40.2 % (42.0-52.0); HEMOGLOBIN 13.1 G/DL (14.2-18.0); LYMPHOCYTES % (AUTO) 7.5 % (20.0-45.0); MEAN CORPUSCULAR VOLUME 101 FL (80-99); MONOCYTES % (AUTO) 8.3 % (1.0-10.0); NEUTROPHILS % (AUTO) 69.2 % (45.0-75.0); PLATELET COUNT 102 K/UL (150-450); RED BLOOD COUNT 3.99 M/UL (4.70-6.10); RED CELL DISTRIBUTION WIDTH 14.5 % (11.6-14.8); WHITE BLOOD COUNT 8.5 K/UL (4.8-10.8)
--- NOTE | 2019-12-20 08:21 | General Progress Note ---
Assessment/Plan Problem List: (1) 2019 novel coronavirus disease (COVID-19) ICD Codes: U07.1 - COVID-19; L03.319 - Cellulitis of trunk, unspecified SNOMED: 692247767, 066501241 (2) G-tube site cellulitis ICD Codes: K94.22 - Gastrostomy infection; L03.319 - Cellulitis of trunk, unspecified SNOMED: 397102633, 601143368 (3) Nosocomial pneumonia ICD Codes: J18.9 - Pneumonia, unspecified organism; Y95 - Nosocomial condition SNOMED: 302991333 (4) Dementia with psychosis ICD Codes: F03.91 - Unspecified dementia with behavioral disturbance SNOMED: 41158317, 01287391 (5) Diabetes mellitus ICD Codes: E11.9 - Type 2 diabetes mellitus without complications SNOMED: 80095531 (6) Alzheimer's disease ICD Codes: G30.9 - Alzheimer's disease, unspecified; F02.80 - Dementia in other diseases classified elsewhere without behavioral disturbance SNOMED: 36493819 Status: stable, progressing Assessment/Plan: pt diet abx wound care cbc bmp am aru ltache eval Subjective Constitutional: Reports: weakness Allergies: Coded Allergies: No Known Allergies (Unverified , 01/27/17) All Systems: reviewed and negative except above Subjective sleepy in bed Objective Last 24 Hour Vital Signs Date Time Temp Pulse Resp B/P (MAP) Pulse Ox O2 Delivery O2 Flow Rate FiO2 12/20/19 08:00 98.6 67 20 125/60 (81) 96 12/20/19 04:00 98.9 64 18 145/89 (107) 95 12/20/19 04:00 82 12/20/19 00:00 66 12/20/19 00:00 99.3 70 18 128/71 (90) 96 12/19/19 21:00 Room Air 12/19/19 20:00 71 12/19/19 20:00 99.3 66 20 130/65 (86) 96 12/19/19 16:00 73 12/19/19 16:00 98.8 70 20 115/54 (74) 96 12/19/19 12:00 66 12/19/19 11:59 98.2 70 18 118/58 (78) 95 12/19/19 09:00 Room Air Intake and Output 12/19/19 12/20/19 19:00 07:00 # Voids 2 2 Laboratory Tests 12/19/19 17:49: POC Whole Blood Glucose [Pending] 12/20/19 05:43: White Blood Count 8.5, Red Blood Count 3.99L, Hemoglobin 13.1L, Hematocrit 40.2L , Mean Corpuscular Volume 101H, Mean Corpuscular Hemoglobin 32.9H, Mean Corpuscular Hemoglobin Concent 32.6, Red Cell Distribution Width 14.5, Platelet Count 102L, Mean Platelet Volume 11.8H, Neutrophils (%) (Auto) 69.2, Lymphocytes (%) (Auto) 7.5L, Monocytes (%) (Auto) 8.3, Eosinophils (%) (Auto) 12.2H, Basophils (%) (Auto) 2.8H, Sodium Level 142, Potassium Level 4.2, Chloride Level 111H, Carbon Dioxide Level 25, Anion Gap 6, Blood Urea Nitrogen 17, Creatinine 0.7, Estimat Glomerular Filtration Rate > 60, Glucose Level 126H , Calcium Level 7.6L Height (Feet): 5 Height (Inches): 6.00 Weight (Pounds): 165 General Appearance: lethargic EENT: normal ENT inspection Neck: normal alignment Cardiovascular: normal rate, regular rhythm Respiratory/Chest: no respiratory distress, no accessory muscle use Extremities: normal inspection Skin: normal pigmentation Han Swenson DO Dec 20, 2019 08:21
[2019-12-20] MEDS: Docusate 100mg cap ORAL SCH ×2 (09:12→18:31)
[2019-12-20] MEDS: Nystatin Susp 500,000 units/5ml ORAL SCH ×3 (09:12→18:30)
[2019-12-20] MEDS: Memantine 5 MG TAB GT SCH ×2 (09:12→18:30)
[2019-12-20] MEDS: Heparin 5000 units/ml inj SUBQ SCH (09:16)
[2019-12-20] MEDS: Vancomycin 750mg/NS 275ml IVPB SCH ×2 (09:18)
--- NOTE | 2019-12-20 09:42 | General Progress Note ---
Assessment/Plan Problem List: (1) Feeding by G-tube ICD Codes: Z93.1 - Gastrostomy status SNOMED: 856553535, 965916717, 498457732 (2) Interstitial lung disease ICD Codes: J84.9 - Interstitial pulmonary disease, unspecified SNOMED: 614259601 (3) Alzheimer's disease ICD Codes: G30.9 - Alzheimer's disease, unspecified; F02.80 - Dementia in other diseases classified elsewhere without behavioral disturbance SNOMED: 29364836 (4) Diabetes mellitus ICD Codes: E11.9 - Type 2 diabetes mellitus without complications SNOMED: 86603599 (5) G-tube site cellulitis ICD Codes: K94.22 - Gastrostomy infection; L03.319 - Cellulitis of trunk, unspecified SNOMED: 008875661, 695531596 Status: stable, progressing Assessment/Plan: GTF abx per ID local GT site care bowel regimen fu LFTS Subjective ROS Limited/Unobtainable: No Allergies: Coded Allergies: No Known Allergies (Unverified , 01/27/17) Objective Last 24 Hour Vital Signs Date Time Temp Pulse Resp B/P (MAP) Pulse Ox O2 Delivery O2 Flow Rate FiO2 12/20/19 08:00 98.6 67 20 125/60 (81) 96 12/20/19 04:00 98.9 64 18 145/89 (107) 95 12/20/19 04:00 82 12/20/19 00:00 66 12/20/19 00:00 99.3 70 18 128/71 (90) 96 12/19/19 21:00 Room Air 12/19/19 20:00 71 12/19/19 20:00 99.3 66 20 130/65 (86) 96 12/19/19 16:00 73 12/19/19 16:00 98.8 70 20 115/54 (74) 96 12/19/19 12:00 66 12/19/19 11:59 98.2 70 18 118/58 (78) 95 Intake and Output 12/19/19 12/20/19 19:00 07:00 # Voids 2 2 Laboratory Tests 12/19/19 17:49: POC Whole Blood Glucose [Pending] 12/20/19 05:43: White Blood Count 8.5, Red Blood Count 3.99L, Hemoglobin 13.1L, Hematocrit 40.2L , Mean Corpuscular Volume 101H, Mean Corpuscular Hemoglobin 32.9H, Mean Corpuscular Hemoglobin Concent 32.6, Red Cell Distribution Width 14.5, Platelet Count 102L, Mean Platelet Volume 11.8H, Neutrophils (%) (Auto) 69.2, Lymphocytes (%) (Auto) 7.5L, Monocytes (%) (Auto) 8.3, Eosinophils (%) (Auto) 12.2H, Basophils (%) (Auto) 2.8H, Sodium Level 142, Potassium Level 4.2, Chloride Level 111H, Carbon Dioxide Level 25, Anion Gap 6, Blood Urea Nitrogen 17, Creatinine 0.7, Estimat Glomerular Filtration Rate > 60, Glucose Level 126H , Calcium Level 7.6L Height (Feet): 5 Height (Inches): 6.00 Weight (Pounds): 165 General Appearance: no apparent distress EENT: PERRL/EOMI Neck: normal alignment Cardiovascular: normal rate Respiratory/Chest: decreased breath sounds Abdomen: hypoactive bowel sounds Extremities: non-tender Randall Torres MD Dec 20, 2019 09:42
--- NOTE | 2019-12-20 10:30 | Consultation ---
DATE OF CONSULTATION: 12/18/2019 PSYCHOTHERAPY CONSULTATION PROGRESS NOTE CONSULTING PHYSICIAN: Sanya Bob PsyD. TREATING ATTENDING PHYSICIAN: Han Swenson DO HISTORY OF PRESENT ILLNESS: The patient is an 79-year-old male patient. He has a history of schizophrenia, brought into the hospital with G-tube cellulitis, possible COVID. The patient was referred for psychotherapeutic services with anxiety, irritability. The patient is able to communicate by mouth and . The patient states that he . He becomes very agitated to communicate with him; however, the patient is able to communicate . He is cooperative. PAST MEDICAL HISTORY: The patient has a history of diabetes. ALLERGIES: The patient has no known drug allergies. SUBSTANCE ABUSE HISTORY: The patient denies history of alcohol use, illicit substance use, smoking cigarettes. PSYCHIATRIC HISTORY: The patient has a history of schizophrenia, has been treated with psychotropic medications in the past. SOCIAL HISTORY: The patient is an 79-year-old male patient from [facility]. Financially sustained through [employer]. MENTAL STATUS EXAMINATION: The patient is alert and oriented to person and place. Mood is anxious. Affect congruent. Thought process is disorganized. He has poor attention and concentration. Poor insight, judgment, and impulse control. DIAGNOSES: 1. Paranoid schizophrenia. 2. Diabetes. 3. Psychosocial stressors, moderate. I ASSESSED THIS PATIENT AND PROVIDED THE PATIENT WITH: 4. Reality orientation which is focused on improving the cognitive level of function of the patient who is confused and disorganized. Oriented to person, place, time, and situation. 5. Provided the patient with supportive psychotherapy, provided the patient the means to process his thoughts and feelings of depression utilizing positive communication skills. . 6. Provide the patient with psychoeducation on mental health symptoms, diagnosed with paranoid schizophrenia. 7. Plan is to maintain medication compliance, assist with positive coping skills to stabilize mood, thoughts, and behavior. Psychotherapy service is 45 minutes. This clinician has reviewed the patient's chart and discussed treatment with treatment team. Sanya Bob PsyD. DR: Mela JOB#: [id number] CC:
--- NOTE | 2019-12-20 11:45 | Pulmonology Progress Note ---
Subjective ROS Limited/Unobtainable: No Constitutional: Reports: no symptoms HEENT: Repors: no symptoms Allergies: Coded Allergies: No Known Allergies (Unverified , 01/27/17) All Systems: reviewed and negative except above Objective Last 24 Hour Vital Signs Date Time Temp Pulse Resp B/P (MAP) Pulse Ox O2 Delivery O2 Flow Rate FiO2 12/20/19 08:00 98.6 67 20 125/60 (81) 96 12/20/19 04:00 98.9 64 18 145/89 (107) 95 12/20/19 04:00 82 12/20/19 00:00 66 12/20/19 00:00 99.3 70 18 128/71 (90) 96 12/19/19 21:00 Room Air 12/19/19 20:00 71 12/19/19 20:00 99.3 66 20 130/65 (86) 96 12/19/19 16:00 73 12/19/19 16:00 98.8 70 20 115/54 (74) 96 12/19/19 12:00 66 12/19/19 11:59 98.2 70 18 118/58 (78) 95 Intake and Output 12/19/19 12/20/19 19:00 07:00 # Voids 2 2 General Appearance: WD/WN HEENT: normocephalic, atraumatic Respiratory: chest wall non-tender, lungs clear, no respiratory distress Cardiovascular: normal peripheral pulses, regular rhythm Abdomen: normal bowel sounds, no organomegaly Genitourinary: normal external genitalia Extremities: no clubbing 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: 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 II-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 grossly normal, alert Lymphatic: no groin adenopathy Musculoskeletal: normal muscle bulk Laboratory Tests 12/19/19 17:49: POC Whole Blood Glucose [Pending] 12/20/19 05:43: White Blood Count 8.5, Red Blood Count 3.99L, Hemoglobin 13.1L, Hematocrit 40.2L , Mean Corpuscular Volume 101H, Mean Corpuscular Hemoglobin 32.9H, Mean Corpuscular Hemoglobin Concent 32.6, Red Cell Distribution Width 14.5, Platelet Count 102L, Mean Platelet Volume 11.8H, Neutrophils (%) (Auto) 69.2, Lymphocytes (%) (Auto) 7.5L, Monocytes (%) (Auto) 8.3, Eosinophils (%) (Auto) 12.2H, Basophils (%) (Auto) 2.8H, Sodium Level 142, Potassium Level 4.2, Chloride Level 111H, Carbon Dioxide Level 25, Anion Gap 6, Blood Urea Nitrogen 17, Creatinine 0.7, Estimat Glomerular Filtration Rate > 60, Glucose Level 126H , Calcium Level 7.6L Current Medications Medications (Trade) Dose Ordered Sig/Robin Route PRN Reason Start Time Stop Time Status Last Admin Dose Admin Acetaminophen (Tylenol) 650 mg Q4H PRN ORAL fever 12/16/19 23:45 01/15/20 23:44 Albuterol Sulfate (Proventil MDI) 2 puff Q4H PRN INH Shortness of Breath 12/17/19 10:15 03/16/20 10:14 Dextrose (Dextrose 50%) 25 ml Q30M PRN IV Hypoglycemia 12/16/19 23:45 03/15/20 23:44 Dextrose (Dextrose 50%) 50 ml Q30M PRN IV Hypoglycemia 12/16/19 23:45 03/15/20 23:44 Diphenhydramine HCl (Benadryl) 25 mg Q6H PRN ORAL Itching/Pruritis 12/16/19 23:45 01/15/20 23:44 Docusate Sodium (Colace) 100 mg TWICE A DAY ORAL 12/18/19 18:00 01/17/20 17:59 12/20/19 09:12 Heparin Sodium (Porcine) (Heparin 5000 units/ml) 5,000 units EVERY 12 HOURS SUBQ 12/17/19 09:00 01/31/20 08:59 12/20/19 09:16 Insulin Aspart (NovoLOG) EVERY 6 HOURS SUBQ 12/17/19 18:00 03/16/20 06:29 12/18/19 12:26 Levothyroxine Sodium (Synthroid) 25 mcg ACBREAKFAST ORAL 12/17/19 06:30 01/16/20 06:29 12/20/19 05:42 Lorazepam (Ativan) 0.5 mg Q6H PRN ORAL For Anxiety 12/18/19 12:45 12/25/19 12:44 Memantine (Namenda) 5 mg BID GT 12/18/19 18:00 01/17/20 17:59 12/20/19 09:12 Nitroglycerin (Ntg) 0.4 mg Q5M X 3 DOSES PRN SL Prn Chest Pain 12/16/19 23:45 01/15/20 23:44 Nystatin (Nystatin) 5 ml QID ORAL 12/17/19 09:00 12/24/19 08:59 12/20/19 09:12 Ondansetron HCl (Zofran) 4 mg Q6H PRN IVP Nausea & Vomiting 12/16/19 23:45 01/15/20 23:44 Piperacillin Sod/ Tazobactam Sod 3.375 gm/Sodium Chloride 110 ml @ 27.5 mls/hr Q8HR IVPB 12/18/19 12:00 12/25/19 11:59 12/20/19 05:41 Polyethylene Glycol (Miralax) 17 gm BEDTIME ORAL 12/18/19 21:00 01/17/20 20:59 12/19/19 21:18 Risperidone (RisperDAL) 0.25 mg QHS GT 12/17/19 21:00 01/31/20 20:59 12/19/19 21:18 Vancomycin HCl (Vanco pharmacy to dose) 1 ea DAILY PRN MISC Per rx protocol 12/17/19 07:30 01/16/20 07:29 Vancomycin HCl 750 mg/Sodium Chloride 275 ml @ 183.333 mls/hr Q12H IVPB 12/17/19 22:00 12/22/19 21:59 12/20/19 09:18 Zinc Oxide (Zinc Oxide) 1 applic THREE TIMES A DAY PRN TOPIC GT site 12/18/19 12:15 03/17/20 12:14 12/20/19 09:12 Assessment/Plan Problems: (1) 2019 novel coronavirus disease (COVID-19) (2) Nosocomial pneumonia (3) Bullous emphysema (4) Interstitial lung disease (5) G-tube site cellulitis (6) COPD (chronic obstructive pulmonary disease) (7) Diabetes mellitus (8) MRSA nasal colonization (9) Alzheimer's disease (10) Dementia with psychosis (11) Feeding by G-tube Assessment/Plan continue isolation , fup with another COVID 19 dc IV fluids, increase tap water flushing, NA is WNL O2 titrate to keep sat above 90%, pulm toilet wichiara YOUSSEFI DVT prophylaxis aspir precautions abx as per ID recs fup with cx G tube site care BS management with SSI Fco León MD Dec 20, 2019 11:45
--- NOTE | 2019-12-20 12:02 | Infectious Diseases Prog Note ---
Assessment/Plan Afebrile RA Leukocytosis- SP Recent COVID 19 PNA 11/12 COVID pos? (no lab result, just from notes) 11/26 COVID pos 12/06 COVID pos 12/11 COVID negative 12/16 COVID pos XR: Coarse bilateral interstitial lung markings suggesting chronic interstitial lung disease. Asymmetric increased density of the left lung not significant changed as compared to prior imaging may be sequela of chronic interstitial lung disease. Underlying concomitant infection is not entirely excluded. Dedicated frontal and lateral radiographs can be considered for further evaluation. 12/16 CXR: Basilar-predominant fibrosis is again noted. Once again, there is somewhat greater opacification of the left lower chest, favored to reflect some asymmetry in chronic interstitial disease. No clear consolidation was identified on the abdominal CT, which included this area. G tube site drainage, irritation and cellulitis CT abd: Emphysematous and interstitial changes at the lung bases. Cholelithiasis without CT evidence of acute cholecystitis. Impacted stool within the rectum measuring 8 cm in diameter. Percutaneous gastrostomy tube positioned within the gastric antrum. Mild gastric mucosal thickening, underdistention versus gastritis. 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 Subjective Allergies: Coded Allergies: No Known Allergies (Unverified , 01/27/17) afebrile no leukocytosis Bcx NTD pending discharge Objective Last 24 Hour Vital Signs Date Time Temp Pulse Resp B/P (MAP) Pulse Ox O2 Delivery O2 Flow Rate FiO2 12/20/19 08:00 98.6 67 20 125/60 (81) 96 12/20/19 04:00 98.9 64 18 145/89 (107) 95 12/20/19 04:00 82 12/20/19 00:00 66 12/20/19 00:00 99.3 70 18 128/71 (90) 96 12/19/19 21:00 Room Air 12/19/19 20:00 71 12/19/19 20:00 99.3 66 20 130/65 (86) 96 12/19/19 16:00 73 12/19/19 16:00 98.8 70 20 115/54 (74) 96 12/19/19 12:00 66 12/19/19 11:59 98.2 70 18 118/58 (78) 95 Height (Feet): 5 Height (Inches): 6.00 Weight (Pounds): 165 General Appearance: WD/WN HEENT: normocephalic, atraumatic Respiratory: chest wall non-tender, lungs clear, no respiratory distress Cardiovascular: normal peripheral pulses, regular rhythm Abdomen: normal bowel sounds, no organomegaly; GT site minimal redness Laboratory Tests Test 12/19/19 17:49 12/20/19 05:43 POC Whole Blood Glucose Pending White Blood Count 8.5 K/UL (4.8-10.8) Red Blood Count 3.99 M/UL (4.70-6.10) L Hemoglobin 13.1 G/DL (14.2-18.0) L Hematocrit 40.2 % (42.0-52.0) L Mean Corpuscular Volume 101 FL (80-99) H Mean Corpuscular Hemoglobin 32.9 PG (27.0-31.0) H Mean Corpuscular Hemoglobin Concent 32.6 G/DL (32.0-36.0) Red Cell Distribution Width 14.5 % (11.6-14.8) Platelet Count 102 K/UL (150-450) L Mean Platelet Volume 11.8 FL (6.5-10.1) H Neutrophils (%) (Auto) 69.2 % (45.0-75.0) Lymphocytes (%) (Auto) 7.5 % (20.0-45.0) L Monocytes (%) (Auto) 8.3 % (1.0-10.0) Eosinophils (%) (Auto) 12.2 % (0.0-3.0) H Basophils (%) (Auto) 2.8 % (0.0-2.0) H Sodium Level 142 MMOL/L (136-145) Potassium Level 4.2 MMOL/L (3.5-5.1) Chloride Level 111 MMOL/L (98-107) H Carbon Dioxide Level 25 MMOL/L (21-32) Anion Gap 6 mmol/L (5-15) Blood Urea Nitrogen 17 mg/dL (7-18) Creatinine 0.7 MG/DL (0.55-1.30) Estimat Glomerular Filtration Rate > 60 mL/min (>60) Glucose Level 126 MG/DL (74-106) H Calcium Level 7.6 MG/DL (8.5-10.1) L Current Medications Medications (Trade) Dose Ordered Sig/Robin Route PRN Reason Start Time Stop Time Status Last Admin Dose Admin Acetaminophen (Tylenol) 650 mg Q4H PRN ORAL fever 12/16/19 23:45 01/15/20 23:44 Albuterol Sulfate (Proventil MDI) 2 puff Q4H PRN INH Shortness of Breath 12/17/19 10:15 03/16/20 10:14 Dextrose (Dextrose 50%) 25 ml Q30M PRN IV Hypoglycemia 12/16/19 23:45 03/15/20 23:44 Dextrose (Dextrose 50%) 50 ml Q30M PRN IV Hypoglycemia 12/16/19 23:45 03/15/20 23:44 Diphenhydramine HCl (Benadryl) 25 mg Q6H PRN ORAL Itching/Pruritis 12/16/19 23:45 01/15/20 23:44 Docusate Sodium (Colace) 100 mg TWICE A DAY ORAL 12/18/19 18:00 01/17/20 17:59 12/20/19 09:12 Heparin Sodium (Porcine) (Heparin 5000 units/ml) 5,000 units EVERY 12 HOURS SUBQ 12/17/19 09:00 01/31/20 08:59 12/20/19 09:16 Insulin Aspart (NovoLOG) EVERY 6 HOURS SUBQ 12/17/19 18:00 03/16/20 06:29 12/18/19 12:26 Levothyroxine Sodium (Synthroid) 25 mcg ACBREAKFAST ORAL 12/17/19 06:30 01/16/20 06:29 12/20/19 05:42 Lorazepam (Ativan) 0.5 mg Q6H PRN ORAL For Anxiety 12/18/19 12:45 12/25/19 12:44 Memantine (Namenda) 5 mg BID GT 12/18/19 18:00 01/17/20 17:59 12/20/19 09:12 Nitroglycerin (Ntg) 0.4 mg Q5M X 3 DOSES PRN SL Prn Chest Pain 12/16/19 23:45 01/15/20 23:44 Nystatin (Nystatin) 5 ml QID ORAL 12/17/19 09:00 12/24/19 08:59 12/20/19 09:12 Ondansetron HCl (Zofran) 4 mg Q6H PRN IVP Nausea & Vomiting 12/16/19 23:45 01/15/20 23:44 Piperacillin Sod/ Tazobactam Sod 3.375 gm/Sodium Chloride 110 ml @ 27.5 mls/hr Q8HR IVPB 12/18/19 12:00 12/25/19 11:59 12/20/19 05:41 Polyethylene Glycol (Miralax) 17 gm BEDTIME ORAL 12/18/19 21:00 01/17/20 20:59 12/19/19 21:18 Risperidone (RisperDAL) 0.25 mg QHS GT 12/17/19 21:00 01/31/20 20:59 12/19/19 21:18 Vancomycin HCl (Vanco pharmacy to dose) 1 ea DAILY PRN MISC Per rx protocol 12/17/19 07:30 01/16/20 07:29 Vancomycin HCl 750 mg/Sodium Chloride 275 ml @ 183.333 mls/hr Q12H IVPB 12/17/19 22:00 12/22/19 21:59 12/20/19 09:18 Zinc Oxide (Zinc Oxide) 1 applic THREE TIMES A DAY PRN TOPIC GT site 12/18/19 12:15 03/17/20 12:14 12/20/19 09:12 Helen Austin M.D. Dec 20, 2019 12:02
--- NOTE | 2019-12-20 12:20 | Consultation ---
History of Present Illness General Chief Complaint: Malfunctioning Gastric Tube Referring physician: Dr Swenson Reason for Consultation: + COVID, prob PNA Present Illness Allergies: Coded Allergies: No Known Allergies (Unverified , 01/27/17) Medication History Scheduled Amino Acids/Protein Hydrolys (Pro-Stat Liquid), 30 ML GT TWICE A DAY, (Reported) Apixaban (Eliquis), 2.5 MG GT BID, (Reported) Ascorbic Acid* (Ascorbic Acid*), 500 MG GT DAILY, (Reported) Cranberry Fruit (Cranberry), 2 CAP PO BID, (Reported) Insulin Regular, Human* (Novolin R*), 0 SUBQ .SLIDING SCALE, (Reported) Levothyroxine Sodium* (Synthroid*), 25 MCG GT DAILY, (Reported) Risperidone* (Risperdal*), 0.25 MG GT QHS, (Reported) Zinc Sulfate (Zinc Sulfate*), 2 CAP GT DAILY, (Reported) Discontinued Medications Acetaminophen* (Tylenol Extra Strength*), 1,000 MG GT Q4HR PRN for Moderate Pain (Pain Scale 4-6), (Reported) Discontinued Reason: Therapy completed Acetaminophen* (Acetaminophen 325MG Tablet*), 325 MG ORAL Q4H PRN for Mild Pain/ Temp > 100.5, (Reported) Discontinued Reason: MD discontinued med Bisacodyl (Bisacodyl), 10 MG RC DAILY PRN for CONSTIPATION IF MOM IS INEFFEC, ( Reported) Discontinued Reason: Therapy completed Cephalexin* (Keflex*), 500 MG ORAL EVERY 6 HOURS, (Reported) Discontinued Reason: MD discontinued med Docusate Sodium* (Colace*), 100 MG GT BID, (Reported) Discontinued Reason: Therapy completed Insulin Aspart (Novolog Flexpen), SQ Q6HR, (Reported) Discontinued Reason: Therapy completed Ipratropium Stringer 0.5MG/2.5ML (Ipratropium Stringer 0.5MG/2.5ML), 0.5 MG HHN Q4HR PRN for Shortness of Breath, (Reported) Discontinued Reason: Therapy completed Levothyroxine Sodium* (Synthroid*), 25 MCG ORAL DAILY, (Reported) Discontinued Reason: Therapy completed Lorazepam* (Ativan*), 0.5 MG GT Q6HR, (Reported) Discontinued Reason: Therapy completed Magnesium Hydroxide* (Milk Of Magnesia*), 30 ML GT QHS PRN for CONST IF SOFTENER IS INEFFECTI, (Reported) Discontinued Reason: Therapy completed Memantine Hcl* (Namenda*), 5 MG GT BID, (Reported) Discontinued Reason: Therapy completed Memantine Hcl* (Namenda*), 5 MG GT BID, (Reported) Discontinued Reason: MD discontinued med Memantine Hcl* (Namenda*), 5 MG GT BID, (Reported) Discontinued Reason: MD discontinued med Multivitamin With Minerals (Multivitamins With Minerals*), 1 TAB ORAL DAILY, ( Reported) Discontinued Reason: Therapy completed Na Phos,M-B/Na Phos,Di-Ba* (Fleet Enema*), 133 ML RECTAL EVERY OTHER DAY PRN for CONST IF BISACODYL IS INEFFECT, (Reported) Discontinued Reason: Therapy completed Pravastatin Sod* (Pravastatin Sod*), 20 MG GT BEDTIME, (Reported) Discontinued Reason: Therapy completed Risperidone* (Risperdal*), 0.25 MG ORAL QHS, (Reported) Discontinued Reason: MD discontinued med Temazepam* (Restoril*), 15 MG ORAL BEDTIME PRN for Insomnia, (Reported) Discontinued Reason: Therapy completed Trimethoprim/Sulfamethoxazole (Bactrim Ds Tablet), 1 TAB ORAL TWICE A DAY, ( Reported) Discontinued Reason: Therapy completed Patient History Healthcare decision maker Resuscitation status Advanced Directive on File Physical Exam Last 24 Hour Vital Signs Date Time Temp Pulse Resp B/P (MAP) Pulse Ox O2 Delivery O2 Flow Rate FiO2 12/20/19 08:00 98.6 67 20 125/60 (81) 96 12/20/19 04:00 98.9 64 18 145/89 (107) 95 12/20/19 04:00 82 12/20/19 00:00 66 12/20/19 00:00 99.3 70 18 128/71 (90) 96 12/19/19 21:00 Room Air 12/19/19 20:00 71 12/19/19 20:00 99.3 66 20 130/65 (86) 96 12/19/19 16:00 73 12/19/19 16:00 98.8 70 20 115/54 (74) 96 Intake and Output 12/19/19 12/20/19 19:00 07:00 # Voids 2 2 Laboratory Tests Test 12/19/19 17:49 12/20/19 05:43 POC Whole Blood Glucose Pending White Blood Count 8.5 K/UL (4.8-10.8) Red Blood Count 3.99 M/UL (4.70-6.10) L Hemoglobin 13.1 G/DL (14.2-18.0) L Hematocrit 40.2 % (42.0-52.0) L Mean Corpuscular Volume 101 FL (80-99) H Mean Corpuscular Hemoglobin 32.9 PG (27.0-31.0) H Mean Corpuscular Hemoglobin Concent 32.6 G/DL (32.0-36.0) Red Cell Distribution Width 14.5 % (11.6-14.8) Platelet Count 102 K/UL (150-450) L Mean Platelet Volume 11.8 FL (6.5-10.1) H Neutrophils (%) (Auto) 69.2 % (45.0-75.0) Lymphocytes (%) (Auto) 7.5 % (20.0-45.0) L Monocytes (%) (Auto) 8.3 % (1.0-10.0) Eosinophils (%) (Auto) 12.2 % (0.0-3.0) H Basophils (%) (Auto) 2.8 % (0.0-2.0) H Sodium Level 142 MMOL/L (136-145) Potassium Level 4.2 MMOL/L (3.5-5.1) Chloride Level 111 MMOL/L (98-107) H Carbon Dioxide Level 25 MMOL/L (21-32) Anion Gap 6 mmol/L (5-15) Blood Urea Nitrogen 17 mg/dL (7-18) Creatinine 0.7 MG/DL (0.55-1.30) Estimat Glomerular Filtration Rate > 60 mL/min (>60) Glucose Level 126 MG/DL (74-106) H Calcium Level 7.6 MG/DL (8.5-10.1) L Height (Feet): 5 Height (Inches): 6.00 Weight (Pounds): 165 Medications Current Medications Medications (Trade) Dose Ordered Sig/Robin Route PRN Reason Start Time Stop Time Status Last Admin Dose Admin Acetaminophen (Tylenol) 650 mg Q4H PRN ORAL fever 12/16/19 23:45 01/15/20 23:44 Albuterol Sulfate (Proventil MDI) 2 puff Q4H PRN INH Shortness of Breath 12/17/19 10:15 03/16/20 10:14 Dextrose (Dextrose 50%) 25 ml Q30M PRN IV Hypoglycemia 12/16/19 23:45 03/15/20 23:44 Dextrose (Dextrose 50%) 50 ml Q30M PRN IV Hypoglycemia 12/16/19 23:45 03/15/20 23:44 Diphenhydramine HCl (Benadryl) 25 mg Q6H PRN ORAL Itching/Pruritis 12/16/19 23:45 01/15/20 23:44 Docusate Sodium (Colace) 100 mg TWICE A DAY ORAL 12/18/19 18:00 01/17/20 17:59 12/20/19 09:12 Heparin Sodium (Porcine) (Heparin 5000 units/ml) 5,000 units EVERY 12 HOURS SUBQ 12/17/19 09:00 01/31/20 08:59 12/20/19 09:16 Insulin Aspart (NovoLOG) EVERY 6 HOURS SUBQ 12/17/19 18:00 03/16/20 06:29 12/18/19 12:26 Levothyroxine Sodium (Synthroid) 25 mcg ACBREAKFAST ORAL 12/17/19 06:30 01/16/20 06:29 12/20/19 05:42 Lorazepam (Ativan) 0.5 mg Q6H PRN ORAL For Anxiety 12/18/19 12:45 12/25/19 12:44 Memantine (Namenda) 5 mg BID GT 12/18/19 18:00 01/17/20 17:59 12/20/19 09:12 Nitroglycerin (Ntg) 0.4 mg Q5M X 3 DOSES PRN SL Prn Chest Pain 12/16/19 23:45 01/15/20 23:44 Nystatin (Nystatin) 5 ml QID ORAL 12/17/19 09:00 12/24/19 08:59 12/20/19 09:12 Ondansetron HCl (Zofran) 4 mg Q6H PRN IVP Nausea & Vomiting 12/16/19 23:45 01/15/20 23:44 Piperacillin Sod/ Tazobactam Sod 3.375 gm/Sodium Chloride 110 ml @ 27.5 mls/hr Q8HR IVPB 12/18/19 12:00 12/25/19 11:59 12/20/19 05:41 Polyethylene Glycol (Miralax) 17 gm BEDTIME ORAL 12/18/19 21:00 01/17/20 20:59 12/19/19 21:18 Risperidone (RisperDAL) 0.25 mg QHS GT 12/17/19 21:00 01/31/20 20:59 12/19/19 21:18 Vancomycin HCl (Vanco pharmacy to dose) 1 ea DAILY PRN MISC Per rx protocol 12/17/19 07:30 01/16/20 07:29 Vancomycin HCl 750 mg/Sodium Chloride 275 ml @ 183.333 mls/hr Q12H IVPB 12/17/19 22:00 12/22/19 21:59 12/20/19 09:18 Zinc Oxide (Zinc Oxide) 1 applic THREE TIMES A DAY PRN TOPIC GT site 12/18/19 12:15 03/17/20 12:14 12/20/19 09:12 Assessment/Plan Assessment/Plan: Hematology Consultation REQ MD: Han Swenson [facility] Thrombocytopenia eval DOS 12/20/[address] Han Swenson to eval for low platelets He is an 79-year-old male sent in from facility for increased drainage from his G-tube. Patient had prior history of G-tube dependence. Had recent positive for coronavirus testing. Was noted to have increased leakage from stoma site. Patient was sent in from facility. I have seen him before, has been seen by several consultants and i have reviewed their notes, today krzysztof rn, noted to have low platelets and heme consulted Allergies: No Known Allergies (Unverified , 01/27/17) COVID-19 Screening Contact w/high risk pt: No Recent Travel to affected area: No Experienced COVID-19 symptoms?: Yes COVID-19 symptoms experienced: Cough COVID-19 Testing performed QA REVIEWER: Yes COVID-19 Screening: Negative COVID-19 COVID-19 Testing Source: 12/12/19 Patient History Past Medical History: see triage record Reviewed Nursing Documentation: PMH: Agreed; PSxH: Agreed Nursing Documentation-PMH Past Medical History: No History, Except For Hx Hypertension: Yes Hx COPD: Yes Hx Diabetes: Yes - DMII Hx Cancer: No Hx Gastrointestinal Problems: Yes Hx Neurological Problems: No Hx Cerebrovascular Accident: Yes Hx Transient Ischemic Attacks: Yes Hx Dementia: Yes Hx Alzheimer's Disease: Yes Hx Aphasia: Yes Review of Systems All Other Systems: negative except mentioned in HPI Physical Exam: Vitals: reviewed General: NAD HEENT: nc, at Neck: supple Chest: clear breath sounds bilaterally Cardiovascular: RRR, no s3, s4 Abdomen: soft, nontender, nd++peg Extremities: no cce, normal range of motion Neuro: alert Labs noted Imaging: reviewed Assessment and Recs # Thrombocytopenia - potential causes multifactorial, evaluate liver and viral etiologies to begin, also could be related to underlying medications patient has received. Is due to covid19++ --> Hep panel and HIV ==> NEG --> US abd to evaluate for cirrhosis and hsm ordered --> ct reviewed and no evidence noted --> Peripheral smear ordered to evaluate for blasts /schistocytes --> abx and other meds have been reviewed --> ok for ppx if plt >50k w/ either heparin or lovenox --> have dw rn and placed order --> Transfuse if Plt < 20k and fever, or if Plt < 10k without fever # Malnutrition s/p Feeding by G-tube --> monitor for infection/replacement as needed # G-tube site cellulitis --> now improved s/p abx --> keflex if needed per id # 2019 novel coronavirus disease (COVID-19) # Emphysematous and interstitial changes at the lung bases. # Cholelithiasis without CT evidence of acute cholecystitis. # Dementia with psychosis # DM # Hypothyroidism # HTN The timing of this note does not necessarily reflect the time of the patient was seen. Greatly appreciate consultation. Isael Dumont MD Dec 20, 2019 12:20
--- NOTE | 2019-12-20 12:26 | Cardiac Electrophysiology PN ---
Subjective Subjective [id number] Objective Last 24 Hour Vital Signs Date Time Temp Pulse Resp B/P (MAP) Pulse Ox O2 Delivery O2 Flow Rate FiO2 12/20/19 08:00 98.6 67 20 125/60 (81) 96 12/20/19 04:00 98.9 64 18 145/89 (107) 95 12/20/19 04:00 82 12/20/19 00:00 66 12/20/19 00:00 99.3 70 18 128/71 (90) 96 12/19/19 21:00 Room Air 12/19/19 20:00 71 12/19/19 20:00 99.3 66 20 130/65 (86) 96 12/19/19 16:00 73 12/19/19 16:00 98.8 70 20 115/54 (74) 96 Intake and Output 12/19/19 12/20/19 19:00 07:00 # Voids 2 2 Laboratory Tests Test 12/19/19 17:49 12/20/19 05:43 POC Whole Blood Glucose Pending White Blood Count 8.5 K/UL (4.8-10.8) Red Blood Count 3.99 M/UL (4.70-6.10) L Hemoglobin 13.1 G/DL (14.2-18.0) L Hematocrit 40.2 % (42.0-52.0) L Mean Corpuscular Volume 101 FL (80-99) H Mean Corpuscular Hemoglobin 32.9 PG (27.0-31.0) H Mean Corpuscular Hemoglobin Concent 32.6 G/DL (32.0-36.0) Red Cell Distribution Width 14.5 % (11.6-14.8) Platelet Count 102 K/UL (150-450) L Mean Platelet Volume 11.8 FL (6.5-10.1) H Neutrophils (%) (Auto) 69.2 % (45.0-75.0) Lymphocytes (%) (Auto) 7.5 % (20.0-45.0) L Monocytes (%) (Auto) 8.3 % (1.0-10.0) Eosinophils (%) (Auto) 12.2 % (0.0-3.0) H Basophils (%) (Auto) 2.8 % (0.0-2.0) H Sodium Level 142 MMOL/L (136-145) Potassium Level 4.2 MMOL/L (3.5-5.1) Chloride Level 111 MMOL/L (98-107) H Carbon Dioxide Level 25 MMOL/L (21-32) Anion Gap 6 mmol/L (5-15) Blood Urea Nitrogen 17 mg/dL (7-18) Creatinine 0.7 MG/DL (0.55-1.30) Estimat Glomerular Filtration Rate > 60 mL/min (>60) Glucose Level 126 MG/DL (74-106) H Calcium Level 7.6 MG/DL (8.5-10.1) L Kevin Cano MD Dec 20, 2019 12:26
[2019-12-20] MEDS ORDERED: CEPHALEXIN500 MG ORAL (12:30)
--- NOTE | 2019-12-20 16:30 | Progress Note ---
DATE: 12/20/2019 SUBJECTIVE: This is an 79-year-old male patient. He continues to be depressed, confused. Still continues to have mood lability. This patient continues to have some mood lability, agitation, irritability, but this patient is in the hospital due to G-tube cellulitis and also COVID positive. He thinks that he is at baseline right now medications. MENTAL STATUS EXAMINATION: This is an 79-year-old male. Appearance is disheveled. Attitude, irritable and agitated. Affect, guarded and restricted. Intellect poor. Mood, depressed and anxious. Motor activity, psychomotor agitation. Insight and judgment is poor. DIAGNOSIS: Paranoid schizophrenia, rule out depression with psychotic features. PLAN: Plan for this patient is to treat him with a medication regimen consisting of Risperdal 0.25 mg per G-tube at bedtime and Ativan 0.5 mg q.6h. p.r.n. anxiety and agitation. Twenty minutes of reality-based supportive psychotherapy provided. Twenty minutes of insight-oriented psychotherapy provided for this patient to help him understand his physical and medical complications so he would have better impulse control, less confusion, and less depression, anxiety. Twenty minutes of insight-oriented psychotherapy provided. Елена Lang M.D. DR: RDAHA JOB#: [id number] CC:
--- NOTE | 2019-12-20 17:00 | Consultation ---
DATE OF CONSULTATION: 12/20/2019 CARDIAC ELECTROPHYSIOLOGY CONSULTATION CONSULTING PHYSICIAN: Kevin Cano MD. REFERRING PHYSICIAN: Han Swenson DO. REASON FOR CONSULTATION: Management of atrial fibrillation. HISTORY OF PRESENT ILLNESS: Patient is an 79-year-old the patient with history of hypertension, diabetes, coronary artery disease, CVA, COPD, dysphagia status post G-tube placement, schizophrenia, dementia, atrial fibrillation as well as resident of a [facility] facility was sent for evaluation of the G-tube leaking. Patient was tested positive for COVID about a month ago even though the last test on 12/12/2019 was negative. Patient was admitted and a Cardiology consultation was obtained as the patient was in atrial fibrillation and has thrombocytopenia. He was on Eliquis. REVIEW OF SYSTEMS: Cannot be obtained as patient has advanced dementia and is nonverbal. PAST MEDICAL HISTORY: As mentioned above. FAMILY HISTORY: Noncontributory. SOCIAL HISTORY: assisted resident. Does not smoke or drink alcohol. MEDICATIONS: Per reconciliation. PHYSICAL EXAMINATION: VITAL SIGNS: Show blood pressure of 120/60, pulse is 80, respirations 18, he is afebrile. HEAD AND NECK: Shows no JVD. LUNGS: Coarse rhonchi. CARDIOVASCULAR: Shows irregular S1 and S2 with no gallop. ABDOMEN: Soft. Status post G-tube. EXTREMITIES: 1+ pitting edema. DIAGNOSTIC DATA: EKG showed atrial fibrillation with controlled ventricular response and nonspecific ST-T wave abnormalities. LABORATORY DATA: Labs show white count 8.5, hemoglobin of 13, hematocrit of 40, and platelet count of 102. Sodium is 142, potassium is 4.2, BUN of 17, creatinine 0.7, and glucose of 126. ASSESSMENT AND PLAN: 1. Atrial fibrillation. The rate is currently controlled and patient is off of any AV ramya blocking agents. I will resume his Eliquis that the patient was on before for thromboembolic prophylaxis. Patient's platelet count has remained 100 and is safe to start Eliquis. 2. Recent COVID-19 pneumonia. His COVID was positive on 11/13/2019, 11/27/2019, 12/07/2019, was negative on 12/12/2019; however, was positive again on 12/17/2019. Further evaluation by ID. 3. G-tube site drainage, infection, and cellulitis. Further evaluation by Dr. Khorrami as well as ID. Patient getting ruled out for bacteremia. Blood cultures have been negative. 4. Diabetes. 5. Dementia and psychosis. 6. MRSA colonization. 7. Hypertension, currently stable. Off antihypertensive agents. 8. History of heart failure. We will get an echocardiogram for further evaluation and management. Actually his preliminary echocardiogram showed EF of 55% to 60%. Thank you very much for allowing me to participate in the care of this patient. Please do not hesitate to contact me for any questions regarding my evaluation. Kevin Cano M.D. DR: STANISLAV JOB#: [id number] CC:
[2019-12-20] MEDS ORDERED: Eliquis 5mg tablet ORAL SCH (18:00)
[2019-12-20] MEDS ORDERED: Albuterol 90mcg Inhaler 8gm INH PRN (20:13)
[2019-12-20] MEDS ORDERED: LORazepam 0.5mg tab ORAL PRN (20:14)
[2019-12-20] MEDS ORDERED: Zinc Oxide Oint 2oz TOPIC PRN (20:15)
[2019-12-20] MEDS ORDERED: Nitroglycerin Subl 0.4mg tab SL PRN (20:15)
[2019-12-20] MEDS: Nystatin Susp 500,000 units/5ml GT SCH (20:20)
[2019-12-20] MEDS: Vancomycin 750 MG in NS 275 ML IVPB SCH (20:21)
[2019-12-20] MEDS ORDERED: LORazepam 0.5mg tab GT PRN (20:30)
[2019-12-20] MEDS ORDERED: DiphenhydrAMINE 25mg/10ml Elixir GT PRN (20:30)
[2019-12-20] MEDS ORDERED: Acetaminophen 650mg/20.3ml GT PRN (20:30)
[2019-12-20] MEDS ORDERED: Miralax 17gm pkt GT SCH (21:00)
[2019-12-20] MEDS: Piperacillin/Tazobactam 3.375 GM in NS 110 ML IVPB SCH (21:57)
[2019-12-21 04:00] VITALS: BP 111/69
[2019-12-21] MEDS: Piperacillin/Tazobactam 3.375 GM in NS 110 ML IVPB SCH ×2 (05:01→13:49)
[2019-12-21] MEDS: NovoLOG Insulin Flexpen SUBQ SCH ×2 (05:49→12:00)
[2019-12-21 06:17] LABS: BASOPHILS % (AUTO) 1.8 % (0.0-2.0); EOSINOPHILS % (AUTO) 14.1 % (0.0-3.0); HEMATOCRIT 40.2 % (42.0-52.0); HEMOGLOBIN 13.2 G/DL (14.2-18.0); LYMPHOCYTES % (AUTO) 8.4 % (20.0-45.0); MEAN CORPUSCULAR VOLUME 100 FL (80-99); MONOCYTES % (AUTO) 8.4 % (1.0-10.0); NEUTROPHILS % (AUTO) 67.3 % (45.0-75.0); PLATELET COUNT 112 K/UL (150-450); RED BLOOD COUNT 4.02 M/UL (4.70-6.10); WHITE BLOOD COUNT 9.2 K/UL (4.8-10.8)
[2019-12-21] MEDS ORDERED: Levothyroxine 25mcg tab GT SCH (06:30)
[2019-12-21 07:13] LABS: ALANINE AMINOTRANSFERASE 15 U/L (12-78); ALBUMIN 1.8 G/DL (3.4-5.0); ALBUMIN/GLOBULIN RATIO 0.4 (1.0-2.7); ALKALINE PHOSPHATASE 247 U/L (46-116); ANION GAP 5 mmol/L (5-15); ASPARTATE AMINO TRANSFERASE 25 U/L (15-37); BILIRUBIN,TOTAL 0.3 MG/DL (0.2-1.0); BLOOD UREA NITROGEN 16 mg/dL (7-18); CALCIUM 7.4 MG/DL (8.5-10.1); CARBON DIOXIDE 27 MMOL/L (21-32); CHLORIDE 107 MMOL/L (98-107); CREATININE 0.8 MG/DL (0.55-1.30); POTASSIUM 4.5 MMOL/L (3.5-5.1); SODIUM 139 MMOL/L (136-145)
[2019-12-21 07:25] LABS: PHOSPHORUS 2.7 MG/DL (2.5-4.9)
[2019-12-21 08:00] VITALS: BP 112/77
[2019-12-21] MEDS ORDERED: Memantine 5 MG TAB GT SCH (09:00)
[2019-12-21] MEDS ORDERED: Eliquis 5mg tablet GT SCH (09:00)
[2019-12-21] MEDS ORDERED: Docusate 100mg/10ml Liq GT SCH (09:00)
[2019-12-21] MEDS: Nystatin Susp 500,000 units/5ml GT SCH ×2 (09:54→13:48)
--- NOTE | 2019-12-21 10:12 | Hematology/Onc Progress Note ---
Assessment/Plan Assessment/Plan Assessment and Recs # Thrombocytopenia - potential causes multifactorial, evaluate liver and viral etiologies to begin, also could be related to underlying medications patient has received. Is due to covid19++ --> Hep panel and HIV ==> NEG --> US abd to evaluate for cirrhosis and hsm ordered --> ct reviewed and no evidence noted --> Peripheral smear ordered to evaluate for blasts /schistocytes --> abx and other meds have been reviewed --> plt 112 --> ok for ppx if plt >50k w/ either heparin or lovenox --> have dw rn and placed order --> Transfuse if Plt < 20k and fever, or if Plt < 10k without fever # Malnutrition s/p Feeding by G-tube --> monitor for infection/replacement as needed # G-tube site cellulitis --> now improved s/p abx vanc/zosyn --> keflex if needed per id # 2019 novel coronavirus disease (COVID-19) # 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 # Cholelithiasis without CT evidence of acute cholecystitis. # Dementia with psychosis # DM # Hypothyroidism # HTN # Dvt ppx apixaban The timing of this note does not necessarily reflect the time of the patient was seen. Greatly appreciate consultation. Subjective Constitutional: Denies: no symptoms, chills, fever, malaise, weakness, other HEENT: Denies: no symptoms, eye pain, blurred vision, tearing, double vision, ear pain, ear discharge, nose pain, nose congestion, throat pain, throat swelling, mouth pain, mouth swelling, other Cardiovascular: Denies: no symptoms, chest pain, edema, irregular heart rate, lightheadedness, palpitations, syncope, other Respiratory: Denies: no symptoms, cough, shortness of breath, SOB with excertion, SOB at rest, sputum, wheezing, other Gastrointestinal/Abdominal: Denies: no symptoms, abdomen distended, abdominal pain, black stools, tarry stools, blood in stool, constipated, diarrhea, difficulty swallowing, nausea, poor appetite, poor fluid intake, rectal bleeding , vomiting, other Allergies: Coded Allergies: No Known Allergies (Unverified , 01/27/17) All Systems: reviewed and negative except above Subjective 12/20 remains nv, with gtube, labs noted, plt 112k Objective Objective Current Medications Medications (Trade) Dose Ordered Sig/Robin Route PRN Reason Start Time Stop Time Status Last Admin Dose Admin Acetaminophen (Tylenol) 650 mg Q4H PRN GT fever 12/20/19 20:30 01/19/20 20:12 Albuterol Sulfate (Proventil MDI) 2 puff Q4H PRN INH Shortness of Breath 12/20/19 20:13 03/19/20 20:12 Apixaban (Eliquis) 5 mg BID GT 12/21/19 09:00 03/19/20 17:59 12/21/19 09:54 Dextrose (Dextrose 50%) 25 ml Q30M PRN IV Hypoglycemia 12/20/19 20:15 03/15/20 23:44 Dextrose (Dextrose 50%) 50 ml Q30M PRN IV Hypoglycemia 12/20/19 20:15 03/15/20 23:44 Diphenhydramine HCl (Benadryl) 25 mg Q6H PRN GT Itching/Pruritis 12/20/19 20:30 01/19/20 20:13 Docusate Sodium (Colace) 100 mg TWICE A DAY GT 12/21/19 09:00 01/17/20 17:59 Insulin Aspart (NovoLOG) EVERY 6 HOURS SUBQ 12/21/19 00:00 03/16/20 06:29 Levothyroxine Sodium (Synthroid) 25 mcg ACBREAKFAST GT 12/21/19 06:30 01/16/20 06:29 12/21/19 05:40 Lorazepam (Ativan) 0.5 mg Q6H PRN GT For Anxiety 12/20/19 20:30 12/27/19 20:13 Memantine (Namenda) 5 mg BID GT 12/21/19 09:00 01/17/20 17:59 12/21/19 09:54 Nitroglycerin (Ntg) 0.4 mg Q5M X 3 DOSES PRN SL Prn Chest Pain 12/20/19 20:15 01/15/20 23:44 Nystatin (Nystatin) 5 ml QID GT 12/20/19 21:00 12/24/19 08:59 12/21/19 09:54 Ondansetron HCl (Zofran) 4 mg Q6H PRN IVP Nausea & Vomiting 12/20/19 20:15 01/19/20 20:14 Piperacillin Sod/ Tazobactam Sod 3.375 gm/Sodium Chloride 110 ml @ 27.5 mls/hr Q8HR IVPB 12/20/19 22:00 12/25/19 11:59 12/21/19 05:01 Polyethylene Glycol (Miralax) 17 gm BEDTIME GT 12/20/19 21:00 01/17/20 20:59 12/20/19 20:20 Risperidone (RisperDAL) 0.25 mg QHS GT 12/20/19 21:00 01/31/20 20:59 12/20/19 20:21 Vancomycin HCl (Vanco pharmacy to dose) 1 ea DAILY PRN MISC Per rx protocol 12/21/19 09:00 01/16/20 07:29 Vancomycin HCl 750 mg/Sodium Chloride 275 ml @ 183.333 mls/hr Q12H IVPB 12/20/19 22:00 12/22/19 21:59 12/20/19 20:21 Zinc Oxide (Zinc Oxide) 1 applic TIDPRN PRN TOPIC GT site 12/20/19 20:15 03/19/20 20:14 Last 24 Hour Vital Signs Date Time Temp Pulse Resp B/P (MAP) Pulse Ox O2 Delivery O2 Flow Rate FiO2 12/21/19 08:00 98.9 71 18 112/77 (89) 96 12/21/19 04:00 98.2 80 20 111/69 (83) 94 12/20/19 23:53 98.0 74 20 118/64 (82) 96 12/20/19 21:38 Room Air 12/20/19 20:00 96.9 76 20 123/63 (83) 98 12/20/19 16:00 61 12/20/19 15:31 98.2 62 20 128/61 (83) 97 12/20/19 12:00 98.9 63 22 130/60 (83) 96 12/20/19 12:00 58 12/20/19 09:00 Room Air 12/20/19 08:00 64 12/20/19 08:00 98.6 67 20 125/60 (81) 96 12/20/19 04:00 98.9 64 18 145/89 (107) 95 12/20/19 04:00 82 12/20/19 00:00 66 12/20/19 00:00 99.3 70 18 128/71 (90) 96 12/19/19 21:00 Room Air 12/19/19 20:00 71 12/19/19 20:00 99.3 66 20 130/65 (86) 96 12/19/19 16:00 73 12/19/19 16:00 98.8 70 20 115/54 (74) 96 12/19/19 12:00 66 12/19/19 11:59 98.2 70 18 118/58 (78) 95 Intake and Output 12/20/19 12/21/19 19:00 07:00 Intake Total 1280.000 ml Balance 1280.000 ml Free Water 240 ml IV Total 440.000 ml Tube Feeding 600 ml # Voids 3 2 # Bowel Movements 1 2 Labs Test 12/18/19 12:22 12/18/19 18:55 12/18/19 20:06 12/18/19 21:00 POC Whole Blood Glucose 149 MG/DL (74-106) 89 MG/DL (74-106) Vancomycin Level Trough 14.1 ug/mL (5.0-12.0) Test 12/19/19 00:43 12/19/19 04:56 12/19/19 06:30 12/19/19 11:50 POC Whole Blood Glucose 103 MG/DL (74-106) 120 MG/DL (74-106) White Blood Count 7.9 K/UL (4.8-10.8) Red Blood Count 4.12 M/UL (4.70-6.10) Hemoglobin 13.5 G/DL (14.2-18.0) Hematocrit 42.0 % (42.0-52.0) Mean Corpuscular Volume 102 FL (80-99) Mean Corpuscular Hemoglobin 32.7 PG (27.0-31.0) Mean Corpuscular Hemoglobin Concent 32.0 G/DL (32.0-36.0) Red Cell Distribution Width 14.2 % (11.6-14.8) Platelet Count 107 K/UL (150-450) Mean Platelet Volume 10.6 FL (6.5-10.1) Neutrophils (%) (Auto) 67.4 % (45.0-75.0) Lymphocytes (%) (Auto) 8.7 % (20.0-45.0) Monocytes (%) (Auto) 10.4 % (1.0-10.0) Eosinophils (%) (Auto) 11.2 % (0.0-3.0) Basophils (%) (Auto) 2.3 % (0.0-2.0) Sodium Level 146 MMOL/L (136-145) Potassium Level 3.9 MMOL/L (3.5-5.1) Chloride Level 114 MMOL/L (98-107) Carbon Dioxide Level 26 MMOL/L (21-32) Anion Gap 6 mmol/L (5-15) Blood Urea Nitrogen 19 mg/dL (7-18) Creatinine 0.8 MG/DL (0.55-1.30) Estimat Glomerular Filtration Rate > 60 mL/min (>60) Glucose Level 118 MG/DL (74-106) Calcium Level 7.5 MG/DL (8.5-10.1) Total Bilirubin 0.4 MG/DL (0.2-1.0) Aspartate Amino Transf (AST/SGOT) 28 U/L (15-37) Alanine Aminotransferase (ALT/SGPT) 17 U/L (12-78) Alkaline Phosphatase 211 U/L (46-116) Total Protein 6.1 G/DL (6.4-8.2) Albumin 1.8 G/DL (3.4-5.0) Globulin 4.3 g/dL Albumin/Globulin Ratio 0.4 (1.0-2.7) Test 12/19/19 17:49 12/20/19 00:29 12/20/19 05:16 12/20/19 05:43 POC Whole Blood Glucose 121 MG/DL (74-106) 124 MG/DL (74-106) White Blood Count 8.5 K/UL (4.8-10.8) Red Blood Count 3.99 M/UL (4.70-6.10) Hemoglobin 13.1 G/DL (14.2-18.0) Hematocrit 40.2 % (42.0-52.0) Mean Corpuscular Volume 101 FL (80-99) Mean Corpuscular Hemoglobin 32.9 PG (27.0-31.0) Mean Corpuscular Hemoglobin Concent 32.6 G/DL (32.0-36.0) Red Cell Distribution Width 14.5 % (11.6-14.8) Platelet Count 102 K/UL (150-450) Mean Platelet Volume 11.8 FL (6.5-10.1) Neutrophils (%) (Auto) 69.2 % (45.0-75.0) Lymphocytes (%) (Auto) 7.5 % (20.0-45.0) Monocytes (%) (Auto) 8.3 % (1.0-10.0) Eosinophils (%) (Auto) 12.2 % (0.0-3.0) Basophils (%) (Auto) 2.8 % (0.0-2.0) Sodium Level 142 MMOL/L (136-145) Potassium Level 4.2 MMOL/L (3.5-5.1) Chloride Level 111 MMOL/L (98-107) Carbon Dioxide Level 25 MMOL/L (21-32) Anion Gap 6 mmol/L (5-15) Blood Urea Nitrogen 17 mg/dL (7-18) Creatinine 0.7 MG/DL (0.55-1.30) Estimat Glomerular Filtration Rate > 60 mL/min (>60) Glucose Level 126 MG/DL (74-106) Calcium Level 7.6 MG/DL (8.5-10.1) HIV (1&2) Antibody Rapid Negative (NEGATIVE) Test 12/20/19 12:33 12/20/19 18:37 12/20/19 23:32 12/21/19 05:12 POC Whole Blood Glucose 135 MG/DL (74-106) 98 MG/DL (74-106) 106 MG/DL (74-106) Test 12/21/19 05:52 White Blood Count 9.2 K/UL (4.8-10.8) Red Blood Count 4.02 M/UL (4.70-6.10) Hemoglobin 13.2 G/DL (14.2-18.0) Hematocrit 40.2 % (42.0-52.0) Mean Corpuscular Volume 100 FL (80-99) Mean Corpuscular Hemoglobin 32.8 PG (27.0-31.0) Mean Corpuscular Hemoglobin Concent 32.8 G/DL (32.0-36.0) Red Cell Distribution Width 14.0 % (11.6-14.8) Platelet Count 112 K/UL (150-450) Mean Platelet Volume 11.1 FL (6.5-10.1) Neutrophils (%) (Auto) 67.3 % (45.0-75.0) Lymphocytes (%) (Auto) 8.4 % (20.0-45.0) Monocytes (%) (Auto) 8.4 % (1.0-10.0) Eosinophils (%) (Auto) 14.1 % (0.0-3.0) Basophils (%) (Auto) 1.8 % (0.0-2.0) Erythrocyte Sedimentation Rate 55 MM/HR (0-20) Sodium Level 139 MMOL/L (136-145) Potassium Level 4.5 MMOL/L (3.5-5.1) Chloride Level 107 MMOL/L (98-107) Carbon Dioxide Level 27 MMOL/L (21-32) Anion Gap 5 mmol/L (5-15) Blood Urea Nitrogen 16 mg/dL (7-18) Creatinine 0.8 MG/DL (0.55-1.30) Estimat Glomerular Filtration Rate > 60 mL/min (>60) Glucose Level 111 MG/DL (74-106) Calcium Level 7.4 MG/DL (8.5-10.1) Phosphorus Level 2.7 MG/DL (2.5-4.9) Magnesium Level 2.2 MG/DL (1.8-2.4) Total Bilirubin 0.3 MG/DL (0.2-1.0) Aspartate Amino Transf (AST/SGOT) 25 U/L (15-37) Alanine Aminotransferase (ALT/SGPT) 15 U/L (12-78) Alkaline Phosphatase 247 U/L (46-116) C-Reactive Protein, Quantitative 2.7 mg/dL (0.00-0.90) Total Protein 6.1 G/DL (6.4-8.2) Albumin 1.8 G/DL (3.4-5.0) Globulin 4.3 g/dL Albumin/Globulin Ratio 0.4 (1.0-2.7) Height (Feet): 5 Height (Inches): 6.00 Weight (Pounds): 165 Objective Physical Exam: Vitals: reviewed General: NAD HEENT: nc, at Neck: supple Chest: clear breath sounds bilaterally Cardiovascular: RRR, no s3, s4 Abdomen: soft, nontender, nd++peg Extremities: no cce, normal range of motion Neuro: alert Isael Dumont MD Dec 21, 2019 10:12
[2019-12-21] MEDS: Vancomycin 750 MG in NS 275 ML IVPB SCH (10:14)
--- NOTE | 2019-12-21 11:54 | General Progress Note ---
Assessment/Plan Problem List: (1) 2019 novel coronavirus disease (COVID-19) ICD Codes: U07.1 - COVID-19; L03.319 - Cellulitis of trunk, unspecified SNOMED: 068513206, 614851837 (2) G-tube site cellulitis ICD Codes: K94.22 - Gastrostomy infection; L03.319 - Cellulitis of trunk, unspecified SNOMED: 133524725, 231026331 (3) Nosocomial pneumonia ICD Codes: J18.9 - Pneumonia, unspecified organism; Y95 - Nosocomial condition SNOMED: 063596762 (4) Dementia with psychosis ICD Codes: F03.91 - Unspecified dementia with behavioral disturbance SNOMED: 95107051, 89216851 (5) Diabetes mellitus ICD Codes: E11.9 - Type 2 diabetes mellitus without complications SNOMED: 36017423 (6) Alzheimer's disease ICD Codes: G30.9 - Alzheimer's disease, unspecified; F02.80 - Dementia in other diseases classified elsewhere without behavioral disturbance SNOMED: 93963367 Status: stable, progressing Assessment/Plan: pt diet abx wound care dc if clear Subjective Constitutional: Reports: weakness Allergies: Coded Allergies: No Known Allergies (Unverified , 01/27/17) All Systems: reviewed and negative except above Subjective sleepy in bed Objective Last 24 Hour Vital Signs Date Time Temp Pulse Resp B/P (MAP) Pulse Ox O2 Delivery O2 Flow Rate FiO2 12/21/19 08:00 98.9 71 18 112/77 (89) 96 12/21/19 04:00 98.2 80 20 111/69 (83) 94 12/20/19 23:53 98.0 74 20 118/64 (82) 96 12/20/19 21:38 Room Air 12/20/19 20:00 96.9 76 20 123/63 (83) 98 12/20/19 16:00 61 12/20/19 15:31 98.2 62 20 128/61 (83) 97 12/20/19 12:00 98.9 63 22 130/60 (83) 96 12/20/19 12:00 58 Intake and Output 12/20/19 12/21/19 19:00 07:00 Intake Total 1280.000 ml Balance 1280.000 ml Free Water 240 ml IV Total 440.000 ml Tube Feeding 600 ml # Voids 3 2 # Bowel Movements 1 2 Laboratory Tests 12/20/19 12:33: POC Whole Blood Glucose 135H 12/20/19 18:37: POC Whole Blood Glucose 98 12/20/19 23:32: POC Whole Blood Glucose 106 12/21/19 05:12: POC Whole Blood Glucose [Pending] 12/21/19 05:52: White Blood Count 9.2, Red Blood Count 4.02L, Hemoglobin 13.2L, Hematocrit 40.2L , Mean Corpuscular Volume 100H, Mean Corpuscular Hemoglobin 32.8H, Mean Corpuscular Hemoglobin Concent 32.8, Red Cell Distribution Width 14.0, Platelet Count 112L, Mean Platelet Volume 11.1H, Neutrophils (%) (Auto) 67.3, Lymphocytes (%) (Auto) 8.4L, Monocytes (%) (Auto) 8.4, Eosinophils (%) (Auto) 14.1H, Basophils (%) (Auto) 1.8, Erythrocyte Sedimentation Rate 55H, Sodium Level 139, Potassium Level 4.5, Chloride Level 107, Carbon Dioxide Level 27, Anion Gap 5, Blood Urea Nitrogen 16, Creatinine 0.8, Estimat Glomerular Filtration Rate > 60, Glucose Level 111H, Calcium Level 7.4L, Phosphorus Level 2.7, Magnesium Level 2.2, Total Bilirubin 0.3, Aspartate Amino Transf (AST/SGOT ) 25, Alanine Aminotransferase (ALT/SGPT) 15, Alkaline Phosphatase 247H, C- Reactive Protein, Quantitative 2.7H, Total Protein 6.1L, Albumin 1.8L, Globulin 4.3, Albumin/Globulin Ratio 0.4L Height (Feet): 5 Height (Inches): 6.00 Weight (Pounds): 165 General Appearance: lethargic EENT: normal ENT inspection Neck: normal alignment Cardiovascular: normal rate, regular rhythm Respiratory/Chest: no respiratory distress, no accessory muscle use Extremities: normal inspection Skin: normal pigmentation Han Swenson DO Dec 21, 2019 11:54
--- NOTE | 2019-12-21 11:59 | General Progress Note ---
Assessment/Plan Problem List: (1) Feeding by G-tube ICD Codes: Z93.1 - Gastrostomy status SNOMED: 758057651, 986173024, 200205460 (2) Interstitial lung disease ICD Codes: J84.9 - Interstitial pulmonary disease, unspecified SNOMED: 252804034 (3) Alzheimer's disease ICD Codes: G30.9 - Alzheimer's disease, unspecified; F02.80 - Dementia in other diseases classified elsewhere without behavioral disturbance SNOMED: 62699596 (4) Diabetes mellitus ICD Codes: E11.9 - Type 2 diabetes mellitus without complications SNOMED: 44833493 (5) G-tube site cellulitis ICD Codes: K94.22 - Gastrostomy infection; L03.319 - Cellulitis of trunk, unspecified SNOMED: 262909735, 001713345 Status: stable, progressing Assessment/Plan: GTF abx per ID local GT site care bowel regimen fu LFTS increase TF to 65 cc per dietitian recommendations Subjective ROS Limited/Unobtainable: No Allergies: Coded Allergies: No Known Allergies (Unverified , 01/27/17) Objective Last 24 Hour Vital Signs Date Time Temp Pulse Resp B/P (MAP) Pulse Ox O2 Delivery O2 Flow Rate FiO2 12/21/19 08:00 98.9 71 18 112/77 (89) 96 12/21/19 04:00 98.2 80 20 111/69 (83) 94 12/20/19 23:53 98.0 74 20 118/64 (82) 96 12/20/19 21:38 Room Air 12/20/19 20:00 96.9 76 20 123/63 (83) 98 12/20/19 16:00 61 12/20/19 15:31 98.2 62 20 128/61 (83) 97 12/20/19 12:00 98.9 63 22 130/60 (83) 96 12/20/19 12:00 58 Intake and Output 12/20/19 12/21/19 19:00 07:00 Intake Total 1280.000 ml Balance 1280.000 ml Free Water 240 ml IV Total 440.000 ml Tube Feeding 600 ml # Voids 3 2 # Bowel Movements 1 2 Laboratory Tests 12/20/19 12:33: POC Whole Blood Glucose 135H 12/20/19 18:37: POC Whole Blood Glucose 98 12/20/19 23:32: POC Whole Blood Glucose 106 12/21/19 05:12: POC Whole Blood Glucose [Pending] 12/21/19 05:52: White Blood Count 9.2, Red Blood Count 4.02L, Hemoglobin 13.2L, Hematocrit 40.2L , Mean Corpuscular Volume 100H, Mean Corpuscular Hemoglobin 32.8H, Mean Corpuscular Hemoglobin Concent 32.8, Red Cell Distribution Width 14.0, Platelet Count 112L, Mean Platelet Volume 11.1H, Neutrophils (%) (Auto) 67.3, Lymphocytes (%) (Auto) 8.4L, Monocytes (%) (Auto) 8.4, Eosinophils (%) (Auto) 14.1H, Basophils (%) (Auto) 1.8, Erythrocyte Sedimentation Rate 55H, Sodium Level 139, Potassium Level 4.5, Chloride Level 107, Carbon Dioxide Level 27, Anion Gap 5, Blood Urea Nitrogen 16, Creatinine 0.8, Estimat Glomerular Filtration Rate > 60, Glucose Level 111H, Calcium Level 7.4L, Phosphorus Level 2.7, Magnesium Level 2.2, Total Bilirubin 0.3, Aspartate Amino Transf (AST/SGOT ) 25, Alanine Aminotransferase (ALT/SGPT) 15, Alkaline Phosphatase 247H, C- Reactive Protein, Quantitative 2.7H, Total Protein 6.1L, Albumin 1.8L, Globulin 4.3, Albumin/Globulin Ratio 0.4L Height (Feet): 5 Height (Inches): 6.00 Weight (Pounds): 165 General Appearance: no apparent distress EENT: normal ENT inspection Neck: supple Cardiovascular: normal rate Respiratory/Chest: decreased breath sounds Abdomen: normal bowel sounds, non tender, soft Extremities: non-tender Randall Torres MD Dec 21, 2019 11:59
[2019-12-21 12:00] VITALS: BP 119/79
--- NOTE | 2019-12-21 12:17 | Pulmonology Progress Note ---
Subjective ROS Limited/Unobtainable: No Constitutional: Reports: no symptoms HEENT: Repors: no symptoms Allergies: Coded Allergies: No Known Allergies (Unverified , 01/27/17) All Systems: reviewed and negative except above Objective Last 24 Hour Vital Signs Date Time Temp Pulse Resp B/P (MAP) Pulse Ox O2 Delivery O2 Flow Rate FiO2 12/21/19 09:00 Room Air 12/21/19 08:00 98.9 71 18 112/77 (89) 96 12/21/19 04:00 98.2 80 20 111/69 (83) 94 12/20/19 23:53 98.0 74 20 118/64 (82) 96 12/20/19 21:38 Room Air 12/20/19 20:00 96.9 76 20 123/63 (83) 98 12/20/19 16:00 61 12/20/19 15:31 98.2 62 20 128/61 (83) 97 Intake and Output 12/20/19 12/21/19 19:00 07:00 Intake Total 1280.000 ml Balance 1280.000 ml Free Water 240 ml IV Total 440.000 ml Tube Feeding 600 ml # Voids 3 2 # Bowel Movements 1 2 General Appearance: WD/WN HEENT: normocephalic, atraumatic Respiratory: chest wall non-tender, lungs clear, no respiratory distress Cardiovascular: normal peripheral pulses, regular rhythm Abdomen: normal bowel sounds, no organomegaly Genitourinary: normal external genitalia Extremities: no clubbing 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, alert Lymphatic: no groin adenopathy Musculoskeletal: normal muscle bulk Laboratory Tests 12/20/19 12:33: POC Whole Blood Glucose 135H 12/20/19 18:37: POC Whole Blood Glucose 98 12/20/19 23:32: POC Whole Blood Glucose 106 12/21/19 05:12: POC Whole Blood Glucose [Pending] 12/21/19 05:52: White Blood Count 9.2, Red Blood Count 4.02L, Hemoglobin 13.2L, Hematocrit 40.2L , Mean Corpuscular Volume 100H, Mean Corpuscular Hemoglobin 32.8H, Mean Corpuscular Hemoglobin Concent 32.8, Red Cell Distribution Width 14.0, Platelet Count 112L, Mean Platelet Volume 11.1H, Neutrophils (%) (Auto) 67.3, Lymphocytes (%) (Auto) 8.4L, Monocytes (%) (Auto) 8.4, Eosinophils (%) (Auto) 14.1H, Basophils (%) (Auto) 1.8, Erythrocyte Sedimentation Rate 55H, Sodium Level 139, Potassium Level 4.5, Chloride Level 107, Carbon Dioxide Level 27, Anion Gap 5, Blood Urea Nitrogen 16, Creatinine 0.8, Estimat Glomerular Filtration Rate > 60, Glucose Level 111H, Calcium Level 7.4L, Phosphorus Level 2.7, Magnesium Level 2.2, Total Bilirubin 0.3, Aspartate Amino Transf (AST/SGOT ) 25, Alanine Aminotransferase (ALT/SGPT) 15, Alkaline Phosphatase 247H, C- Reactive Protein, Quantitative 2.7H, Total Protein 6.1L, Albumin 1.8L, Globulin 4.3, Albumin/Globulin Ratio 0.4L Current Medications Medications (Trade) Dose Ordered Sig/Robin Route PRN Reason Start Time Stop Time Status Last Admin Dose Admin Acetaminophen (Tylenol) 650 mg Q4H PRN GT fever 12/20/19 20:30 01/19/20 20:12 Albuterol Sulfate (Proventil MDI) 2 puff Q4H PRN INH Shortness of Breath 12/20/19 20:13 03/19/20 20:12 Apixaban (Eliquis) 5 mg BID GT 12/21/19 09:00 03/19/20 17:59 12/21/19 09:54 Dextrose (Dextrose 50%) 25 ml Q30M PRN IV Hypoglycemia 12/20/19 20:15 03/15/20 23:44 Dextrose (Dextrose 50%) 50 ml Q30M PRN IV Hypoglycemia 12/20/19 20:15 03/15/20 23:44 Diphenhydramine HCl (Benadryl) 25 mg Q6H PRN GT Itching/Pruritis 12/20/19 20:30 01/19/20 20:13 Docusate Sodium (Colace) 100 mg TWICE A DAY GT 12/21/19 09:00 01/17/20 17:59 Insulin Aspart (NovoLOG) EVERY 6 HOURS SUBQ 12/21/19 00:00 03/16/20 06:29 Levothyroxine Sodium (Synthroid) 25 mcg ACBREAKFAST GT 12/21/19 06:30 01/16/20 06:29 12/21/19 05:40 Lorazepam (Ativan) 0.5 mg Q6H PRN GT For Anxiety 12/20/19 20:30 12/27/19 20:13 Memantine (Namenda) 5 mg BID GT 12/21/19 09:00 01/17/20 17:59 12/21/19 09:54 Nitroglycerin (Ntg) 0.4 mg Q5M X 3 DOSES PRN SL Prn Chest Pain 12/20/19 20:15 01/15/20 23:44 Nystatin (Nystatin) 5 ml QID GT 12/20/19 21:00 12/24/19 08:59 12/21/19 09:54 Ondansetron HCl (Zofran) 4 mg Q6H PRN IVP Nausea & Vomiting 12/20/19 20:15 01/19/20 20:14 Piperacillin Sod/ Tazobactam Sod 3.375 gm/Sodium Chloride 110 ml @ 27.5 mls/hr Q8HR IVPB 12/20/19 22:00 12/25/19 11:59 12/21/19 05:01 Polyethylene Glycol (Miralax) 17 gm BEDTIME GT 12/20/19 21:00 01/17/20 20:59 12/20/19 20:20 Risperidone (RisperDAL) 0.25 mg QHS GT 12/20/19 21:00 01/31/20 20:59 12/20/19 20:21 Vancomycin HCl (Vanco pharmacy to dose) 1 ea DAILY PRN MISC Per rx protocol 12/21/19 09:00 01/16/20 07:29 Vancomycin HCl 750 mg/Sodium Chloride 275 ml @ 183.333 mls/hr Q12H IVPB 12/20/19 22:00 12/22/19 21:59 12/21/19 10:14 Zinc Oxide (Zinc Oxide) 1 applic TIDPRN PRN TOPIC GT site 12/20/19 20:15 03/19/20 20:14 Assessment/Plan Problems: (1) 2019 novel coronavirus disease (COVID-19) (2) Nosocomial pneumonia (3) Bullous emphysema (4) Interstitial lung disease (5) G-tube site cellulitis (6) COPD (chronic obstructive pulmonary disease) (7) Diabetes mellitus (8) MRSA nasal colonization (9) Alzheimer's disease (10) Dementia with psychosis (11) Feeding by G-tube Assessment/Plan continue isolation , fup with another COVID 19 O2 titrate to keep sat above 90%, pulm toilet shaylee YOUSSEFI DVT prophylaxis aspir precautions abx as per ID recs fup with cx G tube site care BS management with SSI dc planning in progress. Fco León MD Dec 21, 2019 12:17
--- NOTE | 2019-12-21 12:45 | Progress Note ---
DATE: 12/21/2019 SUBJECTIVE: This is an 79-year-old male with G-tube cellulitis and he is also COVID positive, but he has altered mental status, confusion, and decline in cognition below his baseline. That is why, his attending has requested daily psychiatric consultation. He has hematuria, MRSA, diabetes, and Alzheimer's disease, but he has got decline in cognition below his baseline and mood lability. That is why, his attending has requested daily psychiatric consultation. MENTAL STATUS EXAMINATION: This is an 79-year-old male. His appearance is disheveled. Attitude, irritable and agitated. Affect, guarded and restricted. Intellect, poor. Mood, depressed and anxious. Motor activity, psychomotor agitation. Attention span is poor. Orientation x2. Speech is low volume, slurred. Thought process, disorganized and illogical. Insight and judgment is poor. DIAGNOSIS: Paranoid schizophrenia with acute exacerbation, rule out depression with psychotic features, rule out dementia with psychosis. PLAN: Plan for this patient is to treat him with a medication regimen consisting of Risperdal 0.25 mg per G-tube nightly as well as well as Namenda 5 mg per G-tube twice a day, and Ativan 0.5 mg per G-tube every six hours p.r.n. anxiety or agitation. A 20 minutes of cognitive behavioral therapy will help him identify his automatic negative thoughts and help him convert negative thoughts to more positive thoughts to reduce depression, anxiety, and mood lability. Chart reviewed and discussed with staff. Seen and assessed at bedside. Елена Lang M.D. DR: BRIANDA JOB#: [id number] CC:
--- NOTE | 2019-12-21 15:02 | Cardiac Electrophysiology PN ---
Assessment/Plan Assessment/Plan 1. Atrial fibrillation. The rate is currently controlled off of any AV ramya blocking agents. On Eliquis 5 bid. 2. Recent COVID-19 pneumonia. His COVID was positive on 11/13/2019, 11/27/2019, 12/07/2019, was negative on 12/12/2019; however, was positive again on 12/17/2019. Further evaluation by ID. 3. G-tube site drainage, infection, and cellulitis. Further evaluation by Dr. White as well as ID. Patient getting ruled out for bacteremia. Blood cultures have been negative. 4. Diabetes. 5. Dementia and psychosis. 6. MRSA colonization. 7. Hypertension, currently stable. Off antihypertensive agents. 8. History of heart failure. Echocardiogram showed EF of 55% to 60%. VERA RN Subjective Subjective Comfortable in NAD. Is being DCed to [facility] Objective Last 24 Hour Vital Signs Date Time Temp Pulse Resp B/P (MAP) Pulse Ox O2 Delivery O2 Flow Rate FiO2 12/21/19 12:00 98.1 81 18 119/79 (92) 98 12/21/19 09:00 Room Air 12/21/19 08:00 98.9 71 18 112/77 (89) 96 12/21/19 04:00 98.2 80 20 111/69 (83) 94 12/20/19 23:53 98.0 74 20 118/64 (82) 96 12/20/19 21:38 Room Air 12/20/19 20:00 96.9 76 20 123/63 (83) 98 12/20/19 16:00 61 12/20/19 15:31 98.2 62 20 128/61 (83) 97 Intake and Output 12/20/19 12/21/19 19:00 07:00 Intake Total 1280.000 ml Balance 1280.000 ml Free Water 240 ml IV Total 440.000 ml Tube Feeding 600 ml # Voids 3 2 # Bowel Movements 1 2 Laboratory Tests Test 12/20/19 18:37 12/20/19 23:32 12/21/19 05:12 12/21/19 05:52 POC Whole Blood Glucose 98 MG/DL (74-106) 106 MG/DL (74-106) Pending White Blood Count 9.2 K/UL (4.8-10.8) Red Blood Count 4.02 M/UL (4.70-6.10) L Hemoglobin 13.2 G/DL (14.2-18.0) L Hematocrit 40.2 % (42.0-52.0) L Mean Corpuscular Volume 100 FL (80-99) H Mean Corpuscular Hemoglobin 32.8 PG (27.0-31.0) H Mean Corpuscular Hemoglobin Concent 32.8 G/DL (32.0-36.0) Red Cell Distribution Width 14.0 % (11.6-14.8) Platelet Count 112 K/UL (150-450) L Mean Platelet Volume 11.1 FL (6.5-10.1) H Neutrophils (%) (Auto) 67.3 % (45.0-75.0) Lymphocytes (%) (Auto) 8.4 % (20.0-45.0) L Monocytes (%) (Auto) 8.4 % (1.0-10.0) Eosinophils (%) (Auto) 14.1 % (0.0-3.0) H Basophils (%) (Auto) 1.8 % (0.0-2.0) Erythrocyte Sedimentation Rate 55 MM/HR (0-20) H Sodium Level 139 MMOL/L (136-145) Potassium Level 4.5 MMOL/L (3.5-5.1) Chloride Level 107 MMOL/L (98-107) Carbon Dioxide Level 27 MMOL/L (21-32) Anion Gap 5 mmol/L (5-15) Blood Urea Nitrogen 16 mg/dL (7-18) Creatinine 0.8 MG/DL (0.55-1.30) Estimat Glomerular Filtration Rate > 60 mL/min (>60) Glucose Level 111 MG/DL (74-106) H Calcium Level 7.4 MG/DL (8.5-10.1) L Phosphorus Level 2.7 MG/DL (2.5-4.9) Magnesium Level 2.2 MG/DL (1.8-2.4) Total Bilirubin 0.3 MG/DL (0.2-1.0) Aspartate Amino Transf (AST/SGOT) 25 U/L (15-37) Alanine Aminotransferase (ALT/SGPT) 15 U/L (12-78) Alkaline Phosphatase 247 U/L (46-116) H C-Reactive Protein, Quantitative 2.7 mg/dL (0.00-0.90) H Total Protein 6.1 G/DL (6.4-8.2) L Albumin 1.8 G/DL (3.4-5.0) L Globulin 4.3 g/dL Albumin/Globulin Ratio 0.4 (1.0-2.7) L Test 12/21/19 12:25 POC Whole Blood Glucose 95 MG/DL (74-106) Objective HEAD AND NECK: Shows no JVD. LUNGS: Coarse rhonchi. CARDIOVASCULAR: Shows irregular S1 and S2 with no gallop. ABDOMEN: Soft. Status post G-tube. EXTREMITIES: 1+ pitting edema. Kevin Cano MD Dec 21, 2019 15:02
--- NOTE | 2019-12-25 12:24 | Discharge Summary ---
Discharge Summary Discharge Summary _ DATE OF ADMISSION: 12/16/2019 DATE OF DISCHARGE: 12/21/2019 DISCHARGED BY: Dr Swenson REASON FOR ADMISSION: 79 y/old male with PMH of CVA, COPD, hypertension, CAD, DM type 2, dysphagia, feeding by G-tube, schizophrenia, dementia, resident of [facility] facility, was sent for evaluation due to leaking G-tube. Patient apparently about a month ago was tested positive for COVID 19, last testing 12/11 was negative. Upon evaluation patient was afebrile , pulse oximetry was 90% on room air. Laboratory work-up revealed significant leukocytosis WBC 21.2, stable hemoglobin , hematocrit. Platelet count 115 BUN 38, creatinine 1.0 Glucose 177. Stable electrolytes. Lactic acid 1.6. AST 58, ALT 29, alkaline phosphatase 280. Troponin negative. Albumin 2.6. Stable amylase and lipase. Urinalysis revealed +2 protein , no evidence of urinary tract infection. CXR demonstrated coarse bilateral interstitial lung markings, suggesting chronic interstitial lung disease. Asymmetric increased density of the left lung, no significant change as compared to prior imaging and probably sequela of chronic interstitial lung disease. Underlying concomitant infection was not excluded. CT of the abdomen and pelvis revealed emphysematous and interstitial changes in the lung bases. Cholelithiasis without evidence of acute cholecystitis. Impacted stool within the rectum G-tube positioned within the gastric antrum. Mild gastric mucosal thickening : underdistention versus gastritis In emergency room patient received fluids, empiric antibiotics and admitted for further management. CONSULTANTS: rn cardiovascular Dr. Fong maintenance planner Dr León ID specialist Dr. Austin GI specialist Dr. Torres hotel services supervisor/oncologist Dr. Dumont psychiatrist Dr. Lang [facility]: Patient admitted and started on IV fluids and empiric antibiotics. Repeated COVID-19 by PCR on 12/16 was positive. Isolation continued. Supplemental oxygen provided to keep pulse oximetry above 92%. Pulmonary toilet provided. Patient was followed-up with chest x-ray. Antibiotic provided as per ID specialist recommendation. Blood cultures were negative. ID specialist recommended to change IV antibiotic to oral upon discharge to complete the course of treatment at the facility. [employer] seen patient for atrial fibrillation. Patient was taken off any AV ramya blocking agents. Anticoagulation with Eliquis continued. Blood pressure remained stable . Patient was off any antihypertensive at this time. Echocardiogram revealed preserved ejection fraction 55 to 60%; no evidence of wall motion abnormality. No evidence of left ventricular hypertrophy. Strict aspiration precaution maintained. Tube feeding formula with goal rate and protein supplements provided as per registered dietitian recommendation. Local G-tube site care provided as per GI specialist recommendation. Initially elevated AST down to normal. ALT remained stable. Hepatitis panel was negative. HIV test was nonreactive. Renal parameters and electrolytes were closely monitored. BUN from 38 down to 16 and creatinine remained stable. Acute kidney injury resolved; was likely due to prerenal azotemia secondary to dehydration. Counts were closely monitored. Hemoglobin and hematocrit remained at baseline. Platelet count remained at baseline as well , prior to discharge 112. Psychiatric medication regimen was optimized as per psychiatrist. Reality orientation and supportive therapy provided. Initial leukocytosis of 21.2 resolved. No fevers. G tube working properly, no leakage. Patient clinically stabilized and was ready for discharge to [facility] facility to continue antibiotics to complete the course as per ID specialist recommendation FINAL DIAGNOSES: Sepsis Recent COVID-19 pneumonia Possible pneumonia Malfunctioning G-tube/leaking Cellulitis G-tube site Bullous emphysema Interstitial lung disease COPD Atrial fibrillation Dysphagia, feeding by G-tube History of CVA Thrombocytopenia Alzheimer dementia with psychosis Hypertension Diabetes mellitus ANGELA Protein calorie malnutrition Paranoid schizophrenia with acute exacerbation DISCHARGE MEDICATIONS: See Medication Reconciliation list. DISCHARGE INSTRUCTIONS: Patient was discharged to the [facility] facility. Follow up with medical doctor at the facility. I have been assigned to dictate discharge summary for this account. Mirtha Brito NP Dec 25, 2019 12:24
== END 2019-12-21 15:24 | DRG 871 ==
LOC: EDUNIT# 18:50 → EDBD 18:50 → EMR 21:03 → EDBEDREQSVC 21:05 → UNDOADMIN 21:07 → 2W 21:07 → 2E 21:07 → EDBEDREQ 12-17 00:29 → 4E 12-20 19:54
DX: A41.9 Sepsis, unspecified organism (principal); J18.9 Pneumonia, unspecified organism; K94.23 Gastrostomy malfunction; N17.9 Acute kidney failure, unspecified; E46 Unspecified protein-calorie malnutrition; L03.311 Cellulitis of abdominal wall; F20.0 Paranoid schizophrenia; J84.9 Interstitial pulmonary disease, unspecified; Y83.3 Surgical operation with formation of external stoma as the cause of abnormal reaction of the patient, or of later complication, without mention of misadventure at the time of the procedure; Z68.25 Body mass index [BMI] 25.0-25.9, adult; Y95 Nosocomial condition; Z86.19 Personal history of other infectious and parasitic diseases; G30.9 Alzheimer's disease, unspecified; F02.80 Dementia in other diseases classified elsewhere, unspecified severity, without behavioral disturbance, psychotic disturbance, mood disturbance, and anxiety; Z79.01 Long term (current) use of anticoagulants; Z79.4 Long term (current) use of insulin; Z22.322 Carrier or suspected carrier of Methicillin resistant Staphylococcus aureus; K80.20 Calculus of gallbladder without cholecystitis without obstruction; D69.6 Thrombocytopenia, unspecified; E11.9 Type 2 diabetes mellitus without complications; I25.10 Atherosclerotic heart disease of native coronary artery without angina pectoris; Z86.73 Personal history of transient ischemic attack (TIA), and cerebral infarction without residual deficits; I48.91 Unspecified atrial fibrillation; F41.9 Anxiety disorder, unspecified; J43.9 Emphysema, unspecified; R13.10 Dysphagia, unspecified
CPT/HCPCS: 36415; 71045; 74176; 80048; 80053; 80202; 81003; 82150; 82550; 82553; 82962; 83036; 83605; 83690; 83735; 84100; 84443; 84484; 85007; 85025; 85610; 85651; 85730; 86140; 86703; 86705; 86709; 86803; 87040; 87081; 87340; 93005; 93306; 96365; 97803; 99285; J1815